=== PATIENT | male | born 1950 | race Caucasian/White ===

== ENCOUNTER 2019-07-15 07:23 | Outpatient (RCR) | payer MEDICARE, SELFPAY ==
--- NOTE | 2019-05-06 10:09 | P.PNWOUND_ITS ---
Wound Care Note Date/Time: 05/06/19 10:09
--- NOTE | 2019-05-06 10:09 | WPDWOUNDNOTE ---
Wound Care Note Date/Time: 05/06/19 10:09
--- NOTE | 2019-05-06 10:13 | P.PNWOUND_ITS ---
Wound Care Note Date/Time: 05/06/19 10:13 History: [facility] wound clinic evaluation for chronic, recurrent right heel DFU and left plantar athlete's foot Wound approximation: No Wound width: 0.5cm Wound length: 1.4cm Wound depth: 0.2cm Drainage: Scant serousanguinous Surrounding tissue appearance: No redness, warmth, swelling or signs of active infection. Tunneling: None Percentage granulation tissue: 100% red/pink wound bed Treatment/Procedures: Debridement of surrounding callused tissue performed under sterile conditions with #15 blade knife, tolerated well. Assessment and Plan Assessment and plan (1) Diabetic foot ulcer: Qualifiers: Diabetic foot ulcer location: heel Diabetes mellitus type: type 2 Laterality: right Non-pressure ulcer stage: limited to breakdown of skin Qualified Code(s): E11.621 - Type 2 diabetes mellitus with foot ulcer; L97.411 - Non-pressure chronic ulcer of right heel and midfoot limited to breakdown of skin Code(s): E11.621 - Type 2 diabetes mellitus with foot ulcer; L97.509 - Non-pressure chronic ulcer of other part of unspecified foot with unspecified severity Status: Acute Assessment and Plan: [facility] wound clinic evaluation for right plantar heel ulcer. Ulcer today measures 1.4x0.5x0.2cm, 100% red/pink wound bed. Surrounding callus/devitalized tissue debrided under sterile conditions with #15 blade knife, tolerated well. No signs of active infection. Continue dressing changes M, T, W, F with regranex, endoform and cover dry with foam. Home health to perform dressing changes MWF. Continue PWB with fracture boot. Follow up in 1 week for reassessment. (2) Athletes foot: Qualifiers: Laterality: left Qualified Code(s): B35.3 - Tinea pedis Code(s): B35.3 - Tinea pedis Status: Acute Assessment and Plan: Peeling/flaky/mascerated tissue on the plantar aspect of the left foot consistent with Athlete's foot due to fungal infection. Improvement with antifungal powder daily. Continue current dressing orders. Follow up weekly. Debridement/Burn/Wound Pre Procedure Consent was obtained, Procedures/risks were explained, Questions were answered, Correct patient identified and Correct side and site confirmed Episode Return Visit Area was prepped and draped using sterile technique?: Yes Ulcer/Wound Debridement, skin, first 20 sq cm or less: Yes Right Wound Location: heel Dressing Applied antibiotic ointment and Applied sterile dressing Post Procedure Patient tolerated the procedure well?: Tolerated procedure well
--- NOTE | 2019-05-13 11:24 | WPDWOUNDNOTE ---
Wound Care Note Date/Time: 05/13/19 11:24 History: Right Heel DFU Left Plantar Atheletes Foot Dressings: Right heel ulcer measures 1.3x0.4x0.2cm, 100% red/pink wound bed. Continue regranex, endoform and cover with foam. Continue Home Health with dressing changes three times weekly. Assessment and Plan Assessment and plan (1) Diabetic foot ulcer: Qualifiers: Diabetic foot ulcer location: heel Diabetes mellitus type: type 2 Laterality: right Non-pressure ulcer stage: limited to breakdown of skin Qualified Code(s): E11.621 - Type 2 diabetes mellitus with foot ulcer; L97.411 - Non-pressure chronic ulcer of right heel and midfoot limited to breakdown of skin Code(s): E11.621 - Type 2 diabetes mellitus with foot ulcer; L97.509 - Non-pressure chronic ulcer of other part of unspecified foot with unspecified severity Status: Acute Assessment and Plan: [facility] wound clinic evaluation for right plantar heel ulcer. Ulcer today measures 1.3x0.4x0.2cm, 100% red/pink wound bed. No signs of active infection. Continue dressing changes M, W, F with regranex, endoform and cover dry with foam. Home health to perform dressing changes MWF. Continue PWB with fracture boot. Follow up in 2 weeks for reassessment. (2) Athletes foot: Qualifiers: Laterality: left Qualified Code(s): B35.3 - Tinea pedis Code(s): B35.3 - Tinea pedis Status: Acute Assessment and Plan: Peeling/flaky/mascerated tissue on the plantar aspect of the left foot consistent with Athlete's foot due to fungal infection. Improvement with antifungal powder daily. Continue current dressing orders. Follow up in 2 weeks. Review of Systems Const Reports as per HPI, Denies chills, Denies fatigue, Denies headache(s), Denies night sweats, Denies weakness, Denies weight gain and Denies weight loss Eyes Reports no additional eye complaints and Denies eye discharge ENT Reports system reviewed and no additional complaints, except as documented, Reports hearing normal, Denies dizziness, Denies headache(s) and Denies neck pain Card Reports no additional cardiovascular complaints, Denies chest pain, Denies syncope, Denies dyspnea and Denies dyspnea on exertion Resp Reports no additional respiratory complaints, Denies dyspnea, Denies dyspnea on exertion and Denies wheezing GI Reports no additional gastrointestinal complaints, Denies abdominal pain, Denies diarrhea and Denies nausea Reports no additional male genitourinary complaints, Denies difficulty urinating, Denies urinary frequency and Denies urinary urgency Musc Reports as per HPI and Denies neck pain Skin/Breast Reports system reviewed and no additional complaints, except as docu Neuro Reports as per HPI, Reports Normal hearing present, Denies dizziness, Denies syncope, Denies headache(s), Denies weakness and Reports other (neuropathy ) Psych Reports no additional psychiatric complaints Endo Reports no additional endocrine complaints, Denies fatigue and Reports other (Diabetes ) Juanito/Lymph Reports no additional hematologic/lymphatic complaints Aller/Immun Reports no additional allergic/immunologic complaints and Denies wheezing Exam Const Constitutional General: healthy appearing; No in distress or confused Orientation/consciousness: oriented to person, oriented to place, oriented to time and No confused HENMT Head: normal to inspection, normocephalic and atraumatic Eyes Conjunctivae: Yes conjunctivae normal Sclera: sclerae normal Neck Neck: Yes supple and No tender Resp Effort & Inspection: normal respiratory effort and no audible wheezes Cardio Rate: Yes regular rate Rhythm: regular rhythm Skin General skin exam: no rashes or lesions noted Neuro General: Yes oriented to person, Yes oriented to place, Yes oriented to time and No confusion Extrem Right upper extremity: normal to inspection Left upper extremity: normal to inspection Other: right heel ulcer improved in overal
--- NOTE | 2019-05-27 09:18 | PCWOUND ---
Patient did not show up for his appointment. Call was made to [facility], spoke with Eva who states that patients' name was crossed off the bus list for today. Rescheduled for next week 06/03/19 at 0900.
--- NOTE | 2019-06-03 08:56 | WPDWOUNDNOTE ---
Wound Care Note Date/Time: 06/03/19 08:56 Right Heel DFU Left Plantar Atheletes Foot Dressings: Right heel ulcer measures 1.3x0.4x0.2cm, 100% red/pink wound bed. Continue regranex, endoform and cover with foam. Continue Home Health with dressing changes three times weekly. Assessment and Plan Assessment and plan (1) Diabetic foot ulcer: Qualifiers: Diabetic foot ulcer location: heel Diabetes mellitus type: type 2 Laterality: right Non-pressure ulcer stage: limited to breakdown of skin Qualified Code(s): E11.621 - Type 2 diabetes mellitus with foot ulcer; L97.411 - Non-pressure chronic ulcer of right heel and midfoot limited to breakdown of skin Code(s): E11.621 - Type 2 diabetes mellitus with foot ulcer; L97.509 - Non-pressure chronic ulcer of other part of unspecified foot with unspecified severity Status: Acute Assessment and Plan: [facility] wound clinic evaluation for right plantar heel ulcer. Ulcer today measures 0.7x0.3x0.2cm, 100% red/pink wound bed. No signs of active infection. Continue dressing changes M, W, F with regranex, endoform and cover dry with foam. Home health to perform dressing changes MWF. Continue PWB with fracture boot. Follow up in 2 weeks for reassessment. Patient requires custom fabricated orthosis. The patient is unable to be fit with a pre fabricated orthosis. Patient's condition is expected duration of greater than 1 year. Due to the patients orthopedic status with bone and soft tissue deformity, weakness, neurologic involvement custom fabricating is necessary to prevent tissue injury. The patient requires a custom orthosis for diabetes with neuropathy/previous toe ampuations. Currently awaiting sign off from Dr. Lu, PCP. Jerry contacted and requested that appropriate PPW be faxed to Dr. Lu for his planned visit today. All information should then be faxed to Jerry in order to set patient up for an appointment to have custom orthotics/depth shoes fabricated. (2) Athletes foot: Qualifiers: Laterality: left Qualified Code(s): B35.3 - Tinea pedis Code(s): B35.3 - Tinea pedis Status: Acute Assessment and Plan: Peeling/flaky tissue on the plantar aspect of the left foot consistent with Athlete's foot due to fungal infection. Improvement with antifungal powder daily. Now that skin is dry, transition to lotion. Patient aware and states he has antifungal lotion at home. Continue current dressing orders. Follow up in 2 weeks. Exam Const Constitutional General: healthy appearing; No in distress or confused Orientation/consciousness: oriented to person, oriented to place, oriented to time and No confused HENMT Head: normal to inspection, normocephalic and atraumatic Eyes Conjunctivae: Yes conjunctivae normal Sclera: sclerae normal Neck Neck: Yes supple and No tender Resp Effort & Inspection: normal respiratory effort and no audible wheezes Cardio Rate: Yes regular rate Rhythm: regular rhythm Skin General skin exam: no rashes or lesions noted Neuro General: Yes oriented to person, Yes oriented to place, Yes oriented to time and No confusion Extrem Right upper extremity: normal to inspection Left upper extremity: normal to inspection Other: Right heel ulcer measures 0.7x0.3x0.2cm, 100% red/pink wound bed. Athlete's foot on the plantar aspect of the LEFT foot. Diabetic Foot Exam Date of last foot exam: 06/03/19 Visual inspection of feet performed: Yes Inspection: Yes foot deformity (Calcaneus bilaterally, amputation lateral rays left foot) and Yes ulceration ( right plantar heel, ulcer dimensions in wound section ) Peripheral pulse exam performed: Yes Pulses: L dorsalis pedis pulse: diminished, R dorsalis pedis pulse: diminished, L posterior tibial pulse: diminished and R posterior tibial pulse: diminished Sensory exam performed: Yes Monofilament Exam: L 1st metatarsals: decreased, L 3rd metatarsals: decreased, L great toe: decreased, L 3rd
--- NOTE | 2019-07-01 09:37 | WPDWOUNDNOTE ---
Wound Care Note Date/Time: 07/01/19 09:37 Right Heel DFU Left Plantar Atheletes Foot Dressings: Right heel ulcer measures 0.5x0.3x0.3 cm, 100% red/pink wound bed. Continue Regranex, endoform and cover with foam. Continue Home Health with dressing changes three times weekly. Assessment and Plan Assessment and plan (1) Diabetic foot ulcer: Qualifiers: Diabetic foot ulcer location: heel Diabetes mellitus type: type 2 Laterality: right Non-pressure ulcer stage: limited to breakdown of skin Qualified Code(s): E11.621 - Type 2 diabetes mellitus with foot ulcer; L97.411 - Non-pressure chronic ulcer of right heel and midfoot limited to breakdown of skin Code(s): E11.621 - Type 2 diabetes mellitus with foot ulcer; L97.509 - Non-pressure chronic ulcer of other part of unspecified foot with unspecified severity Status: Acute Assessment and Plan: [facility] wound clinic evaluation for right plantar heel ulcer. Ulcer today measures 0.5x0.3x0.3cm, 100% red/pink wound bed. No signs of active infection. Continue dressing changes M, W, F with regranex, endoform and cover dry with foam. Home health to perform dressing changes MWF. Continue PWB with fracture boot. Follow up in 2 weeks for reassessment. (2) Athletes foot: Qualifiers: Laterality: left Qualified Code(s): B35.3 - Tinea pedis Code(s): B35.3 - Tinea pedis Status: Acute Assessment and Plan: Continue antifungal lotion daily. Follow up in 2 weeks. Exam Const Constitutional General: healthy appearing; No in distress or confused Orientation/consciousness: oriented to person, oriented to place, oriented to time and No confused [facility] Head: normal to inspection, normocephalic and atraumatic Eyes Conjunctivae: Yes conjunctivae normal Sclera: sclerae normal Neck Neck: Yes supple and No tender Resp Effort & Inspection: normal respiratory effort and no audible wheezes Cardio Rate: Yes regular rate Rhythm: regular rhythm Skin General skin exam: no rashes or lesions noted Neuro General: Yes oriented to person, Yes oriented to place, Yes oriented to time and No confusion Extrem Right upper extremity: normal to inspection Left upper extremity: normal to inspection Other: Right heel ulcer measures 0.5x0.3x0.3cm, 100% red/pink wound bed. Athlete's foot on the plantar aspect of the LEFT foot. Diabetic Foot Exam Date of last foot exam: 07/01/19 Visual inspection of feet performed: Yes Inspection: Yes foot deformity (Calcaneus bilaterally, amputation lateral rays left foot) and Yes ulceration ( right plantar heel, ulcer dimensions in wound section ) Peripheral pulse exam performed: Yes Pulses: L dorsalis pedis pulse: diminished, R dorsalis pedis pulse: diminished, L posterior tibial pulse: diminished and R posterior tibial pulse: diminished Sensory exam performed: Yes Monofilament Exam: L 1st metatarsals: decreased, L 3rd metatarsals: decreased, L great toe: decreased, L 3rd toe: decreased, L 5th toe: decreased, L medial mid foot: decreased, L lateral mid-foot: decreased, L mid-heel: decreased, L mid-dorsum foot: decreased, R 1st metatarsals: decreased, R 3rd metatarsals: decreased, R 5th metatarsals: decreased, R great toe: decreased, R 3rd toe: decreased, R 5th toe: decreased, R medial mid foot: decreased, R lateral mid-foot: decreased and R mid-heel: decreased Monofilament foot exam results: Left foot: abnormal and Right foot: abnormal Pinprick: L great toe: abnormal and R great toe: abnormal Ankle reflex: Left: abnormal and Right: abnormal Diabetic foot care education: provided Psych Affect: Yes normal affect Review of Systems Const Reports as per HPI, Denies chills, Denies fatigue, Denies headache(s), Denies night sweats, Denies weakness, Denies weight gain and Denies weight loss Eyes Reports no additional eye complaints and Denies eye discharge ENT Reports system reviewed and no additional complaints, except as documented, Reports heari
--- NOTE | 2019-07-15 11:21 | WPDWOUNDNOTE ---
Wound Care Note Date/Time: 07/15/19 11:21 Right Heel DFU Left Plantar Atheletes Foot Dressings: Right heel ulcer now completely closed, 100% red/pink wound bed. Continue with foam of right heel. Continue Home Health with dressing changes x1 week and then stop. Assessment and Plan Assessment and plan (1) Diabetic foot ulcer: Qualifiers: Diabetic foot ulcer location: heel Diabetes mellitus type: type 2 Laterality: right Non-pressure ulcer stage: limited to breakdown of skin Qualified Code(s): E11.621 - Type 2 diabetes mellitus with foot ulcer; L97.411 - Non-pressure chronic ulcer of right heel and midfoot limited to breakdown of skin Code(s): E11.621 - Type 2 diabetes mellitus with foot ulcer; L97.509 - Non-pressure chronic ulcer of other part of unspecified foot with unspecified severity Status: Acute Assessment and Plan: [facility] wound clinic evaluation for right plantar heel ulcer. Ulcer today now completely healed. No signs of infection. Continue use of foam to the heel for additional pressure offloading. Home health to perform dressing changes 2 times this week and then may stop visits. Continue PWB with fracture boot. Patient needs to be fit with custom orthotics/depth shoes. Need to verify with PCP that patient has been approved. 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 Follow up in 3 weeks for reassessment. (2) Athletes foot: Qualifiers: Laterality: left Qualified Code(s): B35.3 - Tinea pedis Code(s): B35.3 - Tinea pedis Status: Acute Assessment and Plan: Continue lotrisone lotion. Follow up in 3 weeks. Exam Const Constitutional General: healthy appearing; No in distress or confusion Orientation/consciousness: oriented to person, oriented to place, oriented to time and No confusion HENMT Head: normal to inspection, normocephalic and atraumatic Eyes Conjunctivae: Yes conjunctivae normal Sclera: sclerae normal Neck Neck: Yes supple and No tender Resp Effort & Inspection: normal respiratory effort and no audible wheezes Cardio Rate: Yes regular rate Rhythm: regular rhythm Skin General skin exam: no rashes or lesions noted Neuro General: Yes oriented to person, Yes oriented to place, Yes oriented to time and No confusion Extrem Right upper extremity: normal to inspection Left upper extremity: normal to inspection Other: Right heel ulcer completely healed Athlete's foot on the plantar aspect of the LEFT foot. Diabetic Foot Exam Visual inspection of feet performed: Yes Inspection: Yes foot deformity (Calcaneus bilaterally, amputation lateral rays left foot) and Yes ulceration ( right plantar heel, ulcer dimensions in wound section ) Peripheral pulse exam performed: Yes Pulses: Left dorsalis pedis peripheral pulse: diminished, Right dorsalis pedis peripheral pulse: diminished, L posterior tibial pulse: diminished and Right posterior tibial pulse foot exam: diminished Sensory exam performed: Yes Monofilament Exam: L 1st metatarsals: decreased, Left 3rd metatarsals monofilament exam: decreased, L great toe: decreased, L 3rd toe: decreased, L 5th toe: decreased, Left medial mid foot: decreased, Left lateral mid-foot: decreased, Left mid-heel: decreased, Left mid-dorsum foot: decreased, R 1st metatarsals: decreased, R 3rd metatarsals: decreased, R 5th metatarsals: decreased, R great toe: decreased, R 3rd toe: decreased, R 5th toe: decreased, Right medial mid foot: decreased, Right lateral mid-foot: decreased and Right mid-heel: decreased Monofilament foot exam results: Left foot: abnormal and Right foot: abnormal Pinprick: L great toe: abnormal and R great toe: abnormal Ankle reflex: Left: abnormal and Right: abnormal Diabetic foot care education: provided Psych Affect: Yes normal affect Review of Systems Const Reports as per HPI, Denies chills, Denies fatigue, Denies headache(s), Denies night sweats, Denies weakness, Denies weight gain and Denie
== END 2019-07-28 23:59 | disposition home or self-care (01) ==
LOC: ANHWOC 07:23
PROVIDERS: PCP Family Medicine; Referring Provider Nurse Practitioner Family; Visit Provider Nurse Practitioner Family
DX: E11.621 Type 2 diabetes mellitus with foot ulcer (principal); L97.529 Non-pressure chronic ulcer of other part of left foot with unspecified severity; L97.519 Non-pressure chronic ulcer of other part of right foot with unspecified severity; E11.65 Type 2 diabetes mellitus with hyperglycemia; E13.610 Other specified diabetes mellitus with diabetic neuropathic arthropathy; B35.3 Tinea pedis
CPT/HCPCS: 11043; 92593; 97602; 99202; 99212; G0463

== ENCOUNTER 2019-08-05 09:15 | Outpatient (RCR) | payer MEDICARE, SELFPAY ==
--- NOTE | 2019-08-05 09:59 | PM.PNORT ---
Progress Note: A&P Assessment and Plan (1) Diabetic foot ulcer: Qualifiers: Diabetic foot ulcer location: heel Diabetes mellitus type: type 2 Laterality: right Non-pressure ulcer stage: limited to breakdown of skin Qualified Code(s): E11.621 - Type 2 diabetes mellitus with foot ulcer; L97.411 - Non-pressure chronic ulcer of right heel and midfoot limited to breakdown of skin Code(s): E11.621 - Type 2 diabetes mellitus with foot ulcer; L97.509 - Non-pressure chronic ulcer of other part of unspecified foot with unspecified severity Status: Acute Assessment and Plan: Right heel diabetic foot ulcer with callus formation. Callus debrided today with 15 blade knife under sterile conditions. Discussed medical necessity for custom inserts and accommodative shoes. Continue with postoperative shoe in the interim. Follow up in 2 months for re-evaluation. Notify office immediately for any concerns, changes or problems. 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 Notify office immediately for any concerns or changes. Patient medically necessary for custom inserts and accommodative shoes bilaterally. Medically necessary for custom prosthetic fit and fabrication. Patient condition requires custom fitting due to bone, joint, musculoskeletal deformity. Unable to fit with [id number] brace. Patient condition will be improved with bracing. Condition likely to deteriorate without custom support Indicated for custom bilateral full-length custom insert with right heel offload and accommodative shoes Subjective Subjective Date/Time Seen: 08/05/19 09:15 Patient presents to the [facility] wound clinic for re-evaluation of right foot. No reports of drainage, redness or swelling. No pain secondary to neuropathy. Patient is still waiting to get custom inserts and shoes. No other complaints. Review of Systems Constitutional: Constitutional: Denies fever(s) Eyes: Eyes: Reports blurry vision and Reports loss of vision ENT: Reports Normal hearing present Cardiovascular: Cardiovascular: Denies chest pain and Denies dyspnea Respiratory: Respiratory: Denies dyspnea and Denies wheezing Gastrointestinal: Gastrointestinal: Denies abdominal pain Genitourinary: Genitourinary: Denies urinary urgency Musculoskeletal: Musculoskeletal: Reports as per HPI and Reports numbness (Bilateral feet) Integumentary/Breasts: Skin/Breast: Reports other (Callus right heel) Neurologic: Reports Normal hearing present, Denies behavioral changes, Denies confusion, Reports numbness and Denies convulsions Psychiatric: Psychiatric: Denies behavioral changes, Denies confusion and Denies hallucinations Endocrine: Endocrine: Denies heat intolerance Hematologic/Lymphatic: Hematologic/Lymphatic: Denies easy bleeding Allergic/Immunologic: Allergic/Immunologic: Denies wheezing Exam Const: General: healthy appearing; No in distress or confusion Orientation/consciousness: oriented to person, oriented to place, oriented to time and No confusion HENMT: Head: normal to inspection, normocephalic and atraumatic Eyes: Conjunctivae: conjunctivae normal Sclera: sclerae normal Neck: Neck: supple and nontender Resp: Effort & Inspection: normal respiratory effort and no audible wheezes Cardio: Rate: regular rate Rhythm: regular rhythm Skin: General skin exam: no rashes or lesions noted Neuro: General: oriented to person, oriented to place, oriented to time and No confusion Extrem: Right upper extremity: normal to inspection Left upper extremity: normal to inspection Ankle/foot/toe images: 1.
== END 2019-10-20 09:19 | disposition home or self-care (01) ==
LOC: ANHWOC 09:15
PROVIDERS: PCP Family Medicine; Visit Provider Nurse Practitioner Family
DX: E11.621 Type 2 diabetes mellitus with foot ulcer (principal); L97.419 Non-pressure chronic ulcer of right heel and midfoot with unspecified severity
CPT/HCPCS: 11043

== ENCOUNTER 2020-04-22 08:05 | Inpatient (IN) | payer MEDICARE, MEDICAID, SELFPAY ==
[2020-04-22] VITALS (36 sets, daily range): BP systolic 71–142; BP diastolic 36–98; PULSE 77–109; RESP 9–32; TEMP 36.3–37.2; O2SAT 86–100
--- NOTE | ~2020-04-22 | XR_ITS ---
EXAMINATION: XR chest 2V 04/24/2020 13:24 INDICATION: Preop. History of diabetes. PROCEDURE: 2 view chest COMPARISON: Comparison to multiple prior studies sequentially, with oldest reviewed study dated 03/26. FINDINGS: The lungs are clear. The cardiomediastinal silhouette is within normal limits. There are no pleural effusions. There is no pneumothorax suspected. IMPRESSION: 1: NO ACUTE CARDIOPULMONARY DISEASE. Reviewed, dictated and finalized at location A.
--- NOTE | ~2020-04-22 | CT_ITS ---
EXAMINATION: CT abdomen pelvis w con DATE: 04/22/2020 09:27 INDICATION: Abdominal pain. TECHNIQUE: Computed tomography (CT) of the abdomen and pelvis was performed with 100 mL Omnipaque 350 intravenous contrast. Automated exposure control and iterative reconstruction technique were employe d. The dose-length product was 2038.19 mGy-cm. COMPARISON: None. FINDINGS: The visualized portions of the lung bases demonstrate mild atelectasis. No pleural effusion . The heart size is normal. No pericardial effusion. There is bilateral gynecomastia. The liver and s pleen are normal. There is a gallstone in the gallbladder, which is normal in size. There are calcifi cations of the pancreas, consistent with chronic sinusitis. The adrenal glands are normal. There is c ortical thinning of the kidneys. There is a right inguinal hernia containing fat. There is wall thick ening of the rectosigmoid. There is a focal area of wall thickening of the sigmoid colon with an endo luminal component. There are no dilated loops of bowel. The appendix is not visualized. There are no pathologically enlarged lymph nodes. There is no free intraperitoneal fluid. There is an old healed r ight rib fracture. IMPRESSION: 1. Focal wall thickening of the sigmoid colon with an endoluminal component suspicious for primary ad enocarcinoma. Colonoscopy is recommended. 2. Mild wall thickening of the rectosigmoid, consistent with colitis. 3. Right inguinal hernia containing fat. Reviewed, dictated and finalized at location A. IMPRESSION: 1. Focal wall thickening of the sigmoid colon with an endoluminal component gaurav picious for primary adenocarcinoma. Colonoscopy is recommended. 2. Mild wall thickening of the rectosigmoid, consistent with colitis. 3. Right inguinal hernia containing fat.
--- NOTE | ~2020-04-22 | XR_ITS ---
XR foot RT min 3V 04/24/2020 12:28 Indication: Right foot pain. Left heel mass with tenderness. Procedure: 4 views right foot Comparison: Comparison to multiple prior studies sequentially, with oldest reviewed study dated Flash rison to multiple prior studies sequentially, with oldest reviewed study dated 10/07/2014. . Findings: There is polyarticular osteoarthritis. There is amputation of the first toe at the distal p halanx. There are large osteophytes of the calcaneus at the insertion of the Achilles tendon and plan tar fascia. No significant soft tissue abnormality. No radiopaque foreign bodies. 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 2: Large calcaneal enthesophytes. 3: Status post amputation right first distal phalanx. Reviewed, dictated and finalized at location A. 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 2: Large calcaneal enthesophytes. 3: Status post amputation right first distal phalanx.
--- NOTE | 2020-04-22 08:12 | ECG_ITS ---
Measurements Intervals Anthony Rate: 96 P: 34 OK: 147 QRS: 82 QRSD: 138 T: 15 QT: 370 QTc: 468 Interpretive Statements SINUS RHYTHM RIGHT BUNDLE BRANCH BLOCK BASELINE ARTIFACT- I, II, III, AVR, V3-V6 ABNORMAL ECG Electronically Signed On 04-22-2020 9:33:40 CDT by Viraj Joaquin D.O.
--- NOTE | 2020-04-22 08:19 | ED.GENADULT ---
HPI - General Adult General Chief complaint: Nausea/Vomiting/Diarrhea Stated complaint: ABD PAIN Time Seen by Provider: 04/22/20 08:07 Source: patient History of Present Illness HPI narrative: Patient is a 69 y/o male complaining of intermittent, generalized abdominal pain for last 2 days. He describes his pain as sharp and rates it 8/10 when it occurs. He attempted to turn to side, which did not relieve his pain. He also has some vomiting and diarrhea. Related Data Home Medications Medication Instructions Recorded Confirmed aspirin 81 mg PO DAILY 04/18/19 04/18/19 atorvastatin 20 mg PO HS 04/18/19 04/18/19 citalopram 20 mg PO DAILY 04/18/19 04/18/19 duloxetine [Cymbalta] 30 mg PO DAILY 04/18/19 04/18/19 fenofibrate 160 mg PO DAILY 04/18/19 04/18/19 insulin glargine 100 unit SUBCUT DAILY 04/18/19 04/18/19 melatonin 10 mg PO HS 04/18/19 04/18/19 mgikcjax-lan-nlnqt-vit K-lycop 1 tablet PO DAILY 04/18/19 05/13/19 [Men's Multivitamin] docusate sodium [Colace] 50 mg PO BID 04/22/20 dulaglutide [Trulicity] 1.5 mg SUBCUT WEEKLY 04/22/20 ergocalciferol (vitamin D2) 50,000 unit PO 04/22/20 [Vitamin D2] insulin glargine [Lantus Solostar 60 unit SUBCUT QAM 04/22/20 U-100 Insulin] insulin lispro [Humalog Clive 3 unit SUBCUT 04/22/20 04/22/20 KwikPen U-100] lisinopril 10 mg PO DAILY 04/22/20 multivitamin [Family Multivitamin] 1 tablet PO DAILY 04/22/20 Allergies Allergy/AdvReac Type Severity Reaction Status Date / Time sitagliptin Allergy Severe Confusion Verified 04/22/20 08:43 Review of Systems Constitutional: Constitutional: Denies chills, Denies fever(s), Denies headache(s) and Denies weakness Eyes: Eyes: Denies blurry vision ENT: Denies headache(s) and Denies neck pain Cardiovascular: Cardiovascular: Denies chest pain and Denies dyspnea Respiratory: Respiratory: Denies cough and Denies dyspnea Gastrointestinal: Gastrointestinal: Reports abdominal pain, Reports diarrhea, Reports nausea and Reports vomiting Genitourinary: Genitourinary: Denies hematuria and Denies dysuria Musculoskeletal: Musculoskeletal: Denies back pain and Denies neck pain Neurologic: Denies headache(s) and Denies weakness PMFSH Past Medical History Medical History 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, managed as type 2 Diabetic foot ulcer Neuropathic arthritis due to secondary diabetes Social History Social History Smoking status: Never smoker Exam Const: General: no acute distress and well developed Orientation/consciousness: oriented to person, oriented to place, oriented to time and patient oriented x3 HENMT: Head: normocephalic Ears: external ears normal General nose exam: Normal external nose present Eyes: General: appearance normal, both eyes and all related structures Conjunctivae: conjunctivae normal Neck: Neck: normal visual inspection and full ROM Chest: Chest palpation & inspection: normal inspection of the chest and no tenderness Resp: Effort & Inspection: normal respiratory effort Auscultation: clear to auscultation bilaterally Cardio: Rate: regular rate Rhythm: regular rhythm GI: GI Palp: No abdominal tenderness and Yes Soft to palpation Skin: General skin exam: normal color and turgor normal Neuro: General: oriented to person, oriented to place, oriented to time and patient oriented x3 Cognition (Neuro): normal cognition Extrem: General: normal to inspection, full ROM and no pedal edema Psych: Appearance: grossly normal Mental Status: mental status grossly normal Affect: normal affect Course Consultations Consultation #1: Discussed with Dr. Munson (hospitalist), who agrees to admit. Date: 04/22/20 Time: 09:53 Consultation #2: Discussed with Dr. Paul (GI), who agrees to consult. Date: 04/22/20 Time: 09:58 Vital Signs Vital signs: Vital Signs Pulse Rate 97 04/22/20 08:14 Respi
[2020-04-22 08:31] LABS: Basophils Absolute Auto 0.1 K/mm3 (0.0-0.1); Basophils Percent Auto 0.5 % (0.2-1.2); Eosinophils Absolute Auto 0.3 K/mm3 (0-0.3); Eosinophils Percent Auto 1.6 % (0-4.4); Hematocrit 48.7 % (42.0-52.0); Hemoglobin 15.7 g/dL (14.0-18.0); Immature Granulocyte Absolute 0.17 K/mm3 (0.00-0.031); Lymphocytes Absolute Auto 2.06 K/mm3 (0.9-3.2); Lymphocytes Percent Auto 12.1 % (18.3-44.2); Mean Corpuscular HGB Conc 32.2 g/dl (32-36); Mean Corpuscular Hemoglobin 30.1 pg (26-34); Mean Corpuscular Volume 93.5 fl (80-100); Mean Platelet Volume 10.1 fl (7.4-10.4); Monocytes Absolute Auto 0.6 K/mm3 (0.1-0.6); Monocytes Percent Auto 3.3 % (2.6-8.5); Neutrophils Absolute Auto 13.9 K/mm3 (1.3-6.7); Neutrophils Percent Auto 81.5 % (45.5-73.1); Platelet Count Result 392 k/mm3 (150-375); Red Blood Count 5.21 M/mm3 (4.6-6.20); Red Cell Distribution Width 12.6 % (11.5-14.5); White Blood Count 17.1 K/mm3 (4.5-10.0)
[2020-04-22 08:36] LABS: Add Urine Microscopic? YES; Appearance Urine Clear (Clear); Bilirubin Urine Negative (Negative); Blood Urine Negative (Negative); Color Urine Yellow (Yellow); Glucose Urine UA 2+ mg/dL (Negative); Ketones Urine Negative (Negative); Leukocyte Esterase Ur Negative LEU/UL (Negative); Mucus Urine Rare /lpf; Nitrate Urine Negative (Negative); Protein Urine Negative (Negative); RBC Urine 0-2 /hpf (0-2); Specific Grav Ur 1.018 (1.001-1.035); WBC Urine 0-3 /hpf
[2020-04-22 08:45] LABS: Alanine Aminotransferase 49 U/L (4-50); Albumin Level 3.9 g/dL (3.5-5.1); Alkaline Phosphatase 56 U/L (38-126); Anion Gap 13 mmol/L (8-16); Aspartate Amino Transferase 57 U/L (17-59); Blood Urea Nitrogen 33 mg/dL (9-20); Calcium 9.7 mg/dL (8.4-10.2); Carbon Dioxide 25 mmol/L (22-30); Chloride 100 mmol/L (98-107); Estimated CRCL calculation 40 ml/min; Estimated Glomerular Filt Rate 33; Glucose 155 mg/dL (75-110); Lipase 496 U/L (23-300); Sodium 138 mmol/L (137-145)
[2020-04-22] MEDS: SODIUM CHLORIDE 0.9% IV 1,000 ML 999 ML IV CONT ×3 (09:43→17:27)
[2020-04-22] MEDS: metroNIDAZOLE 500 MG/ISO 100ML 500 MG/100 ML BAG 100 MG IVPB (10:22)
[2020-04-22] MEDS: CIPROFLOXACIN 400 MG/D5W 200ML 200 ML 200 MG IVPB (10:23)
--- NOTE | 2020-04-22 11:54 | WPDGICN ---
Assessment and Plan Assessment and plan (1) Abnormal CT scan: Code(s): R93.89 - Abnormal findings on diagnostic imaging of other specified body structures Status: Acute Assessment and Plan: Patient has abnormal CT scan suspicious for colon mass. This appears to correlate with his difficulty with bowel habits. He may have a partial obstruction. Plan is to attempt laxative cleansing with enemas and then a subsequent colonoscopy tomorrow after preparation. Continue monitor hemoglobin in the antrum. (2) Diabetes 1.5, managed as type 2: Code(s): E13.9 - Other specified diabetes mellitus without complications Status: Acute (3) Diabetic foot ulcer: Qualifiers: Diabetic foot ulcer location: heel Diabetes mellitus type: type 2 Laterality: right Non-pressure ulcer stage: limited to breakdown of skin Qualified Code(s): E11.621 - Type 2 diabetes mellitus with foot ulcer; L97.411 - Non-pressure chronic ulcer of right heel and midfoot limited to breakdown of skin Code(s): E11.621 - Type 2 diabetes mellitus with foot ulcer; L97.509 - Non-pressure chronic ulcer of other part of unspecified foot with unspecified severity Status: Acute GI Consult Note Consult date/time: 04/22/20 11:54 HPI: Kojo Quispe is a 69 year old male I am asked to see at the request of the emergency room. Patient presents with a 2-3 day history of abdominal pain. His bowel habits have changed. He states he strains with stool. Will occasionally have diarrhea stool. This has been associated with some nausea. Denies any bleeding or weight loss. In the emergency room a CT scan was performed which revealed a question of a distal rectal sigmoid mass suspicious for carcinoma. Past medical history is significant for diabetes mellitus. He has had appy taken as several toes on this basis. 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, managed as type 2 Diabetic foot ulcer Neuropathic arthritis due to secondary diabetes Social History Social History Smoking status: Never smoker Meds Home Medications and Allergies Home Medications Medication Instructions Recorded Confirmed Type aspirin 81 mg PO DAILY 04/18/19 04/18/19 History atorvastatin 20 mg PO HS 04/18/19 04/18/19 History citalopram 20 mg PO DAILY 04/18/19 04/18/19 History duloxetine [Cymbalta] 30 mg PO DAILY 04/18/19 04/18/19 History fenofibrate 160 mg PO DAILY 04/18/19 04/18/19 History insulin glargine 100 unit SUBCUT DAILY 04/18/19 04/18/19 History melatonin 10 mg PO HS 04/18/19 04/18/19 History rywnjznq-pix-gmtju-vit K-lycop 1 tablet PO DAILY 04/18/19 05/13/19 History [Men's Multivitamin] docusate sodium [Colace] 50 mg PO BID 04/22/20 History dulaglutide [Trulicity] 1.5 mg SUBCUT WEEKLY 04/22/20 History ergocalciferol (vitamin D2) 50,000 unit PO 04/22/20 History [Vitamin D2] insulin glargine [Lantus Solostar 60 unit SUBCUT QAM 04/22/20 History U-100 Insulin] insulin lispro [Humalog Clive 3 unit SUBCUT 04/22/20 04/22/20 History KwikPen U-100] lisinopril 10 mg PO DAILY 04/22/20 History multivitamin [Family Multivitamin] 1 tablet PO DAILY 04/22/20 History Allergies Allergy/AdvReac Type Severity Reaction Status Date / Time sitagliptin Allergy Severe Confusion Verified 04/22/20 08:43 Vital Signs Vital Signs - 24 hr 04/22/20 08:14 04/22/20 08:15 04/22/20 08:17 Temperature 98.9 F Pulse Rate 97 101 H 92 Respiratory Rate 16 15 22 H Blood Pressure 114/61 Pulse Oximetry 100 95 94 04/22/20 08:26 04/22/20 08:30 04/22/20 08:31 Temperature Pulse Rate 102 H 109 H 107 H Respiratory Rate 28 H 25 H 29 H Blood Pressure 101/81 127/85 Pulse Oximetry 97 98 97 10
[2020-04-22] MEDS: SODIUM CHLORIDE 0.9% IV 1,000 ML 125 ML IV CONT (13:25)
--- NOTE | 2020-04-22 14:06 | PC.NURSE ---
BP 80/36 [facility] NOTIFIED AND NEW ORDERS RECEIVED
--- NOTE | 2020-04-22 14:11 | PC.NURSE ---
low BP noted 80/36 manual, pt is asymptomatic, denies any light headedness, is in his normal state of orientation, denies anything
--- NOTE | 2020-04-22 14:30 | PM.IMHP ---
H&P: HPI History of Present Illness Date/Time: 04/22/20 14:30 Chief complaint: Abdominal discomfort. Narrative: Kojo Quispe is a 69-year-old male with chronic kidney disease stage 3, type 2 diabetes mellitus, hypertension, and dyslipidemia who presented to the emergency department earlier today via EMS for evaluation of abdominal discomfort. He has had intermittent, generalized abdominal discomfort over the past 24 hours or so, of which he is vague and has a difficult time describing, but goes on to say that it is occasionally sharp and shooting in nature. He gives no aggravating or alleviating factors. He also complains of both diarrhea and constipation, but with further questioning it sounds as though he has tenesmus and he notes only having 1 or 2 loose stools over the past 2 days. ED triage note states that he had abdominal distension as well however he denies that to me. His appetite has been okay and he denies nausea and vomiting. No blood or mucus in the stool. No fever, chills, or sweats. Weight has remained stable. He has never had a colonoscopy. No sick contacts, recent travel or antibiotic use. Review of Systems Review of Systems: Narrative: Twelve systems were reviewed with pertinent positives and negatives as per HPI. No cold or flu symptoms. He denies fever, chills, and sweats. Denies chest pain and shortness of breath. No cough. Reports urinary incontinence, telling me he has an urge to urinate and it just comes out almost immediately. He is not on any medication for BPH that I can see. No dysuria, hesitancy, or malodorous urine. He denies history of urinary retention. His diabetes has always been not very well controlled with a hemoglobin A1c around 9% today. He suffers from pretty significant neuropathy in the lower legs. No blurry vision, polydipsia, or polyuria. Except as documented, all other systems were reviewed and are negative. [facility] Past Medical History Medical History (Updated 04/22/20 @ 15:52 by Kaylin Boggs PA-C) Arterial insufficiency Chronic kidney disease, stage 3 Baseline creatinine ranges between 1.3 and 1.70. Diabetic foot ulcer History of left heel ulcer with calcaneal osteomyelitis status post debridement. Dyslipidemia Essential hypertension Insulin dependent type 2 diabetes mellitus Hemoglobin A1c was 9.1% in March 2020. 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 History of appendectomy History of removal of cyst From the side of the neck. Status post debridement 09/2014: Excisional debridement of osteomyelitis of both feet. 04/2015: Excisional debridement of right foot ulcer with excision of osteomyelitis of the right calcaneus and skin graft. Family History Family History (Updated 04/22/20 @ 15:52 by Kaylin Boggs PA-C) Mother Dementia Father Diabetes mellitus Acute myocardial infarction Social History Social History (Updated 04/22/20 @ 15:53 by Kaylin Boggs PA-C) Social History: Surrogate decision maker: Bibiana Quispe, daughter. Code status: Full code. Smoking packs per day: 1 Smoking cigarettes per day: 20.0 Years smoked: 25 Smoking pack-years: 25.00 Smoking status: Former smoker Alcohol intake: current Drinks per week: 2 Substance use: former Substance use type: marijuana Additional living arrangements comments: Resident at [facility]. Ambulates with a walker or is in a wheelchair. Occupation/Education: retired Gender identity (if verbalized by the patient): Male Sexual Orientation (if Verbalized by the Patient): Straight or Heterosexual Spiritual care concerns: No Meds Home Medications and Allergies Home Medications Medication Instructions Recorded Confirmed Type aspirin 81 mg P
[2020-04-22 14:57] LABS: Lactic Acid Reflex 1.4 mmol/L (0.7-2.1)
[2020-04-22 15:01] LABS: Hemoglobin A1C 9.1 % (<5.7)
[2020-04-22 16:35] LABS: Glucose Point of Care 51 (65-105)
[2020-04-22 16:35] LABS: Glucose Point of Care 60 (65-105)
[2020-04-22] MEDS: DEXTROSE 50% 25 GM/50 ML SYRINGE IV PUSH ×2 (16:36→21:35)
[2020-04-22 17:11] LABS: Glucose Point of Care 97 (65-105)
[2020-04-22] MEDS: GLUCOSE ORAL GEL 15 GM OF GLUCSE IN 37.5 GM TUBE PO ×2 (20:43→20:59)
[2020-04-22 21:04] LABS: Glucose Point of Care 43 (65-105)
[2020-04-22 21:04] LABS: Glucose Point of Care 46 (65-105)
[2020-04-22] MEDS: DEXTROSE 5%/0.9% SOD CHL 1,000 ML 100 ML IV CONT (21:21)
[2020-04-22 21:55] LABS: Glucose Point of Care 222 (65-105)
[2020-04-22 21:55] LABS: Glucose Point of Care 48 (65-105)
[2020-04-22 23:05] LABS: Glucose Point of Care 186 (65-105)
[2020-04-23] VITALS (9 sets, daily range): BP systolic 108–172; BP diastolic 46–66; PULSE 67–87; RESP 14–20; TEMP 36.2–37.1; O2SAT 96–100; BMI 32.4
[2020-04-23 00:09] LABS: Glucose Point of Care 152 (65-105)
[2020-04-23 01:52] LABS: Glucose Point of Care 111 (65-105)
[2020-04-23 04:14] LABS: Glucose Point of Care 93 (65-105)
[2020-04-23 05:32] LABS: Basophils Absolute Auto 0.1 K/mm3 (0.0-0.1); Basophils Percent Auto 0.7 % (0.2-1.2); Eosinophils Absolute Auto 0.2 K/mm3 (0-0.3); Eosinophils Percent Auto 2.7 % (0-4.4); Hematocrit 37.5 % (42.0-52.0); Hemoglobin 12.3 g/dL (14.0-18.0); Immature Granulocyte Absolute 0.03 K/mm3 (0.00-0.031); Immature Granulocyte Percent A 0.3 % (0-0.5); Lymphocytes Absolute Auto 2.59 K/mm3 (0.9-3.2); Lymphocytes Percent Auto 29.9 % (18.3-44.2); Mean Corpuscular HGB Conc 32.8 g/dl (32-36); Mean Corpuscular Hemoglobin 29.5 pg (26-34); Mean Corpuscular Volume 89.9 fl (80-100); Mean Platelet Volume 10.4 fl (7.4-10.4); Monocytes Absolute Auto 0.8 K/mm3 (0.1-0.6); Neutrophils Percent Auto 57.4 % (45.5-73.1); Platelet Count Result 271 k/mm3 (150-375); Red Blood Count 4.17 M/mm3 (4.6-6.20); Red Cell Distribution Width 12.7 % (11.5-14.5); White Blood Count 8.7 K/mm3 (4.5-10.0)
[2020-04-23 05:41] LABS: Alanine Aminotransferase 40 U/L (4-50); Albumin Level 2.8 g/dL (3.5-5.1); Alkaline Phosphatase 35 U/L (38-126); Anion Gap 5 mmol/L (8-16); Aspartate Amino Transferase 44 U/L (17-59); Bilirubin,Total 0.5 mg/dL (0.2-1.3); Blood Urea Nitrogen 25 mg/dL (9-20); Calcium 8.1 mg/dL (8.4-10.2); Carbon Dioxide 26 mmol/L (22-30); Chloride 106 mmol/L (98-107); Estimated CRCL calculation 52 ml/min; Estimated Glomerular Filt Rate 46; Glucose 86 mg/dL (75-110); Lipase 33 U/L (23-300); Phosphorus 3.1 mg/dL (2.5-4.5); Potassium 3.7 mmol/L (3.4-5.0); Sodium 137 mmol/L (137-145)
[2020-04-23 06:13] LABS: Glucose Point of Care 85 (65-105)
[2020-04-23] MEDS: PEG (High)/E-LYTE SOLN 4,000 ML BTL 4000 ML PO (07:31)
[2020-04-23] MEDS: DEXTROSE 5%/0.9% SOD CHL 1,000 ML 100 ML IV CONT ×2 (07:31→21:01)
[2020-04-23 08:00] LABS: Glucose Point of Care 82 (65-105)
--- NOTE | 2020-04-23 09:10 | PM.IMPN ---
Progress Note: A&P Assessment and Plan (1) Abnormal computed tomography of abdomen and pelvis: Code(s): R93.5 - Abnormal findings on diagnostic imaging of other abdominal regions, including retroperitoneum Status: Acute Assessment and Plan: antibiotics for findings of colitis on CT of the abdomen and pelvis. findings in the sigmoid colon concerning for underlying malignancy - thickening of the colon on his scan. underwent a colonoscopy today with Dr. Paul. 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 continue him on clear liquids surgery has been consulted to evaluate regarding tumor. continue to watch his blood pressures and H&H. (2) Acute kidney injury superimposed on chronic kidney disease: Code(s): N17.9 - Acute kidney failure, unspecified; N18.9 - Chronic kidney disease, unspecified Status: Acute Assessment and Plan: appears dehydrated holding antihypertensives and continue IV fluid rehydration elevated creatinine level from baseline continue IV fluid rehydration repeat renal function in a.m. Avoid nephrotoxic agents in the interim. urinary incontinence bladder scan PRN is low urine output (3) Insulin dependent type 2 diabetes mellitus: Code(s): E11.9 - Type 2 diabetes mellitus without complications; Z79.4 - alf (current) use of insulin Status: Acute Assessment and Plan: lower dose of basal insulin as he is currently NPO. glucose levels were 155 and 86 glucose monitoring ACHS Accu-Chek hypoglycemia protocol in place returning him to clear liquid diet sliding scale insulin (4) Essential hypertension: Code(s): I10 - Essential (primary) hypertension Status: Acute Assessment and Plan: controlled at this time holding his antihypertensive meds due to slight dehydration at admission past 2 blood pressures has systolic of 110 and 130s may need to restart his lisinopril 10 mg if blood pressures elevate (5) Dyslipidemia: Code(s): E78.5 - Hyperlipidemia, unspecified Status: Acute Assessment and Plan: on fenofibrate 160 mg daily at home and atorvastatin 20 mg at night Subjective Date/time seen: 04/23/20 09:10 Usman had returned from his colonoscopy and was resting in bed at the time of my visit and exam. He was requesting his lunch. He was alert and oriented, denied pain or any discomfort at that time. His abdomen was soft and palpable, no pain with deep palpation. There was stool on the sheets below him. Not sure if that was from his colonoscopy or incontinence. He states that when he was having pain at the long term it was usually with or during his bowel movements. He stated it was almost as if he would have diarrhea with a solid stool at the end of the bowel movement, which would inevitably could stuck and he would need manual decompaction. He also denied seeing any blood in his stools. his white count today is 8.7, no fevers, his H&H stable with a hemoglobin of 12.3 and a hematocrit of 37.5, with platelets at 271. Patient underwent a colonoscopy today with Dr. Paul. He has thickening of the colon on his scan. He was found to have a sigmoid tumor as well as colitis, possible ischemic colitis. Will continue him on clear liquids, as surgery has been consulted to evaluate tumor. Will continue to watch his blood pressures and H&H. Review of Systems Review of Systems: All systems reviewed & are unremarkable except as noted in HPI and below Constitutional: Constitutional: Denies chills, Denies fever(s), Denies headache(s) and Denies weakness Eyes: Eyes: Denies blurry vision ENT: Denies headache(s) and Denies neck pain Cardiovascular: Cardiovascular: Denies chest pain and Denies dyspnea Respiratory: Respiratory: Denies cough and Denies dyspnea Gastrointestinal: Gastrointestinal: Reports abdominal pain, Reports change in bowel habits ( patient reports diarrhea and then
--- NOTE | 2020-04-23 11:08 | PC.NURSE ---
pt to GI lab via michael
[2020-04-23] MEDS: LACTATED RINGERS 1,000 ML 150 ML IV CONT (11:10)
[2020-04-23 11:23] LABS: Glucose Point of Care 96 (65-105)
--- NOTE | 2020-04-23 11:26 | WPDANESEPPF ---
Anes - Initial Pre Proc Eval Procedure: Operation Date: 04/23/20 12:00 Proposed Procedures p Colonoscopy - Yann Paul MD Date/Time: 04/23/20 11:26 Surgeon: Dalia Hernandez NP Pre Op Diagnosis: Abdominal discomfort. Patient Data Age: 69 Gender: M Height: 6 ft Weight: 108.5 kg Last Vital Signs Temp 36.8 C 04/23/20 11:13 Pulse 75 04/23/20 11:13 Resp 20 04/23/20 11:13 BP 149/60 H 04/23/20 11:13 Pulse Ox 96 04/23/20 11:13 Allergies Allergy/AdvReac Type Severity Reaction Status Date / Time sitagliptin Allergy Severe Confusion Verified 04/23/20 11:11 Home Medications Medication Instructions Recorded Confirmed Type aspirin 81 mg PO DAILY 04/18/19 04/22/20 History atorvastatin 20 mg PO HS 04/18/19 04/22/20 History citalopram 20 mg PO HS 04/18/19 04/22/20 History duloxetine [Cymbalta] 30 mg PO DAILY 04/18/19 04/22/20 History fenofibrate 160 mg PO DAILY 04/18/19 04/22/20 History insulin glargine 80 unit SUBCUT DAILY 04/18/19 04/22/20 History melatonin 10 mg PO HS 04/18/19 04/22/20 History docusate sodium [Colace] 100 mg PO PRN PRN 04/22/20 04/22/20 History dulaglutide [Trulicity] 1.5 mg SUBCUT WEEKLY 04/22/20 04/22/20 History ergocalciferol (vitamin D2) 50,000 unit PO WEEKLY 04/22/20 04/22/20 History [Vitamin D2] insulin glargine [Lantus Solostar 60 unit SUBCUT QPM 04/22/20 04/22/20 History U-100 Insulin] insulin lispro [Humalog Clive 3 unit SUBCUT TIDWMEAL 04/22/20 04/22/20 History KwikPen U-100] lisinopril 10 mg PO DAILY 04/22/20 04/22/20 History multivitamin [Family Multivitamin] 1 tablet PO DAILY 04/22/20 04/22/20 History Laboratory Tests 04/22/20 04/22/20 04/22/20 14:34 14:34 16:32 WBC RBC Hgb Hct MCV MCH MCHC RDW Plt Count MPV Immature Gran % (Auto) Neut % (Auto) Lymph % (Auto) Sharp % (Auto) Eos % (Auto) Baso % (Auto) Lymph # (Auto) Sharp # (Auto) Eos # (Auto) Baso # (Auto) Abs Immat Gran (auto) Absolute Neuts (auto) Absolute Nucleated RBC Nucleated RBC % Sodium Potassium Chloride Carbon Dioxide Anion Gap BUN Creatinine Estim Creat Clear Calc Estimated GFR Glucose POC Capillary Glucose 60 mg/dl L mg/dl (65-105) Hemoglobin A1c 9.1 % H % (<5.7) Lactic Acid 1.4 mmol/L mmol/L (0.7-2.1) Calcium Phosphorus Magnesium Total Bilirubin AST ALT Alkaline Phosphatase Total Protein Albumin Lipase 04/22/20 04/22/20 04/22/20 16:33 17:09 20:40 WBC RBC Hgb Hct MCV MCH MCHC RDW Plt Count MPV Immature Gran % (Auto) Neut % (Auto) Lymph % (Auto) Sharp % (Auto) Eos % (Auto) Baso % (Auto) Lymph # (Auto) Sharp # (Auto) Eos # (Auto) Baso # (Auto) Abs Immat Gran (auto) Absolute Neuts (auto) Absolute Nucleated RBC Nucleated RBC % Sodium Potassium Chloride Carbon Dioxide Anion Gap BUN Creatinine Estim Creat Clear Calc Estimated GFR Glucose POC Capillary Glucose 51 mg/dl L* mg/dl 97 mg/dl mg/dl 43 mg/dl L* mg/dl (65-105) (65-105) (65-105) Hemoglobin A1c Lactic Acid Ca
[2020-04-23 12:34] LABS: Glucose Point of Care 83 (65-105)
--- NOTE | 2020-04-23 12:48 | PC.NURSE ---
pt returned from GI lab, doing well, reviewed plan of care
[2020-04-23 13:01] LABS: Carcinoembryonic Antigen 6.1 ng/mL (0.0-3.0)
[2020-04-23] MEDS: INSULIN ASPART (*BKC) 100 UNITS/ML SUB-Q (17:40)
[2020-04-23 17:56] LABS: Glucose Point of Care 239 (65-105)
--- NOTE | 2020-04-23 18:53 | PM.CNGS ---
Assessment and Plan Assessment and plan (1) Malignant neoplasm of sigmoid colon: Code(s): C18.7 - Malignant neoplasm of sigmoid colon Status: Acute Assessment and Plan: he seems to presented with obstructive symptoms from what is almost certainly a cancer of the sigmoid colon. Currently this seems to be relieved. He has been having bowel movements and has no abdominal pain at this time. His abdomen is not distended or tender. Dr. Paul's Colonoscopy reviewed. I think the patient is going to half to have a resection but may be able to avoid a colostomy. Agree with clear liquids. Consider proceeding with hand access laparoscopic sigmoid colon resection on Sunday if patient and family agree. In discussing this with the patient, he is agreeable to having surgery. Will talk to other physicians and his daughter tomorrow and discuss further. (2) Acute kidney injury superimposed on chronic kidney disease: Code(s): N17.9 - Acute kidney failure, unspecified; N18.9 - Chronic kidney disease, unspecified Status: Acute Assessment and Plan: Improving (3) Insulin dependent type 2 diabetes mellitus: Code(s): E11.9 - Type 2 diabetes mellitus without complications; Z79.4 - manager terminal (current) use of insulin Status: Chronic Assessment and Plan: not great control with hemoglobin A1c of 9. Blood sugars being managed in house per hospitalist and improving. 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 Also had an osteophyte removed from his right heel. History of Present Illness Consult details Consult date: 04/23/20 Reason for consult: abdominal pain Narrative: Patient is a 69-year-old man from [facility]. He has do not resuscitate status there. He is an insulin-dependent diabetic and has hypertension. He was admitted to the emergency room yesterday with diffuse abdominal pain for a day or a couple of days. He is not a great historian and most this is taken from his records. He also described some nausea and vomiting. He has had alternating constipation and diarrhea but stools have been a little loose lately. In the emergency room he was noted to Have acute kidney injury with creatinine up to 2.0. [place] [address] and a lipase of 496. His CT scan showed some evidence of rectosigmoid colitis but also a thickening very suggestive of a sigmoid colon mass. The patient was admitted and hydrated. He did have a bowel prep and IV fluid resuscitation. He underwent colonoscopy today which showed what appears to be a sigmoid colon cancer in the proximal sigmoid colon. Biopsies were taken. Since then he has had bowel movements and now tells me he has no abdominal pain. He has been tolerating clear liquids and has been on Zosyn IV antibiotics. He is seen now in consultation regarding his sigmoid colon mass and the possibility of surgery. Review of Systems Review of Systems: All systems reviewed & are unremarkable except as noted in HPI and below Constitutional: Constitutional: Denies chills and Denies fever(s) Cardiovascular: Cardiovascular: Denies chest pain, Denies diaphoresis, Denies dyspnea and Denies paroxysmal nocturnal dyspnea Respiratory: Respiratory: Denies chest congestion, Denies cough and Denies dyspnea Gastrointestinal: Gastrointestinal: Reports as per HPI, Reports abdominal pain, Reports constipation, Reports diarrhea and Reports vomiting Integumentary/Breasts: Skin/Breast: Denies lesions and Denies rash [facility] Past Medical History Medical History Arterial insufficie
[2020-04-23] MEDS: INSULIN GLARGINE (*BKC) 100 UNITS/ML 32 UNITS SUB-Q (21:02)
[2020-04-23 23:29] LABS: Glucose Point of Care 253 (65-105)
[2020-04-24] VITALS (7 sets, daily range): BP systolic 128–168; BP diastolic 52–78; PULSE 69–89; RESP 16–19; TEMP 36.3–37.1; O2SAT 95–100
[2020-04-24] MEDS: DEXTROSE 5%/0.9% SOD CHL 1,000 ML 100 ML IV CONT ×2 (06:00→17:48)
[2020-04-24 07:10] LABS: Hematocrit 39.9 % (42.0-52.0); Hemoglobin 13.4 g/dL (14.0-18.0); Mean Corpuscular HGB Conc 33.6 g/dl (32-36); Mean Corpuscular Hemoglobin 30.4 pg (26-34); Mean Corpuscular Volume 90.5 fl (80-100); Mean Platelet Volume 10.3 fl (7.4-10.4); Platelet Count Result 272 k/mm3 (150-375); Red Blood Count 4.41 M/mm3 (4.6-6.20); Red Cell Distribution Width 12.4 % (11.5-14.5); White Blood Count 6.1 K/mm3 (4.5-10.0)
[2020-04-24 07:19] LABS: Anion Gap 5 mmol/L (8-16); Blood Urea Nitrogen 15 mg/dL (9-20); Calcium 8.7 mg/dL (8.4-10.2); Carbon Dioxide 25 mmol/L (22-30); Chloride 108 mmol/L (98-107); Estimated CRCL calculation 60 ml/min; Estimated Glomerular Filt Rate 55; Glucose 125 mg/dL (75-110); Potassium 4.1 mmol/L (3.4-5.0); Sodium 138 mmol/L (137-145)
[2020-04-24 08:04] LABS: Glucose Point of Care 122 (65-105)
--- NOTE | 2020-04-24 08:30 | WPDGIPROGNO ---
Progress Note: A&P Additional Plan Patient alert and comfortable this morning. He denies any significant pain. No ongoing diarrhea. Physical exam reveals abdomen to be soft. Bowel sounds are present soft nontender no organomegaly. Impression 1. Sigmoid mass. Most consistent with carcinoma. Histology pending. Appreciate surgical input. Anticipate surgical resection early next week. CEA level also pending at this time. 2. Sigmoid colitis. Appears nonspecific. Could be related to ischemia given history of low blood pressure. Histology pending. Stool cultures in progress. Subjective Date/time seen: 04/24/20 08:30 Objective Data Vital Signs Vital Signs: Vital Signs - 24 hr 04/23/20 10:00 04/23/20 11:13 04/23/20 12:00 Temperature 97.2 F L 98.3 F 97.3 F L Pulse Rate 70 75 74 Respiratory Rate 16 20 16 Blood Pressure 128/51 L 149/60 H 172/66 H Pulse Oximetry 98 96 100 04/23/20 12:10 04/23/20 12:20 04/23/20 18:00 Temperature 97.9 F Pulse Rate 68 72 74 Respiratory Rate 14 15 16 Blood Pressure 111/62 131/66 145/63 H Pulse Oximetry 99 99 97 04/23/20 20:00 04/24/20 00:00 Temperature 97.4 F L 98.7 F Pulse Rate 87 78 Respiratory Rate 20 16 Blood Pressure 144/64 H 136/52 L Pulse Oximetry 100 96 Intake/Output Intake/Output: Intake & Output 04/21/20 04/22/20 04/23/20 04/24/20 23:59 23:59 23:59 23:59 Intake Total 3350 3560 1100 Balance 3350 3560 1100 Meds/Results Medications: Active Medications Generic Name Dose Route Start Last Admin Trade Name Freq PRN Reason Stop Dose Admin Dextrose 12.5 gm 04/22/20 14:12 04/22/20 16:36 Dextrose 50% 25 Gm/50 Ml Syringe IV PUSH 12.5 gm PRN PRN Administration Hypoglycemia Protocol Glucagon 1 mg 04/22/20 14:12 Glucagon For Inj 1 Mg Vial IM PRN PRN Hypoglycemia Protocol Glucose 15 gm 04/22/20 14:12 04/22/20 20:59 Glucose Oral Gel 15 Gm Of Glucse In 37.5 Gm Tube PO 15 gm PRN PRN Administration Hypoglycemia Protocol Dextrose 1,000 mls @ 100 mls/hr 04/22/20 14:12 Dextrose 5% 1,000 Ml IVPB PRN PRN Hypoglycemia Protocol Piperacillin Sod/Tazobactam Sod 2.25 gm in 50 mls @ 100 mls/hr 04/22/20 18:00 04/24/20 06:30 Zosyn 2.25 Gm/D5w 50 Ml IVPB Infused Q6HR REED Infusion Dextrose/Sodium Chloride 1,000 mls @ 100 mls/hr 04/22/20 21:10 04/24/20 06:00 Dextrose 5% Sodium Chloride 0.9% IV CONT 100 mls/hr .Q10H REED Administration Insulin Aspart 3 - 6 units 04/22/20 17:00 04/24/20 08:21 Insulin Aspart (*Bkc) 100 Units/Ml SUB-Q Not Given TIDWM [facility] Protocol Insulin Glargine 32 units 04/23/20 21:00 04/23/20 21:02 Insulin Glargine (*Bkc) 100 Units/Ml 0.3 units/kg (32 units) 32 units SUB-Q Administration [facility] Radiology Results: ITS Impressions Abdomen/Pelvis CT 04/22/20 09:30 IMPRESSION: 1. Focal wall thickening of the sigmoid colon with an endoluminal component suspicious for primary adenocarcinoma. Colonoscopy is recommended. 2. Mild wall thickening of the rectosigmoid, consistent with colitis. 3. Right inguinal hernia containing fat. Labs Labs: Laboratory Results - last 24 hr 04/23/20 04/23/20 04/23/20 05:05 10:46 12:31 WBC RBC Hgb Hct MCV MCH MCHC RDW Plt Count MPV Sodium Potassium Chloride Carbon Dioxide Anion Gap BUN Creatinine Estim Creat Clear Calc Estimated GFR Glucose POC Capillary Glucose 96 83 Calcium Carcinoembryonic Ag 6.1 H 04/23/20 04/23/20 04/24/20 17:22 21:00 06:28 WBC 6.1 RBC 4.41 L Hgb 13.4 L Hct 39.9 L MCV 90.5 MCH 30.4 MCHC 33.6 RDW 12.4 Plt Count 272 MPV 10.3 Sodium Potassium Chloride Carbon Dioxide Anion Gap BUN Creatinine Estim Creat Clear Calc Estimated GFR Glucose POC Capillary Glucose 239 H 253 H Calcium Carcino
--- NOTE | 2020-04-24 11:48 | PM.IMPN ---
Progress Note: A&P Assessment and Plan (1) Colitis: Code(s): K52.9 - Noninfective gastroenteritis and colitis, unspecified Status: Acute Assessment and Plan: Continue pip/camille (2) Malignant neoplasm of sigmoid colon: Code(s): C18.7 - Malignant neoplasm of sigmoid colon Status: Acute Assessment and Plan: Excision planned for 04/26 (3) Insulin dependent type 2 diabetes mellitus: Code(s): E11.9 - Type 2 diabetes mellitus without complications; Z79.4 - terminologist (current) use of insulin Status: Chronic Assessment and Plan: Continue current regimen Will require re-evaluation 04/25 prior to surgery (4) Essential hypertension: Code(s): I10 - Essential (primary) hypertension Status: Chronic Assessment and Plan: Continue to monitor (5) Cutaneous horn: Code(s): L85.8 - Other specified epidermal thickening Status: Acute Assessment and Plan: Possibly due to pressure Improbable location for squamous cell CA X-ray ordered (6) Seborrhea: Code(s): L21.9 - Seborrheic dermatitis, unspecified Status: Acute Assessment and Plan: HCTS 1% at HS (7) Acne rosacea: Code(s): L71.9 - Rosacea, unspecified Status: Acute Assessment and Plan: Metronidazole 0.75% bid (8) Acute kidney injury superimposed on chronic kidney disease: Code(s): N17.9 - Acute kidney failure, unspecified; N18.9 - Chronic kidney disease, unspecified Status: Acute Assessment and Plan: resolved Subjective Date/time seen: 04/24/20 11:48 Interval history: 04/24: Admitted for colitis. Sigmoid mass discovered. Denied abd pain. No n/v/diarrhea. No bleeding. Tolerating clear liquids. Hungry. Hx chronic (years) thickened skin over right heel. Nontender. Review of Systems Review of Systems: All systems reviewed & are unremarkable except as noted in HPI and below Objective Data Vital Signs Vital Signs: Vital Signs - 24 hr 04/23/20 12:00 04/23/20 12:10 04/23/20 12:20 Temperature 97.3 F L Pulse Rate 74 68 72 Respiratory Rate 16 14 15 Blood Pressure 172/66 H 111/62 131/66 Pulse Oximetry 100 99 99 04/23/20 18:00 04/23/20 20:00 04/24/20 00:00 Temperature 97.9 F 97.4 F L 98.7 F Pulse Rate 74 87 78 Respiratory Rate 16 20 16 Blood Pressure 145/63 H 144/64 H 136/52 L Pulse Oximetry 97 100 96 04/24/20 08:00 Temperature 97.9 F Pulse Rate 69 Respiratory Rate 18 Blood Pressure 128/64 Pulse Oximetry 98 Intake/Output Intake/Output: Intake & Output 04/21/20 04/22/20 04/23/20 04/24/20 23:59 23:59 23:59 23:59 Intake Total 3350 3560 1100 Balance 3350 3560 1100 Meds/Results Medications: Active Medications Generic Name Dose Route Start Last Admin Trade Name Freq PRN Reason Stop Dose Admin Dextrose 12.5 gm 04/22/20 14:12 04/22/20 16:36 Dextrose 50% 25 Gm/50 Ml Syringe IV PUSH 12.5 gm PRN PRN Administration Hypoglycemia Protocol Glucagon 1 mg 04/22/20 14:12 Glucagon For Inj 1 Mg Vial IM PRN PRN Hypoglycemia Protocol Glucose 15 gm 04/22/20 14:12 04/22/20 20:59 Glucose Oral Gel 15 Gm Of Glucse In 37.5 Gm Tube PO 15 gm PRN PRN Administration Hypoglycemia Protocol Dextrose 1,000 mls @ 100 mls/hr 04/22/20 14:12 Dextrose 5% 1,000 Ml IVPB PRN PRN Hypoglycemia Protocol Piperacillin Sod/Tazobactam Sod 2.25 gm in 50 mls @ 100 mls/hr 04/22/20 18:00 04/24/20 11:43 Zosyn 2.25 Gm/D5w 50 Ml IVPB 100 mls/hr Q6HR REED Administration Dextrose/Sodium Chloride 1,000 mls @ 100 mls/hr 04/22/20 21:10 04/24/20 06:00 Dextrose 5% Sodium Chloride 0.9% IV CONT 100 mls/hr .Q10H REED Administration Insulin Aspart 3 - 6 units 04/22/20 17:00 04/24/20 08:21 Insulin Aspart (*Bkc) 100 Units/Ml SUB-Q Not Given TIDWM RE[facility] Protocol Insulin Glargine 32 units 04/23/20 21:00 04/23/20
[2020-04-24 11:49] LABS: Glucose Point of Care 220 (65-105)
[2020-04-24] MEDS: INSULIN ASPART (*BKC) 100 UNITS/ML SUB-Q (11:50)
--- NOTE | 2020-04-24 13:24 | PCOTNOTE ---
Attempted OT evaluation, per RN, pt is currently off the unit for testing. will attempt at later time.
[2020-04-24] MEDS: DULoxetine HCL 30 MG CAPSULE.DR PO (13:50)
--- NOTE | 2020-04-24 14:40 | PM.PNGS ---
Progress Note: A&P Assessment and Plan (1) Malignant neoplasm of sigmoid colon: Code(s): C18.7 - Malignant neoplasm of sigmoid colon Status: Acute Assessment and Plan: no obstructive symptoms again today. Pathology is pending. CEA is pending. CT scan of the abdomen and pelvis was done on admission with IV contrast and shows no evidence of liver metastases. I called the patient's daughter, Bibiana, and discussed surgery with her. I also talked with our anesthesiologist, , and discussed the patient. Currently plan on continuing clear liquids with nutritional supplements. Plan to proceed with hand access laparoscopic sigmoidectomy on Sunday. The surgery is scheduled at 11:00 a.m.. I explained to the patient and his daughter the procedure and the usual recovery. Potential complications were also discussed. Both the patient and his daughter agree to proceed. Options including nonsurgical were discussed as well. (2) Insulin dependent type 2 diabetes mellitus: Code(s): E11.9 - Type 2 diabetes mellitus without complications; Z79.4 - intermediate card tender (current) use of insulin Status: Chronic Assessment and Plan: Improved control with hospitalist management (3) Essential hypertension: Code(s): I10 - Essential (primary) hypertension Status: Chronic (4) Acute kidney injury superimposed on chronic kidney disease: Code(s): N17.9 - Acute kidney failure, unspecified; N18.9 - Chronic kidney disease, unspecified Status: Acute Assessment and Plan: much improved with IV fluids and other care. Subjective Subjective Date/Time Seen: 04/24/20 14:40 Patient reports: no new complaints, feels better and tolerating liquids well Review of Systems Review of Systems: All systems reviewed & are unremarkable except as noted in HPI and below Constitutional: Constitutional: Denies anorexia, Denies chills, Denies fever(s) and Denies poor appetite Cardiovascular: Cardiovascular: Denies chest pain and Denies dyspnea Respiratory: Respiratory: Denies cough and Denies dyspnea Gastrointestinal: Gastrointestinal: Reports as per HPI, Denies abdominal pain, Denies constipation, Denies GI cramping, Denies nausea and Denies vomiting Exam Const: General: comfortable and no acute distress; No confusion Orientation/consciousness: patient oriented x3 and No confusion GI: Inspection: non-distended and obesity GI Palp: Yes Soft to palpation, No Tenderness to palpation present (GI), No Guarding due to palpation present (GI) and No Rebound tenderness present Auscultation: normal bowel sounds Extrem: General: no calf tenderness and no edema Objective Data Vital Signs Vital Signs: Vital Signs - 24 hr 04/23/20 18:00 04/23/20 20:00 04/24/20 00:00 Temperature 36.6 C 36.3 C L 37.1 C Pulse Rate 74 87 78 Respiratory Rate 16 20 16 Blood Pressure 145/63 H 144/64 H 136/52 L Pulse Oximetry 97 100 96 04/24/20 08:00 04/24/20 10:00 Temperature 36.6 C 36.6 C Pulse Rate 69 89 Respiratory Rate 18 19 Blood Pressure 128/64 155/75 H Pulse Oximetry 98 99 Intake/Output Intake/Output: Intake & Output 04/21/20 04/22/20 04/23/20 04/24/20 23:59 23:59 23:59 23:59 Intake Total 3350 3560 1710 Balance 3350 3560 1710 Meds/Results Medications: Active Medications Generic Name Dose Route Start Last Admin Trade Name Freq PRN Reason Stop Dose Admin Alvimopan 12 mg 04/24/20 12:29 Alvimopan 12 Mg Capsule PO 04/24/20 12:30 ONCE ONE Citalopram Hydrobromide 20 mg 04/24/20 21:00 Citalopram Hydrobromide 20 Mg Tablet PO HS [facility] Dextrose 12.5 gm 04/22/20 14:12 04/22/20 16:36 Dextrose 50% 25 Gm/50 Ml Syringe IV PUSH 12.5 gm PRN PRN Administration Hypoglycemia Protocol Duloxetine HCl 30 mg 04/25/20 09:00 Duloxetine Hcl 30 Mg Capsule.Dr PO DAILY REED Erythromycin 1,000 mg 04/25/20 12:00 Erythromycin 250 Mg Tablet PO 04/25/20 21:
[2020-04-24 17:06] LABS: Glucose Point of Care 171 (65-105)
--- NOTE | 2020-04-24 20:16 | ADMGEN ---
This patient, Kojo Quispe, was admitted to 2 Medical Room 254-01. Patient/family oriented to hospital policies and general routines including ID bracelet, bed and alarms, visiting hours, pain management, procedures, bathroom and other care routines, personal items, smoking policy, room service/diet, and visiting hours. Information on how to activate the Rapid Response Team has been discussed. Patient/Family are encouraged to report perceived risks to care and to ask questions if they do not understand what they are told or what they should do.
[2020-04-24] MEDS: FAMOTIDINE 20 MG TABLET PO (21:12)
[2020-04-24] MEDS: CITALOPRAM HYDROBROMIDE 20 MG TABLET PO (21:12)
[2020-04-24] MEDS: LACTIC ACID 12% LOTION 225 BTL 1 APPLIC TOPICAL (21:14)
[2020-04-24] MEDS: HYDROCORTISONE 1% 30 GM CREAM 1 APPLIC TOPICAL (21:14)
[2020-04-24] MEDS: INSULIN GLARGINE (*BKC) 100 UNITS/ML 32 UNITS SUB-Q (21:18)
[2020-04-24 22:06] LABS: Glucose Point of Care 182 (65-105)
[2020-04-24 22:14] LABS: SARS-CoV-2 RNA PCR Negative
[2020-04-25] VITALS: BP 153/75; PULSE 81; RESP 18; TEMP 36.6; O2SAT 100
--- NOTE | 2020-04-25 01:18 | PC.NURSE ---
Daylight Savings Time For Daylight Savings Time Ending in the Fall - Clocks are moved back. For Daylight Savings Time Beginning in the Spring - Clocks are moved ahead. For [facility], the time of change occurs at 0200 hrs. Time is taken from the client server developer. This entry on the patient's chart recognizes the change in time reflected during documentation. Example: 2 entries for vital signs may be charted for 0200 hrs.
[2020-04-25] MEDS: DEXTROSE 5%/0.9% SOD CHL 1,000 ML 60 ML IV CONT ×2 (03:11→21:05)
[2020-04-25 04:00] VITALS: BP 125/63; PULSE 71; RESP 20; TEMP 36.8; O2SAT 100
[2020-04-25 05:36] LABS: Hematocrit 41.7 % (42.0-52.0); Hemoglobin 14.1 g/dL (14.0-18.0); Mean Corpuscular HGB Conc 33.8 g/dl (32-36); Mean Corpuscular Hemoglobin 29.7 pg (26-34); Mean Corpuscular Volume 87.8 fl (80-100); Mean Platelet Volume 10.1 fl (7.4-10.4); Platelet Count Result 302 k/mm3 (150-375); Red Blood Count 4.75 M/mm3 (4.6-6.20)
[2020-04-25 06:08] LABS: Anion Gap 6 mmol/L (8-16); Blood Urea Nitrogen 13 mg/dL (9-20); Calcium 8.9 mg/dL (8.4-10.2); Carbon Dioxide 27 mmol/L (22-30); Chloride 105 mmol/L (98-107); Estimated CRCL calculation 59 ml/min; Estimated Glomerular Filt Rate 55; Glucose 128 mg/dL (75-110); Potassium 3.8 mmol/L (3.4-5.0); Sodium 138 mmol/L (137-145)
[2020-04-25 07:50] LABS: Glucose Point of Care 120 (65-105)
--- NOTE | 2020-04-25 09:16 | WPDGIPROGNO ---
Progress Note: A&P Additional Plan Patient alert and comfortable this morning. Tolerating diet. Denies abdominal pain. Physical exam reveals patient to be alert with vital signs stable. HEENT exam unremarkable. Lungs are clear. Heart without murmur. Abdomen soft and nontender. Labs reveal hemoglobin 14. WBC 7. CEA 6.1 Impression 1 sigmoid mass. Histology pending. Grossly consistent with malignancy. Agree with surgical plans. 2. Sigmoid colitis nonspecific. Stool cultures negative to date. Could be ischemic colitis that is resolving. Subjective Date/time seen: 04/25/20 09:16 Objective Data Vital Signs Vital Signs: Vital Signs - 24 hr 04/24/20 14:00 04/24/20 18:00 04/24/20 20:00 Temperature 98.3 F 98.2 F 97.4 F L Pulse Rate 79 82 81 Respiratory Rate 18 18 18 Blood Pressure 135/72 168/70 H 159/78 H Pulse Oximetry 95 100 100 04/25/20 00:00 04/25/20 04:00 Temperature 97.9 F 98.3 F Pulse Rate 81 71 Respiratory Rate 18 20 Blood Pressure 153/75 H 125/63 Pulse Oximetry 100 100 Intake/Output Intake/Output: Intake & Output 04/22/20 04/23/20 04/24/20 04/25/20 23:59 23:59 23:59 22:59 Intake Total 3350 3560 4620 1187 Balance 3350 3560 4620 1187 Meds/Results Medications: Active Medications Generic Name Dose Route Start Last Admin Trade Name Freq PRN Reason Stop Dose Admin Alvimopan 12 mg 04/24/20 12:29 Alvimopan 12 Mg Capsule PO 04/24/20 12:30 ONCE ONE Citalopram Hydrobromide 20 mg 04/24/20 21:00 04/24/20 21:12 Citalopram Hydrobromide 20 Mg Tablet PO 20 mg HS REED Administration Dextrose 12.5 gm 04/22/20 14:12 04/22/20 16:36 Dextrose 50% 25 Gm/50 Ml Syringe IV PUSH 12.5 gm PRN PRN Administration Hypoglycemia Protocol Duloxetine HCl 30 mg 04/25/20 09:00 Duloxetine Hcl 30 Mg Capsule.Dr PO DAILY REED Erythromycin 1,000 mg 04/25/20 12:00 Erythromycin 250 Mg Tablet PO 04/25/20 21:01 TID@12,13,21 [facility] Famotidine 20 mg 04/24/20 21:00 04/24/20 21:12 Famotidine 20 Mg Tablet PO 20 mg Q12HR REED Administration Glucagon 1 mg 04/22/20 14:12 Glucagon For Inj 1 Mg Vial IM PRN PRN Hypoglycemia Protocol Glucose 15 gm 04/22/20 14:12 04/22/20 20:59 Glucose Oral Gel 15 Gm Of Glucse In 37.5 Gm Tube PO 15 gm PRN PRN Administration Hypoglycemia Protocol Hydrocortisone 1 applic 04/24/20 21:00 04/24/20 21:14 Hydrocortisone 1% 30 Gm Cream TOPICAL 1 applic HS REED Administration Dextrose 1,000 mls @ 100 mls/hr 04/22/20 14:12 Dextrose 5% 1,000 Ml IVPB PRN PRN Hypoglycemia Protocol Piperacillin Sod/Tazobactam Sod 2.25 gm in 50 mls @ 100 mls/hr 04/22/20 18:00 04/25/20 06:52 Zosyn 2.25 Gm/D5w 50 Ml IVPB Infused Q6HR REED Infusion Dextrose/Sodium Chloride 1,000 mls @ 60 mls/hr 04/22/20 21:10 04/25/20 03:11 Dextrose 5% Sodium Chloride 0.9% IV CONT 60 mls/hr .[id number] REED Administration Insulin Aspart 3 - 6 units 04/22/20 17:00 04/24/20 17:11 Insulin Aspart (*Bkc) 100 Units/Ml SUB-Q Not Given TIDWM [facility] Protocol Insulin Glargine 32 units 04/23/20 21:00 04/24/20 21:18 Insulin Glargine (*Bkc) 100 Units/Ml 0.3 units/kg (32 units) 32 units SUB-Q Administration HS REED Lactic Acid 1 applic 04/24/20 21:00 04/24/20 21:14 Lactic Acid 12% Lotion 225 Btl TOPICAL 1 applic HS REED Administration Metronidazole 1 applic 04/24/20 21:00 04/24/20 21:14 Metronidazole 0.75% 45 Gm Cream TOPICAL 1 applic Q12HR REED Administration Neomycin Sulfate 1,000 mg 04/25/20 12:00 Neomycin Sulfate 500 Mg Tab PO 04/25/20 21:01 TID@12,13,21 [facility] Radiology Results: ITS Impressions Abdomen/Pelvis CT 04/22/20 09:30 IMPRESSION: 1. Focal wall thickening of the sigmoid colon with an endoluminal component suspicious for primary adenocarcinoma. Colonoscopy is recommended. 2. Mild wall thickening of the rectosigmoid, consisten
[2020-04-25] MEDS: DULoxetine HCL 30 MG CAPSULE.DR PO (09:33)
[2020-04-25] MEDS: FAMOTIDINE 20 MG TABLET PO ×2 (09:33→20:57)
[2020-04-25 10:00] VITALS: BP 121/56; PULSE 77; RESP 16; TEMP 36.6; O2SAT 99
[2020-04-25 11:44] LABS: Glucose Point of Care 317 (65-105)
[2020-04-25] MEDS: INSULIN ASPART (*BKC) 100 UNITS/ML SUB-Q (11:45)
[2020-04-25] MEDS: ERYTHROMYCIN 250 MG TABLET 1000 MG PO ×3 (11:51→20:56)
[2020-04-25] MEDS: NEOMYCIN SULFATE 500 MG TAB 1000 MG PO ×3 (11:52→20:57)
[2020-04-25 14:00] VITALS: BP 129/60; PULSE 66; RESP 18; TEMP 37.1; O2SAT 96
--- NOTE | 2020-04-25 16:05 | PM.IMPN ---
Progress Note: A&P Assessment and Plan (1) Colitis: Code(s): K52.9 - Noninfective gastroenteritis and colitis, unspecified Status: Acute Assessment and Plan: Continue pip/camille tolerating clear liquid diet Patient alert and comfortable this morning. Denies abdominal pain. Sigmoid colitis nonspecific. Stool cultures negative to date. seems ischemic colitis is resolving. (2) Malignant neoplasm of sigmoid colon: Code(s): C18.7 - Malignant neoplasm of sigmoid colon Status: Acute Assessment and Plan: surgical Excision planned for 04/26 Grossly consistent with malignancy. Labs reveal hemoglobin 14. WBC 7. CEA 6.1 (3) Insulin dependent type 2 diabetes mellitus: Code(s): E11.9 - Type 2 diabetes mellitus without complications; Z79.4 - FPC (current) use of insulin Status: Chronic Assessment and Plan: Continue current regimen glucose levels controlled per labs (4) Essential hypertension: Code(s): I10 - Essential (primary) hypertension Status: Chronic Assessment and Plan: Continue to monitor vital signs stable BP 125/63, HR 71, 100% on room air. 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 Large calcaneal enthesophytes. (6) Seborrhea: Code(s): L21.9 - Seborrheic dermatitis, unspecified Status: Acute Assessment and Plan: HCTS 1% at HS (7) Acne rosacea: Code(s): L71.9 - Rosacea, unspecified Status: Acute Assessment and Plan: Metronidazole 0.75% bid fairly controlled at this time (8) Acute kidney injury superimposed on chronic kidney disease: Code(s): N17.9 - Acute kidney failure, unspecified; N18.9 - Chronic kidney disease, unspecified Status: Acute Assessment and Plan: resolved Subjective Date/time seen: 04/25/20 16:05 04/24: Admitted for colitis. Sigmoid mass discovered. Kojo was resting in bed today when I went to see him. He denied abd pain., n/v/diarrhea. No bleeding. Patient having some intermittent urinary incontinence. Tolerating his clear liquid diet, ate 100% of his lunch. No abdominal pain, denies constipation and reports a BM, CEA elevated at 6.1. There was no family at bedside when I spoke with the patient today. Dr. Johnson planning for laparoscopic sigmoidectomy tomorrow morning. Last glucose levels were 125 and 128. Examined his chronic thickened skin over right heel, nontender to palpation; but patient states that if he walks wrong it can be tender . Review of Systems Review of Systems: All systems reviewed & are unremarkable except as noted in HPI and below Constitutional: Constitutional: Denies anorexia, Denies chills, Denies excessive sweating, Denies fever(s), Denies headache(s), Denies poor appetite and Denies weakness Eyes: Eyes: Denies blurry vision ENT: Denies headache(s) and Denies neck pain Cardiovascular: Cardiovascular: Denies chest pain, Denies diaphoresis, Denies dyspnea and Denies paroxysmal nocturnal dyspnea Respiratory: Respiratory: Denies chest congestion, Denies cough and Denies dyspnea Gastrointestinal: Gastrointestinal: Reports as per HPI, Denies abdominal pain, Reports change in bowel habits ( patient reports diarrhea and then constipation), Denies constipation, Denies GI cramping, Reports diarrhea, Denies nausea and Denies vomiting Genitourinary: Genitourinary: Denies hematuria and Denies dysuria Musculoskeletal: Musculoskeletal: Denies back pain and Denies neck pain Integumentary/Breasts: Skin/Breast: Denies lesions, Denies rash and Reports other (hard horned protrusion center of right heel) Neurologic: Denies confusion, Denies headache(s), Denies Sensory deficit (Neuro)
[2020-04-25 16:45] LABS: Glucose Point of Care 143 (65-105)
[2020-04-25 18:10] VITALS: BP 160/72; PULSE 82; RESP 17; TEMP 37; O2SAT 98
[2020-04-25] MEDS: CITALOPRAM HYDROBROMIDE 20 MG TABLET PO (20:57)
[2020-04-25] MEDS: LACTIC ACID 12% LOTION 225 BTL 1 APPLIC TOPICAL (21:01)
[2020-04-25] MEDS: HYDROCORTISONE 1% 30 GM CREAM 1 APPLIC TOPICAL (21:01)
[2020-04-25] MEDS: CHLORHEXIDINE GLUCONATE 4% SOL 120 ML BTL 1 APPLIC TOPICAL (21:16)
[2020-04-25 22:00] VITALS: BP 135/55; PULSE 79; RESP 20; TEMP 37.1; O2SAT 98
[2020-04-25 22:59] LABS: Glucose Point of Care 180 (65-105)
[2020-04-26] VITALS (14 sets, daily range): BP systolic 102–170; BP diastolic 51–87; PULSE 80–97; RESP 12–20; TEMP 36.1–37; O2SAT 93–100
[2020-04-26] MEDS: CHLORHEXIDINE GLUCONATE 4% SOL 120 ML BTL 1 APPLIC TOPICAL (05:30)
[2020-04-26 05:45] LABS: Hematocrit 43.6 % (42.0-52.0); Hemoglobin 14.6 g/dL (14.0-18.0); Mean Corpuscular HGB Conc 33.5 g/dl (32-36); Mean Corpuscular Hemoglobin 29.5 pg (26-34); Mean Corpuscular Volume 88.1 fl (80-100); Mean Platelet Volume 9.9 fl (7.4-10.4); Platelet Count Result 324 k/mm3 (150-375); Red Blood Count 4.95 M/mm3 (4.6-6.20); Red Cell Distribution Width 12.2 % (11.5-14.5); White Blood Count 8.4 K/mm3 (4.5-10.0)
[2020-04-26 05:59] LABS: Anion Gap 5 mmol/L (8-16); Blood Urea Nitrogen 14 mg/dL (9-20); Calcium 9.1 mg/dL (8.4-10.2); Carbon Dioxide 28 mmol/L (22-30); Chloride 104 mmol/L (98-107); Estimated CRCL calculation 51 ml/min; Estimated Glomerular Filt Rate 46; Glucose 152 mg/dL (75-110); INR 1.1; Potassium 4.3 mmol/L (3.4-5.0); Prothrombin Time 14.2 Seconds (11.1-14.7); Sodium 137 mmol/L (137-145)
[2020-04-26 08:22] LABS: Glucose Point of Care 160 (65-105)
--- NOTE | 2020-04-26 09:25 | WPDGIPROGNO ---
Progress Note: A&P Additional Plan Patient comfortable this morning. Denies abdominal pain. Physical exam reveals him to be alert. Vital signs stable. He is anicteric. Lungs are clear. Heart without murmur. Abdomen soft and nontender. Impression 1. Sigmoid mass. Most suspicious for carcinoma. Final histology pending. Surgical resection anticipated. Dr. Johnson is following patient. 2. Sigmoid colitis. Nonspecific. Final cultures pending. Empiric antibiotics in progress. Subjective Date/time seen: 04/26/20 09:25 Objective Data Vital Signs Vital Signs: Vital Signs - 24 hr 04/25/20 10:00 04/25/20 14:00 04/25/20 18:10 Temperature 97.8 F 98.8 F 98.6 F Pulse Rate 77 66 82 Respiratory Rate 16 18 17 Blood Pressure 121/56 L 129/60 160/72 H Pulse Oximetry 99 96 98 04/25/20 22:00 04/26/20 02:00 04/26/20 06:00 Temperature 98.7 F 98.5 F 98.6 F Pulse Rate 79 80 80 Respiratory Rate 20 20 18 Blood Pressure 135/55 L 108/52 L 139/74 Pulse Oximetry 98 99 97 04/26/20 09:20 Temperature 98.1 F Pulse Rate 90 Respiratory Rate 18 Blood Pressure 102/79 Pulse Oximetry 98 Intake/Output Intake/Output: Intake & Output 04/24/20 04/25/20 04/25/20 04/26/20 00:59 00:59 23:59 23:59 Intake Total 50 Balance 50 Meds/Results Medications: Active Medications Generic Name Dose Route Start Last Admin Trade Name Freq PRN Reason Stop Dose Admin Alvimopan 12 mg 04/26/20 10:30 Alvimopan 12 Mg Capsule PO 04/26/20 10:31 ONCE ONE Citalopram Hydrobromide 20 mg 04/24/20 21:00 04/25/20 20:57 Citalopram Hydrobromide 20 Mg Tablet PO 20 mg HS REED Administration Dextrose 12.5 gm 04/22/20 14:12 04/22/20 16:36 Dextrose 50% 25 Gm/50 Ml Syringe IV PUSH 12.5 gm PRN PRN Administration Hypoglycemia Protocol Duloxetine HCl 30 mg 04/25/20 09:00 04/25/20 09:33 Duloxetine Hcl 30 Mg Capsule. PO 30 mg DAILY REED Administration Famotidine 20 mg 04/24/20 21:00 04/25/20 20:57 Famotidine 20 Mg Tablet PO 20 mg Q12HR REED Administration Glucagon 1 mg 04/22/20 14:12 Glucagon For Inj 1 Mg Vial IM PRN PRN Hypoglycemia Protocol Glucose 15 gm 04/22/20 14:12 04/22/20 20:59 Glucose Oral Gel 15 Gm Of Glucse In 37.5 Gm Tube PO 15 gm PRN PRN Administration Hypoglycemia Protocol Hydrocortisone 1 applic 04/24/20 21:00 04/25/20 21:01 Hydrocortisone 1% 30 Gm Cream TOPICAL 1 applic HS REED Administration Dextrose 1,000 mls @ 100 mls/hr 04/22/20 14:12 Dextrose 5% 1,000 Ml IVPB PRN PRN Hypoglycemia Protocol Piperacillin/Tazobactam/Dextrose 3.375 gm in 50 mls @ 100 mls/hr 04/26/20 12:00 Zosyn 3.375 Gm/D5w 50ml Pm IVPB Q6HR [facility] Lactated Ringer's 1,000 mls @ 30 mls/hr 04/26/20 07:50 Lr - Lactated Ringers Iv IV CONT .Q24H [facility] Insulin Aspart 3 - 6 units 04/22/20 17:00 04/25/20 17:10 Insulin Aspart (*Bkc) 100 Units/Ml SUB-Q Not Given TIDWM [facility] Protocol Lactic Acid 1 applic 04/24/20 21:00 04/25/20 21:01 Lactic Acid 12% Lotion 225 Btl TOPICAL 1 applic HS REED Administration Metronidazole 1 applic 04/24/20 21:00 04/25/20 21:01 Metronidazole 0.75% 45 Gm Cream TOPICAL 1 applic Q12HR REED Administration Radiology Results: ITS Impressions Abdomen/Pelvis CT 04/22/20 09:30 IMPRESSION: 1. Focal wall thickening of the sigmoid colon with an endoluminal component suspicious for primary adenocarcinoma. Colonoscopy is recommended. 2. Mild wall thickening of the rectosigmoid, consistent with colitis. 3. Right inguinal hernia containing fat. 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 2: Large calcaneal enthesophytes. 3: Status post amputation right first distal phalanx. Chest X-Ray 04/24/20 15:01 IMPRESSION: 1: NO ACUTE CARDIOPULMONARY DISEASE. Labs Labs: Laboratory Result
--- NOTE | 2020-04-26 10:00 | PC.NURSE ---
To OR via bed. Report called to [facility].
--- NOTE | 2020-04-26 10:01 | WPDHPUPDATE1 ---
History and Physical Update Update Date/Time: 04/26/20 10:01 History and Physical has been reviewed, including an updated exam of the patient. There are NO changes in the patient's condition. Risks, benefits, and alternatives have been discussed and questions answered. Patient agrees to proceed with procedure.
--- NOTE | 2020-04-26 10:40 | WPDANESEPPF ---
Anes - Initial Pre Proc Eval Procedure: Operation Date: 04/23/20 12:00 Proposed Procedures p Colonoscopy - Yann Paul MD Operation Date: 04/26/20 11:00 Proposed Procedures p Hand Assisted Laparoscopic Sigmoidectomy - Leeroy Johnson MD Date/Time: 04/26/20 10:40 Surgeon: Dalia Hernandez NP Pre Op Diagnosis: Colitis, FILIPPO Patient Data Age: 69 Gender: M Height: 6 ft Weight: 102.2 kg Last Vital Signs Temp 36.7 C 04/26/20 09:20 Pulse 90 04/26/20 09:20 Resp 18 04/26/20 09:46 BP 102/79 04/26/20 09:20 Pulse Ox 98 04/26/20 09:46 Allergies Allergy/AdvReac Type Severity Reaction Status Date / Time sitagliptin Allergy Severe Confusion Verified 04/24/20 20:14 Home Medications Medication Instructions Recorded Confirmed Type aspirin 81 mg PO DAILY 04/18/19 04/22/20 History atorvastatin 20 mg PO HS 04/18/19 04/22/20 History citalopram 20 mg PO HS 04/18/19 04/22/20 History duloxetine [Cymbalta] 30 mg PO DAILY 04/18/19 04/22/20 History fenofibrate 160 mg PO DAILY 04/18/19 04/22/20 History insulin glargine 80 unit SUBCUT DAILY 04/18/19 04/22/20 History melatonin 10 mg PO HS 04/18/19 04/22/20 History docusate sodium [Colace] 100 mg PO PRN PRN 04/22/20 04/22/20 History dulaglutide [Trulicity] 1.5 mg SUBCUT WEEKLY 04/22/20 04/22/20 History ergocalciferol (vitamin D2) 50,000 unit PO WEEKLY 04/22/20 04/22/20 History [Vitamin D2] insulin glargine [Lantus Solostar 60 unit SUBCUT QPM 04/22/20 04/22/20 History U-100 Insulin] insulin lispro [Humalog Clive 3 unit SUBCUT TIDWMEAL 04/22/20 04/22/20 History KwikPen U-100] lisinopril 10 mg PO DAILY 04/22/20 04/22/20 History multivitamin [Family Multivitamin] 1 tablet PO DAILY 04/22/20 04/22/20 History Laboratory Tests 04/25/20 04/25/20 04/25/20 11:41 16:39 20:59 WBC RBC Hgb Hct MCV MCH MCHC RDW Plt Count MPV PT INR Sodium Potassium Chloride Carbon Dioxide Anion Gap BUN Creatinine Estim Creat Clear Calc Estimated GFR Glucose POC Capillary Glucose 317 mg/dl H mg/dl 143 mg/dl H mg/dl 180 mg/dl H mg/dl (65-105) (65-105) (65-105) Calcium 04/26/20 04/26/20 04/26/20 05:21 05:21 05:21 WBC 8.4 K/mm3 K/mm3 (4.5-10.0) RBC 4.95 M/mm3 M/mm3 (4.6-6.20) Hgb 14.6 g/dL g/dL (14.0-18.0) Hct 43.6 % % (42.0-52.0) MCV 88.1 fl fl (80-100) MCH 29.5 pg pg (26-34) MCHC 33.5 g/dl g/dl (32-36) RDW 12.2 % % (11.5-14.5) Plt Count 324 k/mm3 k/mm3 (150-375) MPV 9.9 fl fl (7.4-10.4) PT 14.2 Seconds Seconds (11.1-14.7) INR 1.1 Sodium 137 mmol/L mmol/L (137-145) Potassium 4.3 mmol/L mmol/L (3.4-5.0) Chloride 104 mmol/L mmol/L (98-107) Carbon Dioxide 28 mmol/L mmol/L (22-30) Anion Gap 5 mmol/L L mmol/L (8-16) BUN 14 mg/dL mg/dL (9-20) Creatinine 1.50 mg/dL H mg/dL (0.7-1.3) Estim Creat Clear Calc 51 ml/min ml/min Estimated GFR 46 L (59 - ) Glucose 152 mg/dL H mg/dL (75-110) POC Capillary Glucose Calcium 9.1 mg/dL mg/dL (8.4-10.2) 04/26/20 08:16 WBC RBC Hgb Hct MCV MCH MCHC RDW Plt Count MPV PT INR Sodium Potassium Chloride Carbon Dioxide Anion Gap BUN Creatinine Estim Creat Clear Calc Estimated GFR Glucose POC Capillary Glucose 160 mg/dl H mg/dl (65-105) Calcium Patient hx anesthesia problems: none Family hx anesthesia probl
--- NOTE | 2020-04-26 10:47 | P.PNIM_ITS ---
Progress Note: A&P Assessment and Plan (1) Colitis: Code(s): K52.9 - Noninfective gastroenteritis and colitis, unspecified Status: Acute Assessment and Plan: * Continue pip/camille * tolerating clear liquid diet * Patient alert and comfortable this morning. * Denies abdominal pain. * Stool cultures negative to date. * Sigmoid colitis nonspecific. Stool cultures negative to date. seems ischemic colitis is resolving. * 04/24: Admitted for colitis. Sigmoid mass discovered. 04/26: Hand Assisted Laparoscopic Sigmoidectomy. (2) Malignant neoplasm of sigmoid colon: Code(s): C18.7 - Malignant neoplasm of sigmoid colon Status: Acute Assessment and Plan: * surgical Excision planned for 04/26 * 04/24: Admitted for colitis. Sigmoid mass discovered. 04/26: Hand Assisted Laparoscopic Sigmoidectomy * Grossly consistent with malignancy. * Labs reveal hemoglobin 14. WBC 7. CEA 6.1 (H/H stable) (3) Insulin dependent type 2 diabetes mellitus: Code(s): E11.9 - Type 2 diabetes mellitus without complications; Z79.4 - salvage determiner (current) use of insulin Status: Chronic Assessment and Plan: * Continue current regimen * glucose levels controlled per labs * glucose today 152 (4) Essential hypertension: Code(s): I10 - Essential (primary) hypertension Status: Chronic Assessment and Plan: * Continue to monitor * vital signs stable * BP 108/52, HR 80, 100% on room air. 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 Large calcaneal enthesophytes. * Podiatry consult after discharge. (6) Seborrhea: Code(s): L21.9 - Seborrheic dermatitis, unspecified Status: Acute Assessment and Plan: * HCTS 1% at HS (7) Acne rosacea: Code(s): L71.9 - Rosacea, unspecified Status: Acute Assessment and Plan: * Metronidazole 0.75% bid * fairly controlled at this time (8) Acute kidney injury superimposed on chronic kidney disease: Code(s): N17.9 - Acute kidney failure, unspecified; N18.9 - Chronic kidney disease, unspecified Status: Acute Assessment and Plan: * stable * Creatinine 1.3 to 1.5 today Subjective Date/time seen: 04/26/20 10:47 Usman was resting in bed comfortably this morning when I went to see him. He stated that he was worried and did not sleep well all night, as his surgery is scheduled for this morning. Nursing staff did get up with him this morning and ambulate with him throughout his hospital room multiple times this morning for him to get some exercise. We discussed any concerns that he had for surgery and postop recovery. Patient was calm and resting when I left. Denied abd pain. No n/v/diarrhea. No bleeding. 04/24: Admitted for colitis. Sigmoid mass discovered. 04/26: Hand Assisted Laparoscopic Sigmoidectomy. Review of Systems Review of Systems: All systems reviewed & are unremarkable except as noted in HPI and below Constitutional: Constitutional: Denies anorexia, Denies chills, Denies excessive sweating, Denies fever(s), Denies headache(s), Denies poor appetite and Denies weakness Eyes: Eyes: Denies blurry vision ENT: Denies headache(s) and Denies neck pain Cardiovascular: Cardiovascular: Denies chest
--- NOTE | 2020-04-26 10:47 | PM.IMPN ---
Progress Note: A&P Assessment and Plan (1) Colitis: Code(s): K52.9 - Noninfective gastroenteritis and colitis, unspecified Status: Acute Assessment and Plan: Continue pip/camille tolerating clear liquid diet Patient alert and comfortable this morning. Denies abdominal pain. Stool cultures negative to date. Sigmoid colitis nonspecific. Stool cultures negative to date. seems ischemic colitis is resolving. 04/24: Admitted for colitis. Sigmoid mass discovered. 04/26: Hand Assisted Laparoscopic Sigmoidectomy. (2) Malignant neoplasm of sigmoid colon: Code(s): C18.7 - Malignant neoplasm of sigmoid colon Status: Acute Assessment and Plan: surgical Excision planned for 04/26 04/24: Admitted for colitis. Sigmoid mass discovered. 04/26: Hand Assisted Laparoscopic Sigmoidectomy Grossly consistent with malignancy. Labs reveal hemoglobin 14. WBC 7. CEA 6.1 (H/H stable) (3) Insulin dependent type 2 diabetes mellitus: Code(s): E11.9 - Type 2 diabetes mellitus without complications; Z79.4 - lobsterman (current) use of insulin Status: Chronic Assessment and Plan: Continue current regimen glucose levels controlled per labs glucose today 152 (4) Essential hypertension: Code(s): I10 - Essential (primary) hypertension Status: Chronic Assessment and Plan: Continue to monitor vital signs stable BP 108/52, HR 80, 100% on room air. 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 Large calcaneal enthesophytes. Podiatry consult after discharge. (6) Seborrhea: Code(s): L21.9 - Seborrheic dermatitis, unspecified Status: Acute Assessment and Plan: HCTS 1% at HS (7) Acne rosacea: Code(s): L71.9 - Rosacea, unspecified Status: Acute Assessment and Plan: Metronidazole 0.75% bid fairly controlled at this time (8) Acute kidney injury superimposed on chronic kidney disease: Code(s): N17.9 - Acute kidney failure, unspecified; N18.9 - Chronic kidney disease, unspecified Status: Acute Assessment and Plan: stable Creatinine 1.3 to 1.5 today Subjective Date/time seen: 04/26/20 10:47 Usman was resting in bed comfortably this morning when I went to see him. He stated that he was worried and did not sleep well all night, as his surgery is scheduled for this morning. Nursing staff did get up with him this morning and ambulate with him throughout his hospital room multiple times this morning for him to get some exercise. We discussed any concerns that he had for surgery and postop recovery. Patient was calm and resting when I left. Denied abd pain. No n/v/diarrhea. No bleeding. 04/24: Admitted for colitis. Sigmoid mass discovered. 04/26: Hand Assisted Laparoscopic Sigmoidectomy. Review of Systems Review of Systems: All systems reviewed & are unremarkable except as noted in HPI and below Constitutional: Constitutional: Denies anorexia, Denies chills, Denies excessive sweating, Denies fever(s), Denies headache(s), Denies poor appetite and Denies weakness Eyes: Eyes: Denies blurry vision ENT: Denies headache(s) and Denies neck pain Cardiovascular: Cardiovascular: Denies chest pain, Denies diaphoresis, Denies dyspnea and Denies paroxysmal nocturnal dyspnea Respiratory: Respiratory: Denies chest congestion, Denies cough and Denies dyspnea Gastrointestinal: Gastrointestinal: Reports as per HPI, Denies abdominal pain, Reports change in bowel habits ( patient reports diarrhea and then constipation), Denies constipation, Denies GI cramping, Reports diarrhea, Denies nausea and Denies vomiting Genitourinary: Genitourinary: Denies hematuria and Denies dysuria
[2020-04-26] MEDS: LACTATED RINGERS 1,000 ML 30 ML IV CONT ×2 (11:18→15:44)
[2020-04-26] MEDS: ALVIMOPAN 12 MG CAPSULE PO (11:19)
--- NOTE | 2020-04-26 11:54 | PM.PROC ---
Procedure Note - Detailed Date of procedure: 04/26/20 Pre-op diagnosis: Sigmoid colon cancer Sigmoid colon cancer Post-op diagnosis: same Procedure performed: Hand access laparoscopic sigmoidectomy with colorectal anastomosis Description of procedure: The patient was taken to surgery and induced into general anesthesia. Huerta catheter was placed. He was placed in lithotomy with Jax stirrups. Rectal irrigation and rectal tube were placed. The abdomen was prepped and draped. The proposed incision was marked on the skin in the lower abdomen. Local was infiltrated in the area of the anticipated incision. A lower abdominal midline incision was made for the hand access port. Dissection through the skin and subcutaneous were carried out. Dissection was carried down between the 2 rectus muscles. The fascia was opened and the peritoneum entered. The peritoneal opening was extended the length of the wound. A hand was placed in the abdomen checking for any surrounding adhesions. None were found. The Rodriguez wound guard was placed. The GelPort was placed. With a hand in the abdomen, I then placed the left-sided 10 11 trocar. Local anesthetic was infiltrated prior to placement of the trocar. A 10 11 trocar was placed and insufflation was then carried out. Under direct visualization another 10 11 port was placed in the midline after local was infiltrated. A 12 mm port was placed in the right mid abdomen in similar fashion. The patient was placed in Trendelenburg with the left side elevated. The tumor was easily seen. The tumor was in the upper sigmoid as suggested by colonoscopy. Laparoscopic survey and general palpation was carried out. No evidence of metastatic disease was noted. We started by taking down the lateral peritoneal attachments to the descending colon. The sigmoid colon was likewise mobilized from its lateral peritoneal attachments. I then dissected into the retroperitoneum and found the left ureter. Ureter was carefully protected and avoided through the surgery. Dissection was continued down into the left side of the upper rectum. When the sigmoid and upper rectum as well as the descending colon were fully mobilized, I then created some tension on the sigmoid colon looking for the inferior mesenteric artery at its origin from the lower aorta. The PAMELLA was found and I dissected around the PAMELLA near the aorta using the Harmonic scalpel. Virtually all the dissection was done with the Harmonic scalpel. Inferior mesenteric artery was then divided using the Harmonic 7. I exposed the mesentery to the upper rectum and distal descending colon. I divided the mesentery taking a wide swath of lymphatic tissue along the course of the inferior mesenteric artery. The mesentery was divided using the Harmonic scalpel. I cleared the area of the proximal line of resection to the descending colon with the Harmonic scalpel. I also dissected the left side of the upper rectum with the Harmonic scalpel. I found an area of the upper rectum as our distal line of resection. I then divided the mesentery associated with the upper rectum using the Harmonic scalpel. The superior rectal artery was divided using the Harmonic 7. Once this dissection was completed, I stopped insufflation and removed the GelPort. I was able to eviscerate the tumor with the sigmoid colon and part of the descending colon. I divided the descending colon with the TLC 75 stapler. The upper rectum was divided with the TLC stapler as well. The specimen was passed off to pathology labeled sigmoid and descending colon. I cleared fatty tissue from each end of bowel so that the anastomosis could be completed sewing bowel wall to bowel wall more readily. A hand-sewn end-to-end anastomosis was performed. The posterior outer layer was performed 1st with interrupted 4 0 silk Lembert sutures. The 2 suture lines were then excised using the cautery. The posterior inner layer was then sutured using bidirectional
[2020-04-26] MEDS: BUPIVACAINE/EPINEPHRINE 0.5% 10 ML VIAL 40 ML INFILTRATE (13:08)
[2020-04-26 16:00] LABS: Glucose Point of Care 248 (65-105)
--- NOTE | 2020-04-26 16:31 | SUR.PHASEI ---
1625-DR. DINH AT BEDSIDE TO SPEAK WITH PT.
--- NOTE | 2020-04-26 16:45 | PC.NURSE ---
Returned from OR via bed.
[2020-04-26] MEDS: DULoxetine HCL 30 MG CAPSULE.DR PO (16:57)
[2020-04-26] MEDS: LACTATED RINGERS 1,000 ML 80 ML IV CONT (17:02)
[2020-04-26 17:08] LABS: Glucose Point of Care 252 (65-105)
[2020-04-26] MEDS: INSULIN ASPART (*BKC) 100 UNITS/ML SUB-Q (17:08)
[2020-04-26] MEDS: HYDROCORTISONE 1% 30 GM CREAM 1 APPLIC TOPICAL (20:23)
[2020-04-26] MEDS: LACTIC ACID 12% LOTION 225 BTL 1 APPLIC TOPICAL (20:23)
[2020-04-26] MEDS: FAMOTIDINE 20 MG TABLET PO (20:23)
[2020-04-26] MEDS: CITALOPRAM HYDROBROMIDE 20 MG TABLET PO (20:23)
[2020-04-26] MEDS: ENOXAPARIN 30 MG/0.3 ML SYRINGE SUB-Q (20:34)
[2020-04-26] MEDS: IBUPROFEN IV 800 MG/200 ML 800 MG/200 ML BAG 400 MG IVPB (23:44)
[2020-04-27] VITALS (7 sets, daily range): BP systolic 102–148; BP diastolic 52–73; PULSE 54–87; RESP 16–20; TEMP 36.4–37.2; O2SAT 95–99
[2020-04-27 01:22] LABS: Glucose Point of Care 295 (65-105)
[2020-04-27 05:49] LABS: Hematocrit 40.6 % (42.0-52.0); Hemoglobin 13.8 g/dL (14.0-18.0); Mean Corpuscular Hemoglobin 29.9 pg (26-34); Mean Corpuscular Volume 88.1 fl (80-100); Mean Platelet Volume 9.8 fl (7.4-10.4); Platelet Count Result 305 k/mm3 (150-375); Red Blood Count 4.61 M/mm3 (4.6-6.20); Red Cell Distribution Width 12.3 % (11.5-14.5); White Blood Count 13.7 K/mm3 (4.5-10.0)
[2020-04-27 06:10] LABS: Anion Gap 9 mmol/L (8-16); Blood Urea Nitrogen 21 mg/dL (9-20); Calcium 8.7 mg/dL (8.4-10.2); Carbon Dioxide 25 mmol/L (22-30); Chloride 101 mmol/L (98-107); Estimated CRCL calculation 39 ml/min; Estimated Glomerular Filt Rate 33; Glucose 276 mg/dL (75-110); Potassium 4.8 mmol/L (3.4-5.0); Sodium 135 mmol/L (137-145)
[2020-04-27] MEDS: LACTATED RINGERS 1,000 ML 80 ML IV CONT (06:57)
--- NOTE | 2020-04-27 07:08 | PM.PNGS ---
Progress Note: A&P Assessment and Plan (1) Malignant neoplasm of sigmoid colon: Code(s): C18.7 - Malignant neoplasm of sigmoid colon Status: Chronic Assessment and Plan: doing well postop day 1. Will advance to low fiber diet. Currently NPO to have image guided biopsy of liver mass noted on CT scan. (2) Acute kidney injury superimposed on chronic kidney disease: Code(s): N17.9 - Acute kidney failure, unspecified; N18.9 - Chronic kidney disease, unspecified Status: Acute Assessment and Plan: Creatinine up to 2.0. Will give saline bolus and continue IV saline today. (3) Abnormal computed tomography of abdomen and pelvis: Code(s): R93.5 - Abnormal findings on diagnostic imaging of other abdominal regions, including retroperitoneum Status: Acute Assessment and Plan: Image guided biopsy today. (4) Insulin dependent type 2 diabetes mellitus: Code(s): E11.9 - Type 2 diabetes mellitus without complications; Z79.4 - terminal carman (current) use of insulin Status: Chronic Subjective Subjective Date/Time Seen: 04/27/20 07:08 Post Op day: 1 Patient reports: no new complaints, feels better, no bowel movement and afebrile Exam Const: General: comfortable and no acute distress; No confusion Orientation/consciousness: patient oriented x3 and No confusion GI: Inspection: non-distended, incision ( wounds all healing well) and obesity GI Palp: Yes Soft to palpation, Yes Tenderness to palpation present (GI), No Guarding due to palpation present (GI) and No Rebound tenderness present Auscultation: Hypoactive bowel sounds present Neuro: General: patient oriented x3, no focal motor deficits and No confusion Extrem: General: no calf tenderness and no edema Psych: Affect: normal affect Insight: Good insight present (Psych) Judgement: Good judgement present (Psych) Objective Data Vital Signs Vital Signs: Vital Signs - 24 hr 04/26/20 09:20 04/26/20 09:46 04/26/20 11:24 Temperature 36.7 C 36.5 C Pulse Rate 90 89 Respiratory Rate 18 18 18 Blood Pressure 102/79 146/87 H Pulse Oximetry 98 98 98 04/26/20 15:44 04/26/20 15:55 04/26/20 16:10 Temperature 36.4 C L Pulse Rate 84 82 83 Respiratory Rate 17 13 18 Blood Pressure 140/63 130/51 L 123/52 L Pulse Oximetry 100 100 98 04/26/20 16:25 04/26/20 16:45 04/26/20 17:00 Temperature 36.1 C L 36.8 C Pulse Rate 82 84 82 Respiratory Rate 12 18 18 Blood Pressure 132/64 145/66 H 150/64 H Pulse Oximetry 98 93 94 04/26/20 18:10 04/26/20 18:29 04/26/20 22:00 Temperature 36.8 C 36.7 C 36.8 C Pulse Rate 85 88 97 Respiratory Rate 18 16 18 Blood Pressure 147/67 H 170/74 H 135/60 Pulse Oximetry 94 97 96 04/27/20 02:00 Temperature 36.8 C Pulse Rate 86 Respiratory Rate 18 Blood Pressure 129/52 L Pulse Oximetry 96 Intake/Output Intake/Output: Intake & Output 04/25/20 04/25/20 04/26/20 04/27/20 00:59 23:59 23:59 23:59 Intake Total 250 1200 Balance 250 1200 Meds/Results Medications: Active Medications Generic Name Dose Route Start Last Admin Trade Name Freq PRN Reason Stop Dose Admin Acetaminophen 500 mg 04/26/20 16:38 Acetaminophen 500 Mg Tablet PO Q6H PRN Mild Pain (1-3) or Fever Citalopram Hydrobromide 20 mg 04/24/20 21:00 04/26/20 20:23 Citalopram Hydrobromide 20 Mg Tablet PO 20 mg HS REED Administration Dextrose 12.5 gm 04/22/20 14:12 04/22/20 16:36 Dextrose 50% 25 Gm/50 Ml Syringe IV PUSH 12.5 gm PRN PRN Administration Hypoglycemia Protocol Diphenhydramine HCl 25 mg 04/26/20 16:38 Diphenhydramine Hcl Inj 50 Mg/Ml Vial IV PUSH Q6H PRN Itching Duloxetine HCl 30 mg 04/25/20 09:00 04/26/20 16:57 Duloxetine Hcl 30 Mg Capsule.Dr PO 30 mg DAILY REED Administration Enoxaparin Sodium 30 mg 04/26/20 21:00 04/26/20 20:34 Enoxaparin 30 Mg/0.3 Ml Syringe SUB-Q 30 mg Q12HR REED Administration Famotidi
--- NOTE | 2020-04-27 07:36 | WPDANESPN ---
Anes - Prog Note Post-Op Date/Time: 04/27/20 07:36 Cardiovascular status: normal Respiratory status: normal Airway patency: baseline Mental status: baseline Post-Op hydration status: normal Vital Signs: Last Vital Signs Temp 36.4 C 04/27/20 06:00 Pulse 54 L 04/27/20 06:00 Resp 20 04/27/20 06:00 BP 120/52 L 04/27/20 06:00 Pulse Ox 98 04/27/20 06:00 Pain Score (VAS): 2 I/O: Intake & Output 04/26/20 04/26/20 04/27/20 15:59 23:59 07:59 Intake Total 50 150 1600 Output Total 400 Balance 50 150 1200 Laboratory Tests 04/27/20 05:40 04/27/20 05:40 04/26/20 04/26/20 04/26/20 08:16 15:57 16:55 WBC RBC Hgb Hct MCV MCH MCHC RDW Plt Count MPV Sodium Potassium Chloride Carbon Dioxide Anion Gap BUN Creatinine Estim Creat Clear Calc Estimated GFR Glucose POC Capillary Glucose 160 H 248 H 252 H Calcium 04/26/20 04/27/20 04/27/20 20:38 05:40 05:40 WBC 13.7 H RBC 4.61 Hgb 13.8 L Hct 40.6 L MCV 88.1 MCH 29.9 MCHC 34.0 RDW 12.3 Plt Count 305 MPV 9.8 Sodium 135 L Potassium 4.8 Chloride 101 Carbon Dioxide 25 Anion Gap 9 BUN 21 H Creatinine 2.00 H Estim Creat Clear Calc 39 Estimated GFR 33 L Glucose 276 H POC Capillary Glucose 295 H Calcium 8.7 Microbiology 04/23/20 06:51 Stool Escherichia coli Shiga Toxins - Final 04/23/20 06:51 Stool Salmonella/Shigella Culture - Final 04/23/20 06:51 Stool Giardia Antigen (NUBIA) - Final Post-procedural complaints: none Patient Feedback: Patient satisfied with anesthetic care.
--- NOTE | 2020-04-27 07:56 | WPDGIPROGNO ---
Progress Note: A&P Additional Plan patient appears to be doing well after surgery. Final histology pending. Anxious to start eating. Physical exam reveals Vital Signs to be stable. Lungs are clear. Abdomen soft nontender mild incisional tenderness noted. Impression 1. Sigmoid adenocarcinoma. Status post resection. Final histology pending. Appears to be locally contain. Further recommendations advancing diet per surgical service. Subjective Date/time seen: 04/27/20 07:56 Objective Data Vital Signs Vital Signs: Vital Signs - 24 hr 04/26/20 09:20 04/26/20 09:46 04/26/20 11:24 Temperature 98.1 F 97.7 F Pulse Rate 90 89 Respiratory Rate 18 18 18 Blood Pressure 102/79 146/87 H Pulse Oximetry 98 98 98 04/26/20 15:44 04/26/20 15:55 04/26/20 16:10 Temperature 97.5 F L Pulse Rate 84 82 83 Respiratory Rate 17 13 18 Blood Pressure 140/63 130/51 L 123/52 L Pulse Oximetry 100 100 98 04/26/20 16:25 04/26/20 16:45 04/26/20 17:00 Temperature 97.0 F L 98.2 F Pulse Rate 82 84 82 Respiratory Rate 12 18 18 Blood Pressure 132/64 145/66 H 150/64 H Pulse Oximetry 98 93 94 04/26/20 18:10 04/26/20 18:29 04/26/20 22:00 Temperature 98.3 F 98.1 F 98.2 F Pulse Rate 85 88 97 Respiratory Rate 18 16 18 Blood Pressure 147/67 H 170/74 H 135/60 Pulse Oximetry 94 97 96 04/27/20 02:00 04/27/20 06:00 Temperature 98.2 F 97.6 F Pulse Rate 86 54 L Respiratory Rate 18 20 Blood Pressure 129/52 L 120/52 L Pulse Oximetry 96 98 Intake/Output Intake/Output: Intake & Output 04/25/20 04/25/20 04/26/20 04/27/20 00:59 23:59 23:59 23:59 Intake Total 250 1600 Output Total 400 Balance 250 1200 Meds/Results Medications: Active Medications Generic Name Dose Route Start Last Admin Trade Name Freq PRN Reason Stop Dose Admin Acetaminophen 500 mg 04/26/20 16:38 Acetaminophen 500 Mg Tablet PO Q6H PRN Mild Pain (1-3) or Fever Citalopram Hydrobromide 20 mg 04/24/20 21:00 04/26/20 20:23 Citalopram Hydrobromide 20 Mg Tablet PO 20 mg HS REED Administration Dextrose 12.5 gm 04/22/20 14:12 04/22/20 16:36 Dextrose 50% 25 Gm/50 Ml Syringe IV PUSH 12.5 gm PRN PRN Administration Hypoglycemia Protocol Diphenhydramine HCl 25 mg 04/26/20 16:38 Diphenhydramine Hcl Inj 50 Mg/Ml Vial IV PUSH Q6H PRN Itching Duloxetine HCl 30 mg 04/25/20 09:00 04/26/20 16:57 Duloxetine Hcl 30 Mg Capsule.Dr PO 30 mg DAILY REED Administration Enoxaparin Sodium 30 mg 04/26/20 21:00 04/26/20 20:34 Enoxaparin 30 Mg/0.3 Ml Syringe SUB-Q 30 mg Q12HR REED Administration Famotidine 20 mg 04/24/20 21:00 04/26/20 20:23 Famotidine 20 Mg Tablet PO 20 mg Q12HR REED Administration Fentanyl Citrate 25 mcg 04/26/20 16:38 Fentanyl Citrate Inj (*Crx) 100 Mcg/2 Ml Vial IV PUSH Q2H PRN Pain Rated 7-10 Glucagon 1 mg 04/22/20 14:12 Glucagon For Inj 1 Mg Vial IM PRN PRN Hypoglycemia Protocol Glucose 15 gm 04/22/20 14:12 04/22/20 20:59 Glucose Oral Gel 15 Gm Of Glucse In 37.5 Gm Tube PO 15 gm PRN PRN Administration Hypoglycemia Protocol Hydrocortisone 1 applic 04/24/20 21:00 04/26/20 20:23 Hydrocortisone 1% 30 Gm Cream TOPICAL 1 applic HS REED Administration Dextrose 1,000 mls @ 100 mls/hr 04/22/20 14:12 Dextrose 5% 1,000 Ml IVPB PRN PRN Hypoglycemia Protocol Ibuprofen 800 mg in 200 mls @ 400 mls/hr 04/26/20 16:38 04/27/20 00:14 Caldolor 800 Mg/200 Ml IVPB Infused Q6H PRN Infusion Pain Rated 4-6 Sodium Chloride 1,000 mls @ 999 mls/hr 04/27/20 07:06 Normal Saline Iv IV CONT 04/27/20 08:06 .Q1H1M ONE Sodium Chloride 1,000 mls @ 100 mls/hr 04/27/20 07:10 Normal Saline Iv IV CONT .Q10H REED Insulin Aspart 3 - 6 units 04/22/20 17:00 04/26/20 17:08 Insulin Aspart (*Bkc) 100 Units/Ml SUB-Q 4 units TIDWM REED Administration Khushboo
[2020-04-27 08:23] LABS: Glucose Point of Care 253 (65-105)
[2020-04-27] MEDS: INSULIN ASPART (*BKC) 100 UNITS/ML SUB-Q ×3 (09:28→17:29)
[2020-04-27] MEDS: SODIUM CHLORIDE 0.9% IV 1,000 ML 999 ML IV CONT (09:28)
[2020-04-27] MEDS: ENOXAPARIN 30 MG/0.3 ML SYRINGE SUB-Q ×2 (09:30→21:09)
[2020-04-27] MEDS: DULoxetine HCL 30 MG CAPSULE.DR PO (09:30)
[2020-04-27] MEDS: FAMOTIDINE 20 MG TABLET PO ×2 (09:30→21:09)
--- NOTE | 2020-04-27 09:36 | PM.IMPN ---
Progress Note: A&P Assessment and Plan (1) Malignant neoplasm of sigmoid colon: Code(s): C18.7 - Malignant neoplasm of sigmoid colon Status: Chronic Assessment and Plan: CT abd/pelvis showed focal wall thickening of the sigmoid colon suspicious for primary adenocarcinoma. He underwent colonoscopy 04/[address] Paul which showed partially-obstrcting [id number] mass at the proximal sigmoid. Biopsies were obtained and demonstrate adenocarcinoma. CEA elevated at 6.1. He underwent hand access laparoscopic sigmoidectomy with colorectal anastomosis by Dr. Johnson 04/26. He tolerated the procedure well. His diet was advanced today to low fiber today per general surgery and his pain is well-controlled. Post-op care including DVT prophylaxis, diet, and wound care will be deferred to general surgery. Image guided liver biopsy is anticipated. (2) Colitis: Code(s): K52.9 - Noninfective gastroenteritis and colitis, unspecified Status: Acute Assessment and Plan: The pt presented with abdominal discomfort with loose stool. CT abd/pelvis showed mild wall thickening of the rectosigmoid consistent with colitis. Sigmoid mass was found and removed 04/26. Stool cultures were obtained and show few leukocytes and are otherwise negative to date. Campylobacter and cryptosporidium are pending. He was treated with IV zosyn which was discontinued 04/26. He is not having any further diarrhea. (3) Acute kidney injury superimposed on chronic kidney disease: Code(s): N17.9 - Acute kidney failure, unspecified; N18.9 - Chronic kidney disease, unspecified Status: Acute Assessment and Plan: Cr increased from 1.5 to 2.0 today. Baseline appears to be 1.3. He received 1 liter fluid bolus and is on normal saline IV 100cc/hr at this time. Plan to monitor closely. Avoid nephrotoxins and renally dose medications. (4) Insulin dependent type 2 diabetes mellitus: Code(s): E11.9 - Type 2 diabetes mellitus without complications; Z79.4 - group home (current) use of insulin Status: Chronic Assessment and Plan: Hb A1c 04/22 was 9.1%. Blood sugars were reviewed and are elevated above target in the 200s. His home basal insulin was held since he was NPO. Plan to give 10 units of lantus now and add 20 units for tonight. Continue ACHS glucose monitoring, sliding scale insulin, and hypoglycemia protocol. (5) Essential hypertension: Code(s): I10 - Essential (primary) hypertension Status: Chronic Assessment and Plan: Blood pressures are reasonably controlled. Lisinopril is currently held. Will hold for now given FILIPPO. Resume when appropriate. Continue to monitor closely and adjust treatment as indicated. (6) Cutaneous horn: Code(s): L85.8 - Other specified epidermal thickening Status: Acute Assessment and Plan: Possibly due to pressure. Improbable location for squamous cell CA. 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 Large calcaneal enthesophytes. He will need a podiatry consult after discharge for further evaluation and treatment. (7) Seborrhea: Code(s): L21.9 - Seborrheic dermatitis, unspecified Status: Acute Assessment and Plan: Continue hydrocortisone 1% at HS. (8) Acne rosacea: Code(s): L71.9 - Rosacea, unspecified Status: Chronic Assessment and Plan: Fairly controlled. Continue topical metronidazole 0.75% BID. (9) Abnormal computed tomography of abdomen and pelvis: Code(s): R93.5 - Abnormal findings on diagnostic imaging of other abdominal regions, including retroperitoneum Status: Acute Assessment and Plan: Image guided liver biopsy is anticipated for today. Appreciate general surgery input. Subjective Date/time seen: 04/27/20 09:36 Mr. Quispe is a 69 y.o. male with PMH significant for CKD stage III, IDDM, HLD, HTN who was admitted f
[2020-04-27] MEDS: SODIUM CHLORIDE 0.9% IV 1,000 ML 100 ML IV CONT ×2 (11:15→22:00)
[2020-04-27] MEDS: INSULIN GLARGINE (*BKC) 100 UNITS/ML 10 UNITS SUB-Q (11:15)
[2020-04-27 11:48] LABS: Glucose Point of Care 310 (65-105)
[2020-04-27 16:59] LABS: Glucose Point of Care 261 (65-105)
[2020-04-27] MEDS: HYDROcodone/acetaminophen (*CRX) 5-325 MG TABLET 1 TAB PO (20:06)
[2020-04-27] MEDS: CITALOPRAM HYDROBROMIDE 20 MG TABLET PO (21:09)
[2020-04-27] MEDS: HYDROCORTISONE 1% 30 GM CREAM 1 APPLIC TOPICAL (21:10)
[2020-04-27] MEDS: LACTIC ACID 12% LOTION 225 BTL 1 APPLIC TOPICAL (21:10)
[2020-04-27] MEDS: INSULIN GLARGINE (*BKC) 100 UNITS/ML 30 UNITS SUB-Q (21:10)
[2020-04-27 21:22] LABS: Glucose Point of Care 292 (65-105)
[2020-04-28 04:00] VITALS: BP 144/63; PULSE 75; RESP 16; TEMP 36.5; O2SAT 95
[2020-04-28 05:49] LABS: Basophils Absolute Auto 0.1 K/mm3 (0.0-0.1); Basophils Percent Auto 0.5 % (0.2-1.2); Eosinophils Absolute Auto 0.1 K/mm3 (0-0.3); Eosinophils Percent Auto 1.4 % (0-4.4); Hematocrit 37.8 % (42.0-52.0); Hemoglobin 12.4 g/dL (14.0-18.0); Immature Granulocyte Absolute 0.08 K/mm3 (0.00-0.031); Immature Granulocyte Percent A 0.8 % (0-0.5); Lymphocytes Absolute Auto 3.03 K/mm3 (0.9-3.2); Lymphocytes Percent Auto 31.8 % (18.3-44.2); Mean Corpuscular HGB Conc 32.8 g/dl (32-36); Mean Corpuscular Volume 91.3 fl (80-100); Monocytes Absolute Auto 0.8 K/mm3 (0.1-0.6); Monocytes Percent Auto 8.2 % (2.6-8.5); Neutrophils Absolute Auto 5.5 K/mm3 (1.3-6.7); Neutrophils Percent Auto 57.3 % (45.5-73.1); Platelet Count Result 256 k/mm3 (150-375); Red Blood Count 4.14 M/mm3 (4.6-6.20); Red Cell Distribution Width 12.7 % (11.5-14.5); White Blood Count 9.5 K/mm3 (4.5-10.0)
[2020-04-28 05:57] LABS: Anion Gap 4 mmol/L (8-16); Blood Urea Nitrogen 29 mg/dL (9-20); Calcium 8.6 mg/dL (8.4-10.2); Carbon Dioxide 29 mmol/L (22-30); Chloride 105 mmol/L (98-107); Estimated CRCL calculation 46 ml/min; Estimated Glomerular Filt Rate 40; Glucose 288 mg/dL (75-110); Potassium 4.8 mmol/L (3.4-5.0); Sodium 138 mmol/L (137-145)
[2020-04-28 06:57] LABS: Glucose Point of Care 272 (65-105)
[2020-04-28] MEDS: INSULIN ASPART (*BKC) 100 UNITS/ML SUB-Q ×5 (07:19→16:29)
--- NOTE | 2020-04-28 09:15 | WPDGIPROGNO ---
Progress Note: A&P Additional Plan Patient alert and comfortable this morning. Tolerating diet. Minimal incisional tenderness noted. Physical exam reveals abdomen to be soft minimal incisional tenderness evident. Labs reveal CBC to be normal. LFTs are normal. Impression 1. Adenocarcinoma the sigmoid colon status post resection. Final path report pending. Oncology consultation may be beneficial subsequently. I understand patient is to have CT-guided biopsy of a mass in the liver. Await this report. Otherwise would anticipate follow-up colonoscopy in 1 year. Subjective Date/time seen: 04/28/20 09:15 Objective Data Vital Signs Vital Signs: Vital Signs - 24 hr 04/27/20 10:00 04/27/20 14:00 04/27/20 18:12 Temperature 98.2 F 97.9 F 97.5 F L Pulse Rate 75 86 80 Respiratory Rate 18 16 18 Blood Pressure 106/73 102/64 103/58 L Pulse Oximetry 97 99 97 04/27/20 20:00 04/27/20 23:20 04/28/20 04:00 Temperature 99.0 F 98.5 F 97.7 F Pulse Rate 87 84 75 Respiratory Rate 18 18 16 Blood Pressure 138/59 L 148/71 H 144/63 H Pulse Oximetry 95 97 95 Intake/Output Intake/Output: Intake & Output 04/25/20 04/26/20 04/27/20 04/28/20 23:59 23:59 23:59 23:59 Intake Total 250 5125 200 Output Total 750 600 Balance 250 4375 -400 Meds/Results Medications: Active Medications Generic Name Dose Route Start Last Admin Trade Name Freq PRN Reason Stop Dose Admin Acetaminophen 500 mg 04/26/20 16:38 Acetaminophen 500 Mg Tablet PO Q6H PRN Mild Pain (1-3) or Fever Hydrocodone Bitart/Acetaminophen 1 tab 04/27/20 09:07 04/27/20 20:06 Hydrocodone/Acetaminophen (*Crx) 5-325 Mg Tablet PO 1 tab Q4H PRN Administration Pain Rated 4-6 Hydrocodone Bitart/Acetaminophen 1 tab 04/27/20 09:07 Hydrocodone/Acetaminophen (*Crx) 7.5-325 Mg Tablet PO Q4H PRN Pain Rated 7-10 Citalopram Hydrobromide 20 mg 04/24/20 21:00 04/27/20 21:09 Citalopram Hydrobromide 20 Mg Tablet PO 20 mg HS REED Administration Dextrose 12.5 gm 04/22/20 14:12 04/22/20 16:36 Dextrose 50% 25 Gm/50 Ml Syringe IV PUSH 12.5 gm PRN PRN Administration Hypoglycemia Protocol Diphenhydramine HCl 25 mg 04/26/20 16:38 Diphenhydramine Hcl Inj 50 Mg/Ml Vial IV PUSH Q6H PRN Itching Duloxetine HCl 30 mg 04/25/20 09:00 04/27/20 09:30 Duloxetine Hcl 30 Mg Capsule.Dr PO 30 mg DAILY REED Administration Enoxaparin Sodium 30 mg 04/26/20 21:00 04/27/20 21:09 Enoxaparin 30 Mg/0.3 Ml Syringe SUB-Q 30 mg Q12HR REED Administration Famotidine 20 mg 04/24/20 21:00 04/27/20 21:09 Famotidine 20 Mg Tablet PO 20 mg Q12HR REED Administration Fentanyl Citrate 25 mcg 04/26/20 16:38 Fentanyl Citrate Inj (*Crx) 100 Mcg/2 Ml Vial IV PUSH Q2H PRN Pain Rated 7-10 Fentanyl Citrate 12.5 mcg 04/27/20 09:07 Fentanyl Citrate Inj (*Crx) 100 Mcg/2 Ml Vial IV PUSH Q2H PRN Pain Rated 4-6 Glucagon 1 mg 04/22/20 14:12 Glucagon For Inj 1 Mg Vial IM PRN PRN Hypoglycemia Protocol Glucose 15 gm 04/22/20 14:12 04/22/20 20:59 Glucose Oral Gel 15 Gm Of Glucse In 37.5 Gm Tube PO 15 gm PRN PRN Administration Hypoglycemia Protocol Hydrocortisone 1 applic 04/24/20 21:00 04/27/20 21:10 Hydrocortisone 1% 30 Gm Cream TOPICAL 1 applic HS REED Administration Dextrose 1,000 mls @ 100 mls/hr 04/22/20 14:12 Dextrose 5% 1,000 Ml IVPB PRN PRN Hypoglycemia Protocol Sodium Chloride 1,000 mls @ 75 mls/hr 04/27/20 07:10 04/27/20 22:00 Normal Saline Iv IV CONT 100 mls/hr .[id number] REED Administration Insulin Aspart 3 - 6 units 04/22/20 17:00 04/28/20 07:19 Insulin Aspart (*Bkc) 100 Units/Ml SUB-Q 4 units TIDWM REED Administration Protocol Insulin Glargine 30 units 04/27/20 21:00 04/27/20 21:10 Insulin Glargine (*Bkc) 100 Units/Ml SUB-Q 30 units REED Administr
[2020-04-28] MEDS: SODIUM CHLORIDE 0.9% IV 1,000 ML 75 ML IV CONT (09:56)
[2020-04-28] MEDS: FAMOTIDINE 20 MG TABLET PO ×2 (09:57→21:02)
[2020-04-28] MEDS: DULoxetine HCL 30 MG CAPSULE.DR PO (09:57)
[2020-04-28] MEDS: ENOXAPARIN 30 MG/0.3 ML SYRINGE SUB-Q ×2 (09:57→21:02)
[2020-04-28] MEDS: INSULIN GLARGINE (*BKC) 100 UNITS/ML 30 UNITS SUB-Q ×2 (09:58→21:03)
[2020-04-28 10:00] VITALS: BP 110/51; PULSE 89; RESP 18; TEMP 36.6; O2SAT 91
--- NOTE | 2020-04-28 10:34 | PM.IMPN ---
Progress Note: A&P Assessment and Plan (1) Malignant neoplasm of sigmoid colon: Code(s): C18.7 - Malignant neoplasm of sigmoid colon Status: Chronic Assessment and Plan: CT abd/pelvis showed focal wall thickening of the sigmoid colon suspicious for primary adenocarcinoma. He underwent colonoscopy 04/[address] Paul which showed partially-obstructing [id number] mass at the proximal sigmoid. Biopsies were obtained and demonstrate adenocarcinoma. CEA elevated at 6.1. He underwent hand access laparoscopic sigmoidectomy with colorectal anastomosis by Dr. Johnson 04/26. Pathology is pending. He tolerated the procedure well. His diet was advanced to low fiber 04/27 per general surgery and his pain is well-controlled. Post-op care including DVT prophylaxis, diet, and wound care will be deferred to general surgery. (2) Colitis: Code(s): K52.9 - Noninfective gastroenteritis and colitis, unspecified Status: Resolved Assessment and Plan: Resolved. The pt presented with abdominal discomfort with loose stool. CT abd/pelvis showed mild wall thickening of the rectosigmoid consistent with colitis. Sigmoid mass was found and removed 04/26. Stool cultures were obtained and are negative. He was treated with IV zosyn which was discontinued 04/26. He is not having any further diarrhea. (3) Acute kidney injury superimposed on chronic kidney disease: Code(s): N17.9 - Acute kidney failure, unspecified; N18.9 - Chronic kidney disease, unspecified Status: Acute Assessment and Plan: Cr increased from 1.5 to 2.0 04/27. Baseline appears to be 1.3. He received 1 liter fluid bolus and is on normal saline IV fluid. Continue gentle IV fluids. Cr has improved to 1.7 today. Plan to monitor closely. Avoid nephrotoxins and renally dose medications. (4) Insulin dependent type 2 diabetes mellitus: Code(s): E11.9 - Type 2 diabetes mellitus without complications; Z79.4 - senior living (current) use of insulin Status: Chronic Assessment and Plan: Hb A1c 04/22 was 9.1%. Blood sugars were reviewed and are elevated above target. Basal insulin was resumed yesterday and he received 40 units total. He is on 80 units once daily in the morning and 60 units qHS at night prior to admission. Will give 30 units in the morning and 30 units at night. Titrate as indicated. Will start slowly given hypoglycemia initially. Add mealtime insulin of 3 units TID with meals. Continue ACHS glucose monitoring, sliding scale insulin, and hypoglycemia protocol. (5) Essential hypertension: Code(s): I10 - Essential (primary) hypertension Status: Chronic Assessment and Plan: Blood pressures are reasonably controlled. Lisinopril is currently held. Continue to hold given FILIPPO and hopefully resume tomorrow. Continue to monitor closely and adjust treatment as indicated. (6) Cutaneous horn: Code(s): L85.8 - Other specified epidermal thickening Status: Acute Assessment and Plan: Possibly due to pressure. Improbable location for squamous cell CA. 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 Large calcaneal enthesophytes. He will need a podiatry consult after discharge for further evaluation and treatment. (7) Seborrhea: Code(s): L21.9 - Seborrheic dermatitis, unspecified Status: Acute Assessment and Plan: Continue hydrocortisone 1% at HS. (8) Acne rosacea: Code(s): L71.9 - Rosacea, unspecified Status: Chronic Assessment and Plan: Fairly controlled. Continue topical metronidazole 0.75% BID. Subjective Date/time seen: 04/28/20 10:34 Mr. Quispe is a 69 y.o. male with PMH significant for CKD stage III, IDDM, HLD, HTN who was admitted for colitis and found to have a sigmoid mass consistent with adenocarcinoma. He is s/p hand access laparoscopic sigmoidectomy with colorectal anastomosis by Dr. Johnson 04/26.
[2020-04-28 11:34] LABS: Glucose Point of Care 380 (65-105)
--- NOTE | 2020-04-28 12:34 | PCNFU ---
Nutrition Follow-Up Complete: Altered laboratory values related to DM as evidence by A1c of 9.1 Goal: Adequate PO intake of 75% or greater of DBCC diet Current goal has been met. No new goal. Pt current nutrition is Low fiber . Nutrition recommendation: Agree Last recorded weight is 106.9 kg. Bowel Motility:+BM reported 04/28 Labs Reviewed:Cr 1.7,BUN 29,Glu 288 Meds Noted:Novolog, Lantus,NS at 75 ml/hr, Cymbalta, Lovenox Additional Notes: Patient seen today for nutrition follow up. He states to tolerating diet well, 80-100% reported intake. Low Fiber diet patient instructions are attached. Low fiber diet was explained to patient today. Agree with diet orders. Monitoring: po intake, diet adherence, skin, labs, wt every 7 days.
[2020-04-28 14:00] VITALS: BP 156/71; PULSE 85; RESP 18; TEMP 36.8; O2SAT 95
[2020-04-28 16:25] LABS: Glucose Point of Care 218 (65-105)
[2020-04-28] MEDS: SILVERGEL (ELTA) 45 ML 1 APPLIC TOPICAL (16:30)
--- NOTE | 2020-04-28 17:05 | PM.PNGS ---
Progress Note: A&P Assessment and Plan (1) Malignant neoplasm of sigmoid colon: Code(s): C18.7 - Malignant neoplasm of sigmoid colon Status: Chronic Assessment and Plan: Pathology pending. Looks good this morning. If continues to do well could possibly be discharged tomorrow. (2) Acute kidney injury superimposed on chronic kidney disease: Code(s): N17.9 - Acute kidney failure, unspecified; N18.9 - Chronic kidney disease, unspecified Status: Acute Assessment and Plan: Creatinine down to 1.7 today (3) Insulin dependent type 2 diabetes mellitus: Code(s): E11.9 - Type 2 diabetes mellitus without complications; Z79.4 - halfway (current) use of insulin Status: Chronic Subjective Subjective Date/Time Seen: 04/28/20 06:35 Post Op day: 2 Patient reports: no new complaints, pain is less, tolerating liquids well and afebrile Review of Systems Review of Systems: All systems reviewed & are unremarkable except as noted in HPI and below Constitutional: Constitutional: Denies headache(s) Cardiovascular: Cardiovascular: Denies chest pain and Denies dyspnea Respiratory: Respiratory: Denies cough and Denies dyspnea Gastrointestinal: Gastrointestinal: Reports as per HPI Neurologic: Denies confusion and Denies headache(s) Exam Const: General: comfortable and no acute distress; No confusion Orientation/consciousness: patient oriented x3 and No confusion GI: GI Palp: Yes Soft to palpation, Yes Tenderness to palpation present (GI), No Guarding due to palpation present (GI) and No Rebound tenderness present Auscultation: normal bowel sounds Neuro: General: patient oriented x3, no focal motor deficits and No confusion Extrem: General: no calf tenderness and no edema Objective Data Vital Signs Vital Signs: Vital Signs - 24 hr 04/27/20 18:12 04/27/20 20:00 04/27/20 23:20 Temperature 36.4 C L 37.2 C 36.9 C Pulse Rate 80 87 84 Respiratory Rate 18 18 18 Blood Pressure 103/58 L 138/59 L 148/71 H Pulse Oximetry 97 95 97 04/28/20 04:00 04/28/20 10:00 04/28/20 14:00 Temperature 36.5 C 36.6 C 36.8 C Pulse Rate 75 89 85 Respiratory Rate 16 18 18 Blood Pressure 144/63 H 110/51 L 156/71 H Pulse Oximetry 95 91 95 Intake/Output Intake/Output: Intake & Output 04/25/20 04/26/20 04/27/20 04/28/20 23:59 23:59 23:59 23:59 Intake Total 250 5125 2136 Output Total 750 600 Balance 250 4375 1536 Meds/Results Medications: Active Medications Generic Name Dose Route Start Last Admin Trade Name Freq PRN Reason Stop Dose Admin Acetaminophen 500 mg 04/26/20 16:38 Acetaminophen 500 Mg Tablet PO Q6H PRN Mild Pain (1-3) or Fever Hydrocodone Bitart/Acetaminophen 1 tab 04/27/20 09:07 04/27/20 20:06 Hydrocodone/Acetaminophen (*Crx) 5-325 Mg Tablet PO 1 tab Q4H PRN Administration Pain Rated 4-6 Hydrocodone Bitart/Acetaminophen 1 tab 04/27/20 09:07 Hydrocodone/Acetaminophen (*Crx) 7.5-325 Mg Tablet PO Q4H PRN Pain Rated 7-10 Citalopram Hydrobromide 20 mg 04/24/20 21:00 04/27/20 21:09 Citalopram Hydrobromide 20 Mg Tablet PO 20 mg HS REED Administration Dextrose 12.5 gm 04/22/20 14:12 04/22/20 16:36 Dextrose 50% 25 Gm/50 Ml Syringe IV PUSH 12.5 gm PRN PRN Administration Hypoglycemia Protocol Diphenhydramine HCl 25 mg 04/26/20 16:38 Diphenhydramine Hcl Inj 50 Mg/Ml Vial IV PUSH Q6H PRN Itching Duloxetine HCl 30 mg 04/25/20 09:00 04/28/20 09:57 Duloxetine Hcl 30 Mg Capsule.Dr PO 30 mg DAILY REED Administration Enoxaparin Sodium 30 mg 04/26/20 21:00 04/28/20 09:57 Enoxaparin 30 Mg/0.3 Ml Syringe SUB-Q 30 mg Q12HR REED Administration Famotidine 20 mg 04/24/20 21:00 04/28/20 09:57 Famotidine 20 Mg Tablet PO 20 mg Q12HR REED Administration Fentanyl Citrate 25 mcg 04/26/20 16:38 Fentanyl Citrate Inj (*Crx) 100 Mcg/2 Ml Vial IV PUSH Q2H PRN
[2020-04-28 18:00] VITALS: BP 134/55; PULSE 91; RESP 16; TEMP 36.6; O2SAT 98
[2020-04-28 18:20] LABS: SARS-CoV-2 RNA PCR Negative
[2020-04-28 20:00] VITALS: BP 107/71; PULSE 90; RESP 20; TEMP 36.3; O2SAT 100
[2020-04-28] MEDS: HYDROCORTISONE 1% 30 GM CREAM 1 APPLIC TOPICAL (21:02)
[2020-04-28] MEDS: CITALOPRAM HYDROBROMIDE 20 MG TABLET PO (21:02)
[2020-04-28 21:58] LABS: Glucose Point of Care 333 (65-105)
--- NOTE | 2020-04-28 22:40 | PC.NURSE ---
LACHYDRIN NOT APPLIED, DRESSING INTACT TO RIGHT HEEL
[2020-04-29] VITALS: BP 184/70; PULSE 87; RESP 20; TEMP 36.4; O2SAT 98
[2020-04-29] MEDS: SODIUM CHLORIDE 0.9% IV 1,000 ML 75 ML IV CONT (00:13)
[2020-04-29 04:00] VITALS: BP 175/76; PULSE 81; RESP 18; TEMP 36.9; O2SAT 98
[2020-04-29 05:58] LABS: Hematocrit 37.9 % (42.0-52.0); Hemoglobin 12.7 g/dL (14.0-18.0); Mean Corpuscular HGB Conc 33.5 g/dl (32-36); Mean Corpuscular Hemoglobin 30.2 pg (26-34); Mean Corpuscular Volume 90.2 fl (80-100); Platelet Count Result 283 k/mm3 (150-375); Red Cell Distribution Width 12.6 % (11.5-14.5); White Blood Count 8.7 K/mm3 (4.5-10.0)
[2020-04-29 06:03] LABS: Anion Gap 6 mmol/L (8-16); Blood Urea Nitrogen 20 mg/dL (9-20); Carbon Dioxide 29 mmol/L (22-30); Chloride 103 mmol/L (98-107); Estimated CRCL calculation 56 ml/min; Estimated Glomerular Filt Rate 50; Glucose 185 mg/dL (75-110); Potassium 3.9 mmol/L (3.4-5.0); Sodium 138 mmol/L (137-145)
[2020-04-29 07:36] LABS: Glucose Point of Care 172 (65-105)
--- NOTE | 2020-04-29 08:11 | WPDGIPROGNO ---
Progress Note: A&P Additional Plan Patient doing well. Tolerating diet. Anxious to go home. Physical exam reveals abdomen to be soft nontender with healing incisions. Final path report consistent with 4.8cm adenocarcinoma. Clear margins identified. No lymph nodes described. Plan for follow-up colonoscopy in 1 year. Will leave getting an opinion from Oncology to the discretion of primary care service. Subjective Date/time seen: 04/29/20 08:11 Objective Data Vital Signs Vital Signs: Vital Signs - 24 hr 04/28/20 10:00 04/28/20 14:00 04/28/20 18:00 Temperature 97.9 F 98.2 F 97.8 F Pulse Rate 89 85 91 Respiratory Rate 18 18 16 Blood Pressure 110/51 L 156/71 H 134/55 L Pulse Oximetry 91 95 98 04/28/20 20:00 04/29/20 00:00 04/29/20 04:00 Temperature 97.4 F L 97.5 F L 98.5 F Pulse Rate 90 87 81 Respiratory Rate 20 20 18 Blood Pressure 107/71 184/70 H 175/76 H Pulse Oximetry 100 98 98 Intake/Output Intake/Output: Intake & Output 04/26/20 04/27/20 04/28/20 04/29/20 23:59 23:59 23:59 23:59 Intake Total 250 5125 2666 1414 Output Total 750 1000 700 Balance 250 4375 1666 714 Meds/Results Medications: Active Medications Generic Name Dose Route Start Last Admin Trade Name Freq PRN Reason Stop Dose Admin Acetaminophen 500 mg 04/26/20 16:38 Acetaminophen 500 Mg Tablet PO Q6H PRN Mild Pain (1-3) or Fever Hydrocodone Bitart/Acetaminophen 1 tab 04/27/20 09:07 04/27/20 20:06 Hydrocodone/Acetaminophen (*Crx) 5-325 Mg Tablet PO 1 tab Q4H PRN Administration Pain Rated 4-6 Hydrocodone Bitart/Acetaminophen 1 tab 04/27/20 09:07 Hydrocodone/Acetaminophen (*Crx) 7.5-325 Mg Tablet PO Q4H PRN Pain Rated 7-10 Aspirin 81 mg 04/29/20 09:00 Aspirin 81 Mg Chewable Tablet PO DAILY REED Atorvastatin Calcium 20 mg 04/29/20 21:00 Atorvastatin 20 Mg Tablet PO HS REED Citalopram Hydrobromide 20 mg 04/24/20 21:00 04/28/20 21:02 Citalopram Hydrobromide 20 Mg Tablet PO 20 mg HS REED Administration Dextrose 12.5 gm 04/22/20 14:12 04/22/20 16:36 Dextrose 50% 25 Gm/50 Ml Syringe IV PUSH 12.5 gm PRN PRN Administration Hypoglycemia Protocol Diphenhydramine HCl 25 mg 04/26/20 16:38 Diphenhydramine Hcl Inj 50 Mg/Ml Vial IV PUSH Q6H PRN Itching Duloxetine HCl 30 mg 04/25/20 09:00 04/28/20 09:57 Duloxetine Hcl 30 Mg Capsule.Dr PO 30 mg DAILY REED Administration Enoxaparin Sodium 30 mg 04/26/20 21:00 04/28/20 21:02 Enoxaparin 30 Mg/0.3 Ml Syringe SUB-Q 30 mg Q12HR REED Administration Famotidine 20 mg 04/24/20 21:00 04/28/20 21:02 Famotidine 20 Mg Tablet PO 20 mg Q12HR REED Administration Fentanyl Citrate 25 mcg 04/26/20 16:38 Fentanyl Citrate Inj (*Crx) 100 Mcg/2 Ml Vial IV PUSH Q2H PRN Pain Rated 7-10 Fentanyl Citrate 12.5 mcg 04/27/20 09:07 Fentanyl Citrate Inj (*Crx) 100 Mcg/2 Ml Vial IV PUSH Q2H PRN Pain Rated 4-6 Glucagon 1 mg 04/22/20 14:12 Glucagon For Inj 1 Mg Vial IM PRN PRN Hypoglycemia Protocol Glucose 15 gm 04/22/20 14:12 04/22/20 20:59 Glucose Oral Gel 15 Gm Of Glucse In 37.5 Gm Tube PO 15 gm PRN PRN Administration Hypoglycemia Protocol Hydrocortisone 1 applic 04/24/20 21:00 04/28/20 21:02 Hydrocortisone 1% 30 Gm Cream TOPICAL 1 applic HS REED Administration Dextrose 1,000 mls @ 100 mls/hr 04/22/20 14:12 Dextrose 5% 1,000 Ml IVPB PRN PRN Hypoglycemia Protocol Insulin Aspart 3 - 6 units 04/22/20 17:00 04/29/20 08:07 Insulin Aspart (*Bkc) 100 Units/Ml SUB-Q Not Given TIDWM REED Protocol Insulin Aspart 3 units 04/28/20 12:00 11/04/20 16:29 Insulin Aspart (*Bkc) 100 Units/Ml SUB-Q 3 units TIDWM REED Administration Insulin Glargine 50 units 04/29/20 09:00 Insulin Glargine (*Bkc) 100 Units/Ml SUB-Q DAILY [facility] Insulin Glargine
[2020-04-29] MEDS: FAMOTIDINE 20 MG TABLET PO (09:19)
[2020-04-29] MEDS: INSULIN ASPART (*BKC) 100 UNITS/ML SUB-Q ×4 (09:19→17:33)
[2020-04-29] MEDS: DULoxetine HCL 30 MG CAPSULE.DR PO (09:19)
[2020-04-29] MEDS: ENOXAPARIN 30 MG/0.3 ML SYRINGE SUB-Q (09:19)
[2020-04-29] MEDS: INSULIN GLARGINE (*BKC) 100 UNITS/ML 50 UNITS SUB-Q (09:20)
[2020-04-29] MEDS: SILVERGEL (ELTA) 45 ML 1 APPLIC TOPICAL (09:25)
[2020-04-29] MEDS: lisinopriL 10 MG TABLET PO (09:25)
[2020-04-29] MEDS: ASPIRIN 81 MG CHEWABLE TABLET PO (09:25)
[2020-04-29 10:00] VITALS: BP 159/74; PULSE 74; RESP 20; TEMP 36.4; O2SAT 97
--- NOTE | 2020-04-29 10:40 | PM.DS ---
DS: Admitting Diagnosis Admitting Diagnosis Admitting Diagnosis: Sigmoid colon cancer DS: Discharge Diagnosis Discharge Diagnosis (1) Malignant neoplasm of sigmoid colon: Code(s): C18.7 - Malignant neoplasm of sigmoid colon Status: Chronic Assessment and Plan: Mr. Quispe is a 69 y.o. male with PMH significant for CKD stage III, IDDM, HLD, HTN who presented to the emergency department for the evaluation fo abdominal discomfort with loose stool. CT abd/pelvis showed focal wall thickening of the sigmoid colon suspicious for primary adenocarcinoma and mild wall thickening of the rectosigmoid, consistent with colitis. He was treated with IV ciprofloxacin and metronidazole in the ED. GI and general surgery were consulted and he was admitted to the hospitalist service. Antibiotics were switched to IV zosyn. He underwent colonoscopy 04/[address] Paul which showed partially-obstructing [id number] mass at the proximal sigmoid. Biopsies were obtained during colonoscopy and demonstrate adenocarcinoma. CEA elevated at 6.1. He underwent hand access laparoscopic sigmoidectomy with colorectal anastomosis by Dr. Johnson 04/26. He tolerated the procedure well. His diet was advanced to low fiber /3 per general surgery and his pain was well-controlled. Pathology showed adenocarcinoma with suspicion for lymphovascular invasion and no evidence of malignancy in 12 lymph nodes. Pericolonic tissues (pT3 were involved) and margins were negative for tumor. His diet was advanced to low fiber 11/3 per general surgery and his pain is well-controlled. I discussed the pathology findings with the patient and his daughter, Bibiana. I also spoke with Dr. Johnson regarding the pathology results. Dr. Johnson will see the patient in the office in 2 weeks and they will discuss whether or not he will need referral to oncology and any further workup/treatment required at that appointment. He was treated for pre-renal FILIPPO with IV fluids and renal function returned to baseline. He was seen by wound care and orthopedic surgery for his chronic right heel venous ulcer and he will need to follow-up with them for wound care. I explained the plan of care to his daughter, Bibiana. He was felt stable for discharge from a GI and general surgery standpoint and he was discharged back to [place] in stable condition on the afternoon of 04/29/20. (2) Colitis: Code(s): K52.9 - Noninfective gastroenteritis and colitis, unspecified Status: Resolved Assessment and Plan: Resolved. The pt presented with abdominal discomfort with loose stool. CT abd/pelvis showed mild wall thickening of the rectosigmoid consistent with colitis. Sigmoid mass was found and removed 04/26. Stool cultures were obtained and are negative. He was treated with IV zosyn which was discontinued 04/26. He had no further symptoms of colitis. (3) Acute kidney injury superimposed on chronic kidney disease: Code(s): N17.9 - Acute kidney failure, unspecified; N18.9 - Chronic kidney disease, unspecified Status: Acute Assessment and Plan: Cr increased from 1.5 to 2.0 04/27. Baseline appears to be 1.3. He received 1 liter fluid bolus and maintenance saline IV fluid. Cr improved to 1.4 so pre-renal volume depletion was suspected. Plan for repeat BMP in 1 week for monitoring. (4) Insulin dependent type 2 diabetes mellitus: Code(s): E11.9 - Type 2 diabetes mellitus without complications; Z79.4 - shelter (current) use of insulin Status: Chronic Assessment and Plan: Hb A1c 04/22 was 9.1%. Blood sugars were reviewed. He had hypoglycemia initially and insulin was held. His home insulin regimen was reduced and resumed as blood sugars were returning to his baseline/elevated. Blood sugars improved. He was discharged on his regular insulin regimen. (5) Essential hypertension: Code(s): I10 - Essential (primary) hypertension Status: Chronic Assessment and Plan: B
--- NOTE | 2020-04-29 11:45 | PC.NURSE ---
To GI Lab per michael, IV Saline locked. Report given to Harper.
[2020-04-29 12:00] VITALS: BP 166/76; PULSE 74; RESP 18; TEMP 36.3; O2SAT 99
[2020-04-29 12:42] LABS: Glucose Point of Care 240 (65-105)
--- NOTE | 2020-04-29 14:45 | PC.NURSE ---
Returned from GI Lab. Report received from Trudy.
--- NOTE | 2020-04-29 15:46 | PM.CNOR ---
Assessment and Plan Assessment and plan (1) Diabetic foot ulcer: Qualifiers: Diabetic foot ulcer location: heel Diabetes mellitus type: type 2 Laterality: right Non-pressure ulcer stage: limited to breakdown of skin Qualified Code(s): E11.621 - Type 2 diabetes mellitus with foot ulcer; L97.411 - Non-pressure chronic ulcer of right heel and midfoot limited to breakdown of skin Code(s): E11.621 - Type 2 diabetes mellitus with foot ulcer; L97.509 - Non-pressure chronic ulcer of other part of unspecified foot with unspecified severity Status: Acute Assessment and Plan: Orthopedic consult requested for right plantar heel ulcer status post callus removal by wound nurses. Underlying ulcer measures 1.0x0.5x0.2cm with 100% red pink wound bed, no surrounding swelling, warmth or signs of active infection. No purulence, no malodor. Scant serosanguineous drainage. Recommended continuation of conservative treatment at this time with silver gel and a Mepilex foam dressing. Patient was fit with a reverse postop shoe with a heel offloading. Recommended elevation of the right foot and offloading with pillows well in bed. Patient may be weight-bearing as tolerated in the postop shoe from a wound management standpoint. Patient to follow up in approximately 2 weeks in the outpatient [place] wound care clinic. Thank you for allowing us to assist in the care this patient. History of Present Illness HPI Consult date: 04/29/20 Requesting physician: Elena Grijalva PA-C Consult reason: other ( right heel diabetic foot ulcer) Chief complaint: Sigmoid colon cancer Narrative: 69-year-old male well known to the Orthopedic service for recurrent right diabetic foot ulcer. He was recently admitted for abdominal discomfort and found to have sigmoid colon cancer. He underwent a laparoscopic sigmoidectomy with colorectal anastomosis by Dr. Johnson. Upon assessment, the medicine team noted a large callus on the plantar aspect of the right heel. Wound Care Team was consulted at that time. The callus was easily removed by hand and an underlying ulcer was noted prompting orthopedic consultation. Patient does have recurrent right plantar diabetic foot ulcer. He was most recently seen in June 2019 at which point the heel ulcer had been completely healed. The patient failed to follow up. Review of Systems Constitutional: Constitutional: Denies chills and Denies fever(s) Eyes: Eyes: Reports no additional eye complaints ENT: Reports system reviewed and no additional complaints, except as documented Cardiovascular: Cardiovascular: Reports no additional cardiovascular complaints and Denies dyspnea Respiratory: Respiratory: Denies cough and Denies dyspnea Gastrointestinal: Gastrointestinal: Denies nausea and Denies vomiting Genitourinary: Genitourinary: Reports no additional male genitourinary complaints Musculoskeletal: Musculoskeletal: Reports as per HPI Integumentary/Breasts: Skin/Breast: Reports as per HPI Neurologic: Reports as per HPI [facility] Past Medical History Medical History (Updated 04/29/20 @ 15:56 by HOMERO Centeno) Arterial insufficiency Chronic kidney disease, stage 3 Baseline creatinine ranges between 1.3 and 1.70. Diabetic foot ulcer 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 Dyslipidemia Essential hypertension Insulin dependent type 2 diabetes mellitus Hemoglobin A1c was 9.1% in March 2020. 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 History of appendectomy History of removal of cyst From the side of the neck. Status post debridement 09/2014: Excisional debridement of osteomyelitis of both feet. 04/2015: Excisional debridement of right foot ulcer with excision of osteom
[2020-04-29 17:09] LABS: Glucose Point of Care 142 (65-105)
== END 2020-04-29 18:00 | DRG 330 ==
LOC: ANHED 10:50 → ANH2MED 11:30
PROVIDERS: Family Medicine; Internal Medicine; Internal Medicine Gastroenterology; Nurse Practitioner; Physician Assistant; Student in an Organized Health Care Education/Training Program; Surgery; Admitting Provider Internal Medicine; Emergency Provider Emergency Medicine; PCP Family Medicine; Visit Provider Physician Assistant
PROC: 0DJD8ZZ Inspection of Lower Intestinal Tract, Via Natural or Artificial Opening Endoscopic (ICD-10-PCS; CPT 45378; principal; 2020-04-23 12:00)
PROC: 0D1E4Z4 Bypass Large Intestine to Cutaneous, Percutaneous Endoscopic Approach (ICD-10-PCS; principal; 2020-04-26 11:00)
DX: C18.7 Malignant neoplasm of sigmoid colon (principal); L97.419 Non-pressure chronic ulcer of right heel and midfoot with unspecified severity; N17.9 Acute kidney failure, unspecified; E11.22 Type 2 diabetes mellitus with diabetic chronic kidney disease; E11.40 Type 2 diabetes mellitus with diabetic neuropathy, unspecified; N18.30 Chronic kidney disease, stage 3 unspecified; Z79.4 Long term (current) use of insulin; E11.621 Type 2 diabetes mellitus with foot ulcer; E11.649 Type 2 diabetes mellitus with hypoglycemia without coma; E78.5 Hyperlipidemia, unspecified; I77.1 Stricture of artery; Z89.432 Acquired absence of left foot; F17.210 Nicotine dependence, cigarettes, uncomplicated; R32 Unspecified urinary incontinence; E86.0 Dehydration; K52.9 Noninfective gastroenteritis and colitis, unspecified; L21.9 Seborrheic dermatitis, unspecified; L71.9 Rosacea, unspecified; L85.8 Other specified epidermal thickening; M19.071 Primary osteoarthritis, right ankle and foot; Z79.82 Long term (current) use of aspirin
CPT/HCPCS: 36415; 71046; 73630; 74177; 80048; 80053; 81001; 82378; 83036; 83605; 83690; 83735; 84100; 85025; 85027; 85610; 86850; 86900; 86901; 87015; 87040; 87045; 87046; 87269; 87272; 87324; 87427; 87635; 88305; 88309; 88342; 89055; 93005; 96361; 96365; 96367; 96375; 97110; 97116; 97161; 97165; 97530; 97535; 99285; A9270; C1713; C1729; C9803; G0378; J0744; J1100; J1170; J1650; J1741; J1815; J2405; J2543; J2704; J2710; J3010; J7030; J7042; J7120; Q9967; U0003

== ENCOUNTER 2021-06-02 18:36 | Emergency (ER) | payer MEDICARE, MEDICAID, SELFPAY ==
--- NOTE | ~2021-06-02 | CT_ITS ---
EXAMINATION: CT brain wo [facility] EXAM DATE: 06/02/2021 23:06 INDICATION: Fall, head injury. TECHNIQUE: Spiral CT of the head was performed without contrast. Axial, coronal and sagittal images were reviewed. The dose-length product (DLP) for this examination was 681.00 mGy-cm. The exposure w as tailored according to patient size, and iterative reconstruction (ASIR) was used as additional dos e reduction technique. Comparison is made to prior examination from 2009. FINDINGS: Displaced nasal bone and septal fractures. There is no acute intraparenchymal hemorrhage. No evidence of intraparenchymal brain mass lesion. No evidence of acute infarction. There is no mas s effect or midline shift. The ventricles are normal in size. There are no extra-axial collections. There are no acute calvarial fractures. IMPRESSION: 1. No acute intracranial findings. 2. Nasal bone, septal fractures. Reviewed, dictated and finalized at location A. RVENTIONAL RADIOLOGY TECH
--- NOTE | ~2021-06-02 | CT_ITS ---
EXAMINATION: CT facial & cervical spine wo EXAM DATE: 06/02/2021 23:06 INDICATION: Fall, facial injury. Injury. TECHNIQUE: Spiral CT of the facial bones was acquired in the axial plane. Coronal reformatted images were also reviewed. Spiral CT of the cervical spine was performed without contrast. Axial images we re reviewed. Coronal and sagittal reformatted images were also reviewed. The dose-length product (DL P) for this examination was 545.61 mGy-cm. The exposure was tailored according to patient size, and iterative reconstruction (ASIR) was used as additional dose reduction technique. There is no prior s tudy for comparison. FINDINGS: FACIAL CT: There are acute bilateral nasal bone fractures with leftward displacement. Acute nasal sep renee fractures with buckling of the septum. Overlying soft tissue swelling. The orbits, globes and ext raocular muscles are unremarkable. There is moderate amount of left maxillary sinus opacity, mild on the right with wall thickening to both maxillary sinuses consistent with chronic history of sinusitis . There is right maxillary sinus window procedure. CERVICAL CT: There is no evidence of acute cervical fracture. The odontoid process is intact. Pre-d ens space is normal. Prevertebral soft tissue is normal. There are no soft tissue abnormalities dorcas ntified. There is no disc space widening or traumatic vertebral body subluxation suspected. Moderat e to severe cervical spondylosis. A detailed level by level evaluation of spondylosis can be added a s addendum if requested. IMPRESSION: 1. Displaced nasal septal, bilateral nasal bone fractures. 2. Cervical spondylosis without fracture. Reviewed, dictated and finalized at location A. SITTER
--- NOTE | ~2021-06-02 | XR_ITS ---
EXAMINATION: XR chest 1V portable EXAM DATE: 06/02/2021 22:51 INDICATION: TECHNIQUE: Portable AP frontal chest x-ray was obtained. Comparison is made to prior examination from 04/24/2020. FINDINGS: The lungs are clear. There are no pleural effusions. Cardiac silhouette is prominent but magnified on this AP technique. There is no pneumothorax suspected. The bones and soft tissues are unremarkable. There is no significant interval change. IMPRESSION: No acute cardiopulmonary findings. Reviewed, dictated and finalized at location A. DRY PROCESS ENGINEER
[2021-06-02 18:43] VITALS: BP 90/51; PULSE 96; RESP 20; TEMP 36.3; O2SAT 100
--- NOTE | 2021-06-02 21:06 | PC.NURSE ---
pt made it out to back of ER by team C nurses station. dr. casanova found pt and approached charge desk regarding pt being loose. this RN to patient to assist pt back to lobby. pt refusing to go back to waiting room. pt manually breaking wheelchair. pt stating what kind of fucking place is this , fuck you , i'm not sick. i just need surgery . pt oriented to place, situation, and self. pt eventually allowed RN and Dr. Casanova to wheel towards lobby. pt told dr. casanova i'm going to kill you. pt placed in waiting room and still continuing to curse. pt told by this rn to settle down or PD will be called. pt replied, Fucking do it. you will be on the news so fast your head will spin . security asked to take over patient.
[2021-06-02 22:29] VITALS: BP 122/65; PULSE 94; RESP 14; TEMP 36.5; O2SAT 99
--- NOTE | 2021-06-02 23:35 | ED.FALL ---
HPI - Fall General Chief Complaint: Fall Stated Complaint: Fall. Time Seen by Provider: 06/02/21 22:30 Source: RN notes reviewed History of Present Illness HPI Narrative: Patient presents emergency department from [facility] via EMS for fall. History is per EMS and the patient who states the patient was trying to out of his wheelchair when he fell forward striking his face on the ground. Patient denies any loss of consciousness he notes pain to his nose with initially bleeding out of his bilateral nares that has now stopped he states he does have some neck pain as well he denies any chest pain shortness of breath abdominal pain denies any pain to any of his extremities Related Data Home Medications Medication Instructions Recorded Confirmed aspirin 81 mg PO DAILY 04/18/19 04/22/20 atorvastatin 20 mg PO HS 04/18/19 04/22/20 citalopram 20 mg PO HS 04/18/19 04/22/20 duloxetine [Cymbalta] 30 mg PO DAILY 04/18/19 04/22/20 fenofibrate 160 mg PO DAILY 04/18/19 04/22/20 insulin glargine 80 unit SUBCUT DAILY 04/18/19 04/22/20 melatonin 10 mg PO HS 04/18/19 04/22/20 Lantus Solostar U-100 Insulin 60 unit SUBCUT QPM 04/22/20 04/22/20 Trulicity 1.5 mg SUBCUT WEEKLY 04/22/20 04/22/20 docusate sodium 100 mg PO PRN PRN 04/22/20 04/22/20 ergocalciferol (vitamin D2) 50,000 unit PO WEEKLY 04/22/20 04/22/20 insulin lispro [Humalog Clive 3 unit SUBCUT TIDWMEAL 04/22/20 04/22/20 KwikPen U-100] lisinopril 10 mg PO DAILY 04/22/20 04/22/20 multivitamin 1 tablet PO DAILY 04/22/20 04/22/20 Allergies Allergy/AdvReac Type Severity Reaction Status Date / Time sitagliptin Allergy Severe Confusion Verified 04/26/20 11:20 Review of Systems Review of Systems: Gen.: Denies fevers or chills Eyes: Denies eye pain or visual change ENT: See HPI Respiratory: Denies shortness of breath CV: Denies chest pain GI: Denies abdominal pain nausea, emesis Musculoskeletal: Denies back pain or muscle pain Neuro: Denies numbness, tingling, weakness or focal weakness Skin: Denies rash Except as documented, all other systems reviewed and negative [facility]LY [facility] Past Medical History Medical History Arterial insufficiency Chronic kidney disease, stage 3 Baseline creatinine ranges between 1.3 and 1.70. Diabetic foot ulcer 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 Dyslipidemia Essential hypertension Insulin dependent type 2 diabetes mellitus Hemoglobin A1c was 9.1% in March 2020. 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 History of appendectomy History of removal of cyst From the side of the neck. Status post debridement 09/2014: Excisional debridement of osteomyelitis of both feet. 04/2015: Excisional debridement of right foot ulcer with excision of osteomyelitis of the right calcaneus and skin graft. Family History Family History Mother Dementia Father Diabetes mellitus Acute myocardial infarction Social History Social History Social History: Surrogate decision maker: Bibiana Quispe, daughter. Code status: Full code. Smoking packs per day: 1 Smoking cigarettes per day: 20.0 Years smoked: 25 Smoking pack-years: 25.00 Smoking status: Former smoker Alcohol intake: current Drinks per week: 2 Substance use: former Substance use type: marijuana Additional living arrangements comments: Resident at [facility]. Ambulates with a walker or is in a wheelchair. Gender identity (if verbalized by the patient): Male Sexual Orientation (if Verbalized by the Patient): Straight or Heterosexual Spiritual care concerns: No Exam Narr
[2021-06-02] MEDS: TETANUS,DIPHTHERIA,AC PERTUSSIS ADULT (0.5 ML) BOOSTRIX IM (23:44)
[2021-06-02] MEDS: ACETAMINOPHEN 500 MG TABLET 1000 MG PO (23:44)
--- NOTE | 2021-06-02 23:59 | PC.NURSE ---
called pt daughter and left a message for pt to go back to [place].
--- NOTE | 2021-06-03 03:08 | PC.NURSE ---
pt still waiting for transport. called Bibiana, pt's daughter, and left a voicemail. pt resting quietly on stretcher at this time.
[2021-06-03 03:33] VITALS: BP 124/63; PULSE 86; RESP 16; O2SAT 97
[2021-06-03 06:56] VITALS: BP 131/63; PULSE 81; RESP 17; O2SAT 97
--- NOTE | 2021-06-03 06:57 | PC.NURSE ---
called Bibiana and still no answer. called [facility] to see if they had another number or family member I could contact and they did not. asked if they had a transport for the patient. they stated they did, but not until 9am.
--- NOTE | 2021-06-03 08:20 | PC.NURSE ---
Addendum entered by Mason Montgomery RN 06/03/21 08:23: Father, not mother. Original Note: Bibiana just returned calls. Stated she would call [place] and ask for more expedient transportation. Bibiana made aware her mother was ready for discharge and our department is full with people awaiting use of treatment rooms.
[2021-06-03 09:42] VITALS: BP 129/88; PULSE 78; RESP 18; O2SAT 98
== END 2021-06-03 09:46 ==
LOC: ANHED 23:55
PROVIDERS: Emergency Provider Emergency Medicine; PCP Family Medicine
DX: S02.2XXA Fracture of nasal bones, initial encounter for closed fracture (principal); S16.1XXA Strain of muscle, fascia and tendon at neck level, initial encounter; Z23 Encounter for immunization; E11.22 Type 2 diabetes mellitus with diabetic chronic kidney disease; N18.30 Chronic kidney disease, stage 3 unspecified; I12.9 Hypertensive chronic kidney disease with stage 1 through stage 4 chronic kidney disease, or unspecified chronic kidney disease; E11.610 Type 2 diabetes mellitus with diabetic neuropathic arthropathy; I77.1 Stricture of artery; E78.5 Hyperlipidemia, unspecified; Z79.4 Long term (current) use of insulin; Z87.891 Personal history of nicotine dependence; M47.812 Spondylosis without myelopathy or radiculopathy, cervical region; W05.0XXA Fall from non-moving wheelchair, initial encounter
CPT/HCPCS: 70450; 70486; 71045; 72125; 90471; 90715; 99284; A9270

== ENCOUNTER 2024-05-23 11:02 | Inpatient (IN) | payer MEDICARE, MEDICAID, SELFPAY ==
[2024-05-23] VITALS (12 sets, daily range): BP systolic 126–174; BP diastolic 50–79; PULSE 82–99; RESP 14–23; TEMP 36.3–36.5; O2SAT 96–100; BMI 32.1
--- NOTE | ~2024-05-23 | XR_ITS ---
XR hip RT 2V w AP pelvis DATE: 05/23/2024 11:53 INDICATION: Fall, right hip pain TECHNIQUE: AP pelvis. AP and lateral views of right hip. COMPARISON: None FINDINGS: There is degenerative change at the pubic symphysis and sacroiliac joints. No pelvic fractu re or bone destruction is detected. No fracture or dislocation, avascular necrosis or bone destruction of the right hip. Iliac and femoral arterial calcifications. IMPRESSION: No pelvic or right hip fracture or dislocation Reviewed, dictated and finalized at location A. MATIC PRESS HAND
--- NOTE | ~2024-05-23 | US_ITS ---
US venous doppler [facility] DATE: 05/24/2024 09:31 INDICATION: Mild swelling and erythema of the lower extremities TECHNIQUE: Real-time and color flow imaging and Doppler analysis of the veins of both lower extremiti es COMPARISON: None FINDINGS: The greater saphenous veins are patent. There is spontaneous and phasic flow and normal aug mentation and color flow signal and normal compression of the deep veins of both lower extremities. IMPRESSION: No evidence of deep venous thrombosis of the lower extremities Reviewed, dictated and finalized at Location A. Reviewed, dictated and finalized at location A. NNAISE MIXER
--- NOTE | ~2024-05-23 | XR_ITS ---
XR chest 1V DATE: 05/23/2024 11:53 INDICATION: Found on floor this morning TECHNIQUE: AP chest COMPARISON: None FINDINGS: Heart size is within normal limits considering magnification associated with AP projection. There is aortic arch calcification. There is suggestion of some soft tissue thickening along the ara houette of the aortic arch. There is also mild rightward deviation of the trachea at the superior med iastinum. Left superior mediastinal mass or aortic dissection or aneurysm are considerations. Conside r further evaluation with CT thorax with IV contrast material. The lungs are clear of infiltrate or consolidation. No pleural effusion or pulmonary vascular congest ion or pneumothorax is detected. There is osteoarthritis at the included left shoulder joint with suggestion of left rotator cuff atro phy. IMPRESSION: Rightward deviation of the trachea the superior mediastinum and some soft tissue thickeni ng along the left aortic arch silhouette; consider CT thorax with IV contrast material to exclude aor tic dissection or mediastinal hematoma or mass area Reviewed, dictated and finalized at location A. ETING CONTENT COORDINATOR IMPRESSION: Rightward deviation of the trachea the superior mediastinum and linda e soft tissue thickening along the left aortic arch silhouette; consider CT tho rax with IV contrast material to exclude aortic dissection or mediastinal hemat janett or mass area
--- NOTE | ~2024-05-23 | CT_ITS ---
EXAMINATION: CT cervical spine wo con DATE: 05/23/2024 12:08 INDICATION: Fall TECHNIQUE: Computed tomography (CT) of the cervical spine was performed without intravenous contrast. Automated exposure control and iterative reconstruction technique were employed. Exam dose: 481.24 mGy-cm total exam DLP. COMPARISON: None FINDINGS: Normal alignment at the atlantoaxial joints. Cervical curvature is intact. C1 and C2 are normally aligned and the odontoid process is intact. No fracture or dislocation or lock ed facet or prevertebral soft tissue swelling. There is slight anterolisthesis and mild spurring at C2-3. There is mild degenerative disc disease an d slight retrolisthesis at C3-4. There is severe degenerative disc disease and mild retrolisthesis at C4-5. There is severe degenerative disc disease at C5-6 and C6-7. There is minimal anterolisthesis at C7-T1 and T1 to. There is mild degenerative change at the facet j oints. There is uncovertebral joint spurring throughout the cervical spine, most prominent at C4-5, C5-6 and C6-7.. IMPRESSION: Moderately severe cervical spondylosis; no fracture or dislocation or locked facet Reviewed, dictated and finalized at Location A. Reviewed, dictated and finalized at location A. R WOOD SAWYER
--- NOTE | ~2024-05-23 | CT_ITS ---
EXAMINATION: CT brain wo con DATE: 05/23/2024 12:09 INDICATION: Fall with head injury and laceration above the right eye TECHNIQUE: Computed tomography (CT) of the head was performed without intravenous contrast. Sagittal and coronal reconstructions were performed. The mA was adjusted according to patient size. Iterative reconstruction technique was employed. The dose-length product was 605.33 mGy-cm. COMPARISON: head CT dated 06/02/2021 FINDINGS: No acute fracture. No change in alignment of fracture deformities of the bilateral nasal bones and na ayleen septum. No acute intracranial hemorrhage, acute infarction or abnormal extra axial fluid collecti on. There is mild scattered white matter hypoattenuation consistent with chronic small vessel ischemi c disease. Symmetric prominence of the sulci consistent with mild age-appropriate diffuse cerebral vo lume loss. Ventricles are normal and symmetric. No mass/mass effect. Mild mucosal thickening in the bilateral ethmoid and maxillary sinuses with postoperative changes of bilateral antral window procedu res along the medial mitchell of the bilateral maxillary sinuses. The orbits and mastoid air cells are n ormal. IMPRESSION: 1. No acute fracture or acute intracranial process. 2. Age-related changes including mild diffuse volume loss and mild scattered white matter hypoattenua tion consistent with chronic small vessel ischemic disease. Reviewed, dictated and finalized at location A. L CLEANER IMPRESSION: 1. No acute fracture or acute intracranial process. 2. Age-related changes including mild diffuse volume loss and mild scattered wh ite matter hypoattenuation consistent with chronic small vessel ischemic diseas e.
--- NOTE | ~2024-05-23 | CT_ITS ---
EXAMINATION: CT chest abdomen pelvis w con DATE: 05/23/2024 12:09 INDICATION: Found down with bruising at the right flank TECHNIQUE: Computed tomography (CT) of the chest, abdomen, and pelvis was performed with 100 mL Omnip aque-350 intravenous contrast. Automated exposure control and iterative reconstruction technique were employed. The dose-length product was 1818.54 mGy-cm. COMPARISON: CT abdomen and pelvis dated 04/22/2020 FINDINGS: CHEST CT: Mild dependent atelectasis in both lungs. No pulmonary edema, pleural effusion or pneumothorax. Heart size is normal. Atherosclerotic coronary artery calcific location. Aortic valve calcification. Thora cic aorta is normal in caliber with scattered nonhemodynamically significant atherosclerotic plaque a nd no dissection or acute traumatic aortic injury. No pathologically enlarged thoracic lymphadenopath y. And moderate lower cervical and mild thoracic spondylosis. Chronic mild anterior wedging at T11 an d T12. No acute fractures identified. Minimal subcutaneous stranding overlying the posterior right 11 th and 12th ribs consistent with likely posttraumatic contusion. ABDOMEN/PELVIS CT: Liver, gallbladder, spleen, bilateral adrenal glands and right kidney are normal. 8 mm left renal cys t. A couple tiny dystrophic calcification is at the uncinate process and tail of the pancreas consist ent with sequela of chronic pancreatitis. No abnormal bowel wall thickening or obstruction. There is calcified atherosclerosis of the caliber abdominal aorta and many of the other arteries. No free intr aperitoneal gas or fluid. No pathologically enlarged abdominal or pelvic lymphadenopathy. Small fat-c ontaining right inguinal hernia. Mild degenerative skeletal changes in a few small sclerotic bone isl ands in the lumbar spine and pelvis. No acute fracture. IMPRESSION: 1. Small subcutaneous contusion overlying the posterior inferior right ribs. No acute fracture or acu te vascular or visceral organ injury in the chest, abdomen or pelvis. Reviewed, dictated and finalized at location A. TRIMMER IMPRESSION: 1. Small subcutaneous contusion overlying the posterior inferior right ribs. No acute fracture or acute vascular or visceral organ injury in the chest, abdome n or pelvis.
--- NOTE | 2024-05-23 11:14 | ECG_ITS ---
Test Date: 2024-05-23 11:32:13 Measurements Intervals [place] Rate: 89 P: 51 MS: 158 QRS: 55 QRSD: 137 T: 28 QT: 375 QTc: 456 Interpretive Statements SINUS RHYTHM WITH OCCASIONAL PREMATURE ATRIAL COMPLEXES RIGHT BUNDLE BRANCH BLOCK MINIMAL Q WAVES- INFERIOR LEADS BASELINE ARTIFACT- I, II, III, AVR, AVL, AVF, V1-V6 ABNORMAL ECG No previous ECG available for comparison Electronically Signed On 05-23-2024 11:47:40 HELICOPTER DISPATCHER by Viraj Joaquin D.O.
[2024-05-23 11:20] LABS: Glucose Point of Care 142 mg/dl (65-105)
[2024-05-23] MEDS: SODIUM CHLORIDE 0.9% IV 1,000 ML 999 ML IV CONT (11:30)
[2024-05-23 11:35] LABS: Alveolar/Arterial O2 Gradient 31.9 mmHg; Base Excess ABG -2.9 mEq/l (+/-2.0); Fractional Inspired Oxygen 21 %; HCO3 ABG 20.9 mEq/l (22.0-26.0); Oxygen Content ABG 19.2 %vol (16.0-22.0); Oxygen Saturation ABG 95.7 % (95.0-100.0); Oxyhemoglobin 94.8 % THb (90.0-100.0); PCO2 ABG 33.6 mmHg (35.0-45.0); PO2 ABG 77.6 mmHg (80.0-100.0); Total Hemoglobin 14.4 g/dL (12.0-18.0); pH ABG 7.411 (7.350-7.450)
[2024-05-23 11:36] LABS: Device ROOM AIR; Modified Allen's Test Pass; Site Drawn RIGHT RADIAL
[2024-05-23 11:41] LABS: Basophils Absolute Auto 0.1 K/mm3 (0.0-0.1); Basophils Percent Auto 0.5 % (0.2-1.2); Eosinophils Absolute Auto 0.1 K/mm3 (0-0.3); Eosinophils Percent Auto 0.8 % (0-4.4); Hematocrit 38.5 % (42.0-52.0); Hemoglobin 12.6 g/dL (14.0-18.0); Immature Granulocyte Absolute 0.27 K/mm3 (0.00-0.031); Immature Granulocyte Percent A 2.3 % (0-0.5); Lymphocytes Absolute Auto 1.54 K/mm3 (0.9-3.2); Lymphocytes Percent Auto 13.4 % (18.3-44.2); Mean Corpuscular HGB Conc 32.7 g/dl (32-36); Mean Corpuscular Hemoglobin 30.5 pg (26-34); Mean Corpuscular Volume 93.2 fl (80-100); Mean Platelet Volume 9.9 fl (7.4-10.4); Monocytes Absolute Auto 0.7 K/mm3 (0.1-0.6); Monocytes Percent Auto 5.9 % (2.6-8.5); Neutrophils Absolute Auto 8.9 K/mm3 (1.3-6.7); Neutrophils Percent Auto 77.1 % (45.5-73.1); Platelet Count Result 393 k/mm3 (150-375); Red Blood Count 4.13 M/mm3 (4.6-6.20); Red Cell Distribution Width 12.3 % (11.5-14.5); White Blood Count 11.5 K/mm3 (4.5-10.0)
[2024-05-23 11:51] LABS: Alanine Aminotransferase 19 U/L (6-50); Albumin Level 3.2 g/dL (3.5-5.1); Alkaline Phosphatase 54 U/L (38-126); Anion Gap 7 mmol/L (4-12); Aspartate Amino Transferase 26 U/L (17-59); Bilirubin,Total 0.6 mg/dL (0.2-1.3); Blood Urea Nitrogen 34 mg/dL (9-20); Calcium 9.1 mg/dL (8.4-10.2); Carbon Dioxide 26 mmol/L (22-30); Chloride 104 mmol/L (98-107); Estimated CRCL calculation 29 ml/min; Estimated Glomerular Filt Rate 28; Glucose 157 mg/dL (65-110); Lipase 108 U/L (23-300); Magnesium 1.3 mg/dL (1.6-2.3); Phosphorus 4.4 mg/dL (2.5-4.5); Potassium 4.7 mmol/L (3.4-5.0); Sodium 137 mmol/L (137-145)
[2024-05-23 11:54] LABS: Ethanol < 10 mg/dL (<10); Lactic Acid Reflex 2.7 mmol/L (0.7-2.0)
[2024-05-23 11:55] LABS: INR 1.2; Prothrombin Time 15.6 Seconds (11.1-14.7)
[2024-05-23 11:56] LABS: Partial Thromboplastin Time 35.8 Seconds (22.3-36.8)
[2024-05-23 12:02] LABS: NT Pro B Type Natriuretic Pept 268 pg/mL (19.9-100); Troponin I < 0.012 ng/mL (0.000-0.034)
[2024-05-23 12:25] LABS: Estimated CRCL calculation 33 ml/min; Estimated Glomerular Filt Rate 33
[2024-05-23 12:34] LABS: Creatine Kinase 59 U/L (55-170)
[2024-05-23 12:56] LABS: Add Urine Microscopic? YES; Amphetamine Screen Urine Negative (Negative); Appearance Urine Clear (Clear); Barbiturate Screen Urine Negative (Negative); Benzodiazepines Screen Urine Negative (Negative); Bilirubin Urine Negative (Negative); Blood Urine Negative (Negative); Cannabinoid Screen Urine Negative (Negative); Cocaine Screen Urine Negative (Negative); Color Urine Yellow (Yellow); Glucose Urine UA Negative (Negative); Ketones Urine Negative (Negative); Leukocyte Esterase Ur 2+ LEU/UL (Negative); Methadone Screen Urine Negative (Negative); Nitrate Urine Negative (Negative); Opiate Screen Urine Negative (Negative); Phencyclidine Screen Urine Negative (Negative); Protein Urine 1+ mg/dL (Negative); Specific Grav Ur 1.029 (1.001-1.035); pH Urine 5.5 (5.0-9.0)
[2024-05-23 13:05] LABS: Bacteria Urine None Seen /hpf; Need Manual Microscopic Reviewed; RBC Urine 0-2 /hpf (0-2); Squamous Epithelial Cell Urine Occasional /hpf (Few); WBC Urine 21-50 /hpf (0-3)
[2024-05-23 13:39] LABS: Glucose Point of Care 66 mg/dl (65-105)
--- NOTE | 2024-05-23 13:49 | ED.GENADULT ---
HPI - General Adult General Chief complaint: Fall Stated complaint: fall, low blood pressure Time Seen by Provider: 05/23/24 11:07 History of Present Illness HPI narrative: this is a 73-year-old male presenting to the ED after an unwitnessed fall. Patient was found on the floor of his apartment at the halfway. When EMS arrived he was found to be hypoglycemic at 67. His blood pressure was 70/40. He was given D10 as well as LR with improvement in his sugar and blood pressure. On arrival here the patient is altered and can not provide any meaningful history to the interview. Review of the halfway paperwork shows that he has chronic kidney disease and take insulin for diabetes. Related Data Home Medications Medication Instructions Recorded Confirmed aspirin 81 mg chewable tablet 81 mg PO DAILY 04/18/19 04/22/20 atorvastatin 20 mg tablet 20 mg PO HS 04/18/19 04/22/20 citalopram 20 mg tablet 20 mg PO HS 04/18/19 04/22/20 duloxetine 30 mg capsule,delayed 30 mg PO DAILY 04/18/19 04/22/20 release (Cymbalta) fenofibrate 160 mg tablet 160 mg PO DAILY 04/18/19 04/22/20 insulin glargine 100 unit/mL 80 unit subcut DAILY 04/18/19 04/22/20 subcutaneous solution melatonin 10 mg capsule 10 mg PO HS 04/18/19 04/22/20 docusate sodium 50 mg capsule 100 mg PO PRN PRN Constipation 04/22/20 04/22/20 dulaglutide 1.5 mg/0.5 mL 1.5 mg subcut WEEKLY 04/22/20 04/22/20 subcutaneous pen injector (Trulicity) ergocalciferol (vitamin D2) 25,000 50,000 unit PO WEEKLY 04/22/20 04/22/20 unit capsule insulin glargine 100 unit/mL (3 60 unit subcut QPM 04/22/20 04/22/20 mL) subcutaneous pen (Lantus Solostar U-100 Insulin) insulin lispro 100 unit/mL 3 unit subcut TIDWMEAL 04/22/20 04/22/20 subcutaneous half-unit pen (Humalog Clive Andrew (U-100)) lisinopril 10 mg tablet 10 mg PO DAILY 04/22/20 04/22/20 multivitamin 1 tablet PO DAILY 04/22/20 04/22/20 Allergies Allergy/AdvReac Type Severity Reaction Status Date / Time sitagliptin Allergy Severe Confusion Verified 04/26/20 11:20 [facility] Past Medical History Medical History (Updated 05/23/24 @ 15:27 by Aaron Fraire MD) Arterial insufficiency Chronic kidney disease, stage 3 Diabetic foot ulcer 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 History of appendectomy History of colon resection (04/2020) Moderately differentiated adenocarcinoma, pT3N0 History of removal of cyst From the side of the neck. Status post debridement 09/2014: Excisional debridement of osteomyelitis of both feet. 04/2015: Excisional debridement of right foot ulcer with excision of osteomyelitis of the right calcaneus and skin graft. Family History Family History Mother Dementia Father Diabetes mellitus Acute myocardial infarction Social History Social History Social History: Surrogate decision maker: Bibiana Quispe, daughter. Code status: Full code. Smoking packs per day: 1 Smoking cigarettes per day: 20.0 Years smoked: 25 Smoking pack-years: 25.00 Smoking status: Former smoker Alcohol intake: current Drinks per week: 2 Substance use: former Substance use type: marijuana Additional living arrangements comments: Resident at [facility]. Ambulates with a walker or is in a wheelchair. Spiritual care concerns: No Exam Narrative: APPEARANCE: No apparent distress. A&O x1 Head: atraumatic. EYES: EOMI, NOSE: Atraumatic NECK: Trachea midline RESPIRATORY: No increased rate of breathing clear to auscultation CARDIOVASCULAR: RRR, ABDOMINAL: Non-distended MUSCULOSKELETAl: head to toe trauma exam performed no areas of deformity or tenderness. MinorBruising over the right posterior flank. NEURO: alert voice, moves for 4 extremities to command SKIN:: Warm, dry. Normal color PSYCHIATRIC: Normal affect Course Vital Signs Vital signs: Vital Signs Temperature 97.6 F 05/23/24 11:02 Pulse Rate 90 05/23/24 11:02 Respiratory Rate 18 05/23/24 11:02 Blood Pressure 144/52 H 05/23/24 11:02 Pulse Oximetry 96 05/23/24 11:02 Oxygen Delivery Room Air 05/23/24 11:02 Temperature 97.6 F 05/23/24 14:52 Pulse Rate 89 05/23/24 14:52 Respiratory Rate 14 05/23/24 14:52 Blood Pressure 152/79 H 05/23/24 14:52 Pulse Oximetry 100 05/23/24 14:52 Oxygen Delivery Room Air 05/23/24 11:02 Medical Decision Making MDM Narrative Medical decision making narrative: -Course: 73-year-old male presenting after being found down at the halfway. Initially patient was hypoglycemic and hypotensive. This was corrected by EMS IV fluids and D10. Broad workup ordered. CT head and C-spine negative for acute findings. Chest abdomen pelvis unremarkable outside of a minor bruise on the patient's back. No evidence of aortic pathology which was confirmed with radiologist after a concerning chest x-ray. urine positive for infection. Patient started on ceftriaxone and given fluid resuscitation. Magnesium was repleted. On re-evaluation patient's blood sugar dropped back down to 67. He is given another amp of D50 and fed. Repeat after a couple hours was 226. Patient will be admitted to the hospital for further management his urinary tract infection, altered mental status and hypoglycemia. -DDX includes but is not limited to: Dehydration, sepsis, UTI, acute kidney injury traumatic injury -Co-morbidities complicating care: insulin-dependent diabetic -Hx from independent Sources: EMS report -Independent interpretation of studies: labs imaging reviewed Independent EKG interpretation: Rhythm [sinus], Rate [89], [place] -[normal], AL -[normal], QRS RBBB, QTC [normal], T waves -[negative for concerning inversions], ST Segments - [Negative for concerning elevations] Final interpretations: -Discussion of Management/Consultants: Elisa -Shared decision making / Disposition: admitted. Vital Signs Vital Signs: Vital Signs Temperature 97.6 F 05/23/24 11:02 Pulse Rate 90 05/23/24 11:02 Respiratory Rate 18 05/23/24 11:02 Blood Pressure 144/52 H 05/23/24 11:02 Pulse Oximetry 96 05/23/24 11:02 Oxygen Delivery Room Air 05/23/24 11:02 Temperature 97.6 F 05/23/24 14:52 Pulse Rate 89 05/23/24 14:52 Respiratory Rate 14 05/23/24 14:52 Blood Pressure 152/79 H 05/23/24 14:52 Pulse Oximetry 100 05/23/24 14:52 Oxygen Delivery Room Air 05/23/24 11:02 Lab Data 05/23/24 11:25 05/23/24 11:57 Labs: Lab Results 05/23/24 05/23/24 05/23/24 Range/Units 11:17 11:24 11:25 WBC 11.5 H (4.5-10.0) K/mm3 RBC 4.13 L (4.6-6.20) M/mm3 Hgb 12.6 L (14.0-18.0) g/dL Hct 38.5 L (42.0-52.0) % MCV 93.2 (80-100) fl MCH 30.5 (26-34) pg MCHC 32.7 (32-36) g/dl RDW 12.3 (11.5-14.5) % Plt Count 393 H (150-375) k/mm3 MPV 9.9 (7.4-10.4) fl Immature Gran % (Auto) 2.3 H (0-0.5) % Neut % (Auto) 77.1 H (45.5-73.1) % Lymph % (Auto) 13.4 L (18.3-44.2) % Mclean % (Auto) 5.9 (2.6-8.5) % Eos % (Auto) 0.8 (0-4.4) % Baso % (Auto) 0.5 (0.2-1.2) % Lymph # (Auto) 1.54 (0.9-3.2) K/mm3 [place]clean # (Auto) 0.7 H (0.1-0.6) K/mm3 Eos # (Auto) 0.1 (0-0.3) K/mm3 Baso # (Auto) 0.1 (0.0-0.1) K/mm3 Abs Immat Gran (auto) 0.27 H (0.00-0.031) K/mm3 Absolute Neuts (auto) 8.9 H (1.3-6.7) K/mm3 Absolute Nucleated RBC 0.000 (0.0-0.012) K/mm3 Nucleated RBC % 0.0 (0.0-0.2) % PT (11.1-14.7) Seconds INR APTT (22.3-36.8) Seconds Sodium (137-145) mmol/L Potassium (3.4-5.0) mmol/L Chloride (98-107) mmol/L Carbon Dioxide (22-30) mmol/L Anion Gap (4-12) mmol/L BUN (9-20) mg/dL Creatinine (0.7-1.3) mg/dL Estim Creat Clear Calc ml/min Estimated GFR (59 - ) Glucose (65-110) mg/dL POC Capillary Glucose 142 H (65-105) mg/dl Lactic Acid 2.7 H (0.7-2.0) mmol/L Calcium (8.4-10.2) mg/dL Phosphorus (2.5-4.5) mg/dL Magnesium (1.6-2.3) mg/dL Total Bilirubin (0.2-1.3) mg/dL AST (17-59) U/L ALT (6-50) U/L Alkaline Phosphatase (38-126) U/L Total Creatine Kinase 59 (55-170) U/L Troponin I (0.000-0.034) ng/mL NT-Pro-B Natriuret Pep (19.9-100) pg/mL Total Protein (6.3-8.2) g/dL Albumin (3.5-5.1) g/dL Lipase (23-300) U/L TSH (Reflex) 1.150 (0.465-4.68) uIU/mL Urine Color (Yellow) Urine Appearance (Clear) Urine pH (5.0-9.0) Ur Specific [place] (1.001-1.035) Urine Protein (Negative) mg/dL Urine Glucose (UA) (Negative) mg/dL Urine Ketones (Negative) mg/dL Ur Blood (Man) (Negative) Urine Nitrate (Negative) Urine Bilirubin (Negative) Urine Urobilinogen (<2.0) mg/dL Add Ur Microanalysis Leukocyte Esterase Rfl (Negative) EZEQUIEL/UL Urine RBC (0-2) /hpf Urine WBC (0-3) /hpf Ur Squamous Epith Cells (Few) /hpf Urine Bacteria /hpf Urine Casts Hyaline Casts (None) /lpf Urine Opiates Screen (Negative) Urine Methadone Screen (Negative) Ur Barbiturates Screen (Negative) Ur Phencyclidine Scrn (Negative) Ur Amphetamine Screen (Negative) U Benzodiazepines Scrn (Negative) Urine Cocaine Screen (Negative) U Cannabinoids Screen (Negative) Ethyl Alcohol < 10 (<10) mg/dL Influenza A (RT-PCR) (Negative) Influenza B (RT-PCR) (Negative) RSV (RT-PCR) (Negative) SARS-CoV-2 RNA (RT-PCR) (Negative) 05/23/24 05/23/24 05/23/24 Range/Units 11:26 11:57 12:26 WBC (4.5-10.0) K/mm3 RBC (4.6-6.20) M/mm3 Hgb (14.0-18.0) g/dL Hct (42.0-52.0) % MCV (80-100) fl MCH (26-34) pg MCHC (32-36) g/dl RDW (11.5-14.5) % Plt Count (150-375) k/mm3 MPV (7.4-10.4) fl Immature Gran % (Auto) (0-0.5) % Neut % (Auto) (45.5-73.1) % Lymph % (Auto) (18.3-44.2) % Mclean % (Auto) (2.6-8.5) % Eos % (Auto) (0-4.4) % Baso % (Auto) (0.2-1.2) % Lymph # (Auto) (0.9-3.2) K/mm3 [place] # (Auto) (0.1-0.6) K/mm3 Eos # (Auto) (0-0.3) K/mm3 Baso # (Auto) (0.0-0.1) K/mm3 Abs Immat Gran (auto) (0.00-0.031) K/mm3 Absolute Neuts (auto) (1.3-6.7) K/mm3 Absolute Nucleated RBC (0.0-0.012) K/mm3 Nucleated RBC % (0.0-0.2) % PT 15.6 H (11.1-14.7) Seconds INR 1.2 APTT 35.8 (22.3-36.8) Seconds Sodium 137 (137-145) mmol/L Potassium 4.7 (3.4-5.0) mmol/L Chloride 104 (98-107) mmol/L Carbon Dioxide 26 (22-30) mmol/L Anion Gap 7 (4-12) mmol/L BUN 34 H D (9-20) mg/dL Creatinine 2.30 H 2.00 H (0.7-1.3) mg/dL Estim Creat Clear Calc 29 33 ml/min Estimated GFR 28 L 33 L (59 - ) Glucose 157 H (65-110) mg/dL POC Capillary Glucose (65-105) mg/dl Lactic Acid (0.7-2.0) mmol/L Calcium 9.1 (8.4-10.2) mg/dL Phosphorus 4.4 (2.5-4.5) mg/dL Magnesium 1.3 L (1.6-2.3) mg/dL Total Bilirubin 0.6 (0.2-1.3) mg/dL AST 26 (17-59) U/L ALT 19 (6-50) U/L Alkaline Phosphatase 54 (38-126) U/L Total Creatine Kinase (55-170) U/L Troponin I < 0.012 (0.000-0.034) ng/mL NT-Pro-B Natriuret Pep 268 H (19.9-100) pg/mL Total Protein 7.0 (6.3-8.2) g/dL Albumin 3.2 L (3.5-5.1) g/dL Lipase 108 (23-300) U/L TSH (Reflex) (0.465-4.68) uIU/mL Urine Color Yellow (Yellow) Urine Appearance Clear (Clear) Urine pH 5.5 (5.0-9.0) Ur Specific [place] 1.029 (1.001-1.035) Urine Protein 1+ H (Negative) mg/dL Urine Glucose (UA) Negative (Negative) mg/dL Urine Ketones Negative (Negative) mg/dL Ur Blood (Man) Negative (Negative) Urine Nitrate Negative (Negative) Urine Bilirubin Negative (Negative) Urine Urobilinogen 4.0 H (<2.0) mg/dL Add Ur Microanalysis Reviewed Leukocyte Esterase Rfl 2+ H (Negative) EZEQUILE/UL Urine RBC 0-2 (0-2) /hpf Urine WBC 21-50 H (0-3) /hpf Ur Squamous Epith Cells Occasional (Few) /hpf Urine Bacteria None seen /hpf Urine Casts 6-10 Hyaline Casts 5-9 H (None) /lpf Urine Opiates Screen Negative (Negative) Urine Methadone Screen Negative (Negative) Ur Barbiturates Screen Negative (Negative) Ur Phencyclidine Scrn Negative (Negative) Ur Amphetamine Screen Negative (Negative) U Benzodiazepines Scrn Negative (Negative) Urine Cocaine Screen Negative (Negative) U Cannabinoids Screen Negative (Negative) Ethyl Alcohol (<10) mg/dL Influenza A (RT-PCR) (Negative) Influenza B (RT-PCR) (Negative) RSV (RT-PCR) (Negative) SARS-CoV-2 RNA (RT-PCR) (Negative) 05/23/24 05/23/24 05/23/24 Range/Units 13:37 14:07 14:45 WBC (4.5-10.0) K/mm3 RBC (4.6-6.20) M/mm3 Hgb (14.0-18.0) g/dL Hct (42.0-52.0) % MCV (80-100) fl MCH (26-34) pg MCHC (32-36) g/dl RDW (11.5-14.5) % Plt Count (150-375) k/mm3 MPV (7.4-10.4) fl Immature Gran % (Auto) (0-0.5) % Neut % (Auto) (45.5-73.1) % Lymph % (Auto) (18.3-44.2) % Mclean % (Auto) (2.6-8.5) % Eos % (Auto) (0-4.4) % Baso % (Auto) (0.2-1.2) % Lymph # (Auto) (0.9-3.2) K/mm3 [place] # (Auto) (0.1-0.6) K/mm3 Eos # (Auto) (0-0.3) K/mm3 Baso # (Auto) (0.0-0.1) K/mm3 Abs Immat Gran (auto) (0.00-0.031) K/mm3 Absolute Neuts (auto) (1.3-6.7) K/mm3 Absolute Nucleated RBC (0.0-0.012) K/mm3 Nucleated RBC % (0.0-0.2) % PT (11.1-14.7) Seconds INR APTT (22.3-36.8) Seconds Sodium (137-145) mmol/L Potassium (3.4-5.0) mmol/L Chloride (98-107) mmol/L Carbon Dioxide (22-30) mmol/L Anion Gap (4-12) mmol/L BUN (9-20) mg/dL Creatinine (0.7-1.3) mg/dL Estim Creat Clear Calc ml/min Estimated GFR (59 - ) Glucose (65-110) mg/dL POC Capillary Glucose 66 (65-105) mg/dl Lactic Acid (0.7-2.0) mmol/L Calcium (8.4-10.2) mg/dL Phosphorus (2.5-4.5) mg/dL Magnesium (1.6-2.3) mg/dL Total Bilirubin (0.2-1.3) mg/dL AST (17-59) U/L ALT (6-50) U/L Alkaline Phosphatase (38-126) U/L Total Creatine Kinase (55-170) U/L Troponin I < 0.012 (0.000-0.034) ng/mL NT-Pro-B Natriuret Pep (19.9-100) pg/mL Total Protein (6.3-8.2) g/dL Albumin (3.5-5.1) g/dL Lipase (23-300) U/L TSH (Reflex) (0.465-4.68) uIU/mL Urine Color (Yellow) Urine Appearance (Clear) Urine pH (5.0-9.0) Ur Specific [place] (1.001-1.035) Urine Protein (Negative) mg/dL Urine Glucose (UA) (Negative) mg/dL Urine Ketones (Negative) mg/dL Ur Blood (Man) (Negative) Urine Nitrate (Negative) Urine Bilirubin (Negative) Urine Urobilinogen (<2.0) mg/dL Add Ur Microanalysis Leukocyte Esterase Rfl (Negative) EZEQUIEL/UL Urine RBC (0-2) /hpf Urine WBC (0-3) /hpf Ur Squamous Epith Cells (Few) /hpf Urine Bacteria /hpf Urine Casts Hyaline Casts (None) /lpf Urine Opiates Screen (Negative) Urine Methadone Screen (Negative) Ur Barbiturates Screen (Negative) Ur Phencyclidine Scrn (Negative) Ur Amphetamine Screen (Negative) U Benzodiazepines Scrn (Negative) Urine Cocaine Screen (Negative) U Cannabinoids Screen (Negative) Ethyl Alcohol (<10) mg/dL Influenza A (RT-PCR) Negative (Negative) Influenza B (RT-PCR) Negative (Negative) RSV (RT-PCR) Negative (Negative) SARS-CoV-2 RNA (RT-PCR) Negative (Negative) 05/23/24 05/23/24 Range/Units 14:53 15:14 WBC (4.5-10.0) K/mm3 RBC (4.6-6.20) M/mm3 Hgb (14.0-18.0) g/dL Hct (42.0-52.0) % MCV (80-100) fl MCH (26-34) pg MCHC (32-36) g/dl RDW (11.5-14.5) % Plt Count (150-375) k/mm3 MPV (7.4-10.4) fl Immature Gran % (Auto) (0-0.5) % Neut % (Auto) (45.5-73.1) % Lymph % (Auto) (18.3-44.2) % [place] % (Auto) (2.6-8.5) % Eos % (Auto) (0-4.4) % Baso % (Auto) (0.2-1.2) % Lymph # (Auto) (0.9-3.2) K/mm3 [place] # (Auto) (0.1-0.6) K/mm3 Eos # (Auto) (0-0.3) K/mm3 Baso # (Auto) (0.0-0.1) K/mm3 Abs Immat Gran (auto) (0.00-0.031) K/mm3 Absolute Neuts (auto) (1.3-6.7) K/mm3 Absolute Nucleated RBC (0.0-0.012) K/mm3 Nucleated RBC % (0.0-0.2) % PT (11.1-14.7) Seconds INR APTT (22.3-36.8) Seconds Sodium (137-145) mmol/L Potassium (3.4-5.0) mmol/L Chloride (98-107) mmol/L Carbon Dioxide (22-30) mmol/L Anion Gap (4-12) mmol/L BUN (9-20) mg/dL Creatinine (0.7-1.3) mg/dL Estim Creat Clear Calc ml/min Estimated GFR (59 - ) Glucose (65-110) mg/dL POC Capillary Glucose 220 H (65-105) mg/dl Lactic Acid 2.0 (0.7-2.0) mmol/L Calcium (8.4-10.2) mg/dL Phosphorus (2.5-4.5) mg/dL Magnesium (1.6-2.3) mg/dL Total Bilirubin (0.2-1.3) mg/dL AST (17-59) U/L ALT (6-50) U/L Alkaline Phosphatase (38-126) U/L Total Creatine Kinase (55-170) U/L Troponin I (0.000-0.034) ng/mL NT-Pro-B Natriuret Pep (19.9-100) pg/mL Total Protein (6.3-8.2) g/dL Albumin (3.5-5.1) g/dL Lipase (23-300) U/L TSH (Reflex) (0.465-4.68) uIU/mL Urine Color (Yellow) Urine Appearance (Clear) Urine pH (5.0-9.0) Ur Specific [place] (1.001-1.035) Urine Protein (Negative) mg/dL Urine Glucose (UA) (Negative) mg/dL Urine Ketones (Negative) mg/dL Ur Blood (Man) (Negative) Urine Nitrate (Negative) Urine Bilirubin (Negative) Urine Urobilinogen (<2.0) mg/dL Add Ur Microanalysis Leukocyte Esterase Rfl (Negative) EZEQUIEL/UL Urine RBC (0-2) /hpf Urine WBC (0-3) /hpf Ur Squamous Epith Cells (Few) /hpf Urine Bacteria /hpf Urine Casts Hyaline Casts (None) /lpf Urine Opiates Screen (Negative) Urine Methadone Screen (Negative) Ur Barbiturates Screen (Negative) Ur Phencyclidine Scrn (Negative) Ur Amphetamine Screen (Negative) U Benzodiazepines Scrn (Negative) Urine Cocaine Screen (Negative) U Cannabinoids Screen (Negative) Ethyl Alcohol (<10) mg/dL Influenza A (RT-PCR) (Negative) Influenza B (RT-PCR) (Negative) RSV (RT-PCR) (Negative) SARS-CoV-2 RNA (RT-PCR) (Negative) ABG Data ABG results: 05/23/24 11:31 Puncture Site Right radial ABG pH 7.411 ABG pCO2 33.6 L ABG pO2 77.6 L ABG PO2/FiO2 Ratio 3.70 ABG HCO3 20.9 L ABG O2 Saturation 95.7 ABG O2 Content 19.2 ABG Base Excess -2.9 A-a Gradient 31.9 Oxyhemoglobin 94.8 Total Hemoglobin 14.4 O2 Delivery Device Room air O2 Liters/Min Not Reportable FiO2 21 Discharge Plan Discharge Clinical Impression: Altered mental status, Hypoglycemia, Acute UTI, Current use of insulin, CKD (chronic kidney disease) Patient Disposition: Still a Patient Condition: Stable Prescriptions: No Action atorvastatin 20 mg Tablet 20 mg PO HS insulin glargine 100 unit/mL Solution 80 unit SUBCUT DAILY Rx Instructions: give at 0600 citalopram 20 mg Tablet 20 mg PO HS aspirin 81 mg Tablet,Chewable 81 mg PO DAILY duloxetine [Cymbalta] 30 mg Capsule,Delayed Release(Dr/Ec) 30 mg PO DAILY fenofibrate 160 mg Tablet 160 mg PO DAILY melatonin 10 mg Capsule 10 mg PO HS multivitamin Tablet 1 tablet PO DAILY docusate sodium 50 mg Capsule 100 mg PO PRN PRN (Reason: Constipation) Rx Instructions: daily PRN for constipation lisinopril 10 mg Tablet 10 mg PO DAILY ergocalciferol (vitamin D2) 25,000 unit Capsule 50,000 unit PO WEEKLY Rx Instructions: give on Sunday Lantus Solostar U-100 Insulin 100 unit/mL (3 mL) Insulin Pen 60 unit SUBCUT QPM Rx Instructions: give at 1600 Trulicity 1.5 mg/0.5 mL Pen Injector 1.5 mg SUBCUT WEEKLY Rx Instructions: on Sunday insulin lispro [Humalog Clive KwikPen U-100] 100 unit/mL Insulin Pen, Half-Unit 3 unit SUBCUT TIDWMEAL hydrocodone-acetaminophen 5-325 mg tablet 1 - 2 tablet PO Q6H PRN (Reason: pain) Qty: 10 0RF Silver-Sept 200 mcg/gram Gel 1 applic topical DAILY 14 Days Qty: 45 0RF Rx Instructions: Apply to right heel twice daily for 2 weeks. Follow-up/Referrals: Abel Lu MD [Primary Care Provider] -
[2024-05-23] MEDS: SODIUM CHLORIDE 0.9% IV 2,000 ML 999 ML IV CONT (14:02)
[2024-05-23] MEDS: DEXTROSE 50% 25 GM/50 ML SYRINGE IV PUSH (14:03)
[2024-05-23] MEDS: MAGNESIUM SULF 2 GM/WATER 50ML 2 GM/50 ML BAG IVPB (14:03)
--- NOTE | 2024-05-23 14:40 | P.HP_ITS ---
H&P: HPI History of Present Illness Date/Time: 05/23/24 14:40 Chief Complaint: Fall. Narrative: This is a 73-year-old male with chronic kidney disease, insulin dependent type 2 diabetes mellitus, hypertension, and dyslipidemia who presented to the emergency department via EMS from [facility] for evaluation after a fall. He is not the best historian and I am told to baseline he is alert and oriented x 1-2. He was found on the floor in his room by staff not long prior to arrival with a small cut above his right eye. He told me that he got up and lost his balance, causing the fall, and he denies sustaining injuries in the fall. He felt a bit lightheaded and sweaty before the incident. On EMS arrival he was reportedly hypoglycemic with a glucose of 57 and was hypotensive. D10 and 800 mL crystalloid fluids were administered and he was brought in for evaluation. At the time my evaluation he has no complaints aside from the fact that he is thirsty. He denies feelings of vertigo, fever, cold and flu symptoms, chest pain, pleuritic pain, shortness of breath, palpitations, orthopnea, paroxysmal nocturnal dyspnea, edema, nausea, vomiting, diarrhea, and dysuria. He is administered his medications and does not believe he could have been accidentally overdosed on insulin. He has been eating and drinking as per usual. In the ED: Vital signs on arrival include a blood pressure of 144/52, pulse 90, respiratory 18, SpO2 96% room air, temperature 97.6?. Labs are significant for WBC count of 11.5, hemoglobin 12.6, BUN 34, creatinine 2.00, random glucose 157, lactic acid 2.7, magnesium 1.3. Urinalysis was positive for 2+ leukocyte esterase, 21 to 50 WBC, and 5 to 9 hyaline casts. He received 2 L normal saline bolus, magnesium sulfate 2 g, and ceftriaxone 1 gm.. He was given something to eat and repeat Accu-Chek showed that his glucose had dropped to 66 and he is being admitted in this setting for closer monitoring. Review of Systems Review of Systems: 12 systems were reviewed and are negativ e except for as per HPI. [facility] Past Medical History Medical History Arterial insufficiency Chronic kidney disease, stage 3 Diabetic foot ulcer 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 History of appendectomy History of colon resection (04/2020) Moderately differentiated adenocarcinoma, pT3N0 History of removal of cyst From the side of the neck. Status post debridement 09/2014: Excisional debridement of osteomyelitis of both feet. 04/2015: Excisional debridement of right foot ulcer with excision of osteomyelitis of the right calcaneus and skin graft. Family History Family History Mother Dementia Father Diabetes mellitus Acute myocardial infarction Social History Social History Social History: Surrogate decision maker: Bibiana Quispe, daughter. Code status: Full code. Smoking packs per day: 1 Smoking cigarettes per day: 20.0 Years smoked: 25 Smoking pack-years: 25.00 Smoking status: Former smoker Alcohol intake: current Drinks per week: 2 Substance use: former Substance use type: marijuana Additional living arrangements comments: Resident at [facility]. Ambulates with a walker or is in a wheelchair. Spiritual care concerns: No Meds Home Medications and Allergies Home Medications Medication Instructions Recorded Confirmed Type aspirin 81 mg chewable tablet 81 mg PO DAILY 04/18/19 05/23/24 History atorvastatin 20 mg tablet 20 mg PO HS 04/18/19 05/23/24 History duloxetine 30 mg capsule,delayed 30 mg PO HS 04/18/19 05/23/24 History release (Cymbalta) fenofibrate 160 mg tablet 160 mg PO DAILY 04/18/19 05/23/24 History melatonin 10 mg capsule 10 mg PO HS 04/18/19 05/23/24 History docusate sodium 50 mg capsule 100 mg PO PRN PRN Constipation 04/22/20 05/23/24 History ergocalciferol (vitamin D2) 25,000 50,000 unit PO WEEKLY 04/22/20 05/23/24 History unit capsule insulin glargine 100 unit/mL (3 80 unit subcut HS 04/22/20 05/23/24 History mL) subcutaneous pen (Lantus Solostar U-100 Insulin) lisinopril 10 mg tablet 10 mg PO DAILY 04/22/20 05/23/24 History multivitamin 1 tablet PO DAILY 04/22/20 05/23/24 History acetaminophen 325 mg tablet 650 mg PO Q6H PRN Pain 05/23/24 05/23/24 History (Tylenol) fluoxetine 20 mg capsule 20 mg PO DAILY 05/23/24 05/23/24 History glipizide 5 mg tablet 5 mg PO BID 05/23/24 05/23/24 History glucagon HCl 1 mg solution for 1 mg IM PRN PRN Hypoglycemia 05/23/24 05/23/24 History injection (Glucagon (HCl) Emergency Kit) ibuprofen 800 mg tablet 800 mg PO TID PRN Pain 05/23/24 05/23/24 History insulin lispro 100 unit/mL 14 unit subcut TIDWM 05/23/24 05/23/24 History subcutaneous pen (Humalog KwikPen (U-100) Insulin) metformin 1,000 mg tablet 1,000 mg PO BID 05/23/24 05/23/24 History omega 8-rgo-huc-fish oil 300 1 cap PO DAILY 05/23/24 05/23/24 History mg-1,000 mg capsule polyethylene glycol 3350 17 gram 17 g PO DAILY 05/23/24 05/23/24 History oral powder packet (Miralax) tamsulosin 0.4 mg capsule 0.4 mg PO DAILY 05/23/24 05/23/24 History Allergies Allergy/AdvReac Type Severity Reaction Status Date / Time sitagliptin Allergy Severe Confusion Verified 04/26/20 11:20 Vital Signs Vital Signs - 24 hr 05/23/24 11:02 05/23/24 11:31 05/23/24 12:11 Temperature 97.6 F Pulse Rate 90 95 89 Respiratory Rate 18 20 20 Blood Pressure 144/52 H 126/76 149/61 H Pulse Oximetry 96 97 97 Oxygen Delivery Room Air 05/23/24 12:16 05/23/24 12:31 05/23/24 13:17 Temperature Pulse Rate 85 88 99 Respiratory Rate 20 23 H 20 Blood Pressure 138/60 149/76 H 153/76 H Pulse Oximetry 96 99 99 Oxygen Delivery Exam Narrative: General: Chronically ill-appearing male supine in bed in no distress. Weight: 95.8 kg. BMI: 32.1. HEENT: Abrasion over the right in lateral eye. PERRL, EOMI. Sclerae anicteric. Edentulous. Moist mucous membranes. Neck: Supple. Respiratory: Lungs are clear to auscultation bilaterally. Cardiovascular: Regular rate and rhythm with S1-S2. Gastrointestinal: Abdomen is soft, nontender, nondistended with positive bowel sounds. Skin: Warm and dry. Small bruise over the right flank. Extremities: No cyanosis, clubbing, or significant edema. Right thigh looks a bit more pink and barely enlarged compared to the left. Radial and pedal pulses intact. Status post amputation of the left 4th and 5th toes. Right heel is callused with a cutaneous horn. Neurological: Alert and oriented to name and date of . He cannot provide me his age or the current year or the name of the president. He is aware that he is in the hospital. Cranial nerves 2-12 are grossly intact. No gross focal deficits to casual conversation. Psychiatric: Cooperative. Normal mood and flat affect. H&P: Results Labs Labs: Short CBC 05/23/24 Range/Units 11:25 WBC 11.5 H (4.5-10.0) K/mm3 Hgb 12.6 L (14.0-18.0) g/dL Hct 38.5 L (42.0-52.0) % Plt Count 393 H (150-375) k/mm3 [facility] 05/23/24 05/23/24 11:26 11:57 Sodium 137 Potassium 4.7 Chloride 104 Carbon Dioxide 26 BUN 34 H D Creatinine 2.30 H 2.00 H Glucose 157 H Calcium 9.1 Cardiac Enzymes 05/23/24 05/23/24 Range/Units 11:24 11:26 Total Creatine Kinase 59 (55-170) U/L Troponin I < 0.012 (0.000-0.034) ng/mL Liver Function 05/23/24 Range/Units 11:26 Total Bilirubin 0.6 (0.2-1.3) mg/dL AST 26 (17-59) U/L ALT 19 (6-50) U/L Alkaline Phosphatase 54 (38-126) U/L Albumin 3.2 L (3.5-5.1) g/dL Urine 05/23/24 Range/Units 12:26 Urine Color Yellow (Yellow) Urine Appearance Clear (Clear) Urine pH 5.5 (5.0-9.0) Ur Specific [place] 1.029 (1.001-1.035) Urine Protein 1+ H (Negative) mg/dL Urine Glucose (UA) Negative (Negative) mg/dL Imaging Hip/Pelvis X-Ray 05/23/24 11:55 IMPRESSION: 1. No pelvic or right hip fracture or dislocation. Chest X-Ray 05/23/24 11:57 IMPRESSION: 1. Rightward deviation of the trachea the superior mediastinum and some soft tissue thickening along the left aortic arch silhouette; consider CT thorax with IV contrast material to exclude aortic dissection or mediastinal hematoma or mass area. Head CT 05/23/24 12:10 IMPRESSION: 1. No acute fracture or acute intracranial process. 2. Age-related changes including mild diffuse volume loss and mild scattered white matter hypoattenuation consistent with chronic small vessel ischemic disease. Chest/Abdomen/Pelvis CT 05/23/24 12:13 IMPRESSION: 1. Small subcutaneous contusion overlying the posterior inferior right ribs. No acute fracture or acute vascular or visceral organ injury in the chest, abdomen or pelvis. Cervical Spine CT 05/23/24 12:18 IMPRESSION: 1. Moderately severe cervical spondylosis; no fracture or dislocation or locked facet. Assessment and Plan Assessment and plan (1) Fall from ground level: Code(s): W18.30XA - Fall on same level, unspecified, initial encounter Status: Acute (2) Hypoglycemia: Code(s): E16.2 - Hypoglycemia, unspecified Status: Acute (3) Acute kidney injury superimposed on chronic kidney disease: Code(s): N17.9 - Acute kidney failure, unspecified; N18.9 - Chronic kidney disease, unspecified Status: Acute (4) Elevated lactic acid level: Code(s): R79.89 - Other specified abnormal findings of blood chemistry Status: Acute (5) Hypomagnesemia: Code(s): E83.42 - Hypomagnesemia Status: Acute (6) Pyuria: Code(s): R82.81 - Pyuria Status: Acute (7) Essential hypertension: Code(s): I10 - Essential (primary) hypertension Status: Chronic (8) Insulin dependent type 2 diabetes mellitus: Code(s): E11.9 - Type 2 diabetes mellitus without complications; Z79.4 - [facility] (current) use of insulin Status: Chronic Plan The patient presented to the emergency department for evaluation after he was found down on the floor in his room as detailed in HPI. Labs, imaging, EKG, and all reports were personally reviewed. He was reportedly hypotensive and hypoglycemic on EMS arrival. Blood pressures responded to IV fluids and have been stable. Despite receiving dextrose and a meal his glucose is trending down and he has been started on a dextrose drip with frequent Accu-Cheks. Hold glipizide and metformin. Resume basal insulin at a lower dose. Initiate sliding scale insulin, Accu-Cheks, and hypoglycemic protocol. Check hemoglobin A1c. He was started on ceftriaxone in the ED for possible urinary tract infection which we will continue with antibiotics, pending urine culture. Monitor left thigh which looks faintly pink; check venous Doppler ultrasound to rule out DVT. Lactic acid was a bit elevated which could be due to transient hypotension and hypoglycemia. Blood pressure has been stable since arrival. He does does not appear toxic although sepsis is still a possibility. Blood and urine cultures have been obtained and are pending. Creatinine is higher than his baseline (at least at this facility though he has not had labs done here for over 4 years) and he will be judiciously hydrated overnight with close monitoring of volume status. Labs requested from his primary care provider to help establish his baseline. Magnesium was replaced and will be monitored. His home medications will be reviewed and resumed as appropriate. Findings and treatment plan were discussed with the patient. Questions were solicited and answered to satisfaction. The patient's medical management will be taken over by the hospitalist team in a.m. Quality VTE Prophylaxis VTE prophylaxis: mechanical ordered If No VTE Prophylaxis Answer both mechanical and pharmacologic: Reason no pharmacologic proph: medical contraindication (fall) The patient has been admitted under observation status. Hospitalist MIPS Advance Care Plan I have confirmed that the patient's Advanced Care Plan is present, code status is documented, or surrogate decision maker is listed in patient medical record.: Yes Medication Reconciliation I have utilized all available resources to obtain, update and review the patients current medications (includes all prescriptions, OTC, herbals, cannabis, and nutritional supplements).: Yes
--- NOTE | 2024-05-23 14:43 | ECG_ITS ---
Test Date: 2024-05-23 14:47:41 Measurements Intervals [place] Rate: 85 P: 54 RI: 153 QRS: 19 QRSD: 138 T: 50 QT: 387 QTc: 462 Interpretive Statements SINUS RHYTHM WITH OCCASIONAL SUPRAVENTRICULAR PREMATURE COMPLEXES RIGHT BUNDLE BRANCH BLOCK BASELINE ARTIFACT- I, III, AVR, AVL, AVF, V2, V4-V6 ABNORMAL ECG Compared to ECG 05/23/2024 11:32:13 NO SIGNIFICANT CHANGE Electronically Signed On 05-23-2024 19:22:51 CAMEL[employer]ORTER by Viraj Joaquin D.O.
[2024-05-23 14:46] LABS: Reflex Lactic Acid Yes or No Add Lactic
[2024-05-23 14:59] LABS: Influenza A QL RT-PCR Negative (Negative); Influenza B QL RT-PCR Negative (Negative); RSV RNA, RT-PCR Negative (Negative); SARS-CoV-2 RNA PCR Negative (Negative)
[2024-05-23 15:16] LABS: Troponin I < 0.012 ng/mL (0.000-0.034)
[2024-05-23 15:19] LABS: Glucose Point of Care 220 mg/dl (65-105)
[2024-05-23 16:08] LABS: Glucose Point of Care 204 mg/dl (65-105)
--- NOTE | 2024-05-23 17:43 | ADMGEN ---
This patient, Kojo Quispe, was admitted to 3 [facility] Surg Room 304-02. Patient/family oriented to hospital policies and general routines including ID bracelet, bed and alarms, visiting hours, pain management, procedures, bathroom and other care routines, personal items, smoking policy, room service/diet, and visiting hours. Information on how to activate the Rapid Response Team has been discussed. Patient/Family are encouraged to report perceived risks to care and to ask questions if they do not understand what they are told or what they should do.
[2024-05-23 20:57] LABS: Glucose Point of Care 314 mg/dl (65-105)
[2024-05-23 21:36] LABS: Anion Gap 7 mmol/L (4-12); Blood Urea Nitrogen 31 mg/dL (9-20); Calcium 8.2 mg/dL (8.4-10.2); Carbon Dioxide 26 mmol/L (22-30); Chloride 101 mmol/L (98-107); Estimated CRCL calculation 35 ml/min; Estimated Glomerular Filt Rate 35; Glucose 339 mg/dL (65-110); Magnesium 1.6 mg/dL (1.6-2.3); Potassium 5.2 mmol/L (3.4-5.0); Sodium 134 mmol/L (137-145)
[2024-05-23 21:45] LABS: Hemoglobin A1C 9.4 % (<5.7)
[2024-05-23] MEDS: MELATONIN 5 MG TABLET 10 MG PO (22:04)
[2024-05-23] MEDS: INSULIN GLARGINE (*BKC) 100 UNITS/ML 50 UNITS SUB-Q (22:06)
[2024-05-23] MEDS: INSULIN ASPART (*BKC) 100 UNITS/ML SUB-Q (22:06)
[2024-05-23] MEDS: LACTATED RINGERS 1,000 ML 100 ML IV CONT (22:19)
[2024-05-24] VITALS (10 sets, daily range): BP systolic 137–153; BP diastolic 62–72; PULSE 80–92; RESP 18; TEMP 36.5–36.9; O2SAT 96–98
[2024-05-24 06:59] LABS: Hematocrit 37.2 % (42.0-52.0); Hemoglobin 11.6 g/dL (14.0-18.0); Mean Corpuscular HGB Conc 31.2 g/dl (32-36); Mean Corpuscular Hemoglobin 29.3 pg (26-34); Mean Corpuscular Volume 93.9 fl (80-100); Mean Platelet Volume 10.1 fl (7.4-10.4); Platelet Count Result 341 k/mm3 (150-375); Red Blood Count 3.96 M/mm3 (4.6-6.20); Red Cell Distribution Width 12.3 % (11.5-14.5); White Blood Count 8.9 K/mm3 (4.5-10.0)
[2024-05-24 07:13] LABS: Anion Gap 4 mmol/L (4-12); Blood Urea Nitrogen 27 mg/dL (9-20); Calcium 8.5 mg/dL (8.4-10.2); Carbon Dioxide 26 mmol/L (22-30); Chloride 105 mmol/L (98-107); Estimated CRCL calculation 40 ml/min; Estimated Glomerular Filt Rate 40; Glucose 165 mg/dL (65-110); Magnesium 1.6 mg/dL (1.6-2.3); Potassium 4.9 mmol/L (3.4-5.0); Sodium 135 mmol/L (137-145)
[2024-05-24 07:42] LABS: Glucose Point of Care 125 mg/dl (65-105)
--- NOTE | 2024-05-24 08:41 | P.PNIM_ITS ---
Progress Note: A&P Assessment and Plan (1) Elevated lactic acid level: Code(s): R79.89 - Other specified abnormal findings of blood chemistry Status: Acute Assessment and Plan: Lactic acid was a bit elevated on admission at 2.7 which could be due to transient hypotension and hypoglycemia. He does does not appear toxic although sepsis is still a possibility. Blood and urine cultures have been obtained and are pending. - lactic acid repeat 2.0 - suspected source: transient hypotension and hypoglycemia vs sepsis although he does not appear toxic - blood cultures drawn on 05/23: pending - UA: clear appearance with 1+ protein, 4+ urobilinogen, 2+ leukocytes, 21-50 WBC, no bacteria. Occasional squamous cells present, possible contamination - UC obtained on 05/23: pending (2) Fall from ground level: Code(s): W18.30XA - Fall on same level, unspecified, initial encounter Status: Acute Assessment and Plan: Patient was going to get into wheelchair, but sat at an award angle resulting in the chair tipping over. He notes he felt a bit lightheaded and sweaty before the incident. But denies LOC. He was found on the floor in his room by staff within 5 or so minutes and assisted up. EMS arrival he was reportedly hypoglycemic with a glucose of 57 and was hypotensive. D10 and 800 mL crystalloid fluids were administered and he was brought in for evaluation. - Blood pressures responded to IV fluids and have been stable. - Hypoglycemia has resolved - CK WNL - Chest XR: Rightward deviation of the trachea the superior mediastinum and some soft tissue thickening along the left aortic arch silhouette; consider CT thorax with IV contrast material to exclude aortic dissection or mediastinal hematoma or mass area - Hip/pelvis XR: No pelvic or right hip fracture or dislocation - Head CT: 1. No acute fracture or acute intracranial process. 2. Age-related changes including mild diffuse volume loss and mild scattered white matter hypoattenuation consistent with chronic small vessel ischemic disease. - Chest/abdomen/pelvis CT: Small subcutaneous contusion overlying the posterior inferior right ribs. No acute fracture or acute vascular or visceral organ injury in the chest, abdomen or pelvis. - C spine CT: Moderately severe cervical spondylosis; no fracture or dislocation or locked facet - PT/OT ordered (3) Hypoglycemia: Code(s): E16.2 - Hypoglycemia, unspecified Status: Acute Assessment and Plan: EMS arrival he was reportedly hypoglycemic with a glucose of 57. Given D10 and 800 mL crystalloid fluids were administered and he was brought in for evaluation. Despite receiving dextrose and a meal his glucose was trending down and he has been started on a dextrose drip with frequent Accu-Cheks on admission. - hypoglycemia protocol - POC blood glucose ACHS - Hold glipizide and metformin. Hold lantus. Hold lispro TIDWM. - Started on mod SSI TIDWM - Discontinued dextrose drip - hemoglobin A1c 9.4 (4) Acute kidney injury superimposed on chronic kidney disease: Code(s): N17.9 - Acute kidney failure, unspecified; N18.9 - Chronic kidney disease, unspecified Status: Acute Assessment and Plan: BUN/Cr 31/1.9 which is higher than his baseline (at least at this facility though he has not had labs done here for over 4 years). Labs requested from his primary care provider to help establish his baseline. BUN/Cr 27/1.7 on am labs NS 100 ml/hr Monitor I/O Avoid nephrotoxic medications Renally dose medications (5) Pyuria: Code(s): R82.81 - Pyuria Status: Acute Assessment and Plan: - UA: clear appearance with 1+ protein, 4+ urobilinogen, 2+ leukocytes, 21-50 WBC, no bacteria. Occasional squamous cells present, possible contamination - UC obtained on 05/23: pending - No previous micro to be reviewed - started on Rocephin in the ED, continue antibiotics pending urine culture (6) Essential hypertension: Code(s): I10 - Essential (primary) hypertension Status: Chronic Assessment and Plan: Chronic, per EMS patient was hypotension on arrival. BP responded to fluids and has been stable. - Patient now hypertensive with systolics in the 150s, resume lisinopril 10 mg daily - Monitor (7) Insulin dependent type 2 diabetes mellitus: Code(s): E11.9 - Type 2 diabetes mellitus without complications; Z79.4 - terminal worker (current) use of insulin Status: Chronic Assessment and Plan: See plan for hypoglycemia. Time Spent With Patient Time with patient: 25 - 35 minutes Subjective Date/time seen: 05/24/24 08:41 Interval history: 73-year-old male with chronic kidney disease, insulin dependent type 2 diabetes mellitus, hypertension, and dyslipidemia who presented to the hospital via EMS from [place] for evaluation after a fall. Patient is pleasant lying comfortably in bed. He is alert and oriented x4 at time of assessment. Has no complaints at this time denying chest pain, shortness a breath, palpitations, lightheadedness/dizziness, nausea/vomiting, and abdominal pain. Review of Systems Review of Systems: All systems reviewed & are unremarkable except as noted in HPI and below Exam Narrative: AF HR 81 RR 18 SPO2 98 BP 151/70 General: male in no acute respiratory distress who is nontoxic appearing, lying semi recumbent in bed. HEENT: Normocephalic. Small laceration to the right eyebrow along the lateral side. Extraocular movement intact. Sclera clear and anicteric. . No facial asymmetry. Chest: Lungs are clear to auscultation bilaterally. No wheezes or crackles. CV: Heart was regular rate and rhythm. S1/S2. No murmurs, gallops, or rubs. Abd: Abdomen was soft. Nontender. Nondistended. Positive bowel sounds. No organomegaly or masses. Ext: No clubbing, cyanosis, or edema. 1+ DP pulses bilaterally. Neuro: Patient is alert and oriented x4. Speech is clear. Objective Data Vital Signs Vital Signs: Vital Signs - 24 hr 05/23/24 11:02 05/23/24 11:31 05/23/24 12:11 Temperature 97.6 F Pulse Rate 90 95 89 Respiratory Rate 18 20 20 Blood Pressure 144/52 H 126/76 149/61 H Pulse Oximetry 96 97 97 Oxygen Delivery Room Air 05/23/24 12:16 05/23/24 12:31 05/23/24 13:17 Temperature Pulse Rate 85 88 99 Respiratory Rate 20 23 H 20 Blood Pressure 138/60 149/76 H 153/76 H Pulse Oximetry 96 99 99 Oxygen Delivery 05/23/24 14:52 05/23/24 13:46 05/23/24 15:01 Temperature 97.6 F Pulse Rate 89 87 89 Respiratory Rate 14 21 H 20 Blood Pressure 152/79 H 163/78 H 156/70 H Pulse Oximetry 100 97 96 Oxygen Delivery 05/23/24 16:00 05/23/24 18:15 05/23/24 20:00 Temperature 97.7 F Pulse Rate 88 Respiratory Rate 16 Blood Pressure 157/50 H Pulse Oximetry 100 Oxygen Delivery Room Air Room Air 05/23/24 21:25 05/23/24 20:00 05/24/24 00:00 Temperature 97.4 F L Pulse Rate 83 82 85 Respiratory Rate 18 Blood Pressure 174/61 H Pulse Oximetry 100 Oxygen Delivery 05/24/24 04:00 05/24/24 06:00 Temperature 97.7 F Pulse Rate 82 81 Respiratory Rate 18 Blood Pressure 151/70 H Pulse Oximetry 98 Oxygen Delivery Intake/Output Intake/Output: Intake & Output 05/21/24 05/22/24 05/23/24 05/24/24 23:59 23:59 23:59 23:59 Intake Total 3340 200 Output Total 100 550 Balance 3240 -350 Meds/Results Medications: Active Medications Generic Name Dose Route Start Last Admin Trade Name Freq PRN Reason Stop Dose Admin Acetaminophen 650 mg 05/23/24 21:16 Acetaminophen 325 Mg Tablet PO Q6H PRN Mild Pain (1-3) or Fever Aspirin 81 mg 05/24/24 09:00 Aspirin 81 Mg Chewable Tablet PO DAILY [facility] Atorvastatin Calcium 20 mg 05/24/24 21:00 Atorvastatin 20 Mg Tablet PO HS REED Dextrose 12.5 gm 05/23/24 21:16 Dextrose 50% 25 Gm/50 Ml Syringe IV PUSH PRN PRN Hypoglycemia Protocol Docusate Sodium 100 mg 05/23/24 21:42 Docusate Sodium 100 Mg Capsule PO HS PRN Constipation Duloxetine HCl 30 mg 05/24/24 21:00 Duloxetine Hcl 30 Mg Capsule.Dr PO HS [facility] Fenofibrate 160 mg 05/24/24 09:00 Fenofibrate 160 Mg Tablet PO DAILY [facility] Fish Oil 1 gm 05/24/24 09:00 [place] 3 Polyunsat Fatty Acids 1 Gm Cap PO DAILY [facility] Fluoxetine HCl 20 mg 05/24/24 09:00 Fluoxetine Hcl 20 Mg Capsule PO DAILY [facility] Glucagon 1 mg 05/23/24 21:16 Glucagon For Inj 1 Mg Vial IM PRN PRN Hypoglycemia Protocol Glucose 15 gm 05/23/24 21:16 Glucose Oral Gel 15 Gm Of Glucse In 37.5 Gm Tube PO PRN PRN Hypoglycemia Protocol Ceftriaxone Sodium 1 gm in 50 mls @ 100 mls/hr 05/24/24 09:00 Rocephin 1 Gm/Ns 50 Ml IVPB Q24H REED Dextrose 1,000 mls @ 100 mls/hr 05/23/24 21:16 Dextrose 5% 1,000 Ml IVPB PRN PRN Hypoglycemia Protocol Insulin Aspart 3 - 6 units 05/24/24 08:00 Insulin Aspart (*Bkc) 100 Units/Ml SUB-Q TIDWM REED Protocol Insulin Aspart 1 - 3 units 05/23/24 21:55 05/23/24 22:06 Insulin Aspart (*Bkc) 100 Units/Ml SUB-Q 2 units HS [facility] Administration Protocol Lisinopril 10 mg 05/24/24 09:00 Lisinopril 10 Mg Tablet PO DAILY [facility] Melatonin 10 mg 05/23/24 21:55 05/23/24 22:04 Melatonin 5 Mg Tablet PO 10 mg HS [facility] Administration Multivitamins Therapeutic 1 tablet 05/24/24 09:00 Multivitamins Therapeutic Tab (*Bkc) PO DAILY [facility] Polyethylene Glycol 17 gm 05/24/24 09:00 Polyethylene Glycol 3350 17 Gm Powd.Pack PO DAILY [facility] Tamsulosin HCl 0.4 mg 05/24/24 09:00 Tamsulosin Hcl 0.4 Mg Capsule PO DAILY [facility] Radiology Results: ITS Impressions Hip/Pelvis X-Ray 05/23/24 11:55 IMPRESSION: No pelvic or right hip fracture or dislocation Chest X-Ray 05/23/24 11:57 IMPRESSION: Rightward deviation of the trachea the superior mediastinum and some soft tissue thickening along the left aortic arch silhouette; consider CT thorax with IV contrast material to exclude aortic dissection or mediastinal hematoma or mass area Head CT 05/23/24 12:10 IMPRESSION: 1. No acute fracture or acute intracranial process. 2. Age-related changes including mild diffuse volume loss and mild scattered white matter hypoattenuation consistent with chronic small vessel ischemic disease. Chest/Abdomen/Pelvis CT 05/23/24 12:13 IMPRESSION: 1. Small subcutaneous contusion overlying the posterior inferior right ribs. No acute fracture or acute vascular or visceral organ injury in the chest, abdomen or pelvis. Cervical Spine CT 05/23/24 12:18 IMPRESSION: Moderately severe cervical spondylosis; no fracture or dislocation or locked facet Labs Labs: Laboratory Results - last 24 hr 05/23/24 05/23/24 05/23/24 11:17 11:24 11:25 WBC 11.5 H RBC 4.13 L Hgb 12.6 L Hct 38.5 L MCV 93.2 MCH 30.5 MCHC 32.7 RDW 12.3 Plt Count 393 H MPV 9.9 Immature Gran % (Auto) 2.3 H Neut % (Auto) 77.1 H Lymph % (Auto) 13.4 L [place] % (Auto) 5.9 Eos % (Auto) 0.8 Baso % (Auto) 0.5 Lymph # (Auto) 1.54 [place] # (Auto) 0.7 H Eos # (Auto) 0.1 Baso # (Auto) 0.1 Abs Immat Gran (auto) 0.27 H Absolute Neuts (auto) 8.9 H Absolute Nucleated RBC 0.000 Nucleated RBC % 0.0 PT INR APTT Puncture Site ABG pH ABG pCO2 ABG pO2 ABG PO2/FiO2 Ratio ABG HCO3 ABG O2 Saturation ABG O2 Content ABG Base Excess A-a Gradient Oxyhemoglobin Total Hemoglobin O2 Delivery Device O2 Liters/Min FiO2 Sodium Potassium Chloride Carbon Dioxide Anion Gap BUN Creatinine Estim Creat Clear Calc Estimated GFR Glucose POC Capillary Glucose 142 H Hemoglobin A1c Lactic Acid 2.7 H Calcium Phosphorus Magnesium Total Bilirubin AST ALT Alkaline Phosphatase Total Creatine Kinase 59 Troponin I NT-Pro-B Natriuret Pep Total Protein Albumin Lipase TSH (Reflex) 1.150 Urine Color Urine Appearance Urine pH Ur Specific [place] Urine Protein Urine Glucose (UA) Urine Ketones Ur Blood (Man) Urine Nitrate Urine Bilirubin Urine Urobilinogen Add Ur Microanalysis Leukocyte Esterase Rfl Urine RBC Urine WBC Ur Squamous Epith Cells Urine Bacteria Urine Casts Hyaline Casts Urine Opiates Screen Urine Methadone Screen Ur Barbiturates Screen Ur Phencyclidine Scrn Ur Amphetamine Screen U Benzodiazepines Scrn Urine Cocaine Screen U Cannabinoids Screen Ethyl Alcohol < 10 Influenza A (RT-PCR) Influenza B (RT-PCR) RSV (RT-PCR) SARS-CoV-2 RNA (RT-PCR) 05/23/24 05/23/24 05/23/24 11:26 11:31 11:57 WBC RBC Hgb Hct MCV MCH MCHC RDW Plt Count MPV Immature Gran % (Auto) Neut % (Auto) Lymph % (Auto) [place] % (Auto) Eos % (Auto) Baso % (Auto) Lymph # (Auto) [place] # (Auto) Eos # (Auto) Baso # (Auto) Abs Immat Gran (auto) Absolute Neuts (auto) Absolute Nucleated RBC Nucleated RBC % PT 15.6 H INR 1.2 APTT 35.8 Puncture Site Right radial ABG pH 7.411 ABG pCO2 33.6 L ABG pO2 77.6 L ABG PO2/FiO2 Ratio 3.70 ABG HCO3 20.9 L ABG O2 Saturation 95.7 ABG O2 Content 19.2 ABG Base Excess -2.9 A-a Gradient 31.9 Oxyhemoglobin 94.8 Total Hemoglobin 14.4 O2 Delivery Device Room air O2 Liters/Min Not Reportable FiO2 21 Sodium 137 Potassium 4.7 Chloride 104 Carbon Dioxide 26 Anion Gap 7 BUN 34 H D Creatinine 2.30 H 2.00 H Estim Creat Clear Calc 29 33 Estimated GFR 28 L 33 L Glucose 157 H POC Capillary Glucose Hemoglobin A1c Lactic Acid Calcium 9.1 Phosphorus 4.4 Magnesium 1.3 L Total Bilirubin 0.6 AST 26 ALT 19 Alkaline Phosphatase 54 Total Creatine Kinase Troponin I < 0.012 NT-Pro-B Natriuret Pep 268 H Total Protein 7.0 Albumin 3.2 L Lipase 108 TSH (Reflex) Urine Color Urine Appearance Urine pH Ur Specific [place] Urine Protein Urine Glucose (UA) Urine Ketones Ur Blood (Man) Urine Nitrate Urine Bilirubin Urine Urobilinogen Add Ur Microanalysis Leukocyte Esterase Rfl Urine RBC Urine WBC Ur Squamous Epith Cells Urine Bacteria Urine Casts Hyaline Casts Urine Opiates Screen Urine Methadone Screen Ur Barbiturates Screen Ur Phencyclidine Scrn Ur Amphetamine Screen U Benzodiazepines Scrn Urine Cocaine Screen U Cannabinoids Screen Ethyl Alcohol Influenza A (RT-PCR) Influenza B (RT-PCR) RSV (RT-PCR) SARS-CoV-2 RNA (RT-PCR) 05/23/24 05/23/24 05/23/24 12:26 13:37 14:07 WBC RBC Hgb Hct MCV MCH MCHC RDW Plt Count MPV Immature Gran % (Auto) Neut % (Auto) Lymph % (Auto) [place] % (Auto) Eos % (Auto) Baso % (Auto) Lymph # (Auto) [place] # (Auto) Eos # (Auto) Baso # (Auto) Abs Immat Gran (auto) Absolute Neuts (auto) Absolute Nucleated RBC Nucleated RBC % PT INR APTT Puncture Site ABG pH ABG pCO2 ABG pO2 ABG PO2/FiO2 Ratio ABG HCO3 ABG O2 Saturation ABG O2 Content ABG Base Excess A-a Gradient Oxyhemoglobin Total Hemoglobin O2 Delivery Device O2 Liters/Min FiO2 Sodium Potassium Chloride Carbon Dioxide Anion Gap BUN Creatinine Estim Creat Clear Calc Estimated GFR Glucose POC Capillary Glucose 66 Hemoglobin A1c Lactic Acid Calcium Phosphorus Magnesium Total Bilirubin AST ALT Alkaline Phosphatase Total Creatine Kinase Troponin I NT-Pro-B Natriuret Pep Total Protein Albumin Lipase TSH (Reflex) Urine Color Yellow Urine Appearance Clear Urine pH 5.5 Ur Specific [place] 1.029 Urine Protein 1+ H Urine Glucose (UA) Negative Urine Ketones Negative Ur Blood (Man) Negative Urine Nitrate Negative Urine Bilirubin Negative Urine Urobilinogen 4.0 H Add Ur Microanalysis Reviewed Leukocyte Esterase Rfl 2+ H Urine RBC 0-2 Urine WBC 21-50 H Ur Squamous Epith Cells Occasional Urine Bacteria None seen Urine Casts 6-10 Hyaline Casts 5-9 H Urine Opiates Screen Negative Urine Methadone Screen Negative Ur Barbiturates Screen Negative Ur Phencyclidine Scrn Negative Ur Amphetamine Screen Negative U Benzodiazepines Scrn Negative Urine Cocaine Screen Negative U Cannabinoids Screen Negative Ethyl Alcohol Influenza A (RT-PCR) Negative Influenza B (RT-PCR) Negative RSV (RT-PCR) Negative SARS-CoV-2 RNA (RT-PCR) Negative 05/23/24 05/23/24 05/23/24 14:45 14:53 15:14 WBC RBC Hgb Hct MCV MCH MCHC RDW Plt Count MPV Immature Gran % (Auto) Neut % (Auto) Lymph % (Auto) [place] % (Auto) Eos % (Auto) Baso % (Auto) Lymph # (Auto) [place] # (Auto) Eos # (Auto) Baso # (Auto) Abs Immat Gran (auto) Absolute Neuts (auto) Absolute Nucleated RBC Nucleated RBC % PT INR APTT Puncture Site ABG pH ABG pCO2 ABG pO2 ABG PO2/FiO2 Ratio ABG HCO3 ABG O2 Saturation ABG O2 Content ABG Base Excess A-a Gradient Oxyhemoglobin Total Hemoglobin O2 Delivery Device O2 Liters/Min FiO2 Sodium Potassium Chloride Carbon Dioxide Anion Gap BUN Creatinine Estim Creat Clear Calc Estimated GFR Glucose POC Capillary Glucose 220 H Hemoglobin A1c Lactic Acid 2.0 Calcium Phosphorus Magnesium Total Bilirubin AST ALT Alkaline Phosphatase Total Creatine Kinase Troponin I < 0.012 NT-Pro-B Natriuret Pep Total Protein Albumin Lipase TSH (Reflex) Urine Color Urine Appearance Urine pH Ur Specific [place] Urine Protein Urine Glucose (UA) Urine Ketones Ur Blood (Man) Urine Nitrate Urine Bilirubin Urine Urobilinogen Add Ur Microanalysis Leukocyte Esterase Rfl Urine RBC Urine WBC Ur Squamous Epith Cells Urine Bacteria Urine Casts Hyaline Casts Urine Opiates Screen Urine Methadone Screen Ur Barbiturates Screen Ur Phencyclidine Scrn Ur Amphetamine Screen U Benzodiazepines Scrn Urine Cocaine Screen U Cannabinoids Screen Ethyl Alcohol Influenza A (RT-PCR) Influenza B (RT-PCR) RSV (RT-PCR) SARS-CoV-2 RNA (RT-PCR) 05/23/24 05/23/24 05/23/24 16:05 20:02 21:18 WBC RBC Hgb Hct MCV MCH MCHC RDW Plt Count MPV Immature Gran % (Auto) Neut % (Auto) Lymph % (Auto) [place] % (Auto) Eos % (Auto) Baso % (Auto) Lymph # (Auto) [place] # (Auto) Eos # (Auto) Baso # (Auto) Abs Immat Gran (auto) Absolute Neuts (auto) Absolute Nucleated RBC Nucleated RBC % PT INR APTT Puncture Site ABG pH ABG pCO2 ABG pO2 ABG PO2/FiO2 Ratio ABG HCO3 ABG O2 Saturation ABG O2 Content ABG Base Excess A-a Gradient Oxyhemoglobin Total Hemoglobin O2 Delivery Device O2 Liters/Min FiO2 Sodium 134 L Potassium 5.2 H Chloride 101 Carbon Dioxide 26 Anion Gap 7 BUN 31 H Creatinine 1.90 H Estim Creat Clear Calc 35 Estimated GFR 35 L Glucose 339 H POC Capillary Glucose 204 H 314 H Hemoglobin A1c 9.4 H Lactic Acid Calcium 8.2 L Phosphorus Magnesium 1.6 Total Bilirubin AST ALT Alkaline Phosphatase Total Creatine Kinase Troponin I NT-Pro-B Natriuret Pep Total Protein Albumin Lipase TSH (Reflex) Urine Color Urine Appearance Urine pH Ur Specific [place] Urine Protein Urine Glucose (UA) Urine Ketones Ur Blood (Man) Urine Nitrate Urine Bilirubin Urine Urobilinogen Add Ur Microanalysis Leukocyte Esterase Rfl Urine RBC Urine WBC Ur Squamous Epith Cells Urine Bacteria Urine Casts Hyaline Casts Urine Opiates Screen Urine Methadone Screen Ur Barbiturates Screen Ur Phencyclidine Scrn Ur Amphetamine Screen U Benzodiazepines Scrn Urine Cocaine Screen U Cannabinoids Screen Ethyl Alcohol Influenza A (RT-PCR) Influenza B (RT-PCR) RSV (RT-PCR) SARS-CoV-2 RNA (RT-PCR) 05/24/24 05/24/24 05:43 07:37 WBC 8.9 RBC 3.96 L Hgb 11.6 L Hct 37.2 L MCV 93.9 MCH 29.3 MCHC 31.2 L RDW 12.3 Plt Count 341 MPV 10.1 Immature Gran % (Auto) Neut % (Auto) Lymph % (Auto) [place] % (Auto) Eos % (Auto) Baso % (Auto) Lymph # (Auto) [place] # (Auto) Eos # (Auto) Baso # (Auto) Abs Immat Gran (auto) Absolute Neuts (auto) Absolute Nucleated RBC Nucleated RBC % PT INR APTT Puncture Site ABG pH ABG pCO2 ABG pO2 ABG PO2/FiO2 Ratio ABG HCO3 ABG O2 Saturation ABG O2 Content ABG Base Excess A-a Gradient Oxyhemoglobin Total Hemoglobin O2 Delivery Device O2 Liters/Min FiO2 Sodium 135 L Potassium 4.9 Chloride 105 Carbon Dioxide 26 Anion Gap 4 BUN 27 H Creatinine 1.70 H Estim Creat Clear Calc 40 Estimated GFR 40 L Glucose 165 H POC Capillary Glucose 125 H Hemoglobin A1c Lactic Acid Calcium 8.5 Phosphorus Magnesium 1.6 Total Bilirubin AST ALT Alkaline Phosphatase Total Creatine Kinase Troponin I NT-Pro-B Natriuret Pep Total Protein Albumin Lipase TSH (Reflex) Urine Color Urine Appearance Urine pH Ur Specific [place] Urine Protein Urine Glucose (UA) Urine Ketones Ur Blood (Man) Urine Nitrate Urine Bilirubin Urine Urobilinogen Add Ur Microanalysis Leukocyte Esterase Rfl Urine RBC Urine WBC Ur Squamous Epith Cells Urine Bacteria Urine Casts Hyaline Casts Urine Opiates Screen Urine Methadone Screen Ur Barbiturates Screen Ur Phencyclidine Scrn Ur Amphetamine Screen U Benzodiazepines Scrn Urine Cocaine Screen U Cannabinoids Screen Ethyl Alcohol Influenza A (RT-PCR) Influenza B (RT-PCR) RSV (RT-PCR) SARS-CoV-2 RNA (RT-PCR) Quality VTE Prophylaxis VTE prophylaxis: mechanical ordered
[2024-05-24] MEDS: polyethylene glycoL 3350 17 GM POWD.PACK PO (09:20)
[2024-05-24] MEDS: lisinopriL 10 MG TABLET PO (09:20)
[2024-05-24] MEDS: FENOFIBRATE 160 MG TABLET PO (09:20)
[2024-05-24] MEDS: OMEGA 3 POLYUNSAT FATTY ACIDS 1 GM CAP PO (09:20)
[2024-05-24] MEDS: MULTIVITAMINS THERAPEUTIC TAB (*BKC) 1 TABLET PO (09:21)
[2024-05-24] MEDS: ASPIRIN 81 MG CHEWABLE TABLET PO (09:21)
[2024-05-24] MEDS: FLUoxetine HCL 20 MG CAPSULE PO (09:21)
[2024-05-24] MEDS: TAMSULOSIN HCL 0.4 MG CAPSULE PO (09:21)
[2024-05-24 11:45] LABS: Glucose Point of Care 228 mg/dl (65-105)
[2024-05-24] MEDS: INSULIN ASPART (*BKC) 100 UNITS/ML SUB-Q ×3 (12:12→21:26)
[2024-05-24] MEDS: SODIUM CHLORIDE 0.9% IV 1,000 ML 100 ML IV CONT (16:00)
[2024-05-24 16:34] LABS: Glucose Point of Care 229 mg/dl (65-105)
[2024-05-24] MEDS: CEFEPIME 1 GM/NS 50 ML 1 GM/50 ML BAG IVPB (17:22)
[2024-05-24] MEDS: ATORVASTATIN 20 MG TABLET PO (20:55)
[2024-05-24] MEDS: DULoxetine HCL 30 MG CAPSULE.DR PO (20:56)
[2024-05-24] MEDS: MELATONIN 5 MG TABLET 10 MG PO (20:56)
[2024-05-24 22:50] LABS: Glucose Point of Care 310 mg/dl (65-105)
[2024-05-25] VITALS (10 sets, daily range): BP systolic 136–156; BP diastolic 55–84; PULSE 74–86; RESP 16–20; TEMP 36.2–36.7; O2SAT 90–98
[2024-05-25] MEDS: CEFEPIME 1 GM/NS 50 ML 1 GM/50 ML BAG IVPB ×2 (04:58→16:12)
[2024-05-25 08:03] LABS: Glucose Point of Care 229 mg/dl (65-105)
[2024-05-25] MEDS: OMEGA 3 POLYUNSAT FATTY ACIDS 1 GM CAP PO (08:33)
[2024-05-25] MEDS: FENOFIBRATE 160 MG TABLET PO (08:33)
[2024-05-25] MEDS: ASPIRIN 81 MG CHEWABLE TABLET PO (08:33)
[2024-05-25] MEDS: FLUoxetine HCL 20 MG CAPSULE PO (08:33)
[2024-05-25] MEDS: polyethylene glycoL 3350 17 GM POWD.PACK PO (08:33)
[2024-05-25] MEDS: lisinopriL 10 MG TABLET PO (08:34)
[2024-05-25] MEDS: MULTIVITAMINS THERAPEUTIC TAB (*BKC) 1 TABLET PO (08:34)
[2024-05-25] MEDS: TAMSULOSIN HCL 0.4 MG CAPSULE PO (08:34)
--- NOTE | 2024-05-25 08:40 | PM.IMPN ---
Progress Note: A&P Assessment and Plan (1) Elevated lactic acid level: Code(s): R79.89 - Other specified abnormal findings of blood chemistry Status: Acute Assessment and Plan: Lactic acid was a bit elevated on admission at 2.7 which could be due to transient hypotension and hypoglycemia. He does does not appear toxic although sepsis is still a possibility. Blood and urine cultures have been obtained and are pending. - lactic acid repeat 2.0 - suspected source: transient hypotension and hypoglycemia vs sepsis although he does not appear toxic - blood cultures drawn on 05/23: pending - UA: clear appearance with 1+ protein, 4+ urobilinogen, 2+ leukocytes, 21-50 WBC, no bacteria. Occasional squamous cells present, possible contamination - UC obtained on 05/23: Pseudomonas aeruginosa- on cefepime-continue (2) Fall from ground level: Code(s): W18.30XA - Fall on same level, unspecified, initial encounter Status: Acute Assessment and Plan: Patient was going to get into wheelchair, but sat at an award angle resulting in the chair tipping over. He notes he felt a bit lightheaded and sweaty before the incident. But denies LOC. He was found on the floor in his room by staff within 5 or so minutes and assisted up. EMS arrival he was reportedly hypoglycemic with a glucose of 57 and was hypotensive. D10 and 800 mL crystalloid fluids were administered and he was brought in for evaluation. - Blood pressures responded to IV fluids and have been stable. - Hypoglycemia has resolved - CK WNL - Chest XR: Rightward deviation of the trachea the superior mediastinum and some soft tissue thickening along the left aortic arch silhouette; consider CT thorax with IV contrast material to exclude aortic dissection or mediastinal hematoma or mass area - Hip/pelvis XR: No pelvic or right hip fracture or dislocation - Head CT: 1. No acute fracture or acute intracranial process. 2. Age-related changes including mild diffuse volume loss and mild scattered white matter hypoattenuation consistent with chronic small vessel ischemic disease. - Chest/abdomen/pelvis CT: Small subcutaneous contusion overlying the posterior inferior right ribs. No acute fracture or acute vascular or visceral organ injury in the chest, abdomen or pelvis. - C spine CT: Moderately severe cervical spondylosis; no fracture or dislocation or locked facet - PT/OT ordered (3) Hypoglycemia: Code(s): E16.2 - Hypoglycemia, unspecified Status: Acute Assessment and Plan: EMS arrival he was reportedly hypoglycemic with a glucose of 57. Given D10 and 800 mL crystalloid fluids were administered and he was brought in for evaluation. Despite receiving dextrose and a meal his glucose was trending down and he has been started on a dextrose drip with frequent Accu-Cheks on admission. - hypoglycemia protocol - POC blood glucose ACHS - Hold glipizide and metformin. Hold lantus. Hold lispro TIDWM. - Started on mod SSI TIDWM - Discontinued dextrose drip - hemoglobin A1c 9.4 05/25-- regimen reviewed- high BS last night- fasting BS 165- conitnue for now and monitor (4) Acute kidney injury superimposed on chronic kidney disease: Code(s): N17.9 - Acute kidney failure, unspecified; N18.9 - Chronic kidney disease, unspecified Status: Acute Assessment and Plan: BUN/Cr 31/1.9 which is higher than his baseline (at least at this facility though he has not had labs done here for over 4 years). Labs requested from his primary care provider to help establish his baseline. BUN/Cr 27/1.7 on am labs NS 100 ml/hr Monitor I/O Avoid nephrotoxic medications Renally dose medications (5) Pyuria: Code(s): R82.81 - Pyuria Status: Acute Assessment and Plan: - UA: clear appearance with 1+ protein, 4+ urobilinogen, 2+ leukocytes, 21-50 WBC, no bacteria. Occasional squamous cells present, possible contamination - UC obtained on 05/23: pending - No previous micro to be reviewed - started on Rocephin in the ED- stopped and was started on Cefepime (6) Essential hypertension: Code(s): I10 - Essential (primary) hypertension Status: Chronic Assessment and Plan: Chronic, per EMS patient was hypotension on arrival. BP responded to fluids and has been stable. - Patient now hypertensive with systolics in the 150s, resume lisinopril 10 mg daily - Monitor (7) Insulin dependent type 2 diabetes mellitus: Code(s): E11.9 - Type 2 diabetes mellitus without complications; Z79.4 - senior care (current) use of insulin Status: Chronic Assessment and Plan: See plan for hypoglycemia. Time Spent With Patient Time with patient: Greater than 35 minutes Subjective Date/time seen: 05/25/24 08:40 Interval history: 73-year-old male with chronic kidney disease, insulin dependent type 2 diabetes mellitus, hypertension, and dyslipidemia who presented to the hospital via EMS from [place] for evaluation after a fall. Patient is pleasant lying comfortably in bed. He is alert and oriented x4 at time of assessment. Has no complaints at this time denying chest pain, shortness a breath, palpitations, lightheadedness/dizziness, nausea/vomiting, and abdominal pain. pt is seen and examined, resting in bed. denies any acute events overnight. Review of Systems Review of Systems: 12 systems were reviewed and are negative except for as per HPI. All systems reviewed & are unremarkable except as noted in HPI and below Exam Narrative: AF HR 81 RR 18 SPO2 98 BP 151/70 General: male in no acute respiratory distress who is nontoxic appearing, lying semi recumbent in bed. HEENT: Normocephalic. Small laceration to the right eyebrow along the lateral side. Extraocular movement intact. Sclera clear and anicteric. . No facial asymmetry. Chest: Lungs are clear to auscultation bilaterally. No wheezes or crackles. CV: Heart was regular rate and rhythm. S1/S2. No murmurs, gallops, or rubs. Abd: Abdomen was soft. Nontender. Nondistended. Positive bowel sounds. No organomegaly or masses. Ext: No clubbing, cyanosis, or edema. 1+ DP pulses bilaterally. Neuro: Patient is alert and oriented x4. Speech is clear. Objective Data Vital Signs Vital Signs: Vital Signs - 24 hr 05/24/24 09:20 05/24/24 14:00 05/24/24 12:00 Temperature 98.4 F Pulse Rate 92 85 Respiratory Rate 18 Blood Pressure 137/72 Pulse Oximetry 96 96 Oxygen Delivery Room Air Fraction of Inspired Oxygen 21 05/24/24 16:00 05/24/24 20:00 05/24/24 22:00 Temperature 98.2 F Pulse Rate 89 85 86 Respiratory Rate 18 Blood Pressure 153/62 H Pulse Oximetry 97 Oxygen Delivery Fraction of Inspired Oxygen 05/25/24 00:00 05/25/24 04:00 05/25/24 06:00 Temperature 98.1 F Pulse Rate 80 74 75 Respiratory Rate 18 Blood Pressure 152/64 H Pulse Oximetry 98 Oxygen Delivery Fraction of Inspired Oxygen Intake/Output Intake/Output: Intake & Output 05/22/24 05/23/24 05/24/24 05/25/24 23:59 23:59 23:59 23:59 Intake Total 3340 1638 1175 Output Total 100 1350 2550 Balance 3240 288 -1375 Meds/Results Medications: Active Medications Generic Name Dose Route Start Last Admin Trade Name Freq PRN Reason Stop Dose Admin Acetaminophen 650 mg 05/23/24 21:16 Acetaminophen 325 Mg Tablet PO Q6H PRN Mild Pain (1-3) or Fever Aspirin 81 mg 05/24/24 09:00 05/25/24 08:33 Aspirin 81 Mg Chewable Tablet PO 81 mg DAILY REED Administration Atorvastatin Calcium 20 mg 05/24/24 21:00 05/24/24 20:55 Atorvastatin 20 Mg Tablet PO 20 mg HS REED Administration Dextrose 12.5 gm 05/23/24 21:16 Dextrose 50% 25 Gm/50 Ml Syringe IV PUSH PRN PRN Hypoglycemia Protocol Docusate Sodium 100 mg 05/23/24 21:42 Docusate Sodium 100 Mg Capsule PO HS PRN Constipation Duloxetine HCl 30 mg 05/24/24 21:00 05/24/24 20:56 Duloxetine Hcl 30 Mg Capsule.Dr PO 30 mg HS REED Administration Fenofibrate 160 mg 05/24/24 09:00 05/25/24 08:33 Fenofibrate 160 Mg Tablet PO 160 mg DAILY REED Administration Fish Oil 1 gm 05/24/24 09:00 05/25/24 08:33 [place] 3 Polyunsat Fatty Acids 1 Gm Cap PO 1 gm DAILY REED Administration Fluoxetine HCl 20 mg 05/24/24 09:00 05/25/24 08:33 Fluoxetine Hcl 20 Mg Capsule PO 20 mg DAILY REED Administration Glucagon 1 mg 05/23/24 21:16 Glucagon For Inj 1 Mg Vial IM PRN PRN Hypoglycemia Protocol Glucose 15 gm 05/23/24 21:16 Glucose Oral Gel 15 Gm Of Glucse In 37.5 Gm Tube PO PRN PRN Hypoglycemia Protocol Dextrose 1,000 mls @ 100 mls/hr 05/23/24 21:16 Dextrose 5% 1,000 Ml IVPB PRN PRN Hypoglycemia Protocol Cefepime HCl 1 gm in 50 mls @ 100 mls/hr 05/24/24 17:00 05/25/24 04:58 Maxipime 1 Gm/Ns 50 Ml IVPB 100 mls/hr Q12H REED Administration Insulin Aspart 3 - 6 units 05/24/24 08:00 05/24/24 17:20 Insulin Aspart (*Bkc) 100 Units/Ml SUB-Q 3 units TIDWM REED Administration Protocol Insulin Aspart 1 - 3 units 05/23/24 21:55 05/24/24 21:26 Insulin Aspart (*Bkc) 100 Units/Ml SUB-Q 2 units HS REED Administration Protocol Lisinopril 10 mg 05/24/24 09:00 05/25/24 08:34 Lisinopril 10 Mg Tablet PO 10 mg DAILY REED Administration Melatonin 10 mg 05/23/24 21:55 05/24/24 20:56 Melatonin 5 Mg Tablet PO 10 mg HS REED Administration Multivitamins Therapeutic 1 tablet 05/24/24 09:00 05/25/24 08:34 Multivitamins Therapeutic Tab (*Bkc) PO 1 tablet DAILY REED Administration Polyethylene Glycol 17 gm 05/24/24 09:00 05/25/24 08:33 Polyethylene Glycol 3350 17 Gm Powd.Pack PO 17 gm DAILY REED Administration Tamsulosin HCl 0.4 mg 05/24/24 09:00 05/25/24 08:34 Tamsulosin Hcl 0.4 Mg Capsule PO 0.4 mg DAILY REED Administration Radiology Results: ITS Impressions Hip/Pelvis X-Ray 05/23/24 11:55 IMPRESSION: No pelvic or right hip fracture or dislocation Chest X-Ray 05/23/24 11:57 IMPRESSION: Rightward deviation of the trachea the superior mediastinum and some soft tissue thickening along the left aortic arch silhouette; consider CT thorax with IV contrast material to exclude aortic dissection or mediastinal hematoma or mass area Head CT 05/23/24 12:10 IMPRESSION: 1. No acute fracture or acute intracranial process. 2. Age-related changes including mild diffuse volume loss and mild scattered white matter hypoattenuation consistent with chronic small vessel ischemic disease. Chest/Abdomen/Pelvis CT 05/23/24 12:13 IMPRESSION: 1. Small subcutaneous contusion overlying the posterior inferior right ribs. No acute fracture or acute vascular or visceral organ injury in the chest, abdomen or pelvis. Cervical Spine CT 05/23/24 12:18 IMPRESSION: Moderately severe cervical spondylosis; no fracture or dislocation or locked facet Venous Doppler Study 05/24/24 13:58 IMPRESSION: No evidence of deep venous thrombosis of the lower extremities Labs Labs: Laboratory Results - last 24 hr 05/24/24 05/24/24 05/24/24 11:40 16:30 21:19 POC Capillary Glucose 228 H 229 H 310 H 05/25/24 07:56 POC Capillary Glucose 229 H Quality VTE Prophylaxis VTE prophylaxis: mechanical ordered
[2024-05-25 11:28] LABS: Glucose Point of Care 210 mg/dl (65-105)
[2024-05-25] MEDS: INSULIN ASPART (*BKC) 100 UNITS/ML SUB-Q ×3 (12:26→21:28)
--- NOTE | 2024-05-25 13:53 | PCPTNOTE ---
Patient asleep, unable to wake up.
[2024-05-25 16:32] LABS: Glucose Point of Care 342 mg/dl (65-105)
[2024-05-25 21:19] LABS: Glucose Point of Care 357 mg/dl (65-105)
[2024-05-25] MEDS: DULoxetine HCL 30 MG CAPSULE.DR PO (21:28)
[2024-05-25] MEDS: ATORVASTATIN 20 MG TABLET PO (21:28)
[2024-05-26] VITALS (7 sets, daily range): BP systolic 122–164; BP diastolic 54–80; PULSE 72–83; RESP 18–20; TEMP 35.9–36.6; O2SAT 98–100
[2024-05-26 04:35] LABS: Glucose Point of Care 283 mg/dl (65-105)
[2024-05-26] MEDS: CEFEPIME 1 GM/NS 50 ML 1 GM/50 ML BAG IVPB (04:43)
[2024-05-26 07:27] LABS: Basophils Absolute Auto 0.1 K/mm3 (0.0-0.1); Basophils Percent Auto 0.9 % (0.2-1.2); Eosinophils Absolute Auto 0.4 K/mm3 (0-0.3); Eosinophils Percent Auto 6.6 % (0-4.4); Hemoglobin 12.7 g/dL (14.0-18.0); Immature Granulocyte Absolute 0.05 K/mm3 (0.00-0.031); Immature Granulocyte Percent A 0.8 % (0-0.5); Lymphocytes Absolute Auto 1.61 K/mm3 (0.9-3.2); Lymphocytes Percent Auto 25.4 % (18.3-44.2); Mean Corpuscular HGB Conc 32.6 g/dl (32-36); Mean Platelet Volume 9.5 fl (7.4-10.4); Monocytes Absolute Auto 0.4 K/mm3 (0.1-0.6); Monocytes Percent Auto 6.9 % (2.6-8.5); Neutrophils Absolute Auto 3.8 K/mm3 (1.3-6.7); Neutrophils Percent Auto 59.4 % (45.5-73.1); Platelet Count Result 343 k/mm3 (150-375); Red Blood Count 4.24 M/mm3 (4.6-6.20); Red Cell Distribution Width 12.2 % (11.5-14.5); White Blood Count 6.3 K/mm3 (4.5-10.0)
[2024-05-26 07:33] LABS: Glucose Point of Care 281 mg/dl (65-105)
[2024-05-26 07:53] LABS: Alanine Aminotransferase 25 U/L (6-50); Albumin Level 3.3 g/dL (3.5-5.1); Alkaline Phosphatase 55 U/L (38-126); Anion Gap 6 mmol/L (4-12); Aspartate Amino Transferase 34 U/L (17-59); Bilirubin,Total 0.7 mg/dL (0.2-1.3); Blood Urea Nitrogen 24 mg/dL (9-20); Carbon Dioxide 25 mmol/L (22-30); Chloride 103 mmol/L (98-107); Estimated CRCL calculation 44 ml/min; Estimated Glomerular Filt Rate 46; Glucose 299 mg/dL (65-110); Potassium 5.6 mmol/L (3.4-5.0); Sodium 134 mmol/L (137-145)
--- NOTE | 2024-05-26 08:26 | P.PNIM_ITS ---
Progress Note: A&P Assessment and Plan (1) Elevated lactic acid level: Code(s): R79.89 - Other specified abnormal findings of blood chemistry Status: Acute Assessment and Plan: Lactic acid was a bit elevated on admission at 2.7 which could be due to transient hypotension and hypoglycemia. He does does not appear toxic although sepsis is still a possibility. Blood and urine cultures have been obtained and are pending. - lactic acid repeat 2.0 - suspected source: transient hypotension and hypoglycemia vs sepsis although he does not appear toxic - blood cultures drawn on 05/23: pending - UA: clear appearance with 1+ protein, 4+ urobilinogen, 2+ leukocytes, 21-50 WBC, no bacteria. Occasional squamous cells present, possible contamination - UC obtained on 05/23: Pseudomonas aeruginosa- on cefepime-continue (2) Fall from ground level: Code(s): W18.30XA - Fall on same level, unspecified, initial encounter Status: Acute Assessment and Plan: Patient was going to get into wheelchair, but sat at an award angle resulting in the chair tipping over. He notes he felt a bit lightheaded and sweaty before the incident. But denies LOC. He was found on the floor in his room by staff within 5 or so minutes and assisted up. EMS arrival he was reportedly hypoglycemic with a glucose of 57 and was hypotensive. D10 and 800 mL crystalloid fluids were administered and he was brought in for evaluation. - Blood pressures responded to IV fluids and have been stable. - Hypoglycemia has resolved - CK WNL - Chest XR: Rightward deviation of the trachea the superior mediastinum and some soft tissue thickening along the left aortic arch silhouette; consider CT thorax with IV contrast material to exclude aortic dissection or mediastinal hematoma or mass area - Hip/pelvis XR: No pelvic or right hip fracture or dislocation - Head CT: 1. No acute fracture or acute intracranial process. 2. Age-related changes including mild diffuse volume loss and mild scattered white matter hypoattenuation consistent with chronic small vessel ischemic disease. - Chest/abdomen/pelvis CT: Small subcutaneous contusion overlying the posterior inferior right ribs. No acute fracture or acute vascular or visceral organ injury in the chest, abdomen or pelvis. - C spine CT: Moderately severe cervical spondylosis; no fracture or dislocation or locked facet - PT/OT ordered (3) Hypoglycemia: Code(s): E16.2 - Hypoglycemia, unspecified Status: Acute Assessment and Plan: EMS arrival he was reportedly hypoglycemic with a glucose of 57. Given D10 and 800 mL crystalloid fluids were administered and he was brought in for evaluation. Despite receiving dextrose and a meal his glucose was trending down and he has been started on a dextrose drip with frequent Accu-Cheks on admission. - hypoglycemia protocol - POC blood glucose ACHS - Hold glipizide and metformin. Hold lantus. Hold lispro TIDWM. - Started on mod SSI TIDWM and lantus 30 units - Discontinued dextrose drip - hemoglobin A1c 9.4 05/25-- regimen reviewed- high BS last night- fasting BS 165- continue for now and monitor (4) Acute kidney injury superimposed on chronic kidney disease: Code(s): N17.9 - Acute kidney failure, unspecified; N18.9 - Chronic kidney disease, unspecified Status: Acute Assessment and Plan: BUN/Cr 31/1.9 which is higher than his baseline (at least at this facility though he has not had labs done here for over 4 years). Labs requested from his primary care provider to help establish his baseline. BUN/Cr 24/1.5 on am labs NS 100 ml/hr Monitor I/O Avoid nephrotoxic medications Renally dose medications (5) Pyuria: Code(s): R82.81 - Pyuria Status: Acute Assessment and Plan: - UA: clear appearance with 1+ protein, 4+ urobilinogen, 2+ leukocytes, 21-50 WBC, no bacteria. Occasional squamous cells present, possible contamination - UC obtained on 05/23: Pseudomonas aeruginosa - No previous micro to be reviewed - started on Rocephin in the ED, transitioned to Cefepime on 05/24. Transitioned to cipro per culture sensitivities on 05/26. (6) Essential hypertension: Code(s): I10 - Essential (primary) hypertension Status: Chronic Assessment and Plan: Chronic, per EMS patient was hypotension on arrival. BP responded to fluids and has been stable. - Patient now hypertensive with systolics in the 150s, resume lisinopril 10 mg daily - Monitor (7) Insulin dependent type 2 diabetes mellitus: Code(s): E11.9 - Type 2 diabetes mellitus without complications; Z79.4 - assisted (current) use of insulin Status: Chronic Assessment and Plan: See plan for hypoglycemia. Time Spent With Patient Time with patient: 25 - 35 minutes Subjective Date/time seen: 05/26/24 08:26 Interval history: 73-year-old male with chronic kidney disease, insulin dependent type 2 diabetes mellitus, hypertension, and dyslipidemia who presented to the hospital via EMS from [place] for evaluation after a fall. Patient is pleasant lying comfortably in bed. He remains AOx3. He has no complaints at this time denying chest pain, shortness of breath, nausea/vomiting and abdominal pain. His blood glucose levels continue to be elevated. Will resume patients lantus at a lower dose to avoid hypoglycemia. Continue holding other diabetes medications. Review of Systems Review of Systems: All systems reviewed & are unremarkable except as noted in HPI and below Exam Narrative: AF HR 77 RR 20 SPO2 100 BP 160/67 General: male in no acute respiratory distress who is nontoxic appearing, lying semi recumbent in bed. HEENT: Normocephalic. Small laceration to the right eyebrow along the lateral side with bruising. Extraocular movement intact. Sclera clear and anicteric. No facial asymmetry. Chest: Lungs are clear to auscultation bilaterally. No wheezes or crackles. CV: Heart was regular rate and rhythm. S1/S2. No murmurs, gallops, or rubs. Abd: Abdomen was soft. Nontender. Nondistended. Positive bowel sounds. No organomegaly or masses. Ext: No clubbing, cyanosis, or edema. 1+ DP pulses bilaterally. Neuro: Patient is alert and oriented x3. Speech is clear. Objective Data Vital Signs Vital Signs: Vital Signs - 24 hr 05/25/24 12:00 05/25/24 16:00 05/25/24 14:00 Temperature 98.1 F Pulse Rate 74 74 86 Respiratory Rate 16 Blood Pressure 136/55 L Pulse Oximetry 90 05/25/24 20:40 05/25/24 20:00 05/26/24 00:00 Temperature 97.2 F L Pulse Rate 80 80 72 Respiratory Rate 20 Blood Pressure 156/84 H Pulse Oximetry 98 05/26/24 04:00 05/26/24 04:25 Temperature 97.8 F Pulse Rate 79 77 Respiratory Rate 20 Blood Pressure 160/67 H Pulse Oximetry 100 Intake/Output Intake/Output: Intake & Output 05/23/24 05/24/24 05/25/24 05/26/24 23:59 23:59 23:59 23:59 Intake Total 3340 1638 2305 100 Output Total 100 1350 3150 800 Balance 3248 927 -292 -157 Meds/Results Medications: Active Medications Generic Name Dose Route Start Last Admin Trade Name Freq PRN Reason Stop Dose Admin Acetaminophen 650 mg 05/23/24 21:16 Acetaminophen 325 Mg Tablet PO Q6H PRN Mild Pain (1-3) or Fever Aspirin 81 mg 05/24/24 09:00 05/25/24 08:33 Aspirin 81 Mg Chewable Tablet PO 81 mg DAILY REED Administration Atorvastatin Calcium 20 mg 05/24/24 21:00 05/25/24 21:28 Atorvastatin 20 Mg Tablet PO 20 mg HS REED Administration Dextrose 12.5 gm 05/23/24 21:16 Dextrose 50% 25 Gm/50 Ml Syringe IV PUSH PRN PRN Hypoglycemia Protocol Docusate Sodium 100 mg 05/23/24 21:42 Docusate Sodium 100 Mg Capsule PO HS PRN Constipation Duloxetine HCl 30 mg 05/24/24 21:00 05/25/24 21:28 Duloxetine Hcl 30 Mg Capsule.Dr PO 30 mg HS REED Administration Fenofibrate 160 mg 05/24/24 09:00 05/25/24 08:33 Fenofibrate 160 Mg Tablet PO 160 mg DAILY REED Administration Fish Oil 1 gm 05/24/24 09:00 05/25/24 08:33 [place] 3 Polyunsat Fatty Acids 1 Gm Cap PO 1 gm DAILY REED Administration Fluoxetine HCl 20 mg 05/24/24 09:00 05/25/24 08:33 Fluoxetine Hcl 20 Mg Capsule PO 20 mg DAILY REED Administration Glucagon 1 mg 05/23/24 21:16 Glucagon For Inj 1 Mg Vial IM PRN PRN Hypoglycemia Protocol Glucose 15 gm 05/23/24 21:16 Glucose Oral Gel 15 Gm Of Glucse In 37.5 Gm Tube PO PRN PRN Hypoglycemia Protocol Dextrose 1,000 mls @ 100 mls/hr 05/23/24 21:16 Dextrose 5% 1,000 Ml IVPB PRN PRN Hypoglycemia Protocol Cefepime HCl 1 gm in 50 mls @ 100 mls/hr 05/24/24 17:00 05/26/24 05:15 Maxipime 1 Gm/Ns 50 Ml IVPB Infused Q12H REED Infusion Insulin Aspart 3 - 6 units 05/24/24 08:00 05/25/24 16:51 Insulin Aspart (*Bkc) 100 Units/Ml SUB-Q 5 units TIDWM REED Administration Protocol Insulin Aspart 1 - 3 units 05/23/24 21:55 05/25/24 21:28 Insulin Aspart (*Bkc) 100 Units/Ml SUB-Q 3 units HS REED Administration Protocol Lisinopril 10 mg 05/24/24 09:00 05/25/24 08:34 Lisinopril 10 Mg Tablet PO 10 mg DAILY REED Administration Melatonin 10 mg 05/23/24 21:55 05/25/24 21:29 Melatonin 5 Mg Tablet PO Not Given HS [facility] Multivitamins Therapeutic 1 tablet 05/24/24 09:00 05/25/24 08:34 Multivitamins Therapeutic Tab (*Bkc) PO 1 tablet DAILY REED Administration Polyethylene Glycol 17 gm 05/24/24 09:00 05/25/24 08:33 Polyethylene Glycol 3350 17 Gm Powd.Pack PO 17 gm DAILY REED Administration Tamsulosin HCl 0.4 mg 05/24/24 09:00 05/25/24 08:34 Tamsulosin Hcl 0.4 Mg Capsule PO 0.4 mg DAILY REED Administration Radiology Results: ITS Impressions Hip/Pelvis X-Ray 05/23/24 11:55 IMPRESSION: No pelvic or right hip fracture or dislocation Chest X-Ray 05/23/24 11:57 IMPRESSION: Rightward deviation of the trachea the superior mediastinum and some soft tissue thickening along the left aortic arch silhouette; consider CT thorax with IV contrast material to exclude aortic dissection or mediastinal hematoma or mass area Head CT 05/23/24 12:10 IMPRESSION: 1. No acute fracture or acute intracranial process. 2. Age-related changes including mild diffuse volume loss and mild scattered white matter hypoattenuation consistent with chronic small vessel ischemic disease. Chest/Abdomen/Pelvis CT 05/23/24 12:13 IMPRESSION: 1. Small subcutaneous contusion overlying the posterior inferior right ribs. No acute fracture or acute vascular or visceral organ injury in the chest, abdomen or pelvis. Cervical Spine CT 05/23/24 12:18 IMPRESSION: Moderately severe cervical spondylosis; no fracture or dislocation or locked facet Venous Doppler Study 05/24/24 13:58 IMPRESSION: No evidence of deep venous thrombosis of the lower extremities Labs Labs: Laboratory Results - last 24 hr 05/25/24 05/25/24 05/25/24 11:22 16:06 20:44 WBC RBC Hgb Hct MCV MCH MCHC RDW Plt Count MPV Immature Gran % (Auto) Neut % (Auto) Lymph % (Auto) [place] % (Auto) Eos % (Auto) Baso % (Auto) Lymph # (Auto) [place] # (Auto) Eos # (Auto) Baso # (Auto) Abs Immat Gran (auto) Absolute Neuts (auto) Absolute Nucleated RBC Nucleated RBC % Sodium Potassium Chloride Carbon Dioxide Anion Gap BUN Creatinine Estim Creat Clear Calc Estimated GFR Glucose POC Capillary Glucose 210 H 342 H 357 H Calcium Total Bilirubin AST ALT Alkaline Phosphatase Total Protein Albumin 05/26/24 05/26/24 05/26/24 04:31 07:19 07:25 WBC 6.3 RBC 4.24 L Hgb 12.7 L Hct 39.0 L MCV 92.0 MCH 30.0 MCHC 32.6 RDW 12.2 Plt Count 343 MPV 9.5 Immature Gran % (Auto) 0.8 H Neut % (Auto) 59.4 Lymph % (Auto) 25.4 [place] % (Auto) 6.9 Eos % (Auto) 6.6 H Baso % (Auto) 0.9 Lymph # (Auto) 1.61 [place] # (Auto) 0.4 Eos # (Auto) 0.4 H Baso # (Auto) 0.1 Abs Immat Gran (auto) 0.05 H Absolute Neuts (auto) 3.8 Absolute Nucleated RBC 0.000 Nucleated RBC % 0.0 Sodium 134 L Potassium 5.6 H Chloride 103 Carbon Dioxide 25 Anion Gap 6 BUN 24 H Creatinine 1.50 H Estim Creat Clear Calc 44 Estimated GFR 46 L Glucose 299 H POC Capillary Glucose 283 H 281 H Calcium 9.0 Total Bilirubin 0.7 AST 34 ALT 25 Alkaline Phosphatase 55 Total Protein 7.0 Albumin 3.3 L Quality VTE Prophylaxis VTE prophylaxis: mechanical ordered
--- NOTE | 2024-05-26 08:55 | PCPTNOTE ---
Addendum entered by Zaria Shafer, PT 05/26/24 12:51: Spoke with current hospitalist, OK to discharge therapy orders at this time. Original Note: Attempted PT evaluation, pt adamantly refused stating No! without reason when attempting to encourage OOB activity. Attempted to encourage pt to participate for ~1o mins. Nursing present for refusal.
[2024-05-26] MEDS: FENOFIBRATE 160 MG TABLET PO (08:58)
[2024-05-26] MEDS: FLUoxetine HCL 20 MG CAPSULE PO (08:58)
[2024-05-26] MEDS: lisinopriL 10 MG TABLET PO (08:59)
[2024-05-26] MEDS: ASPIRIN 81 MG CHEWABLE TABLET PO (08:59)
[2024-05-26] MEDS: MULTIVITAMINS THERAPEUTIC TAB (*BKC) 1 TABLET PO (08:59)
[2024-05-26] MEDS: polyethylene glycoL 3350 17 GM POWD.PACK PO (08:59)
[2024-05-26] MEDS: TAMSULOSIN HCL 0.4 MG CAPSULE PO (08:59)
[2024-05-26] MEDS: INSULIN ASPART (*BKC) 100 UNITS/ML SUB-Q ×4 (08:59→21:24)
[2024-05-26] MEDS: OMEGA 3 POLYUNSAT FATTY ACIDS 1 GM CAP PO (08:59)
[2024-05-26] MEDS: CIPROFLOXACIN 500 MG TAB PO ×2 (09:08→17:23)
[2024-05-26 11:29] LABS: Glucose Point of Care 326 mg/dl (65-105)
[2024-05-26] MEDS: INSULIN GLARGINE (*BKC) 100 UNITS/ML 30 UNITS SUB-Q (13:51)
[2024-05-26 15:51] LABS: Glucose Point of Care 369 mg/dl (65-105)
[2024-05-26] MEDS: MELATONIN 5 MG TABLET 10 MG PO (21:24)
[2024-05-26] MEDS: ATORVASTATIN 20 MG TABLET PO (21:24)
[2024-05-26] MEDS: DULoxetine HCL 30 MG CAPSULE.DR PO (21:24)
[2024-05-26 21:31] LABS: Glucose Point of Care 312 mg/dl (65-105)
[2024-05-27] VITALS: PULSE 73
[2024-05-27 04:00] VITALS: PULSE 68
[2024-05-27 04:30] VITALS: BP 149/70; PULSE 70; RESP 18; TEMP 35.6; O2SAT 99
[2024-05-27] MEDS: CIPROFLOXACIN 500 MG TAB PO ×2 (05:37→17:23)
[2024-05-27 06:27] LABS: Basophils Absolute Auto 0.1 K/mm3 (0.0-0.1); Basophils Percent Auto 1.2 % (0.2-1.2); Eosinophils Absolute Auto 0.4 K/mm3 (0-0.3); Eosinophils Percent Auto 7.3 % (0-4.4); Hemoglobin 13.1 g/dL (14.0-18.0); Immature Granulocyte Absolute 0.06 K/mm3 (0.00-0.031); Lymphocytes Absolute Auto 2.17 K/mm3 (0.9-3.2); Lymphocytes Percent Auto 36.7 % (18.3-44.2); Mean Corpuscular HGB Conc 32.8 g/dl (32-36); Mean Corpuscular Hemoglobin 30.1 pg (26-34); Mean Platelet Volume 9.9 fl (7.4-10.4); Monocytes Absolute Auto 0.5 K/mm3 (0.1-0.6); Monocytes Percent Auto 7.8 % (2.6-8.5); Neutrophils Absolute Auto 2.7 K/mm3 (1.3-6.7); Platelet Count Result 375 k/mm3 (150-375); Red Blood Count 4.35 M/mm3 (4.6-6.20); Red Cell Distribution Width 11.9 % (11.5-14.5); White Blood Count 5.9 K/mm3 (4.5-10.0)
[2024-05-27 06:34] LABS: Alanine Aminotransferase 24 U/L (6-50); Albumin Level 3.4 g/dL (3.5-5.1); Alkaline Phosphatase 55 U/L (38-126); Anion Gap 5 mmol/L (4-12); Aspartate Amino Transferase 31 U/L (17-59); Bilirubin,Total 0.7 mg/dL (0.2-1.3); Blood Urea Nitrogen 27 mg/dL (9-20); Calcium 9.4 mg/dL (8.4-10.2); Carbon Dioxide 28 mmol/L (22-30); Chloride 102 mmol/L (98-107); Estimated CRCL calculation 44 ml/min; Estimated Glomerular Filt Rate 46; Glucose 284 mg/dL (65-110); Potassium 5.1 mmol/L (3.4-5.0); Sodium 135 mmol/L (137-145)
[2024-05-27 07:53] LABS: Glucose Point of Care 282 mg/dl (65-105)
[2024-05-27 08:00] VITALS: BP 149/70; PULSE 70; RESP 18; TEMP 35.6; O2SAT 99
[2024-05-27] MEDS: OMEGA 3 POLYUNSAT FATTY ACIDS 1 GM CAP PO (08:53)
[2024-05-27] MEDS: FLUoxetine HCL 20 MG CAPSULE PO (08:54)
[2024-05-27] MEDS: TAMSULOSIN HCL 0.4 MG CAPSULE PO (08:54)
[2024-05-27] MEDS: MULTIVITAMINS THERAPEUTIC TAB (*BKC) 1 TABLET PO (08:54)
[2024-05-27] MEDS: polyethylene glycoL 3350 17 GM POWD.PACK PO (08:54)
[2024-05-27] MEDS: FENOFIBRATE 160 MG TABLET PO (08:54)
[2024-05-27] MEDS: lisinopriL 10 MG TABLET PO (08:54)
[2024-05-27] MEDS: ASPIRIN 81 MG CHEWABLE TABLET PO (08:54)
[2024-05-27] MEDS: INSULIN ASPART (*BKC) 100 UNITS/ML SUB-Q ×4 (09:03→21:06)
[2024-05-27 11:31] LABS: Glucose Point of Care 386 mg/dl (65-105)
[2024-05-27 14:00] VITALS: BP 117/8; PULSE 79; RESP 14; TEMP 36.2; O2SAT 98
--- NOTE | 2024-05-27 14:11 | P.DS_ITS ---
DS: Admitting Diagnosis Discharge Date 05/27/2024 Admitting Diagnosis Elevated lactic acid fall from ground level hypoglycemia acute kidney injury superimposed on chronic kidney disease pyuria hypertension insulin-dependent diabetes DS: Discharge Diagnosis Discharge Diagnosis (1) Elevated lactic acid level: Code(s): R79.89 - Other specified abnormal findings of blood chemistry Status: Acute (2) Fall from ground level: Code(s): W18.30XA - Fall on same level, unspecified, initial encounter Status: Acute (3) Hypoglycemia: Code(s): E16.2 - Hypoglycemia, unspecified Status: Acute (4) Acute kidney injury superimposed on chronic kidney disease: Code(s): N17.9 - Acute kidney failure, unspecified; N18.9 - Chronic kidney disease, unspecified Status: Acute (5) Pyuria: Code(s): R82.81 - Pyuria Status: Acute (6) Essential hypertension: Code(s): I10 - Essential (primary) hypertension Status: Chronic (7) Insulin dependent type 2 diabetes mellitus: Code(s): E11.9 - Type 2 diabetes mellitus without complications; Z79.4 - terminal system operator (current) use of insulin Status: Chronic DS: Summary Hospital Course Reason for hospitalization: Elevated lactic acid fall from ground level hypoglycemia acute kidney injury superimposed on chronic kidney disease pyuria hypertension insulin-dependent diabetes Hospital Course: 73-year-old male with chronic kidney disease, insulin dependent type 2 diabetes mellitus, hypertension, and dyslipidemia who presented to the hospital via EMS from [place] for evaluation after a fall. Patient was going to get into wheelchair, but sat at an award angle resulting in the chair tipping over. He notes he felt a bit lightheaded and sweaty before the incident. But denies LOC. Trauma imaging unremarkable. Per chart review, EMS reported hypoglycemic with a glucose of 57 and hypotensive. Given D10 and 800 mL crystalloid fluids were administered and he was brought in for evaluation. Hypotensions resolved with fluids. Despite receiving dextrose and a meal his glucose was trending down and he has been started on a dextrose drip with frequent Accu-Cheks on admission. Patient hypoglycemia resolved, dextrose drip discontinued and patient was started on SSI and a low dose lantus. He remained hyperglycemic. Discussed patient with Dr. Sage and will resume his metformin, lower his lispro and lantus doses and discontinue his glipizide at time of discharge. Facility is to continue with close glucose monitoring. Lactic acid was a bit elevated on admission at 2.7 which could be due to transient hypotension and hypoglycemia. Lactic acid improved with fluids. Patient urine culture grew pseudomonas. Started on IV antibiotics during admission and transitioned to orals to complete course. Patient had a slight FILIPPO, however this resolved during admission. At time of discharge patient had no complaints, denying chest pain, shortness of breath, nausea/vomiting and abdominal pain. patient discharged back to his facility in a stable condition. He is to take his medications as prescribed and follow-up with his primary care provider in 1 week. Time Spent with Patient Time attestation: Total time spent providing and/or coordinating discharge services: Exam Narrative: AF HR 79 RR 14 SpO2 98 BP 117/80 General: male in no acute respiratory distress who is nontoxic appearing, lying semi recumbent in bed. HEENT: Normocephalic. Small laceration to the right eyebrow along the lateral side with bruising. Extraocular movement intact. Sclera clear and anicteric. No facial asymmetry. Chest: Lungs are clear to auscultation bilaterally. No wheezes or crackles. CV: Heart was regular rate and rhythm. S1/S2. No murmurs, gallops, or rubs. Abd: Abdomen was soft. Nontender. Nondistended. Positive bowel sounds. No organomegaly or masses. Ext: No clubbing, cyanosis, or edema. 1+ DP pulses bilaterally. Neuro: Patient is alert and oriented x3. Speech is clear. DS: Data Data Completed and Pending Completed studies during hospitalization: hip/pelvis x-ray chest x-ray head CT chest/abdomen/pelvis CT C-spine CT venous Doppler Labs on day of discharge: Labs from last 24 hours 05/27/24 05/27/24 05/27/24 11:22 07:49 06:14 WBC 5.9 RBC 4.35 L Hgb 13.1 L Hct 40.0 L MCV 92.0 MCH 30.1 MCHC 32.8 RDW 11.9 Plt Count 375 MPV 9.9 Immature Gran % (Auto) 1.0 H Neut % (Auto) 46.0 Lymph % (Auto) 36.7 Mason % (Auto) 7.8 Eos % (Auto) 7.3 H Baso % (Auto) 1.2 Lymph # (Auto) 2.17 Mason # (Auto) 0.5 Eos # (Auto) 0.4 H Baso # (Auto) 0.1 Abs Immat Gran (auto) 0.06 H Absolute Neuts (auto) 2.7 Absolute Nucleated RBC 0.000 Nucleated RBC % 0.0 Sodium 135 L Potassium 5.1 H Chloride 102 Carbon Dioxide 28 Anion Gap 5 BUN 27 H Creatinine 1.50 H Estim Creat Clear Calc 44 Estimated GFR 46 L Glucose 284 H POC Capillary Glucose 386 H 282 H Calcium 9.4 Total Bilirubin 0.7 AST 31 ALT 24 Alkaline Phosphatase 55 Total Protein 7.0 Albumin 3.4 L 05/26/24 05/26/24 20:43 15:48 WBC RBC Hgb Hct MCV MCH MCHC RDW Plt Count MPV Immature Gran % (Auto) Neut % (Auto) Lymph % (Auto) Mason % (Auto) Eos % (Auto) Baso % (Auto) Lymph # (Auto) Mason # (Auto) Eos # (Auto) Baso # (Auto) Abs Immat Gran (auto) Absolute Neuts (auto) Absolute Nucleated RBC Nucleated RBC % Sodium Potassium Chloride Carbon Dioxide Anion Gap BUN Creatinine Estim Creat Clear Calc Estimated GFR Glucose POC Capillary Glucose 312 H 369 H Calcium Total Bilirubin AST ALT Alkaline Phosphatase Total Protein Albumin Preliminary micro results at discharge 05/23/24 14:07 Blood Culture - Preliminary Blood 05/23/24 14:07 Blood Culture - Preliminary Blood Discharge Plan Discharge Attending physician on discharge: Eron Styles Discharging Clinician: Maia Menjivar Anticipated Discharge Date/Time: 05/27/24 14:02 Patient Disposition: NH Shelter/Asst Living Activity: as tolerated Diet: as tolerated, heart healthy and diabetic Discharge Instructions: Discharge disposition: Patient was admitted to the hospital following a fall All imaging was unremarkable Patient was diagnosed with a urinary tract infection Take all medications as prescribed even if feeling better Cipro 500 mg twice a day, course to be completed on 05/31 Attached is information on this medication Eat well balanced meals and stay hydrated Keep active to remain strong Avoid use of diapers or pads Good ebonie Care every 2 hours Trend urine output Patient was hypoglycemic (low blood sugars) on arrival to the hospital Ensure adequate oral intake as patient is on long acting insulin Medication changes: Continue metformin 1000 mg twice a day Discontinue glipizide 5 mg twice a day Decreased dose of lantus 80 units to 60 units Decreased dose of lispro 14 units to 10 units three times a day with meals Continue sliding scale insulin with meals Monitor glucose levels Follow up with patients primary care provider about resuming patients medications Patient was hypotensive per EMS likely secondary to dehydration as he has been stable since given IV fluids Monitor blood pressures Continue lisinopril as prescribed Take caution while standing, rising, or moving Change positions slowly taking a break between each position change If you standing feel dizzy sat back down and take a break Encourage adequate fluid intake Encouraged to continue with yearly vaccinations Return to the emergency department if he developed sudden shortness of breath, chest pain, nausea, vomiting, upset stomach or intractable diarrhea Return to the emergency department if you develop fever greater than 101.5 Follow-up with the primary care physician within 1 weeks Thank you for choosing [facility] for your healthcare needs Patient Instructions: Antibiotic Form, Ciprofloxacin (By mouth), Hypoglycemia in a Person with Diabetes (DC), Hypotension (DC), Urinary Tract Infection in Older Adults (ED) Patient Language: Kyrgyz Stand Alone Forms: General Discharge Information Follow-up/Referrals: Abel Lu MD [Primary Care Provider] - 1 Week Discharge Medications: New ciprofloxacin HCl 500 mg Tablet 500 mg PO Q12H Qty: 7 0RF Continued atorvastatin 20 mg Tablet 20 mg PO HS aspirin 81 mg Tablet,Chewable 81 mg PO DAILY duloxetine [Cymbalta] 30 mg Capsule,Delayed Release(Dr/Ec) 30 mg PO HS fenofibrate 160 mg Tablet 160 mg PO DAILY melatonin 10 mg Capsule 10 mg PO HS multivitamin Tablet 1 tablet PO DAILY docusate sodium 50 mg Capsule 100 mg PO PRN PRN (Reason: Constipation) Rx Instructions: at HS PRN for constipation lisinopril 10 mg Tablet 10 mg PO DAILY ergocalciferol (vitamin D2) 25,000 unit Capsule 50,000 unit PO WEEKLY Rx Instructions: give on Sunday acetaminophen [Tylenol] 325 mg Tablet 650 mg PO Q6H PRN (Reason: Pain) polyethylene glycol 3350 [Miralax] 17 gram Powder In Packet 17 g PO DAILY ibuprofen 800 mg Tablet 800 mg PO TID PRN (Reason: Pain) tamsulosin 0.4 mg capsule 0.4 mg PO DAILY metformin 1,000 mg Tablet 1,000 mg PO BID fluoxetine 20 mg capsule 20 mg PO DAILY omega 7-ttj-gor-fish oil 300-1,000 mg Capsule 1 cap PO DAILY glucagon HCl [Glucagon (HCl) Emergency Kit] 1 mg Recon Soln 1 mg IM PRN PRN (Reason: Hypoglycemia) Rx Instructions: give 1 injection prn for hypoglycemia if patient unable to eat or drink for BS below 70 Changed insulin lispro [Humalog KwikPen Insulin] 100 unit/mL insulin pen 10 unit SUBCUT TIDWM Qty: 15 0RF insulin glargine [Lantus Solostar U-100 Insulin] 100 unit/mL (3 mL) Insulin Pen 60 unit SUBCUT HS Qty: 3 0RF Held glipizide 5 mg tablet 5 mg PO BID Hold Instructions: Resume on 07/01/24. Hold until follow up with PCP Date of admission: 05/23/24 15:48 Primary Care Provider: Abel Lu Admitting Provider: Augustin Sage Attending physician on admission: Maia Menjivar Condition: Stable Hospitalist MIPS Heart Failure (Exclusion) Patient has history of Heart Transplant or Left Ventricular Assistive Device?: No IF YES, STOP HERE Heart Failure (Qualifier) Patient has current or prior documentation of LVEF less than or equal to 40%, or mod/servere depressed LVSF?: No IF NO, STOP HERE
[2024-05-27 16:49] LABS: Glucose Point of Care 342 mg/dl (65-105)
[2024-05-27] MEDS: ATORVASTATIN 20 MG TABLET PO (20:18)
[2024-05-27] MEDS: DULoxetine HCL 30 MG CAPSULE.DR PO (20:18)
[2024-05-27] MEDS: MELATONIN 5 MG TABLET 10 MG PO (20:19)
[2024-05-27] MEDS: INSULIN GLARGINE (*BKC) 100 UNITS/ML 30 UNITS SUB-Q (21:07)
[2024-05-27 21:37] LABS: Glucose Point of Care 494 mg/dl (65-105)
== END 2024-05-27 21:20 | DRG 638 ==
LOC: ANHED 15:27 → ANH3MEDSUR 16:32
PROVIDERS: Physician Assistant; Admitting Provider Internal Medicine; Emergency Provider Emergency Medicine; PCP Family Medicine; Visit Provider Student in an Organized Health Care Education/Training Program
DX: E11.649 Type 2 diabetes mellitus with hypoglycemia without coma (principal); N39.0 Urinary tract infection, site not specified; N17.9 Acute kidney failure, unspecified; W05.0XXA Fall from non-moving wheelchair, initial encounter; N18.9 Chronic kidney disease, unspecified; E78.5 Hyperlipidemia, unspecified; Z20.822 Contact with and (suspected) exposure to COVID-19; E83.42 Hypomagnesemia; I12.9 Hypertensive chronic kidney disease with stage 1 through stage 4 chronic kidney disease, or unspecified chronic kidney disease; E11.22 Type 2 diabetes mellitus with diabetic chronic kidney disease; I95.9 Hypotension, unspecified; E11.65 Type 2 diabetes mellitus with hyperglycemia; B96.5 Pseudomonas (aeruginosa) (mallei) (pseudomallei) as the cause of diseases classified elsewhere; N18.30 Chronic kidney disease, stage 3 unspecified; Z79.4 Long term (current) use of insulin; Z79.82 Long term (current) use of aspirin; Z90.49 Acquired absence of other specified parts of digestive tract; Z89.422 Acquired absence of other left toe(s); Z87.891 Personal history of nicotine dependence; Z85.038 Personal history of other malignant neoplasm of large intestine
CPT/HCPCS: 36415; 36600; 70450; 71045; 71260; 72125; 73502; 74177; 80048; 80053; 80307; 81001; 82077; 82550; 82805; 82948; 83036; 83605; 83690; 83735; 83880; 84100; 84443; 84484; 85018; 85025; 85027; 85610; 85730; 87040; 87086; 87186; 87637; 93005; 93970; 97165; 99285; A9270; J0692; J0696; J1815; J3475; J7030; J7120; Q9967

== ENCOUNTER 2024-05-28 19:05 | Emergency (ER) | payer OTHER, MEDICARE, MEDICAID, SELFPAY ==
--- NOTE | ~2024-05-28 | CT_ITS ---
EXAMINATION: CT cervical spine wo con DATE: 05/28/2024 20:04 INDICATION: Neck injury. TECHNIQUE: Computed tomography (CT) of the cervical spine was performed without intravenous contrast. Automated exposure control and iterative reconstruction technique were employed. The dose-length pro duct was 442.02 mGy-cm. COMPARISON: CT cervical spine 05/23/2024 FINDINGS: There is mild emphysema. There is a 9 mm subcutaneous cyst in left posterior neck, likely a sebaceous cyst. There is cerumen in the external auditory canals. Alignment is normal. Vertebral bod y heights are normal. There is severely decreased disc height at C4-C5, C5-C6, and C6-C7. The followi ng disc levels are specifically discussed: C2-C3: There is mild bilateral uncovertebral joint osteoarthritis. There is severe right and moderate left facet joint osteoarthritis. There is mild bilateral neural foraminal stenosis. There is no cent ral canal stenosis. C3-C4: There is severe right and moderate left uncovertebral joint osteoarthritis. There is mild righ t and moderate left facet joint osteoarthritis. There is mild right and moderate left neural foramina l stenosis. There is mild central canal stenosis. C4-C5: There is severe bilateral uncovertebral joint osteoarthritis. There is moderate bilateral face t joint osteoarthritis. There is moderate bilateral neural foraminal stenosis. There is moderate cent ral canal stenosis. C5-C6: There is severe bilateral uncovertebral joint osteoarthritis. There is mild bilateral facet pretty int osteoarthritis. There is moderate bilateral neural foraminal stenosis. There is moderate central canal stenosis. C6-C7: There is severe bilateral uncovertebral joint osteoarthritis. There is severe bilateral facet joint osteoarthritis. There is moderate bilateral neural foraminal stenosis. There is mild central ca nal stenosis. C7-T1: There is no uncovertebral joint osteoarthritis. There is severe bilateral facet joint osteoart hritis. There is mild bilateral neural foraminal stenosis. There is no central canal stenosis. IMPRESSION: 1. No fracture. 2. Severe cervical spondylosis. Reviewed, dictated and finalized at location A. TRICAL ENGINEERING DESIGNER
--- NOTE | ~2024-05-28 | CT_ITS ---
EXAMINATION: CT brain wo con DATE: 05/28/2024 20:04 INDICATION: Head injury. TECHNIQUE: Computed tomography (CT) of the head was performed without intravenous contrast. The mA wa s adjusted according to patient size. Iterative reconstruction technique was employed. The dose-lengt h product was 605.33 mGy-cm. COMPARISON: Head CT 05/23/2024 FINDINGS: There is no intracranial hemorrhage, acute infarction, or abnormal intracranial mass lesion . There are scattered areas of low attenuation in the cerebral white matter, which is within normal l imits for the patient's age. The ventricles are normal in size. There is mucosal thickening in the pa ranasal sinuses. There are old fracture deformities of the nasal bones and right nasal process of max illa. The mastoid air cells are normal. The orbits are normal. There is left frontal scalp soft tissu e swelling. IMPRESSION: 1. Normal aging brain. Reviewed, dictated and finalized at location A. O OPERATOR IMPRESSION: 1. Normal aging brain.
[2024-05-28 19:02] VITALS: BP 168/63; PULSE 79; RESP 18; TEMP 36.5; O2SAT 100
--- NOTE | 2024-05-28 19:10 | ECG_ITS ---
Test Date: 2024-05-28 19:21:44 Measurements Intervals [place] Rate: 76 P: 38 WV: 163 QRS: 19 QRSD: 138 T: 46 QT: 403 QTc: 454 Interpretive Statements SINUS RHYTHM INDETERMINATE AXIS RIGHT BUNDLE BRANCH BLOCK [120+ ms QRS DURATION, UPRIGHT V1, 40+ ms S IN I/aVL/V4/V5/V6] Compared to ECG 05/23/2024 14:47:41 Indeterminate axis now present Electronically Signed On 05-29-2024 09:51:05 CALL CENTER OPERATIONS MANAGER by Valeriy Zepeda M.D.
[2024-05-28 19:31] VITALS: BP 153/66; PULSE 111; RESP 19; O2SAT 99
[2024-05-28 21:30] VITALS: BP 149/81; PULSE 68; RESP 17; O2SAT 96
--- NOTE | 2024-05-28 21:48 | ED.FALL ---
HPI - Fall General Chief Complaint: Fall Stated Complaint: FALL, HEAD AND NECK PAIN Time Seen by Provider: 05/28/24 19:54 Source: patient Mode of arrival: EMS Limitations: no limitations History of Present Illness HPI Narrative: This is a 73-year-old male With history of dementia (baseline A&O x2), brought in by EMS after a ground level fall at [facility] fell at an unknown time today. EMS reports the patient's fall was not witnessed. The patient states he was being pushed in a wheelchair, when he planted this feet and was pushed forward. He denies chest pain, shortness of breath, loss of consciousness. He has no other complaints at this time. Related Data Home Medications Medication Instructions Recorded Confirmed aspirin 81 mg chewable tablet 81 mg PO DAILY 04/18/19 05/23/24 atorvastatin 20 mg tablet 20 mg PO HS 04/18/19 05/23/24 duloxetine 30 mg capsule,delayed 30 mg PO HS 04/18/19 05/23/24 release (Cymbalta) fenofibrate 160 mg tablet 160 mg PO DAILY 04/18/19 05/23/24 melatonin 10 mg capsule 10 mg PO HS 04/18/19 05/23/24 docusate sodium 50 mg capsule 100 mg PO PRN PRN Constipation 04/22/20 05/23/24 ergocalciferol (vitamin D2) 25,000 50,000 unit PO WEEKLY 04/22/20 05/23/24 unit capsule lisinopril 10 mg tablet 10 mg PO DAILY 04/22/20 05/23/24 multivitamin 1 tablet PO DAILY 04/22/20 05/23/24 acetaminophen 325 mg tablet 650 mg PO Q6H PRN Pain 05/23/24 05/23/24 (Tylenol) fluoxetine 20 mg capsule 20 mg PO DAILY 05/23/24 05/23/24 glipizide 5 mg tablet 5 mg PO BID 05/23/24 05/23/24 glucagon HCl 1 mg solution for 1 mg IM PRN PRN Hypoglycemia 05/23/24 05/23/24 injection (Glucagon (HCl) Emergency Kit) ibuprofen 800 mg tablet 800 mg PO TID PRN Pain 05/23/24 05/23/24 metformin 1,000 mg tablet 1,000 mg PO BID 05/23/24 05/23/24 omega 3-mnv-rua-fish oil 300 1 cap PO DAILY 05/23/24 05/23/24 mg-1,000 mg capsule polyethylene glycol 3350 17 gram 17 g PO DAILY 05/23/24 05/23/24 oral powder packet (Miralax) tamsulosin 0.4 mg capsule 0.4 mg PO DAILY 05/23/24 05/23/24 Allergies Allergy/AdvReac Type Severity Reaction Status Date / Time sitagliptin Allergy Severe Confusion Verified 04/26/20 11:20 Review of Systems Review of Systems: All systems reviewed & are unremarkable except as noted in HPI and below PMFSH Past Medical History Medical History Arterial insufficiency Chronic kidney disease, stage 3 Diabetic foot ulcer 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 History of appendectomy History of colon resection (04/2020) Moderately differentiated adenocarcinoma, pT3N0 History of removal of cyst From the side of the neck. Status post debridement 09/2014: Excisional debridement of osteomyelitis of both feet. 04/2015: Excisional debridement of right foot ulcer with excision of osteomyelitis of the right calcaneus and skin graft. Family History Family History Mother Dementia Father Diabetes mellitus Acute myocardial infarction Social History Social History Social History: Surrogate decision maker: Bibiana Quispe, daughter. Code status: Full code. Smoking packs per day: 1 Smoking cigarettes per day: 20.0 Years smoked: 25 Smoking pack-years: 25.00 Smoking status: Former smoker Alcohol intake: current Drinks per week: 2 Substance use: former Substance use type: marijuana Additional living arrangements comments: Resident at [facility]. Ambulates with a walker or is in a wheelchair. Spiritual care concerns: No Exam Narrative: GENERAL: Well-developed, well-nourished, and in no acute distress. HEAD: Normocephalic, An abrasion is noted over the left anterior forehead measuring approximately 7 x 4 cm EYES: PERRLA and EOMI. ENT: Nares clear, no rhinorrhea or epistaxis. Mucous membranes moist. Oropharynx without tonsillar hypertrophy exudate or other lesions. NECK: Supple. No midline spine tenderness to palpation, no step-off or crepitus CHEST: Clear to auscultation. No respiratory distress. No wheezes rales or rhonchi HEART: Regular rate and rhythm. No murmur heard. Normal peripheral pulses. ABDOMEN: Soft, nontender, nondistended, normal active bowel sounds. EXTREMITIES: Normal range of motion. No edema. SKIN: Warm, dry, no rash. NEURO: Alert and oriented x3. No focal deficit. Moving all 4 limbs spontaneously PSYCH: Normal mood and affect. Course Course Emergency Course: 21:50 - CT head negative for skull fracture intracranial hemorrhage. CT cervical spine negative for fracture or dislocation. Will discharge with recommendation for primary care follow-up. EKG demonstrates right bundle branch block but is otherwise not concerning for ischemia. Will discharge to the patient's intermediate. I discussed the findings and recommendations with the patient. Discussed return and emergency precautions including signs/symptoms of intracranial hemorrhage and stroke. The patient voiced understanding and agreement with the plan. All questions answered to his satisfaction. Vital Signs Vital signs: Vital Signs Temperature 97.7 F 05/28/24 19:02 Pulse Rate 79 05/28/24 19:02 Respiratory Rate 18 05/28/24 19:02 Blood Pressure 168/63 H 05/28/24 19:02 Pulse Oximetry 100 05/28/24 19:02 Oxygen Delivery Room Air 05/28/24 19:02 Temperature 97.7 F 05/28/24 19:02 Pulse Rate 68 05/28/24 21:30 Respiratory Rate 17 05/28/24 21:30 Blood Pressure 149/81 H 05/28/24 21:30 Pulse Oximetry 96 05/28/24 21:30 Oxygen Delivery Room Air 05/28/24 19:02 MDM - Fall MDM Narrative Medical decision making narrative: Plan: Imaging, EKG, reassess ECG Data EKG #1: Attestation: I personally reviewed and interpreted this ECG as follows: ECG completion date: 12/04/24 ECG completion time: 19:21 Prior ECG tracings: available for review Interpretation: sinus rhythm, rate 76, normal axis, right bundle branch block, no ST segment elevations concerning for ischemia, T-wave inversion in V1 and V3. otherwise normal intervals with QTC of 454. Compared to EKG done on 23 May 2024, there are no significant changes. Discharge Plan Discharge Clinical Impression: Contusion of forehead Qualifiers: Encounter type: initial encounter Qualified Code(s): S00.83XA - Contusion of other part of head, initial encounter Concussion Qualifiers: Encounter type: initial encounter Loss of consciousness presence/duration: without LOC Qualified Code(s): S06.0X0A - Concussion without loss of consciousness, initial encounter Patient Disposition: NH Intermediate/Asst Living Condition: Stable Instructions: Antibiotic Form, Concussion (ED) Additional Instructions: You were seen in the emergency department. Your scans are not concerning for bleeding in the brain, skull fracture or cervical spine fracture. I recommend following up with the primary care doctor. If you develop chest pain, shortness of breath, loss of consciousness, or if you have other emergent concerns for life, limb, or eyesight, return to the emergency department. Patient Language: Pakistani Prescriptions: No Action atorvastatin 20 mg Tablet 20 mg PO HS aspirin 81 mg Tablet,Chewable 81 mg PO DAILY duloxetine [Cymbalta] 30 mg Capsule,Delayed Release(Dr/Ec) 30 mg PO HS fenofibrate 160 mg Tablet 160 mg PO DAILY melatonin 10 mg Capsule 10 mg PO HS multivitamin Tablet 1 tablet PO DAILY docusate sodium 50 mg Capsule 100 mg PO PRN PRN (Reason: Constipation) Rx Instructions: at HS PRN for constipation lisinopril 10 mg Tablet 10 mg PO DAILY ergocalciferol (vitamin D2) 25,000 unit Capsule 50,000 unit PO WEEKLY Rx Instructions: give on Sunday acetaminophen [Tylenol] 325 mg Tablet 650 mg PO Q6H PRN (Reason: Pain) polyethylene glycol 3350 [Miralax] 17 gram Powder In Packet 17 g PO DAILY ibuprofen 800 mg Tablet 800 mg PO TID PRN (Reason: Pain) tamsulosin 0.4 mg capsule 0.4 mg PO DAILY metformin 1,000 mg Tablet 1,000 mg PO BID fluoxetine 20 mg capsule 20 mg PO DAILY glipizide 5 mg tablet 5 mg PO BID Hold Instructions: Resume on 07/01/24. Hold until follow up with PCP omega 1-vop-uab-fish oil 300-1,000 mg Capsule 1 cap PO DAILY glucagon HCl [Glucagon (HCl) Emergency Kit] 1 mg Recon Soln 1 mg IM PRN PRN (Reason: Hypoglycemia) Rx Instructions: give 1 injection prn for hypoglycemia if patient unable to eat or drink for BS below 70 ciprofloxacin HCl 500 mg Tablet 500 mg PO Q12H Qty: 7 0RF insulin lispro [Humalog KwikPen Insulin] 100 unit/mL insulin pen 10 unit SUBCUT TIDWM Qty: 15 0RF insulin glargine [Lantus Solostar U-100 Insulin] 100 unit/mL (3 mL) Insulin Pen 60 unit SUBCUT HS Qty: 3 0RF Follow-up/Referrals: Abel Lu MD [Primary Care Provider] - 2 Weeks Stand Alone Forms: Assisted Discharge Time of Disposition: 21:50
== END 2024-05-28 23:01 ==
PROVIDERS: Emergency Provider Preventive Medicine Aerospace Medicine; PCP Family Medicine
DX: S06.0X0A Concussion without loss of consciousness, initial encounter (principal); S00.83XA Contusion of other part of head, initial encounter; E11.22 Type 2 diabetes mellitus with diabetic chronic kidney disease; I12.9 Hypertensive chronic kidney disease with stage 1 through stage 4 chronic kidney disease, or unspecified chronic kidney disease; N18.30 Chronic kidney disease, stage 3 unspecified; I77.1 Stricture of artery; E11.610 Type 2 diabetes mellitus with diabetic neuropathic arthropathy; E78.5 Hyperlipidemia, unspecified; Z85.038 Personal history of other malignant neoplasm of large intestine; Z87.891 Personal history of nicotine dependence; Z89.422 Acquired absence of other left toe(s); Z90.49 Acquired absence of other specified parts of digestive tract; Z79.899 Other long term (current) drug therapy; Z79.82 Long term (current) use of aspirin; Z79.84 Long term (current) use of oral hypoglycemic drugs; I45.10 Unspecified right bundle-branch block; M47.812 Spondylosis without myelopathy or radiculopathy, cervical region; W19.XXXA Unspecified fall, initial encounter
CPT/HCPCS: 70450; 72125; 93005; 99284

== ENCOUNTER 2024-08-21 15:54 | Inpatient (IN) | payer MEDICARE, MEDICAID, SELFPAY ==
--- NOTE | ~2024-08-21 | XR_ITS ---
EXAMINATION: XR chest PICC line DATE: 08/27/2024 12:01 INDICATION: Central line placement. TECHNIQUE: A single frontal view of the chest was obtained. COMPARISON: Chest single view 05/23/2024 FINDINGS: The lung volumes are small. There is mild atelectasis in right midlung zone and left lower lung zone. No pleural effusion or pneumothorax. The heart size is normal. A right upper extremity per ipherally inserted central venous catheter (PICC) is seen with tip at superior cavoatrial junction. IMPRESSION: 1. PICC tip at the superior cavoatrial junction. 2. Small lung volumes with mild atelectasis in right midlung zone and left lower lung zone. Reviewed, dictated and finalized at location A. P HOME COUNSELOR IMPRESSION: 1. PICC tip at the superior cavoatrial junction. 2. Small lung volumes with mild atelectasis in right midlung zone and left lowe r lung zone.
--- NOTE | ~2024-08-21 | XR_ITS ---
Right foot Technique: AP, oblique, and lateral views were obtained. Clinical History: Osteomyelitis COMPARISON: 08/22/2024 Findings: There is been interval progression of destructive change and lucency at the base the fifth metatarsal with overlying enlarged soft tissue ulcer. Osseous alignment is anatomic. Joint spaces are preserved without erosive or degenerative change. Stable large enthesophyte or spurring at the Achil les tendon insertion region.. Impression: Osteomyelitis of the base the fifth metatarsal/proximal fifth metatarsal shaft with destructive perales e and worsened overlying soft tissue ulcer as compared to relatively recent prior exam. Reviewed, dictated and finalized at [facility]. STITCHING MACHINE OPERATOR Impression: Osteomyelitis of the base the fifth metatarsal/proximal fifth metatarsal shaft with destructive change and worsened overlying soft tissue ulcer as compared to relatively recent prior exam.
--- NOTE | ~2024-08-21 | XR_ITS ---
Left foot Technique: AP, oblique, and lateral views were obtained. Clinical History: Osteomyelitis COMPARISON: 08/21/2024 Findings: Status post transmetatarsal amputation of the foot. No definite evidence for acute osteomye litis at this time. Remaining joint spaces appear intact. Soft tissues are grossly unremarkable, asid e from expected postoperative change. Impression: Status post transmetatarsal amputation of the foot. No definite evidence for acute osteomyelitis. Reviewed, dictated and finalized at location . AURANT FRONT MANAGER Impression: Status post transmetatarsal amputation of the foot. No definite evidence for ac [place] osteomyelitis.
--- NOTE | ~2024-08-21 | XR_ITS ---
XR foot LT 2V Ordering provider: Lou Reynolds PA-C History: . wound . Comparison: October 07, 2014 FINDINGS: BONES: Loss of bones is seen in the area of the fourth and fifth metatarsal bones most likely surgica lly removed. Destructive changes seen in the area of the distal middle metatarsal phalangeal and arminda cent joint suggestive of infection. Osteopenia of the bones is seen in the area of the distal foot. JOINT SPACES: Narrowing of the proximal and distal interphalangeal joint of the second and third toes . Narrowing of the talonavicular and navicular cuneiform joints. Narrowing also seen in the joint bet ween the cuboid bone and navicular bones. No tarsal coalition. SOFT TISSUES: Soft tissue swelling seen in the area of the middle metatarsal phalangeal joint. IMPRESSION: Surgical removal of the fourth and fifth toes distal to the mid metatarsal area. Destructive changes in the area of the distal third metatarsal bone with dislocation in the adjacent joint suggestive of infection. MRI evaluation advised. Reviewed, dictated and finalized at location A. R OUT IMPRESSION: Surgical removal of the fourth and fifth toes distal to the mid metatarsal area . Destructive changes in the area of the distal third metatarsal bone with disl ocation in the adjacent joint suggestive of infection. MRI evaluation advised.
--- NOTE | ~2024-08-21 | XR_ITS ---
INTRAOPERATIVE FLUOROSCOPY: CLINICAL HISTORY: 73 years old Male; LEFT FOOT DEBRIDEMENT PROCEDURE COMMENTS: Limited intraoperative fluoroscopy of the left foot was performed. CUMULATIVE DOSE: 0.05 mGy FLUOROSCOPY TIME: 8 seconds FINDINGS/IMPRESSION: Please refer to operative note for further details. Reviewed, dictated and finalized at location A. METALS HAND ENGRAVER
--- NOTE | ~2024-08-21 | MR_ITS ---
EXAMINATION: MR foot LT wo con DATE: 08/22/2024 14:28 INDICATION: Left foot osteomyelitis TECHNIQUE: Magnetic resonance imaging (MRI) of the left fore/mid foot was performed without intraveno us contrast. Sequences included sagittal T1-weighted FSE, sagittal fluid sensitive FSE STIR, coronal PD-weighted FS FSE, coronal T1-weighted FSE, axial PD-weighted FS FSE, and axial PD-weighted FSE. COMPARISON: Left foot radiographs dated 08/21/2024 FINDINGS: Chronic osteotomies at the diaphyses of the fourth and fifth metatarsals. There is an ulceration plan tar to the head of the third metatarsal. Osteolysis is with increased fluid signal and loss of T1 fat signal at the distal aspect of the third metatarsal and at the third proximal phalanx consistent wit h osteomyelitis. There is a secondary pathologic fracture at the neck of the third metatarsal. There is also dorsal dislocation of the proximal phalanx relative to the fractured head of the metatarsal. There is additional marrow edema without definitive loss of T1 marrow fat signal at the distal second metatarsal and at the second proximal phalanx. There is subtle cortical erosion at the lateral base of the second proximal phalanx on the prior radiographs consistent with osteoarthritis. No definitive cortical erosion at the head of the second metatarsal on the prior radiographs and this remains equi vocal for reactive edema versus early osteomyelitis. There is soft tissue gas tracking proximally elana ng the soft tissues at the plantar aspect of the mid and forefoot which could represent extension of gas from the more distal ulceration or due to necrotizing fasciitis. No loculated fluid collections t o suggest abscess. There is mild osteoarthritis at many of the remaining joints in the visualized mid and forefoot. IMPRESSION: 1. Osteomyelitis at the third proximal phalanx, head and neck the third metatarsal with secondary pat hologic fracture at the base of the second proximal phalanx. Equivocal reactive edema versus very ear ly osteomyelitis at the head of the second metatarsal. 2. Gas tracking proximally along the plantar soft tissues of the forefoot most likely representing ex tension from ulceration plantar to the head of the third metatarsal although differential would inclu de necrotizing fasciitis in the appropriate clinical setting. Findings were discussed with Grayson zaman, the nurse caring for the patient, at 3:10 PM. Reviewed, dictated and finalized at location B. FOOD CREW MEMBER IMPRESSION: 1. Osteomyelitis at the third proximal phalanx, head and neck the third metatar ayleen with secondary pathologic fracture at the base of the second proximal phala nx. Equivocal reactive edema versus very early osteomyelitis at the head of the second metatarsal. 2. Gas tracking proximally along the plantar soft tissues of the forefoot most likely representing extension from ulceration plantar to the head of the third metatarsal although differential would include necrotizing fasciitis in the isidro ropriate clinical setting. Findings were discussed with Grayson Hawkins, the shellie se caring for the patient, at 3:10 PM.
--- NOTE | ~2024-08-21 | XR_ITS ---
HISTORY: Right Foot Wound . Nonpressure chronic ulcer of the right heel and midfoot with fat layer e xposed. COMPARISON: 04/24/2020 and dating back to 04/09/2028 TECHNIQUE: 3 views of the right foot were performed. FINDINGS: Patient is post partial amputation of the distal phalanx of the right great toe. No acute fracture or dislocation is appreciated within the right foot. Projecting over the lateral base of the fifth metatarsal is an oval-shaped lucency for which the midf oot ulcer is suspected. Lucency within the cortex of the lateral base of the right fifth metatarsal is present, for which ost eomyelitis is suspected. Significant degenerative disease is also noted, with ossification of the insertion of the Achilles te ndon and a large calcaneal spur. Remodeling of the calcaneus is also noted, unchanged from prior. IMPRESSION: Significant degenerative disease, as detailed above. Findings within the base of the fifth metatarsal for which osteomyelitis is suspected. Reviewed, dictated and finalized at location A. DRILL OPERATOR IMPRESSION: Significant degenerative disease, as detailed above. Findings within the base of the fifth metatarsal for which osteomyelitis is tinsley spected.
--- NOTE | ~2024-08-21 | US_ITS ---
EXAMINATION: US arterial ankle brachial ind DATE: 08/22/2024 15:13 INDICATION: Peripheral arterial disease. TECHNIQUE: Segmental pressures and plethysmographic and Doppler waveforms of the brachial and lower e xtremity arteries were obtained. COMPARISON: ABIs 11/21/18 FINDINGS: Right and left brachial artery pressures of 158 mm Hg and 154 mm Hg, respectively, are concordant (no rmal difference <= 30 mmHg). The right ankle-brachial index (ELIZABETH) is 0.54 (normal >= 0.9-1.0). The right great toe-brachial index (TBI) is 0.54 (normal >= 0.65). Arterial Doppler waveforms are biphasic in posterior tibial artery an d monophasic in dorsalis pedis. The left ELIZABETH is 0.81. The left TBI is 0.22. Arterial Doppler waveforms are biphasic in posterior tibi al artery and monophasic in dorsalis pedis. IMPRESSION: 1. Moderately decreased right ELIZABETH and mildly decreased left ELIZABETH with worsening from 11/21/2018, consis tent with arterial occlusive disease. Reviewed, dictated and finalized at location A. AKER IMPRESSION: 1. Moderately decreased right ELIZABETH and mildly decreased left ELIZABETH with worsening from 11/21/2018, consistent with arterial occlusive disease.
--- NOTE | ~2024-08-21 | MR_ITS ---
EXAMINATION: MR foot RT wo con DATE: 08/22/2024 14:28 INDICATION: Right foot osteomyelitis TECHNIQUE: Magnetic resonance imaging (MRI) of the right mid and hindfoot was performed without intra venous contrast. Sequences included sagittal T1-weighted FSE, sagittal fluid sensitive FSE STIR, lauri nal PD-weighted FS FSE, coronal T1-weighted FSE, axial PD-weighted FS FSE, and axial PD-weighted FSE. COMPARISON: None FINDINGS: Medial ankle ligaments: Osseous striated pattern of the deep deltoid ligament along with some heterotopic ossification along the ligament consistent with sequela of chronic sprain. Similarly there is thickening of the superfic ial deltoid ligament also consistent with scarring related to chronic sprain. The spring ligament com plex remains normal. Lateral ankle ligaments: Heterotopic ossification at the anterior talofibular and anterior inferior tibiofibular ligaments and at the tibial aspect of the posterior inferior tibiofibular ligament consistent with sequela of lock stitch channeler ponce sprain. Thickening of the calcaneofibular ligament consistent with scarring related to chronic sp rain. The posterior talofibular ligament appears normal. Tendons: Large osteophyte versus healed avulsion fracture deformity at the calcaneal insertion of the distal A chilles tendon. The Achilles tendon is thickened consistent with mild tendinosis without discrete tea r. The peroneus longus and brevis tendons are normal. The tibialis anterior and extensor hallucis ciara christiano and extensor digitorum longus tendons are normal. The tibialis posterior, flexor digitorum longus and flexor hallucis longus tendons are normal. Bones/other: Erosion corticated margins and normal marrow signal along the region of prominent loss of bone stock at the posterior tuberosity of the calcaneus including portion of the origin of the plantar aponeuros is which likely represents sequela of chronic osteomyelitis. There is detachment of the calcaneal att achment of the central and lateral compartments of the plantar aponeurosis. There is a prominent enth esophyte at the calcaneal origin of the medial compartment of the plantar aponeurosis. There is an ulceration the soft tissues overlying the lateral base of the fifth metatarsal. The erosi on extends to very close to the bone surface where there is cortical erosion with underlying small ge ographic region of loss of T1 marrow fat signal and more extensive increased marrow fluid signal cons istent with osteomyelitis. Bone marrow signal is normal throughout the remainder of the visualized ri ght foot and ankle with no fracture or other regions of the proximal thighs or pathologic marrow repl acing process. Mild polyarticular osteoarthritis at the right ankle and involving multiple joints thr oughout the visualized foot. No abscess. There is severe fatty atrophy of the intrinsic musculature o f the foot. IMPRESSION: 1. Osteomyelitis at the lateral base of the fifth metatarsal. 2. Chronic corticated deformity with loss of bone stock at the posterior tuberosity of the calcaneus likely sequela of prior chronic osteomyelitis. 3. Scarring heterotopic ossification along the medial and lateral stabilizing ligaments of the ankle consistent with sequela of old trauma. 4. Prominent hypertrophic change at the insertion of the distal Achilles tendon which could be relate d to severe chronic enthesopathy or more likely old healed avulsion fracture deformity. Reviewed, dictated and finalized at location B. T DOUBLE IMPRESSION: 1. Osteomyelitis at the lateral base of the fifth metatarsal. 2. Chronic corticated deformity with loss of bone stock at the posterior tubero sity of the calcaneus likely sequela of prior chronic osteomyelitis. 3. Scarring heterotopic ossification along the medial and lateral stabilizing l igaments of the ankle consistent with sequela of old trauma. 4. Prominent hypertrophic change at the insertion of the distal Achilles tendon which could be related to severe chronic enthesopathy or more likely old heale d avulsion fracture deformity.
[2024-08-21 16:06] VITALS: BP 119/90; PULSE 97; RESP 20; TEMP 36.6; O2SAT 100
--- NOTE | 2024-08-21 17:22 | ED_ITS ---
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 (auto) 15.5 H (1.3-6.7) K/mm3 Absolute Nucleated RBC 0.000 (0.0-0.012) K/mm3 Nucleated RBC % 0.0 (0.0-0.2) % ESR 120 H (0-20) mm/hr PT 15.9 H (11.1-14.7) Seconds INR 1.2 APTT 35.0 (22.3-36.8) Seconds Sodium 133 L (137-145) mmol/L Potassium 5.3 H (3.4-5.0) mmol/L Chloride 98 (98-107) mmol/L Carbon Dioxide 17 L (22-30) mmol/L Anion Gap 18 H (4-12) mmol/L BUN 43 H D (9-20) mg/dL Creatinine 2.75 H (0.7-1.3) mg/dL Estim Creat Clear Calc 22 ml/min Estimated GFR 23 L (59 - ) Glucose 378 H (65-110) mg/dL POC Capillary Glucose (65-105) mg/dl Hemoglobin A1c Lactic Acid 6.2 H* 1.0 (0.7-2.0) mmol/L Calcium 9.6 (8.4-10.2) mg/dL Magnesium (1.6-2.3) mg/dL Total Bilirubin (0.2-1.3) mg/dL AST (17-59) U/L ALT (6-50) U/L Alkaline Phosphatase (38-126) U/L C-Reactive Protein 15.8 H (<1.0) mg/dL Total Protein (6.3-8.2) g/dL Albumin (3.5-5.1) g/dL Urine Color Dark yellow (Yellow) Urine Appearance Cloudy H (Clear) Urine pH 5.0 (5.0-9.0) Ur Specific [place] 1.022 (1.001-1.035) Urine Protein 1+ H (Negative) mg/dL Urine Glucose (UA) 3+ H (Negative) mg/dL Urine Ketones Trace H (Negative) mg/dL Ur Blood (Man) Trace (Negative) Urine Nitrate Negative (Negative) Urine Bilirubin Negative (Negative) Urine Urobilinogen 1.0 (<2.0) mg/dL Add Ur Microanalysis Reviewed Leukocyte Esterase Rfl 2+ H (Negative) EZEQUIEL/UL Urine RBC 0-2 (0-2) /hpf Urine WBC 21-50 H (0-3) /hpf Ur Squamous Epith Cells Occasional (Few) /hpf Urine Bacteria None seen /hpf Urine Casts 6-10 Hyaline Casts Present (None) /lpf Urine Yeast (Budding) Present H (None) /hpf Influenza A (RT-PCR) (Negative) Influenza B (RT-PCR) (Negative) RSV (RT-PCR) (Negative) SARS-CoV-2 RNA (RT-PCR) (Negative) 02/28/25 02/28/25 02/28/25 Range/Units 01:14 01:19 06:13 WBC 16.2 H (4.5-10.0) K/mm3 RBC 3.47 L (4.6-6.20) M/mm3 Hgb 10.2 L (14.0-18.0) g/dL Hct 31.7 L (42.0-52.0) % MCV 91.4 (80-100) fl MCH 29.4 (26-34) pg MCHC 32.2 (32-36) g/dl RDW 13.4 (11.5-14.5) % Plt Count 488 H (150-375) k/mm3 MPV 10.2 (7.4-10.4) fl Immature Gran % (Auto) 1.6 H (0-0.5) % Neut % (Auto) 78.6 H (45.5-73.1) % Lymph % (Auto) 12.9 L (18.3-44.2) % [place] % (Auto) 6.0 (2.6-8.5) % Eos % (Auto) 0.3 (0-4.4) % Baso % (Auto) 0.6 (0.2-1.2) % Lymph # (Auto) 2.08 (0.9-3.2) K/mm3 [place] # (Auto) 1.0 H (0.1-0.6) K/mm3 Eos # (Auto) 0.1 (0-0.3) K/mm3 Baso # (Auto) 0.1 (0.0-0.1) K/mm3 Abs Immat Gran (auto) 0.26 H (0.00-0.031) K/mm3 Absolute Neuts (auto) 12.7 H (1.3-6.7) K/mm3 Absolute Nucleated RBC 0.000 (0.0-0.012) K/mm3 Nucleated RBC % 0.0 (0.0-0.2) % ESR (0-20) mm/hr PT (11.1-14.7) Seconds INR APTT (22.3-36.8) Seconds Sodium 133 L (137-145) mmol/L Potassium 5.0 (3.4-5.0) mmol/L Chloride 102 (98-107) mmol/L Carbon Dioxide 23 (22-30) mmol/L Anion Gap 8 (4-12) mmol/L BUN 41 H (9-20) mg/dL Creatinine 1.94 H (0.7-1.3) mg/dL Estim Creat Clear Calc ml/min Estimated GFR (59 - ) Glucose (65-110) mg/dL POC Capillary Glucose 294 H (65-105) mg/dl Hemoglobin A1c Lactic Acid (0.7-2.0) mmol/L Calcium (8.4-10.2) mg/dL Magnesium (1.6-2.3) mg/dL Total Bilirubin (0.2-1.3) mg/dL AST (17-59) U/L ALT (6-50) U/L Alkaline Phosphatase (38-126) U/L C-Reactive Protein (<1.0) mg/dL Total Protein (6.3-8.2) g/dL Albumin (3.5-5.1) g/dL Urine Color (Yellow) Urine Appearance (Clear) Urine pH (5.0-9.0) Ur Specific [place] (1.001-1.035) Urine Protein (Negative) mg/dL Urine Glucose (UA) (Negative) mg/dL Urine Ketones (Negative) mg/dL Ur Blood (Man) (Negative) Urine Nitrate (Negative) Urine Bilirubin (Negative) Urine Urobilinogen (<2.0) mg/dL Add Ur Microanalysis Leukocyte Esterase Rfl (Negative) EZEQUIEL/UL Urine RBC (0-2) /hpf Urine WBC (0-3) /hpf Ur Squamous Epith Cells (Few) /hpf Urine Bacteria /hpf Urine Casts Hyaline Casts (None) /lpf Urine Yeast (Budding) (None) /hpf Influenza A (RT-PCR) Negative (Negative) Influenza B (RT-PCR) Negative (Negative) RSV (RT-PCR) Negative (Negative) SARS-CoV-2 RNA (RT-PCR) Negative (Negative) 08/22/24 08/22/24 08/22/24 Range/Units 06:13 06:13 06:13 WBC (4.5-10.0) K/mm3 RBC (4.6-6.20) M/mm3 Hgb (14.0-18.0) g/dL Hct (42.0-52.0) % MCV (80-100) fl MCH (26-34) pg MCHC (32-36) g/dl RDW (11.5-14.5) % Plt Count (150-375) k/mm3 MPV (7.4-10.4) fl Immature Gran % (Auto) (0-0.5) % Neut % (Auto) (45.5-73.1) % Lymph % (Auto) (18.3-44.2) % [place] % (Auto) (2.6-8.5) % Eos % (Auto) (0-4.4) % Baso % (Auto) (0.2-1.2) % Lymph # (Auto) (0.9-3.2) K/mm3 [place] # (Auto) (0.1-0.6) K/mm3 Eos # (Auto) (0-0.3) K/mm3 Baso # (Auto) (0.0-0.1) K/mm3 Abs Immat Gran (auto) (0.00-0.031) K/mm3 Absolute Neuts (auto) (1.3-6.7) K/mm3 Absolute Nucleated RBC (0.0-0.012) K/mm3 Nucleated RBC % (0.0-0.2) % ESR (0-20) mm/hr PT (11.1-14.7) Seconds INR APTT (22.3-36.8) Seconds Sodium (137-145) mmol/L Potassium (3.4-5.0) mmol/L Chloride (98-107) mmol/L Carbon Dioxide (22-30) mmol/L Anion Gap (4-12) mmol/L BUN (9-20) mg/dL Creatinine 1.94 H (0.7-1.3) mg/dL Estim Creat Clear Calc 31 31 ml/min Estimated GFR 34 L 34 L (59 - ) Glucose 335 H (65-110) mg/dL POC Capillary Glucose (65-105) mg/dl Hemoglobin A1c Pending Lactic Acid (0.7-2.0) mmol/L Calcium 8.7 (8.4-10.2) mg/dL Magnesium 1.3 L (1.6-2.3) mg/dL Total Bilirubin 0.7 (0.2-1.3) mg/dL AST 32 (17-59) U/L ALT 23 (6-50) U/L Alkaline Phosphatase 62 (38-126) U/L C-Reactive Protein (<1.0) mg/dL Total Protein 6.0 L (6.3-8.2) g/dL Albumin 2.7 L (3.5-5.1) g/dL Urine Color (Yellow) Urine Appearance (Clear) Urine pH (5.0-9.0) Ur Specific [place] (1.001-1.035) Urine Protein (Negative) mg/dL Urine Glucose (UA) (Negative) mg/dL Urine Ketones (Negative) mg/dL Ur Blood (Man) (Negative) Urine Nitrate (Negative) Urine Bilirubin (Negative) Urine Urobilinogen (<2.0) mg/dL Add Ur Microanalysis Leukocyte Esterase Rfl (Negative) EZEQUIEL/UL Urine RBC (0-2) /hpf Urine WBC (0-3) /hpf Ur Squamous Epith Cells (Few) /hpf Urine Bacteria /hpf Urine Casts Hyaline Casts (None) /lpf Urine Yeast (Budding) (None) /hpf Influenza A (RT-PCR) (Negative) Influenza B (RT-PCR) (Negative) RSV (RT-PCR) (Negative) SARS-CoV-2 RNA (RT-PCR) (Negative) <Julián Coleman MD - Last Filed: 08/22/24 06:43> Imaging Data Attestation: I personally reviewed and interpreted this imaging study as follows: < Yris Powers APRN - Last Filed: 08/21/24 23:58> Radiologist's impression: Impressions Foot X-Ray 08/21/24 18:50 IMPRESSION: Surgical removal of the fourth and fifth toes distal to the mid metatarsal area. Destructive changes in the area of the distal third metatarsal bone with dislocation in the adjacent joint suggestive of infection. MRI evaluation advised. <Yris Powers APRN - Last Filed: 08/21/24 23:58> Critical Care Time Critical Care Time Critical Care Time: No <Lou Reynolds PA-C - Last Filed: 08/22/24 09:23> Discharge Plan Discharge Clinical Impression: Osteomyelitis of foot, left, acute Diabetic foot ulcer Qualifiers: Diabetic foot ulcer location: heel Diabetes mellitus type: type 2 Laterality: r ight Non-pressure ulcer stage: limited to breakdown of skin Qualified Code(s): E 11.621 - Type 2 diabetes mellitus with foot ulcer Sepsis Qualifiers: Sepsis type: sepsis due to unspecified organism Sepsis acute organ dysfunction status: without acute organ dysfunction Qualified Code(s): A41.9 - Sepsis, unspecified organism <Lou Reynolds PA-C - Last Filed: 08/22/24 09:23> Patient Disposition: Still a Patient <Lou Reynolds PA-C - Last Filed: 08/22/24 09:23> Condition: Stable <Lou Reynolds PA-C - Last Filed: 08/22/24 09:23>
[2024-08-21 19:19] VITALS: BP 102/77; PULSE 98; RESP 18; TEMP 36.8; O2SAT 99
--- NOTE | 2024-08-21 20:25 | ECG_ITS ---
Test Date: 2024-08-21 20:37:26 Measurements Intervals [place] Rate: 102 P: 49 TX: 132 QRS: 84 QRSD: 133 T: 38 QT: 355 QTc: 462 Interpretive Statements SINUS TACHYCARDIA WITH OCCASIONAL SUPRAVENTRICULAR PREMATURE COMPLEXES RIGHT BUNDLE BRANCH BLOCK MINIMAL Q WAVES- INFERIOR LEADS ABNORMAL ECG Compared to ECG 05/28/2024 19:21:44 HEART RATE HAS INCREASED Electronically Signed On 08-22-2024 06:59:01 STAFF CONSULTANT by Viraj Joaquin D.O.
[2024-08-21 21:02] VITALS: BP 124/98; PULSE 95; RESP 31; O2SAT 100
[2024-08-21 21:10] LABS: Basophils Absolute Auto 0.1 K/mm3 (0.0-0.1); Basophils Percent Auto 0.5 % (0.2-1.2); Eosinophils Percent Auto 0.2 % (0-4.4); Hematocrit 35.6 % (42.0-52.0); Hemoglobin 11.3 g/dL (14.0-18.0); Immature Granulocyte Absolute 0.67 K/mm3 (0.00-0.031); Immature Granulocyte Percent A 3.6 % (0-0.5); Lymphocytes Absolute Auto 1.65 K/mm3 (0.9-3.2); Lymphocytes Percent Auto 8.7 % (18.3-44.2); Mean Corpuscular HGB Conc 31.7 g/dl (32-36); Mean Corpuscular Volume 91.3 fl (80-100); Neutrophils Absolute Auto 15.5 K/mm3 (1.3-6.7); Platelet Count Result 615 k/mm3 (150-375); Red Cell Distribution Width 13.4 % (11.5-14.5); White Blood Count 18.9 K/mm3 (4.5-10.0)
[2024-08-21] MEDS: CEFEPIME 2 GM/NS 50 ML 2 GM/50 ML BAG IVPB (21:11)
[2024-08-21] MEDS: SODIUM CHLORIDE 0.9% IV 1,000 ML 999 ML IV CONT (21:12)
[2024-08-21 21:18] LABS: INR 1.2; Prothrombin Time 15.9 Seconds (11.1-14.7)
[2024-08-21 21:19] LABS: Lactic Acid Reflex 6.2 mmol/L (0.7-2.0)
[2024-08-21 21:27] LABS: Anion Gap 18 mmol/L (4-12); Blood Urea Nitrogen 43 mg/dL (9-20); Calcium 9.6 mg/dL (8.4-10.2); Carbon Dioxide 17 mmol/L (22-30); Chloride 98 mmol/L (98-107); Estimated CRCL calculation 22 ml/min; Estimated Glomerular Filt Rate 23; Glucose 378 mg/dL (65-110); Potassium 5.3 mmol/L (3.4-5.0); Sodium 133 mmol/L (137-145)
[2024-08-21 21:51] LABS: Erythrocyte Sedimentation Rate 120 mm/hr (0-20)
[2024-08-21] MEDS: VANCOMYCIN 1,250 MG/NS 250 ML 1,250 MG/250 ML BAG 166.67 MG IVPB (22:13)
[2024-08-21 22:31] LABS: CRP 15.8 mg/dL (<1.0)
[2024-08-21 22:57] VITALS: BP 122/66; PULSE 116; RESP 24; O2SAT 97
[2024-08-21 23:08] LABS: Add Urine Microscopic? YES; Appearance Urine Cloudy (Clear); Bacteria Urine None Seen /hpf; Bilirubin Urine Negative (Negative); Blood Urine Trace (Negative); Budding Yeast Urine Present /hpf; Color Urine Dark Yellow (Yellow); Glucose Urine UA 3+ mg/dL (Negative); Hyaline Casts Urine Present /lpf; Ketones Urine Trace mg/dL (Negative); Leukocyte Esterase Ur 2+ LEU/UL (Negative); Need Manual Microscopic Reviewed; Nitrate Urine Negative (Negative); Protein Urine 1+ mg/dL (Negative); RBC Urine 0-2 /hpf (0-2); Specific Grav Ur 1.022 (1.001-1.035); Squamous Epithelial Cell Urine Occasional /hpf (Few); WBC Urine 21-50 /hpf (0-3)
[2024-08-22] VITALS (18 sets, daily range): BP systolic 96–145; BP diastolic 47–104; PULSE 75–92; RESP 15–25; TEMP 36.1–38.1; O2SAT 97–100; BMI 25.7
[2024-08-22 00:04] LABS: Reflex Lactic Acid Yes or No Add Lactic
[2024-08-22] MEDS: SODIUM CHLORIDE 0.9% IV 1,000 ML 125 ML IV CONT ×2 (00:52→09:32)
[2024-08-22 01:18] LABS: Glucose Point of Care 294 mg/dl (65-105)
[2024-08-22 02:02] LABS: Influenza A QL RT-PCR Negative (Negative); Influenza B QL RT-PCR Negative (Negative); RSV RNA, RT-PCR Negative (Negative); SARS-CoV-2 RNA PCR Negative (Negative)
--- NOTE | 2024-08-22 04:18 | ADMGEN ---
This patient, Kojo Quispe, was admitted to [facility] Surg Room 332-02. Patient/family oriented to hospital policies and general routines including ID bracelet, bed and alarms, visiting hours, pain management, procedures, bathroom and other care routines, personal items, smoking policy, room service/diet, and visiting hours. Information on how to activate the Rapid Response Team has been discussed. Patient/Family are encouraged to report perceived risks to care and to ask questions if they do not understand what they are told or what they should do.
[2024-08-22 06:41] LABS: Estimated CRCL calculation 31 ml/min; Estimated Glomerular Filt Rate 34
--- NOTE | 2024-08-22 06:50 | P.HP_ITS ---
H&P: HPI History of Present Illness Date/Time: 08/22/24 06:50 Chief Complaint: Left foot wound Narrative: Kojo Quispe is a 73 yo M with a mHx significant for obesity, IDDM2, dyslipidemia, BPH, insomnia He presents with a few month's history of worsening left foot wound; he has had a partial amputation of the foot but claims that he developed a wound which despite unknown modiyfying factors has recently began to ooze a foul discharge; it is associated with throbbing pain, subjective fevers, malaise, insomnia and a restriction of ADLs. He denies falls, chest pains, dizziness, LOC, other wounds. He smokes about 1ppd of cigarettes, consume alcohol in moderation; consume marijuana often Work-up findings: XR Left foot:Surgical removal of the fourth and fifth toes distal to the mid metatarsal area. Destructive changes in the area of the distal third metatarsal bone with dislocation in the adjacent joint suggestive of infection. MRI evaluation advised. WBC 18; Hb 11; PLT 615 Na 133; K 5.3'; CO2 17; AG 18; BUN 43; Cr 2.75; GFR 23 LA: 6.2 >> 1 UA: Nitrite -ve; LE 2+; WBC 21-50 Influenza A/B, RSV, COVID-19: Negative Kojo Quispe will be admitted, evaluated and managed for a left foot osteomy danis Review of Systems Review of Systems: All systems reviewed & are unremarkable except as noted in HPI and below PMFSH Past Medical History Medical History Malignant neoplasm of sigmoid colon (03/2020) Arterial insufficiency Chronic kidney disease, stage 3 Dyslipidemia Essential hypertension 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 Neuropathic arthritis due to secondary diabetes Surgical History Surgical History History of colon resection (04/2020) Moderately differentiated adenocarcinoma, pT3N0 Status post debridement 09/2014: Excisional debridement of osteomyelitis of both feet. 04/2015: Excisional debridement of right foot ulcer with excision of osteomyelitis of the right calcaneus and skin graft. 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 History of removal of cyst From the side of the neck. History of appendectomy Family History Family History Mother Dementia Father Diabetes mellitus Acute myocardial infarction Social History Social History Social History: Surrogate decision maker: Bibiana Quispe, daughter. Code status: Full code. Smoking packs per day: 1 Smoking cigarettes per day: 20.0 Years smoked: 25 Smoking pack-years: 25.00 Smoking status: Former smoker Alcohol intake: current Drinks per week: 2 Substance use: former Substance use type: marijuana Do You Feel Safe in your Home?: Yes Lack of Transportation: No Lack of Food: Never True Current Housing: I Do Not Have Housing Concerned About Future Housing: No Difficulty Paying Gas/Electric Bills: No Difficulty Paying for Meds: No Currently Unemployed: No Education: Decline to Answer Difficulty w/ Childcare or Family Care: No Additional living arrangements comments: Resident at [facility]. Ambulates with a walker or is in a wheelchair. Spiritual care concerns: No Meds Home Medications and Allergies Home Medications ?Medication ?Instructions ?Recorded ?Confirmed ?Type aspirin 81 mg chewable tablet 81 mg PO DAILY 04/18/19 08/22/24 History atorvastatin 20 mg tablet 20 mg PO HS 04/18/19 08/22/24 History duloxetine 30 mg capsule,delayed 30 mg PO HS 04/18/19 08/22/24 History release (Cymbalta) fenofibrate 160 mg tablet 160 mg PO DAILY 04/18/19 08/22/24 History melatonin 10 mg capsule 10 mg PO HS 04/18/19 08/22/24 History docusate sodium 50 mg capsule 100 mg PO PRN PRN Constipation 04/22/20 08/22/24 H istory ergocalciferol (vitamin D2) 25,000 50,000 unit PO WEEKLY 04/22/20 08/22/24 History unit capsule lisinopril 10 mg tablet 10 mg PO DAILY 04/22/20 08/22/24 History multivitamin 1 tablet PO DAILY 04/22/20 08/22/24 History acetaminophen 325 mg tablet 650 mg PO Q6H PRN Pain 05/23/24 08/22/24 History (Tylenol) fluoxetine 20 mg capsule 20 mg PO DAILY 05/23/24 08/22/24 History glipizide 5 mg tablet 5 mg PO BID 05/23/24 08/22/24 History glucagon HCl 1 mg solution for 1 mg IM PRN PRN Hypoglycemia 05/23/24 08/22/24 History injection (Glucagon (HCl) Emergency Kit) ibuprofen 800 mg tablet 800 mg PO TID PRN Pain 05/23/24 08/22/24 History metformin 1,000 mg tablet 1,000 mg PO BID 05/23/24 08/22/24 History omega 4-qet-ntd-fish oil 300 1 cap PO DAILY 05/23/24 08/22/24 History mg-1,000 mg capsule polyethylene glycol 3350 17 gram 17 g PO DAILY 05/23/24 08/22/24 History oral powder packet (Miralax) tamsulosin 0.4 mg capsule 0.4 mg PO DAILY 05/23/24 08/22/24 History insulin lispro 100 unit/mL 10 unit (0.1 mL) subcut TIDWM #15 05/27/24 08/22/24 Rx subcutaneous pen (Humalog KwikPen mL (U-100) Insulin) insulin glargine 100 unit/mL (3 70 unit subcut HS 08/22/24 08/22/24 History mL) subcutaneous pen (Lantus Solostar U-100 Insulin) Allergies Allergy/AdvReac Type Severity Reaction Status Date / Time sitagliptin Allergy Severe Confusion Verified 04/26/20 11:20 Vital Signs Vital Signs - 24 hr 08/21/24 16:06 08/21/24 19:19 08/21/24 21:02 Temperature 97.8 F 98.2 F Pulse Rate 97 98 95 Respiratory Rate 20 18 31 H Blood Pressure 119/90 102/77 124/98 H Pulse Oximetry 100 99 100 Oxygen Delivery Room Air 08/21/24 22:57 08/22/24 00:38 08/22/24 01:17 Temperature Pulse Rate 116 H 92 83 Respiratory Rate 24 H 25 H 20 Blood Pressure 122/66 125/68 119/59 L Pulse Oximetry 97 100 100 Oxygen Delivery 08/22/24 02:25 Temperature Pulse Rate 87 Respiratory Rate 23 H Blood Pressure 125/63 Pulse Oximetry 99 Oxygen Delivery Exam Const: General: no acute distress HENMT: Ears: TM's normal bilaterally Mouth: Yes moist mucous membranes Eyes: General: appearance normal, both eyes and all related structures Pup ils: Equal, round and reactive pupils present EOM: EOMs intact bilaterally Neck: Neck: supple Resp: Effort & Inspection: normal respiratory effort Auscultation: clear to auscultation bilaterally Cardio: Rate: regular rate Rhythm: regular rhythm Skin: General skin exam: normal color Rashes: no rashes noted Wounds: wounds noted Other: Left foot Neuro: General: No gait normal Motor exam (neuro): 5/5 motor strength present throughout Extrem: General: normal exam except as noted Other: left foot wound Psych: Mental Status: mental status grossly normal Affect: Anxious affect present H&P: Results Labs Labs: Short CBC 08/21/24 Range/Units 20:58 WBC 18.9 H (4.5-10.0) K/mm3 Hgb 11.3 L (14.0-18.0) g/dL Hct 35.6 L (42.0-52.0) % Plt Count 615 H D (150-375) k/mm3 BMP 08/21/24 08/22/24 20:58 06:13 Sodium 133 L Potassium 5.3 H Chloride 98 Carbon Dioxide 17 L BUN 43 H D Creatinine 2.75 H 1.94 H Glucose 378 H Calcium 9.6 Urine 08/21/24 Range/Units 22:52 Urine Color Dark yellow (Yellow) Urine Appearance Cloudy H (Clear) Urine pH 5.0 (5.0-9.0) Ur Specific [place] 1.022 (1.001-1.035) Urine Protein 1+ H (Negative) mg/dL Urine Glucose (UA) 3+ H (Negative) mg/dL Assessment and Plan Assessment and plan (1) Foot osteomyelitis, left: Code(s): M86.9 - Osteomyelitis, unspecified Status: Acute Plan Acute and principal conditions 1. Left foot osteomyelitis. 2. Leucocytosis; Thrombocytosis. Reactive 3. Hyponatremia 4. Hyperkalemia. 5. Acure renal insufficiency 6. Lactic acidemia. probable sepsis 7. UTI. Rx: A. Cefepime, Vancomycin B. Blood and urine cultures C. Orthopedic surgery consulted D. IVFs E. Monitor Na, K F. MRI left foot Chronic and stable conditions 1. Cognitive delay 2. Dyslipidemia. 3. Chronic pain syndrome 4. IDDM2. 5. Hypertension. 6. BPH Code status. Full Nutrition. Heart healthy VTE prophylaxis. SCDs; [facility] Hospitalist [facility] Advance Care Plan I have confirmed that the patient's Advanced Care Plan is present, code status is documented, or surrogate decision maker is listed in patient medical record.: Yes Medication Reconciliation I have utilized all available resources to obtain, update and review the patients current medications (includes all prescriptions, OTC, herbals, cannabis, and nutritional supplements).: Yes The patient is not eligible for med reconciliation; the patient is in a emergent medical situation where delaying treatment would jeopardize the patients health.: Yes
[2024-08-22 08:06] LABS: Basophils Absolute Auto 0.1 K/mm3 (0.0-0.1); Basophils Percent Auto 0.6 % (0.2-1.2); Eosinophils Absolute Auto 0.1 K/mm3 (0-0.3); Eosinophils Percent Auto 0.3 % (0-4.4); Hematocrit 31.7 % (42.0-52.0); Hemoglobin 10.2 g/dL (14.0-18.0); Immature Granulocyte Absolute 0.26 K/mm3 (0.00-0.031); Immature Granulocyte Percent A 1.6 % (0-0.5); Lymphocytes Absolute Auto 2.08 K/mm3 (0.9-3.2); Lymphocytes Percent Auto 12.9 % (18.3-44.2); Mean Corpuscular HGB Conc 32.2 g/dl (32-36); Mean Corpuscular Hemoglobin 29.4 pg (26-34); Mean Corpuscular Volume 91.4 fl (80-100); Mean Platelet Volume 10.2 fl (7.4-10.4); Neutrophils Absolute Auto 12.7 K/mm3 (1.3-6.7); Neutrophils Percent Auto 78.6 % (45.5-73.1); Platelet Count Result 488 k/mm3 (150-375); Red Blood Count 3.47 M/mm3 (4.6-6.20); Red Cell Distribution Width 13.4 % (11.5-14.5); White Blood Count 16.2 K/mm3 (4.5-10.0)
[2024-08-22] MEDS: metroNIDAZOLE 500 MG/ISO 100ML 500 MG/100 ML BAG 100 MG IVPB ×3 (08:19→21:37)
[2024-08-22 09:12] LABS: Alanine Aminotransferase 23 U/L (6-50); Albumin Level 2.7 g/dL (3.5-5.1); Alkaline Phosphatase 62 U/L (38-126); Anion Gap 8 mmol/L (4-12); Aspartate Amino Transferase 32 U/L (17-59); Bilirubin,Total 0.7 mg/dL (0.2-1.3); Blood Urea Nitrogen 41 mg/dL (9-20); Calcium 8.7 mg/dL (8.4-10.2); Carbon Dioxide 23 mmol/L (22-30); Chloride 102 mmol/L (98-107); Estimated CRCL calculation 31 ml/min; Estimated Glomerular Filt Rate 34; Glucose 335 mg/dL (65-110); Magnesium 1.3 mg/dL (1.6-2.3); Sodium 133 mmol/L (137-145)
--- NOTE | 2024-08-22 09:22 | P.CONOP_ITS ---
Assessment and Plan Assessment and plan (1) Osteomyelitis of foot, left, acute: Code(s): M86.172 - Other acute osteomyelitis, left ankle and foot <HOMERO Lin - Last Filed: 08/22/24 09:42> Status: Acute <HOMERO Lin - Last Filed: 08/22/24 09:42> Assessment and Plan: History, exam and radiographs reviewed with the patient. Radiographs of the left foot reveal destructive changes in the distal third metatarsal bone with concerns for infection. Previous removal of the fourth and fifth toes distal to the mid metatarsal area noted, unchanged. On exam, large necrotic wound on the plantar aspect of the left 3rd metatarsal with foul smelling drainage, purulent in nature. Unable to palpate pedal pulses bilaterally. Discussed nonoperative and operative treatment options with the patient. The patients questions were answered. The patient desires operative treatment. Discussed Left Foot DFU debridement with possible TMA. Risks of surgery including but not limited to neurovascular damage, wound complications, blood clot, pulmonary embolus, stroke, myocardial infarction, anesthetic risks up to and including were reviewed. Continued pain and possible dysfunction were explained. No guarantees were offered. The patient understands and wishes to proceed. Plan: Left Foot DFU debridement with possible TMA by Dr. Ornelas. Remain NPO. Obtain consent. Keep wounds covered. Apply Dakin's soaked gauze today, cover dry. MRI of the left foot pending. ABIs to be done bilaterally. <HOMERO Lin - Last Filed: 08/22/24 09:42> (2) Diabetes 1.5, managed as type 2: Code(s): E13.9 - Other specified diabetes mellitus without complications < HOMERO Lin - Last Filed: 08/22/24 09:42> Status: Acute <HOMERO Lin - Last Filed: 08/22/24 09:42> (3) Arterial insufficiency: Code(s): I77.1 - Stricture of artery <HOMERO Lin - Last Filed: 08/22/24 09:42> Status: Acute <HOMERO Lin - Last Filed: 08/22/24 09:42> Assessment and Plan: Unable to palpate pedal pulses bilaterally. Recommend ABIs b/l LE. May require referral to vascular surgery as an outpatient. <HOMERO Lin - Last Filed: 08/22/24 09:42> (4) Diabetic ulcer of right foot: Qualifiers: Diabetes mellitus type: type 1 Diabetic foot ulcer location: midfoot Non-pressure ulcer stage: with fat layer exposed Qualified Code(s): E10.621 - Type 1 diabetes mellitus with foot ulcer; L97.412 - Non- pressure chronic ulcer of right heel and midfoot with fat layer exposed <HOMERO Lin - Last Filed: 08/22/24 09:42> Code(s): E11.621 - Type 2 diabetes mellitus with foot ulcer; L97.519 - Non- pressure chronic ulcer of other part of right foot with unspecified severity < HOMERO Lin - Last Filed: 08/22/24 09:42> Status: Acute <HOMERO Lin - Last Filed: 08/22/24 09:42> Assessment and Plan: DFU right lateral midfoot. Wound care consult. Radiographs to be obtained. Daily dressing change recommendations per [facility] wound care nurse. <HOMREO Lin - Last Filed: 08/22/24 09:42> Assessment and Plan: [place]: Patient seen and examined. Chart reviewed including left foot x-ray, labs, history. Left diabetic foot ulcer with purulent drainage and foul odor. Possibly involving 3rd MTP joint. Right foot with chronic heel callus and dorsal lateral diabetic foot ulcer approximately quarter-sized with purulent drainage. Awaiting test results with MRI left foot, plain radiographs right foot and ABIs. Indicated for left foot debridement and possible amputation when medically stable. <Andrews Ornelas MD - Last Filed: 08/22/24 10:30> History of Present Illness HPI Consult date: 08/22/24 <HOMERO Lin - Last Filed: 08/22/24 09:42> 08/22/24 <Andrews Ornelas MD - Last Filed: 08/22/24 10:30> Consult reason: other (left foot wound ) <HOMERO Lin - Last Filed: 08/22/24 09:42> Chief complaint: osteomyelitis <HOMERO Lin - Last Filed: 08/22/24 09:42> Narrative: 73 year old male, known to our orthopedic service for previous foot wounds, presented to the ED from his SN[facility] due to concerns of a left foot wound with foul smelling odor. Radiographs of the left foot reveal destructive changes in the distal third metatarsal bone with concerns for infection. Previous removal of the fourth and fifth toes distal to the mid metatarsal area noted, unchanged. Patient admitted for concerns of osteomyelitis and further work up with orthopedic consult. <HOMERO Lin - Last Filed: 08/22/24 09:42> Review of Systems 2 Review of Systems: All systems reviewed & are unremarkable except as noted in HPI and below <HOMERO Lin - Last Filed: 08/22/24 09:42> [facility] Past Medical History Medical History: Medical History (Updated 08/22/24 @ 09:39 by HOMERO Lin) Diabetic ulcer of right foot Malignant neoplasm of sigmoid colon (03/2020) Arterial insufficiency Chronic kidney disease, stage 3 Dyslipidemia Essential hypertension 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 Neuropathic arthritis due to secondary diabetes <HOMERO Lin - Last Filed: 08/22/24 09:42> Surgical History Surgical History: Surgical History History of colon resection (04/2020) Moderately differentiated adenocarcinoma, pT3N0 Status post debridement 09/2014: Excisional debridement of osteomyelitis of both feet. 04/2015: Excisional debridement of right foot ulcer with excision of osteomyelitis of the right calcaneus and skin graft. 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 History of removal of cyst From the side of the neck. History of appendectomy <HOMERO Lin - Last Filed: 08/22/24 09:42> Family History Family History: Family History Mother Dementia Father Diabetes mellitus Acute myocardial infarction <HOMERO Lin - Last Filed: 08/22/24 09:42> Social History Social History: Social History Social History: Surrogate decision maker: Bibiana Quispe, daughter. Code status: Full code. Smoking packs per day: 1 Smoking cigarettes per day: 20.0 Years smoked: 25 Smoking pack-years: 25.00 Smoking status: Former smoker Alcohol intake: current Drinks per week: 2 Substance use: former Substance use type: marijuana Do You Feel Safe in your Home?: Yes Lack of Transportation: No Lack of Food: Never True Current Housing: I Do Not Have Housing Concerned About Future Housing: No Difficulty Paying Gas/Electric Bills: No Difficulty Paying for Meds: No Currently Unemployed: No Education: Decline to Answer Difficulty w/ Childcare or Family Care: No Additional living arrangements comments: Resident at [facility]. Ambulates with a walker or is in a wheelchair. Spiritual care concerns: No <HOMERO Lin - Last Filed: 08/22/24 09:42> Meds Home Medications and Allergies Home medications: Home Medications ?Medication ?Instructions ?Recorded ?Confirmed ?Type aspirin 81 mg chewable tablet 81 mg PO DAILY 04/18/19 08/22/24 History atorvastatin 20 mg tablet 20 mg PO HS 04/18/19 08/22/24 History duloxetine 30 mg capsule,delayed 30 mg PO HS 04/18/19 08/22/24 History release (Cymbalta) fenofibrate 160 mg tablet 160 mg PO DAILY 04/18/19 08/22/24 History melatonin 10 mg capsule 10 mg PO HS 04/18/19 08/22/24 History docusate sodium 50 mg capsule 100 mg PO PRN PRN Constipation 04/22/20 08/22/24 History ergocalciferol (vitamin D2) 25,000 50,000 unit PO WEEKLY 04/22/20 08/22/24 History unit capsule lisinopril 10 mg tablet 10 mg PO DAILY 04/22/20 08/22/24 History multivitamin 1 tablet PO DAILY 04/22/20 08/22/24 History acetaminophen 325 mg tablet 650 mg PO Q6H PRN Pain 05/23/24 08/22/24 History (Tylenol) fluoxetine 20 mg capsule 20 mg PO DAILY 05/23/24 08/22/24 History glipizide 5 mg tablet 5 mg PO BID 05/23/24 08/22/24 History glucagon HCl 1 mg solution for 1 mg IM PRN PRN Hypoglycemia 05/23/24 08/22/24 History injection (Glucagon (HCl) Emergency Kit) ibuprofen 800 mg tablet 800 mg PO TID PRN Pain 05/23/24 08/22/24 History metformin 1,000 mg tablet 1,000 mg PO BID 05/23/24 08/22/24 History omega 3-ngb-feq-fish oil 300 1 cap PO DAILY 05/23/24 08/22/24 History mg-1,000 mg capsule polyethylene glycol 3350 17 gram 17 g PO DAILY 05/23/24 08/22/24 History oral powder packet (Miralax) tamsulosin 0.4 mg capsule 0.4 mg PO DAILY 05/23/24 08/22/24 History insulin lispro 100 unit/mL 10 unit (0.1 mL) subcut TIDWM #15 05/27/24 08/22/24 Rx subcutaneous pen (Humalog KwikPen mL (U-100) Insulin) insulin glargine 100 unit/mL (3 70 unit subcut HS 08/22/24 08/22/24 History mL) subcutaneous pen (Lantus Solostar U-100 Insulin) <HOMERO Lin - Last Filed: 08/22/24 09:42> Allergies/Adverse reactions: Allergies Allergy/AdvReac Type Severity Reaction Status Date / Time sitagliptin Allergy Severe Confusion Verified 04/26/20 11:20 <HOMERO Lin - Last Filed: 08/22/24 09:42> Vital Signs Vital Signs - 24 hr 08/21/24 16:06 08/21/24 19:19 08/21/24 21:02 Temperature 36.6 C 36.8 C Pulse Rate 97 98 95 Respiratory Rate 20 18 31 H Blood Pressure 119/90 102/77 124/98 H Pulse Oximetry 100 99 100 Oxygen Delivery Room Air 08/21/24 22:57 08/22/24 00:38 08/22/24 01:17 Temperature Pulse Rate 116 H 92 83 Respiratory Rate 24 H 25 H 20 Blood Pressure 122/66 125/68 119/59 L Pulse Oximetry 97 100 100 Oxygen Delivery 08/22/24 02:25 08/22/24 05:35 Temperature 36.1 C L Pulse Rate 87 85 Respiratory Rate 23 H 20 Blood Pressure 125/63 118/65 Pulse Oximetry 99 100 Oxygen Delivery <DIPAK LinP - Last Filed: 08/22/24 09:42> Exam 2 Const: General: comfortable and no acute distress <DIPAK LinP - Last Filed: 08/22/24 09:42> HENMT: Mouth: Yes moist mucous membranes <DIPAK LinP - Last Filed: 08/22/24 09:42> Eyes: General: appearance normal, both eyes and all related structures < DIPAK LinP - Last Filed: 08/22/24 09:42> Neck: Neck: supple and no JVD <DIPAK LinP - Last Filed: 08/22/24 09:42> Resp: Effort & Inspection: normal respiratory effort <DIPAK LinP - Last Filed: 08/22/24 09:42> Cardio: Rate: regular rate <DIPAK LinP - Last Filed: 08/22/24 09:42> Rhythm: regular rhythm <DIPAK LinP - Last Filed: 08/22/24 09:42> GI: Inspection: non-distended <DIPAK LinP - Last Filed: 08/22/24 09:42> GI Palp: Yes Soft to palpation and No Tenderness to palpation present (GI) < DIPAK LinP - Last Filed: 08/22/24 09:42> Neuro: Cognition (Neuro): normal cognition <DIPAK LinP - Last Filed: 08/22/24 09:42> Speech: normal speech <DIPAK LinP - Last Filed: 08/22/24 09:42> Extrem: Right lower extremity: foot Details: abnormal to inspection, abnormal ROM of toe, vascular exam Details: abnormal capillary refill Location: of all toes; dorsalis pedis pulse absent, motor-sensory exam Details: two point discrimination abnormal and light-touch abnormal and other (Quarter sized wound on the dorsal aspect of the lateral midfoot with 100% slough covering. Large callus on the calcaneus, no open wound. ); no ecchymosis <DIPAK LinP - Last Filed: 08/22/24 09:42> Left lower extremity: foot (red/yenni appearance of the distal toes ) Details: abnormal to inspection Details: erythematous and a deformity (previous 4/5 ray amp ), warmth Location: of the dorsal foot and of the plantar foot, vascular exam (unable to palpate pedal pulse ) Details: abnormal capillary refill Location: of all toes; dorsalis pedis pulse absent, motor-sensory exam two point discrimination abnormal and light-touch abnormal and other (Large necrotic ulcer on the plantar aspect of the 3rd metatarsal head with malodorous, purulent drainage ) <DIPAK LinP - Last Filed: 08/22/24 09:42> Psych: Mental Status: mental status grossly normal <DIPAK LinP - Last Filed: 08/22/24 09:42> Affect: normal affect <DIPAK LinP - Last Filed: 08/22/24 09:42> Results Labs Result Diagrams: 08/22/24 06:13 08/22/24 06:13 <DIPAK LinP - Last Filed: 08/22/24 09:42> Labs: Abnormal lab results 08/21/24 08/21/24 08/22/24 Range/Units 20:58 22:52 01:14 WBC 18.9 H (4.5-10.0) K/mm3 RBC 3.90 L (4.6-6.20) M/mm3 Hgb 11.3 L (14.0-18.0) g/dL Hct 35.6 L (42.0-52.0) % MCHC 31.7 L (32-36) g/dl Plt Count 615 H D (150-375) k/mm3 Immature Gran % (Auto) 3.6 H (0-0.5) % Neut % (Auto) 82.0 H (45.5-73.1) % Lymph % (Auto) 8.7 L (18.3-44.2) % Terrell # (Auto) 1.0 H (0.1-0.6) K/mm3 Abs Immat Gran (auto) 0.67 H (0.00-0.031) K/mm3 Absolute Neuts (auto) 15.5 H (1.3-6.7) K/mm3 ESR 120 H (0-20) mm/hr PT 15.9 H (11.1-14.7) Seconds Sodium 133 L (137-145) mmol/L Potassium 5.3 H (3.4-5.0) mmol/L Carbon Dioxide 17 L (22-30) mmol/L Anion Gap 18 H (4-12) mmol/L BUN 43 H D (9-20) mg/dL Creatinine 2.75 H (0.7-1.3) mg/dL Estimated GFR 23 L (59 - ) Glucose 378 H (65-110) mg/dL POC Capillary Glucose 294 H (65-105) mg/dl Lactic Acid 6.2 H* (0.7-2.0) mmol/L Magnesium (1.6-2.3) mg/dL C-Reactive Protein 15.8 H (<1.0) mg/dL Total Protein (6.3-8.2) g/dL Albumin (3.5-5.1) g/dL Urine Appearance Cloudy H (Clear) Urine Protein 1+ H (Negative) mg/dL Urine Glucose (UA) 3+ H (Negative) mg/dL Urine Ketones Trace H (Negative) mg/dL Leukocyte Esterase Rfl 2+ H (Negative) EZEQUIEL/UL Urine WBC 21-50 H (0-3) /hpf Urine Yeast (Budding) Present H (None) /hpf 08/22/24 08/22/24 08/22/24 Range/Units 06:13 06:13 06:13 WBC 16.2 H (4.5-10.0) K/mm3 RBC 3.47 L (4.6-6.20) M/mm3 Hgb 10.2 L (14.0-18.0) g/dL Hct 31.7 L (42.0-52.0) % MCHC (32-36) g/dl Plt Count 488 H (150-375) k/mm3 Immature Gran % (Auto) 1.6 H (0-0.5) % Neut % (Auto) 78.6 H (45.5-73.1) % Lymph % (Auto) 12.9 L (18.3-44.2) % [place] # (Auto) 1.0 H (0.1-0.6) K/mm3 Abs Immat Gran (auto) 0.26 H (0.00-0.031) K/mm3 Absolute Neuts (auto) 12.7 H (1.3-6.7) K/mm3 ESR (0-20) mm/hr PT (11.1-14.7) Seconds Sodium 133 L (137-145) mmol/L Potassium (3.4-5.0) mmol/L Carbon Dioxide (22-30) mmol/L Anion Gap (4-12) mmol/L BUN 41 H (9-20) mg/dL Creatinine 1.94 H 1.94 H (0.7-1.3) mg/dL Estimated GFR 34 L 34 L (59 - ) Glucose 335 H (65-110) mg/dL POC Capillary Glucose (65-105) mg/dl Lactic Acid (0.7-2.0) mmol/L Magnesium 1.3 L (1.6-2.3) mg/dL C-Reactive Protein (<1.0) mg/dL Total Protein 6.0 L (6.3-8.2) g/dL Albumin 2.7 L (3.5-5.1) g/dL Urine Appearance (Clear) Urine Protein (Negative) mg/dL Urine Glucose (UA) (Negative) mg/dL Urine Ketones (Negative) mg/dL Leukocyte Esterase Rfl (Negative) EZEQUIEL/UL Urine WBC (0-3) /hpf Urine Yeast (Budding) (None) /hpf H & H 08/21/24 08/22/24 Range/Units 20:58 06:13 Hgb 11.3 L 10.2 L (14.0-18.0) g/dL Hct 35.6 L 31.7 L (42.0-52.0) % Coagulation 08/21/24 Range/Units 20:58 INR 1.2 All other labs normal. <Cecilia Worrell HOMERO - Last Filed: 08/22/24 09:42>
[2024-08-22] MEDS: CEFEPIME 2 GM/NS 50 ML 2 GM/50 ML BAG IVPB ×2 (09:24→20:38)
[2024-08-22 09:34] LABS: Glucose Point of Care 300 mg/dl (65-105)
[2024-08-22] MEDS: INSULIN ASPART (*BKC) 100 UNITS/ML SUB-Q ×2 (09:36→16:57)
[2024-08-22] MEDS: SOD HYPOCHLORITE 1/4 STRENGTH 473 ML 1 APPLIC TOPICAL (09:46)
[2024-08-22 11:26] LABS: Glucose Point of Care 253 mg/dl (65-105)
--- NOTE | 2024-08-22 14:48 | PC.NURSE ---
Patient off of unit to US, MRI, and then surgery
--- NOTE | 2024-08-22 15:07 | WPDANESEPPF ---
Anes - Initial Pre Proc Eval Procedure: Operation Date: 08/22/24 16:00 Proposed Procedures p Bilateral Diabetic Foot Ulcer Debridement - Andrews Ornelas MD Date/Time: 08/22/24 15:07 Surgeon: Ramos Pradhan MD Pre Op Diagnosis: osteomyelitis Patient Data Age: 73 Gender: M Height: 1.78 m Weight: 81.5 kg Last Vital Signs Temp 36.1 C L 08/22/24 05:35 Pulse 85 08/22/24 05:35 Resp 20 08/22/24 05:35 BP 111/57 L 08/22/24 11:50 Pulse Ox 100 08/22/24 05:35 O2 Del Method Room Air 08/21/24 16:06 Allergies Allergy/AdvReac Type Severity Reaction Status Date / Time sitagliptin Allergy Severe Confusion Verified 08/22/24 15:42 Home Medications ?Medication ?Instructions ?Recorded ?Confirmed ?Type aspirin 81 mg chewable tablet 81 mg PO DAILY 04/18/19 08/22/24 History atorvastatin 20 mg tablet 20 mg PO HS 04/18/19 08/22/24 History duloxetine 30 mg capsule,delayed 30 mg PO HS 04/18/19 08/22/24 History release (Cymbalta) fenofibrate 160 mg tablet 160 mg PO DAILY 04/18/19 08/22/24 History melatonin 10 mg capsule 10 mg PO HS 04/18/19 08/22/24 History docusate sodium 50 mg capsule 100 mg PO PRN PRN Constipation 04/22/20 08/22/24 History ergocalciferol (vitamin D2) 25,000 50,000 unit PO WEEKLY 04/22/20 08/22/24 History unit capsule lisinopril 10 mg tablet 10 mg PO DAILY 04/22/20 08/22/24 History multivitamin 1 tablet PO DAILY 04/22/20 08/22/24 History acetaminophen 325 mg tablet 650 mg PO Q6H PRN Pain 05/23/24 08/22/24 History (Tylenol) fluoxetine 20 mg capsule 20 mg PO DAILY 05/23/24 08/22/24 History glipizide 5 mg tablet 5 mg PO BID 05/23/24 08/22/24 History glucagon HCl 1 mg solution for 1 mg IM PRN PRN Hypoglycemia 05/23/24 08/22/24 History injection (Glucagon (HCl) Emergency Kit) metformin 1,000 mg tablet 1,000 mg PO BID 05/23/24 08/22/24 History omega 8-zzr-idw-fish oil 300 1 cap PO DAILY 05/23/24 08/22/24 History mg-1,000 mg capsule polyethylene glycol 3350 17 gram 17 g PO DAILY 05/23/24 08/22/24 History oral powder packet (Miralax) tamsulosin 0.4 mg capsule 0.4 mg PO DAILY 05/23/24 08/22/24 History insulin lispro 100 unit/mL 10 unit (0.1 mL) subcut TIDWM #15 05/27/24 08/22/24 Rx subcutaneous pen (Humalog KwikPen mL (U-100) Insulin) insulin glargine 100 unit/mL (3 70 unit subcut HS 08/22/24 08/22/24 History mL) subcutaneous pen (Lantus Solostar U-100 Insulin) hydrocodone 5 mg-acetaminophen 325 1 tablet PO Q6H PRN Pain Rated 4-6 08/30/24 Rx mg tablet #20 tabs vancomycin 1,000 mg intravenous 1,000 mg IV Q12H #54 ea 08/30/24 Rx injection Laboratory Tests 08/21/24 08/21/24 08/22/24 20:58 22:52 00:21 WBC 18.9 H K/mm3 (4.5-10.0) RBC 3.90 L M/mm3 (4.6-6.20) Hgb 11.3 L g/dL (14.0-18.0) Hct 35.6 L % (42.0-52.0) MCV 91.3 fl (80-100) MCH 29.0 pg (26-34) MCHC 31.7 L g/dl (32-36) RDW 13.4 % (11.5-14.5) Plt Count 615 H D k/mm3 (150-375) MPV 10.0 fl (7.4-10.4) Immature Gran % (Auto) 3.6 H % (0-0.5) Neut % (Auto) 82.0 H % (45.5-73.1) Lymph % (Auto) 8.7 L % (18.3-44.2) [place] % (Auto) 5.0 % (2.6-8.5) Eos % (Auto) 0.2 % (0-4.4) Baso % (Auto) 0.5 % (0.2-1.2) Lymph # (Auto) 1.65 K/mm3 (0.9-3.2) [place] # (Auto) 1.0 H K/mm3 (0.1-0.6) Eos # (Auto) 0.0 K/mm3 (0-0.3) Baso # (Auto) 0.1 K/mm3 (0.0-0.1) Abs Immat Gran (auto) 0.67 H K/mm3 (0.00-0.031) Absolute Neuts (auto) 15.5 H K/mm3 (1.3-6.7) Absolute Nucleated RBC 0.000 K/mm3 (0.0-0.012) Nucleated RBC % 0.0 % (0.0-0.2) ESR 120 H mm/hr (0-20) PT 15.9 H Seconds (11.1-14.7) INR 1.2 APTT 35.0 Seconds (22.3-36.8) Sodium 133 L mmol/L (137-145) Potassium 5.3 H mmol/L (3.4-5.0) Chloride 98 mmol/L (98-107) Carbon Dioxide 17 L mmol/L (22-30) Anion Gap 18 H mmol/L (4-12) BUN 43 H D mg/dL (9-20) Creatinine 2.75 H mg/dL (0.7-1.3) Estim Creat Clear Calc 22 ml/min Estimated GFR 23 L (59 - ) Glucose 378 H mg/dL (65-110) POC Capillary Glucose Hemoglobin A1c Lactic Acid 6.2 H* mmol/L 1.0 mmol/L (0.7-2.0) (0.7-2.0) Calcium 9.6 mg/dL (8.4-10.2) Magnesium Total Bilirubin AST ALT Alkaline Phosphatase C-Reactive Protein 15.8 H mg/dL (<1.0) Total Protein Albumin Urine Color Dark yellow (Yellow) Urine Appearance Cloudy H (Clear) Urine pH 5.0 (5.0-9.0) Ur Specific [place] 1.022 (1.001-1.035) Urine Protein 1+ H mg/dL (Negative) Urine Glucose (UA) 3+ H mg/dL (Negative) Urine Ketones Trace H mg/dL (Negative) Ur Blood (Man) Trace (Negative) Urine Nitrate Negative (Negative) Urine Bilirubin Negative (Negative) Urine Urobilinogen 1.0 mg/dL (<2.0) Add Ur Microanalysis Reviewed Leukocyte Esterase Rfl 2+ H EZEQUIEL/UL (Negative) Urine RBC 0-2 /hpf (0-2) Urine WBC 21-50 H /hpf (0-3) Ur Squamous Epith Cells Occasional /hpf (Few) Urine Bacteria None seen /hpf Urine Casts 6-10 Hyaline Casts Present /lpf (None) Urine Yeast (Budding) Present H /hpf (None) Influenza A (RT-PCR) Influenza B (RT-PCR) RSV (RT-PCR) SARS-CoV-2 RNA (RT-PCR) 08/22/24 08/22/24 08/22/24 01:14 01:19 06:13 WBC 16.2 H K/mm3 (4.5-10.0) RBC 3.47 L M/mm3 (4.6-6.20) Hgb 10.2 L g/dL (14.0-18.0) Hct 31.7 L % (42.0-52.0) MCV 91.4 fl (80-100) MCH 29.4 pg (26-34) MCHC 32.2 g/dl (32-36) RDW 13.4 % (11.5-14.5) Plt Count 488 H k/mm3 (150-375) MPV 10.2 fl (7.4-10.4) Immature Gran % (Auto) 1.6 H % (0-0.5) Neut % (Auto) 78.6 H % (45.5-73.1) Lymph % (Auto) 12.9 L % (18.3-44.2) [place] % (Auto) 6.0 % (2.6-8.5) Eos % (Auto) 0.3 % (0-4.4) Baso % (Auto) 0.6 % (0.2-1.2) Lymph # (Auto) 2.08 K/mm3 (0.9-3.2) [place] # (Auto) 1.0 H K/mm3 (0.1-0.6) Eos # (Auto) 0.1 K/mm3 (0-0.3) Baso # (Auto) 0.1 K/mm3 (0.0-0.1) Abs Immat Gran (auto) 0.26 H K/mm3 (0.00-0.031) Absolute Neuts (auto) 12.7 H K/mm3 (1.3-6.7) Absolute Nucleated RBC 0.000 K/mm3 (0.0-0.012) Nucleated RBC % 0.0 % (0.0-0.2) ESR PT INR APTT Sodium 133 L mmol/L (137-145) Potassium 5.0 mmol/L (3.4-5.0) Chloride 102 mmol/L (98-107) Carbon Dioxide 23 mmol/L (22-30) Anion Gap 8 mmol/L (4-12) BUN 41 H mg/dL (9-20) Creatinine 1.94 H mg/dL (0.7-1.3) Estim Creat Clear Calc Estimated GFR Glucose POC Capillary Glucose 294 H mg/dl (65-105) Hemoglobin A1c Lactic Acid Calcium Magnesium Total Bilirubin AST ALT Alkaline Phosphatase C-Reactive Protein Total Protein Albumin Urine Color Urine Appearance Urine pH Ur Specific [place] Urine Protein Urine Glucose (UA) Urine Ketones Ur Blood (Man) Urine Nitrate Urine Bilirubin Urine Urobilinogen Add Ur Microanalysis Leukocyte Esterase Rfl Urine RBC Urine WBC Ur Squamous Epith Cells Urine Bacteria Urine Casts Hyaline Casts Urine Yeast (Budding) Influenza A (RT-PCR) Negative (Negative) Influenza B (RT-PCR) Negative (Negative) RSV (RT-PCR) Negative (Negative) SARS-CoV-2 RNA (RT-PCR) Negative (Negative) 08/22/24 08/22/24 08/22/24 06:13 06:13 06:13 WBC RBC Hgb Hct MCV MCH MCHC RDW Plt Count MPV Immature Gran % (Auto) Neut % (Auto) Lymph % (Auto) [place] % (Auto) Eos % (Auto) Baso % (Auto) Lymph # (Auto) [place] # (Auto) Eos # (Auto) Baso # (Auto) Abs Immat Gran (auto) Absolute Neuts (auto) Absolute Nucleated RBC Nucleated RBC % ESR PT INR APTT Sodium Potassium Chloride Carbon Dioxide Anion Gap BUN Creatinine 1.94 H mg/dL (0.7-1.3) Estim Creat Clear Calc 31 ml/min 31 ml/min Estimated GFR 34 L 34 L (59 - ) (59 - ) Glucose 335 H mg/dL (65-110) POC Capillary Glucose Hemoglobin A1c Pending Lactic Acid Calcium 8.7 mg/dL (8.4-10.2) Magnesium 1.3 L mg/dL (1.6-2.3) Total Bilirubin 0.7 mg/dL (0.2-1.3) AST 32 U/L (17-59) ALT 23 U/L (6-50) Alkaline Phosphatase 62 U/L (38-126) C-Reactive Protein Total Protein 6.0 L g/dL (6.3-8.2) Albumin 2.7 L g/dL (3.5-5.1) Urine Color Urine Appearance Urine pH Ur Specific [place] Urine Protein Urine Glucose (UA) Urine Ketones Ur Blood (Man) Urine Nitrate Urine Bilirubin Urine Urobilinogen Add Ur Microanalysis Leukocyte Esterase Rfl Urine RBC Urine WBC Ur Squamous Epith Cells Urine Bacteria Urine Casts Hyaline Casts Urine Yeast (Budding) Influenza A (RT-PCR) Influenza B (RT-PCR) RSV (RT-PCR) SARS-CoV-2 RNA (RT-PCR) 08/22/24 08/22/24 09:25 11:23 WBC RBC Hgb Hct MCV MCH MCHC RDW Plt Count MPV Immature Gran % (Auto) Neut % (Auto) Lymph % (Auto) [place] % (Auto) Eos % (Auto) Baso % (Auto) Lymph # (Auto) [place] # (Auto) Eos # (Auto) Baso # (Auto) Abs Immat Gran (auto) Absolute Neuts (auto) Absolute Nucleated RBC Nucleated RBC % ESR PT INR APTT Sodium Potassium Chloride Carbon Dioxide Anion Gap BUN Creatinine Estim Creat Clear Calc Estimated GFR Glucose POC Capillary Glucose 300 H mg/dl 253 H mg/dl (65-105) (65-105) Hemoglobin A1c Lactic Acid Calcium Magnesium Total Bilirubin AST ALT Alkaline Phosphatase C-Reactive Protein Total Protein Albumin Urine Color Urine Appearance Urine pH Ur Specific [place] Urine Protein Urine Glucose (UA) Urine Ketones Ur Blood (Man) Urine Nitrate Urine Bilirubin Urine Urobilinogen Add Ur Microanalysis Leukocyte Esterase Rfl Urine RBC Urine WBC Ur Squamous Epith Cells Urine Bacteria Urine Casts Hyaline Casts Urine Yeast (Budding) Influenza A (RT-PCR) Influenza B (RT-PCR) RSV (RT-PCR) SARS-CoV-2 RNA (RT-PCR) Patient hx anesthesia problems: none Family hx anesthesia problems: none Results Review: All pre-operative results and documents have been reviewed as part of the pre-operative evaluation. COUNT INCLUDES THE [facility] Past Medical History Medical History (Updated 08/22/24 @ 18:27 by Johnny Sloan MD) Sepsis Diabetic ulcer of right foot Malignant neoplasm of sigmoid colon (03/2020) Arterial insufficiency Chronic kidney disease, stage 3 Dyslipidemia Essential hypertension 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 Neuropathic arthritis due to secondary diabetes Surgical History Surgical History History of colon resection (04/2020) Moderately differentiated adenocarcinoma, pT3N0 Status post debridement 09/2014: Excisional debridement of osteomyelitis of both feet. 04/2015: Excisional debridement of right foot ulcer with excision of osteomyelitis of the right calcaneus and skin graft. 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 History of removal of cyst From the side of the neck. History of appendectomy Family History Family History Mother Dementia Father Diabetes mellitus Acute myocardial infarction Social History Social History Social History: Surrogate decision maker: Bibiana Quispe, daughter. Code status: Full code. Smoking packs per day: 1 Smoking cigarettes per day: 20.0 Years smoked: 25 Smoking pack-years: 25.00 Smoking status: Former smoker Alcohol intake: current Drinks per week: 2 Substance use: former Substance use type: marijuana Do You Feel Safe in your Home?: Yes Lack of Transportation: No Lack of Food: Never True Current Housing: I Do Not Have Housing Concerned About Future Housing: No Difficulty Paying Gas/Electric Bills: No Difficulty Paying for Meds: No Currently Unemployed: No Education: Decline to Answer Difficulty w/ Childcare or Family Care: No Additional living arrangements comments: Resident at [facility]. Ambulates with a walker or is in a wheelchair. Spiritual care concerns: No Anes - Eval Final PreProcedure Day of Procedure 08/22/24 15:07 Patient weight: overweight Heart: regular rate and rhythm Lungs: clear to auscultation Airway: Mallampati scale class II Neurological: alert and oriented Last oral intake: >/= 8 hours ASA classification: IV Emergent: no Anesthetic plan: proceed Anesthesia type and monitoring: general LMA and standard monitoring Results Review: All pre-operative results and documents have been reviewed as part of the pre-operative evaluation. Informed Consent: The patient's anesthetic plan and its attendant risks and benefits were discussed with the patient/family/POA. Questions were solicited and answers provided to the satisfaction of the patient/family/POA.
[2024-08-22 15:23] LABS: Glucose Point of Care 206 mg/dl (65-105)
--- NOTE | 2024-08-22 15:35 | WPDHPUPDATE1 ---
History and Physical Update Update Date/Time: 08/22/24 15:35 History and Physical has been reviewed, including an updated exam of the patient. There are NO changes in the patient's condition. Risks, benefits, and alternatives have been discussed and questions answered. Patient agrees to proceed with procedure.
[2024-08-22] MEDS: ceFAZolin SODIUM 1 GM VIAL (16:31)
[2024-08-22] MEDS: BUPivacaine HCL 0.5% PF 30 ML VIAL INFILTRATE (16:32)
[2024-08-22] MEDS: LACTATED RINGERS 1,000 ML 30 ML IV CONT (16:44)
[2024-08-22 16:51] LABS: Glucose Point of Care 206 mg/dl (65-105)
--- NOTE | 2024-08-22 17:06 | W.PM.PROC2 ---
Procedure Note - Detailed Date of Procedure 08/22/24 Pre-op Diagnosis osteomyelitis bilateral feet Post-op Diagnosis Same Procedure Performed Left transmetatarsal amputation, open, right foot debridement to bone Surgeon Andrews Ornelas MD [employer] 1st urgent care physician assistant Anesthesia General Indications 73-year-old with diabetes and peripheral neuropathy, peripheral vascular disease presents with bilateral diabetic foot ulcers and evidence of osteo of both left and right foot on MRI. Presents for debridement. Findings Osteomyelitis 3rd metatarsal left foot with abscess involving plantar flexor tendons extending to the midfoot. Right foot osteomyelitis base the 5th metatarsal. Description of Procedure Patient identified in the preoperative holding. Informed consent given. Operative extremity marked. Patient received intravenous antibiotics. Patient brought to the operating room where underwent general anesthetic by anesthesia team. Positioned supine on operating room table. Time-out performed confirming the patient, site of the surgery and the plan. Both left and right foot prepped draped usual sterile surgical fashion Betadine prep solution. We addressed the right foot 1st. 15 blade knife used to ellipse the ulcer on the lateral aspect midfoot overlying 5th metatarsal. Hemostasis controlled electrocautery. [place] used to resect the lateral and plantar aspect of the 5th metatarsal of infected bone. This was passed off. Wound then thoroughly irrigated partially closed with 0 Prolene interrupted suture. Wound packed with Betadine gauze. We then addressed the left foot. Preoperative blood flow studies showed severely decreased blood flow to the toes. There was a large ulcer on the plantar aspect which communicated with the 3rd metatarsophalangeal joint catarina purulent drainage noted. The 3rd metatarsal head was loose fell out of the wound. No ability to heal the wound over the toes and decision to proceed with transmetatarsal amputation may. 15 blade knife used to make an elliptical incision at the base of the toes. Hemostasis controlled electrocautery. The 1st, 2nd, 3rd, 4th metatarsals were transected with a bone cutter and rongeur. The toes were removed and passed off as specimen. Bone ends addressed with a rongeur. Abscess involving the flexor tendons noted communicated with midfoot. This was opened up flexor tendons were sharply excised. Any loose or purulent material debrided with a rongeur. Thorough irrigation performed. Skin loosely closed with 0 Prolene interrupted suture and the wound packed with Betadine gauze. Sterile dressing applied. The patient was then woken from anesthesia, extubated and taken to the recovery room in stable condition. All sponge, needle, instrument counts were correct at the end of the case. Estimated Blood Loss 20 Urine Output 75 Drains No Packing Yes (Betadine gauze bilateral feet) Pathology Yes (Left transmetatarsal amputation, cultures) Complications None Condition Stable Disposition PACU [facility] Billing Surgery - Charge Forward: Surgery Billing ([id number], [id number])
[2024-08-22 18:14] LABS: Glucose Point of Care 197 mg/dl (65-105)
--- NOTE | 2024-08-22 18:17 | PM.IMPN ---
Progress Note: A&P Assessment and Plan (1) Sepsis: Qualifiers: Sepsis acute organ dysfunction status: without acute organ dysfunction Sepsis type: sepsis due to unspecified organism Qualified Code(s): A41.9 - Sepsis, unspecified organism Code(s): A41.9 - Sepsis, unspecified organism Status: Acute Assessment and Plan: Patient presents with left foot wound. Imaging shows osteomyelitis in the bilateral feet. Lactic acid was 6.2. WBC 19 K. patient was tachycardic but afebrile. Suspect sepsis is related to left diabetic foot wound and osteomyelitis. UA noted and urine culture collected so consider UTI. Blood cultures no growth to date. Patient started on cefepime and vancomycin. Will add Flagyl per diabetic foot antibiotic stewardship. Lactic acid level is normal. White count is trending downward. Orthopedic consult for debridement as mentioned below. Follow-up on culture results. (2) Foot osteomyelitis, left: Code(s): M86.9 - Osteomyelitis, unspecified Status: Acute Assessment and Plan: Left foot MRI shows osteomyelitis of the 3rd proximal phalanx, head and neck 3rd metatarsal with fracture. He also had gas tracking proximally along the plantar soft tissue of the forefoot consistent with necrotizing fasciitis. ABIs showing Right 0.54 (TBI 0.54) and Left 0.081 (TBI 0.22). Orthopedic consulted and patient was brought to the OR for debridement. Also, patient had a right MRI of the foot also showed osteomyelitis at the lateral base of the 5th metatarsal probably related to the ulcer seen on exam. Continue current wound care. Appreciate Orthopedic input. (3) Diabetic foot ulcer: Qualifiers: Diabetic foot ulcer location: heel Diabetes mellitus type: type 2 Laterality: right Non-pressure ulcer stage: limited to breakdown of skin Qualified Code(s): E11.621 - Type 2 diabetes mellitus with foot ulcer; L97.411 - Non-pressure chronic ulcer of right heel and midfoot limited to breakdown of skin Code(s): E11.621 - Type 2 diabetes mellitus with foot ulcer; L97.509 - Non-pressure chronic ulcer of other part of unspecified foot with unspecified severity Status: Acute Assessment and Plan: As above (4) Acute kidney injury superimposed on chronic kidney disease: Code(s): N17.9 - Acute kidney failure, unspecified; N18.9 - Chronic kidney disease, unspecified Status: Acute Assessment and Plan: Cr elevated at 2.75 on admission. Baseline unclear but probably around 1.5. Suspect related to sepsis, ostemyelitis and necrotizing fasciitis. Also was on ibuprofen, lisinopril at home Treated with IV fluids and Cr better at 1.9. Will hold further fluids now that he is eating Continue to follow. (5) Insulin dependent type 2 diabetes mellitus: Code(s): E11.9 - Type 2 diabetes mellitus without complications; Z79.4 - terminal operations supervisor (current) use of insulin Status: Chronic Assessment and Plan: The patient's blood glucose was reviewed on 08/22 Glucose reasonably but has been NPO Continue AccuCheks covering with sliding scale. Hypoglycemia protocol available as needed. Resume lantus and mealtime novolog at lower doses. Continue to monitor (6) Essential hypertension: Code(s): I10 - Essential (primary) hypertension Status: Chronic Assessment and Plan: BP stable. Continue to monitor. Plan Code status. Full VTE prophylaxis. SCDs; REED Subjective Date/time seen: 08/22/24 18:17 Interval history: 73yo male with CKD, HTN, insulin dependent DM with neuropathy and BPH here for left foot wound. Patient is alert but confused about his hx but is oriented overall. He seems unsure when he had foot surgery among other pieces of information. He denies foot pain. No CP or SOB. No n/v. Exam Narrative: AF 97.3 119/80 75 16 99% ra Gen - NARD Chest - CTA bilaterally, nml RR CV - RRR S1/S2 Abd - Soft, NT/ND, Positive BS Ext - No pedal edema. Left foot and ankle are dressed Neuro - Alert and oriented x4. Bilateral UE tremors noted. Psych - Nml mood and affect Skin - Warm and dry. right lateral foot shallow dime sized ulcer with clean base. Right heel large dried eschar. Objective Data Vital Signs Vital Signs: Vital Signs - 24 hr 08/21/24 19:19 08/21/24 21:02 08/21/24 22:57 Temperature 98.2 F Pulse Rate 98 95 116 H Respiratory Rate 18 31 H 24 H Blood Pressure 102/77 124/98 H 122/66 Pulse Oximetry 99 100 97 Oxygen Delivery Oxygen Flow Rate 08/22/24 00:38 08/22/24 01:17 08/22/24 02:25 Temperature Pulse Rate 92 83 87 Respiratory Rate 25 H 20 23 H Blood Pressure 125/68 119/59 L 125/63 Pulse Oximetry 100 100 99 Oxygen Delivery Oxygen Flow Rate 08/22/24 05:35 08/22/24 11:50 08/22/24 15:20 Temperature 96.9 F L 98.4 F Pulse Rate 85 92 Respiratory Rate 20 18 Blood Pressure 118/65 111/57 L 136/61 Pulse Oximetry 100 98 Oxygen Delivery Room Air Oxygen Flow Rate 08/22/24 16:44 08/22/24 16:45 08/22/24 17:00 Temperature 98.8 F Pulse Rate 75 77 82 Respiratory Rate 15 15 18 Blood Pressure 99/47 L 96/48 L 107/88 Pulse Oximetry 100 100 100 Oxygen Delivery Simple Face Mask Simple Face Mask Simple Face Mask Oxygen Flow Rate 10 10 10 08/22/24 17:13 08/22/24 17:15 08/22/24 17:30 Temperature Pulse Rate 78 76 Respiratory Rate 20 18 Blood Pressure 123/66 124/68 Pulse Oximetry 100 100 97 Oxygen Delivery Room Air Room Air Room Air Oxygen Flow Rate 08/22/24 17:45 08/22/24 18:00 08/22/24 18:15 Temperature 97.1 F L 97.3 F L Pulse Rate 78 83 75 Respiratory Rate 20 16 16 Blood Pressure 122/69 145/104 H 119/80 Pulse Oximetry 100 99 99 Oxygen Delivery Room Air Oxygen Flow Rate Intake/Output Intake/Output: Intake & Output 08/19/24 08/20/24 08/21/24 08/22/24 23:59 23:59 23:59 23:59 Intake Total 1300 2487 Output Total 75 75 Balance 1225 2412 Meds/Results Medications: Active Medications Generic Name Dose Route Start Last Admin Trade Name Freq PRN Reason Stop Dose Admin Acetaminophen 650 mg 08/22/24 07:56 Acetaminophen 325 Mg Tablet PO Q6H PRN Pain Albuterol/Ipratropium 3 ml 08/22/24 06:48 Ipratropium 0.5 Mg/Albuterol Sulfate 2.5 Mg Ampul.Neb 3 Ml INHALATION Q4HRT PRN shortness of breath/Wheezing Aspirin 81 mg 08/22/24 09:00 08/22/24 14:47 Aspirin 81 Mg Chewable Tablet PO Not Given DAILY REED Atorvastatin Calcium 20 mg 08/22/24 21:00 Atorvastatin 20 Mg Tablet PO HS REED Dextrose 12.5 gm 08/22/24 07:53 Dextrose 50% 25 Gm/50 Ml Syringe IV PUSH PRN PRN Hypoglycemia Protocol Docusate Sodium 100 mg 08/22/24 08:02 Docusate Sodium 100 Mg Capsule PO QHS PRN Constipation Duloxetine HCl 30 mg 08/22/24 21:00 Duloxetine Hcl 30 Mg Capsule. PO HS REED Fenofibrate 160 mg 08/22/24 09:00 08/22/24 14:47 Fenofibrate 160 Mg Tablet PO Not Given DAILY REED Fluoxetine HCl 20 mg 08/22/24 09:00 08/22/24 14:47 Fluoxetine Hcl 20 Mg Capsule PO Not Given DAILY REED Glucagon 1 mg 08/22/24 07:53 Glucagon For Inj 1 Mg Vial IM PRN PRN Hypoglycemia Protocol Glucose 15 gm 08/22/24 07:53 Glucose Oral Gel 15 Gm Of Glucse In 37.5 Gm Tube PO PRN PRN Hypoglycemia Protocol Sodium Chloride 1,000 mls @ 125 mls/hr 08/21/24 23:50 08/22/24 09:32 Normal Saline Iv IV CONT 125 mls/hr .Q8H REED Administration Cefepime HCl 2 gm in 50 mls @ 100 mls/hr 08/22/24 09:00 08/22/24 09:54 Maxipime 2 Gm/Ns 50 Ml IVPB Infused Q12HR REED Infusion Metronidazole 500 mg in 100 mls @ 100 mls/hr 08/22/24 07:55 08/22/24 16:26 Flagyl 500 Mg/Iso Soln 100 Ml IVPB Infused Q8HR REED Infusion Dextrose 1,000 mls @ 100 mls/hr 08/22/24 07:53 Dextrose 5% 1,000 Ml IVPB PRN PRN Hypoglycemia Protocol Lactated Ringer's 1,000 mls @ 30 mls/hr 08/22/24 16:55 08/22/24 17:47 Lr - Lactated Ringers Iv IV CONT Infused .Q24H REED Infusion Insulin Aspart 3 - 6 units 08/22/24 12:00 08/22/24 16:57 Insulin Aspart (*Bkc) 100 Units/Ml SUB-Q 3 units Q6HR REED Administration Protocol Insulin Glargine 35 units 08/22/24 21:00 Insulin Glargine (*Bkc) 100 Units/Ml SUB-Q HS REED Lisinopril 10 mg 08/22/24 09:00 08/22/24 14:47 Lisinopril 10 Mg Tablet PO Not Given DAILY REED Melatonin 5 mg 08/22/24 06:48 Melatonin 5 Mg Tablet PO HS PRN Insomnia Multivitamins Therapeutic 1 tablet 08/22/24 09:00 08/22/24 14:47 Multivitamins Therapeutic Tab (*Bkc) PO Not Given DAILY REED Polyethylene Glycol 17 gm 08/22/24 09:00 08/22/24 14:47 Polyethylene Glycol 3350 17 Gm Powd.Pack PO Not Given DAILY REED Prochlorperazine Edisylate 10 mg 08/22/24 06:48 Prochlorperazine Edisylate 10 Mg/2 Ml Vial IV PUSH Q6H PRN Nausea And Vomiting Sodium Hypochlorite 1 applic 08/22/24 09:00 08/22/24 09:46 Sod Hypochlorite 1/4 Strength 473 Ml TOPICAL 1 applic DAILY REED Administration Tamsulosin HCl 0.4 mg 08/22/24 09:00 08/22/24 14:47 Tamsulosin Hcl 0.4 Mg Capsule PO Not Given DAILY [facility] Vancomycin HCl 1 each 08/21/24 21:49 Vancomycin For Acute Kidney Injury IVPB PRN PRN Vancomycin Protocol Radiology Results: ITS Impressions Foot X-Ray 08/22/24 10:04 IMPRESSION: Significant degenerative disease, as detailed above. Findings within the base of the fifth metatarsal for which osteomyelitis is suspected. Foot MRI 08/22/24 14:57 IMPRESSION: 1. Osteomyelitis at the third proximal phalanx, head and neck the third metatarsal with secondary pathologic fracture at the base of the second proximal phalanx. Equivocal reactive edema versus very early osteomyelitis at the head of the second metatarsal. 2. Gas tracking proximally along the plantar soft tissues of the forefoot most likely representing extension from ulceration plantar to the head of the third metatarsal although differential would include necrotizing fasciitis in the appropriate clinical setting. Findings were discussed with Grayson Hawkins, the nurse caring for the patient, at 3:10 PM. Ankle Brachial Index 08/22/24 15:29 IMPRESSION: 1. Moderately decreased right ELIZABETH and mildly decreased left ELIZABETH with worsening from 11/21/2018, consistent with arterial occlusive disease. Labs Labs: Laboratory Results - last 24 hr 08/21/24 08/21/24 08/22/24 20:58 22:52 00:21 WBC 18.9 H RBC 3.90 L Hgb 11.3 L Hct 35.6 L MCV 91.3 MCH 29.0 MCHC 31.7 L RDW 13.4 Plt Count 615 H D MPV 10.0 Immature Gran % (Auto) 3.6 H Neut % (Auto) 82.0 H Lymph % (Auto) 8.7 L [place] % (Auto) 5.0 Eos % (Auto) 0.2 Baso % (Auto) 0.5 Lymph # (Auto) 1.65 Motley # (Auto) 1.0 H Eos # (Auto) 0.0 Baso # (Auto) 0.1 Abs Immat Gran (auto) 0.67 H Absolute Neuts (auto) 15.5 H Absolute Nucleated RBC 0.000 Nucleated RBC % 0.0 ESR 120 H PT 15.9 H INR 1.2 APTT 35.0 Sodium 133 L Potassium 5.3 H Chloride 98 Carbon Dioxide 17 L Anion Gap 18 H BUN 43 H D Creatinine 2.75 H Estim Creat Clear Calc 22 Estimated GFR 23 L Glucose 378 H POC Capillary Glucose Hemoglobin A1c Lactic Acid 6.2 H* 1.0 Calcium 9.6 Magnesium Total Bilirubin AST ALT Alkaline Phosphatase C-Reactive Protein 15.8 H Total Protein Albumin Urine Color Dark yellow Urine Appearance Cloudy H Urine pH 5.0 Ur Specific [place] 1.022 Urine Protein 1+ H Urine Glucose (UA) 3+ H Urine Ketones Trace H Ur Blood (Man) Trace Urine Nitrate Negative Urine Bilirubin Negative Urine Urobilinogen 1.0 Add Ur Microanalysis Reviewed Leukocyte Esterase Rfl 2+ H Urine RBC 0-2 Urine WBC 21-50 H Ur Squamous Epith Cells Occasional Urine Bacteria None seen Urine Casts 6-10 Hyaline Casts Present Urine Yeast (Budding) Present H Influenza A (RT-PCR) Influenza B (RT-PCR) RSV (RT-PCR) SARS-CoV-2 RNA (RT-PCR) 08/22/24 08/22/24 08/22/24 01:14 01:19 06:13 WBC 16.2 H RBC 3.47 L Hgb 10.2 L Hct 31.7 L MCV 91.4 MCH 29.4 MCHC 32.2 RDW 13.4 Plt Count 488 H MPV 10.2 Immature Gran % (Auto) 1.6 H Neut % (Auto) 78.6 H Lymph % (Auto) 12.9 L [place] % (Auto) 6.0 Eos % (Auto) 0.3 Baso % (Auto) 0.6 Lymph # (Auto) 2.08 [place]ley # (Auto) 1.0 H Eos # (Auto) 0.1 Baso # (Auto) 0.1 Abs Immat Gran (auto) 0.26 H Absolute Neuts (auto) 12.7 H Absolute Nucleated RBC 0.000 Nucleated RBC % 0.0 ESR PT INR APTT Sodium 133 L Potassium 5.0 Chloride 102 Carbon Dioxide 23 Anion Gap 8 BUN 41 H Creatinine 1.94 H Estim Creat Clear Calc Estimated GFR Glucose POC Capillary Glucose 294 H Hemoglobin A1c Lactic Acid Calcium Magnesium Total Bilirubin AST ALT Alkaline Phosphatase C-Reactive Protein Total Protein Albumin Urine Color Urine Appearance Urine pH Ur Specific [place] Urine Protein Urine Glucose (UA) Urine Ketones Ur Blood (Man) Urine Nitrate Urine Bilirubin Urine Urobilinogen Add Ur Microanalysis Leukocyte Esterase Rfl Urine RBC Urine WBC Ur Squamous Epith Cells Urine Bacteria Urine Casts Hyaline Casts Urine Yeast (Budding) Influenza A (RT-PCR) Negative Influenza B (RT-PCR) Negative RSV (RT-PCR) Negative SARS-CoV-2 RNA (RT-PCR) Negative 08/22/24 08/22/24 08/22/24 06:13 06:13 06:13 WBC RBC Hgb Hct MCV MCH MCHC RDW Plt Count MPV Immature Gran % (Auto) Neut % (Auto) Lymph % (Auto) [place] % (Auto) Eos % (Auto) Baso % (Auto) Lymph # (Auto) [place] # (Auto) Eos # (Auto) Baso # (Auto) Abs Immat Gran (auto) Absolute Neuts (auto) Absolute Nucleated RBC Nucleated RBC % ESR PT INR APTT Sodium Potassium Chloride Carbon Dioxide Anion Gap BUN Creatinine 1.94 H Estim Creat Clear Calc 31 31 Estimated GFR 34 L 34 L Glucose 335 H POC Capillary Glucose Hemoglobin A1c 9.0 H Lactic Acid Calcium 8.7 Magnesium 1.3 L Total Bilirubin 0.7 AST 32 ALT 23 Alkaline Phosphatase 62 C-Reactive Protein Total Protein 6.0 L Albumin 2.7 L Urine Color Urine Appearance Urine pH Ur Specific [place] Urine Protein Urine Glucose (UA) Urine Ketones Ur Blood (Man) Urine Nitrate Urine Bilirubin Urine Urobilinogen Add Ur Microanalysis Leukocyte Esterase Rfl Urine RBC Urine WBC Ur Squamous Epith Cells Urine Bacteria Urine Casts Hyaline Casts Urine Yeast (Budding) Influenza A (RT-PCR) Influenza B (RT-PCR) RSV (RT-PCR) SARS-CoV-2 RNA (RT-PCR) 08/22/24 08/22/24 08/22/24 09:25 11:23 15:20 WBC RBC Hgb Hct MCV MCH MCHC RDW Plt Count MPV Immature Gran % (Auto) Neut % (Auto) Lymph % (Auto) [place] % (Auto) Eos % (Auto) Baso % (Auto) Lymph # (Auto) [place] # (Auto) Eos # (Auto) Baso # (Auto) Abs Immat Gran (auto) Absolute Neuts (auto) Absolute Nucleated RBC Nucleated RBC % ESR PT INR APTT Sodium Potassium Chloride Carbon Dioxide Anion Gap BUN Creatinine Estim Creat Clear Calc Estimated GFR Glucose POC Capillary Glucose 300 H 253 H 206 H Hemoglobin A1c Lactic Acid Calcium Magnesium Total Bilirubin AST ALT Alkaline Phosphatase C-Reactive Protein Total Protein Albumin Urine Color Urine Appearance Urine pH Ur Specific [place] Urine Protein Urine Glucose (UA) Urine Ketones Ur Blood (Man) Urine Nitrate Urine Bilirubin Urine Urobilinogen Add Ur Microanalysis Leukocyte Esterase Rfl Urine RBC Urine WBC Ur Squamous Epith Cells Urine Bacteria Urine Casts Hyaline Casts Urine Yeast (Budding) Influenza A (RT-PCR) Influenza B (RT-PCR) RSV (RT-PCR) SARS-CoV-2 RNA (RT-PCR) 08/22/24 08/22/24 16:49 18:11 WBC RBC Hgb Hct MCV MCH MCHC RDW Plt Count MPV Immature Gran % (Auto) Neut % (Auto) Lymph % (Auto) [place] % (Auto) Eos % (Auto) Baso % (Auto) Lymph # (Auto) [place] # (Auto) Eos # (Auto) Baso # (Auto) Abs Immat Gran (auto) Absolute Neuts (auto) Absolute Nucleated RBC Nucleated RBC % ESR PT INR APTT Sodium Potassium Chloride Carbon Dioxide Anion Gap BUN Creatinine Estim Creat Clear Calc Estimated GFR Glucose POC Capillary Glucose 206 H 197 H Hemoglobin A1c Lactic Acid Calcium Magnesium Total Bilirubin AST ALT Alkaline Phosphatase C-Reactive Protein Total Protein Albumin Urine Color Urine Appearance Urine pH Ur Specific [place] Urine Protein Urine Glucose (UA) Urine Ketones Ur Blood (Man) Urine Nitrate Urine Bilirubin Urine Urobilinogen Add Ur Microanalysis Leukocyte Esterase Rfl Urine RBC Urine WBC Ur Squamous Epith Cells Urine Bacteria Urine Casts Hyaline Casts Urine Yeast (Budding) Influenza A (RT-PCR) Influenza B (RT-PCR) RSV (RT-PCR) SARS-CoV-2 RNA (RT-PCR)
[2024-08-22] MEDS: MAGNESIUM SULF 2 GM/WATER 50ML 2 GM/50 ML BAG IVPB (19:17)
[2024-08-22 21:12] LABS: Glucose Point of Care 237 mg/dl (65-105)
[2024-08-22] MEDS: MELATONIN 5 MG TABLET PO (21:36)
[2024-08-22] MEDS: HEPARIN SODIUM 5,000 UNITS/ML VIAL 5000 UNITS SUB-Q (21:37)
[2024-08-22] MEDS: DULoxetine HCL 30 MG CAPSULE.DR PO (21:37)
[2024-08-22] MEDS: ATORVASTATIN 20 MG TABLET PO (21:38)
[2024-08-22] MEDS: ACETAMINOPHEN 325 MG TABLET 650 MG PO (21:41)
[2024-08-22 22:22] LABS: Vancomycin Trough < 5.0 ug/mL (10.0-20.0)
[2024-08-22] MEDS: INSULIN GLARGINE (*BKC) 100 UNITS/ML 50 UNITS SUB-Q (22:33)
[2024-08-23] MEDS: HYDROcodone/acetaminophen (*CRX) 5-325 MG TABLET 1 TAB PO ×2 (00:48→22:03)
[2024-08-23] MEDS: VANCOMYCIN 1,250 MG/NS 250 ML 1,250 MG/250 ML BAG 166.67 MG IVPB (00:49)
[2024-08-23 03:34] VITALS: BP 100/58; PULSE 84; RESP 16; TEMP 37.1; O2SAT 96
[2024-08-23] MEDS: metroNIDAZOLE 500 MG/ISO 100ML 500 MG/100 ML BAG 100 MG IVPB ×3 (06:32→22:50)
[2024-08-23 06:58] LABS: Basophils Absolute Auto 0.1 K/mm3 (0.0-0.1); Basophils Percent Auto 0.6 % (0.2-1.2); Eosinophils Absolute Auto 0.2 K/mm3 (0-0.3); Eosinophils Percent Auto 1.8 % (0-4.4); Hematocrit 30.1 % (42.0-52.0); Hemoglobin 9.4 g/dL (14.0-18.0); Immature Granulocyte Percent A 1.7 % (0-0.5); Lymphocytes Absolute Auto 1.18 K/mm3 (0.9-3.2); Lymphocytes Percent Auto 9.9 % (18.3-44.2); Mean Corpuscular HGB Conc 31.2 g/dl (32-36); Mean Corpuscular Hemoglobin 28.5 pg (26-34); Mean Corpuscular Volume 91.2 fl (80-100); Mean Platelet Volume 9.6 fl (7.4-10.4); Monocytes Absolute Auto 0.6 K/mm3 (0.1-0.6); Monocytes Percent Auto 5.4 % (2.6-8.5); Neutrophils Absolute Auto 9.6 K/mm3 (1.3-6.7); Neutrophils Percent Auto 80.6 % (45.5-73.1); Platelet Count Result 417 k/mm3 (150-375); Red Cell Distribution Width 13.4 % (11.5-14.5); White Blood Count 11.9 K/mm3 (4.5-10.0)
[2024-08-23 07:12] LABS: Alanine Aminotransferase 25 U/L (6-50); Albumin Level 2.5 g/dL (3.5-5.1); Alkaline Phosphatase 69 U/L (38-126); Anion Gap 8 mmol/L (4-12); Aspartate Amino Transferase 41 U/L (17-59); Bilirubin,Total 0.6 mg/dL (0.2-1.3); Blood Urea Nitrogen 31 mg/dL (9-20); Calcium 8.4 mg/dL (8.4-10.2); Carbon Dioxide 23 mmol/L (22-30); Chloride 102 mmol/L (98-107); Estimated CRCL calculation 41 ml/min; Estimated Glomerular Filt Rate 46; Glucose 307 mg/dL (65-110); Magnesium 1.8 mg/dL (1.6-2.3); Potassium 5.2 mmol/L (3.4-5.0); Sodium 133 mmol/L (137-145)
--- NOTE | 2024-08-23 08:00 | P.PNIM_ITS ---
Progress Note: A&P Assessment and Plan (1) Sepsis: Qualifiers: Sepsis acute organ dysfunction status: without acute organ dysfunction Sepsis type: sepsis due to unspecified organism Qualified Code(s): A41.9 - S epsis, unspecified organism Code(s): A41.9 - Sepsis, unspecified organism Status: Acute Assessment and Plan: Patient presents with left foot wound. Imaging shows osteomyelitis in the bilateral feet. Lactic acid was 6.2. WBC 19 K. patient was tachycardic but afebrile. Suspect sepsis is related to left diabetic foot wound with necrotizing fasciitis and osteomyelitis. UA noted and urine culture collected so consider UTI. Blood cultures no growth to date. Patient started on cefepime, vancomycin and Flagyl per diabetic foot antibiotic stewardship. Lactic acid level is normal. White count is trending downward. Orthopedic consulted for debridement as mentioned below. Follow-up on culture results. (2) Foot osteomyelitis, left: Code(s): M86.9 - Osteomyelitis, unspecified Status: Acute Assessment and Plan: Left foot MRI shows osteomyelitis of the 3rd proximal phalanx, head and neck 3rd metatarsal with fracture. He also had gas tracking proximally along the plantar soft tissue of the forefoot consistent with necrotizing fasciitis. ABIs showing Right 0.54 (TBI 0.54) and Left 0.081 (TBI 0.22). Also, patient had a right MRI of the foot also showed osteomyelitis at the lateral base of the 5th metatarsal probably related to the ulcer seen on exam. Orthopedic consulted and patient was brought to the OR for left transmetatarsal amputation and right foot debridement to bone. Wound cultures obtained. Follow up on culture results. Continue current wound care. Appreciate Orthopedic input. Start PT/OT when able. (3) Diabetic foot ulcer: Qualifiers: Diabetes mellitus type: type 2 Diabetic foot ulcer location: heel Laterality: right Non-pressure ulcer stage: limited to breakdown of skin Qualified Code(s): E11.621 - Type 2 diabetes mellitus with foot ulcer; L97.411 - Non-pressure chronic ulcer of right heel and midfoot limited to breakdown of skin Code(s): E11.621 - Type 2 diabetes mellitus with foot ulcer; L97.509 - Non-pressure chronic ulcer of other part of unspecified foot with unspecified severity Status: Acute Assessment and Plan: As above (4) Acute kidney injury superimposed on chronic kidney disease: Code(s): N17.9 - Acute kidney failure, unspecified; N18.9 - Chronic kidney disease, unspecified Status: Acute Assessment and Plan: Cr elevated at 2.75 on admission. Baseline unclear but probably around 1.5. Suspect related to sepsis, ostemyelitis and necrotizing fasciitis. Also was on ibuprofen, lisinopril at home Treated with IV fluids and Cr better at 1.5 Off IV fluids now and he is eating well Continue to follow. (5) Insulin dependent type 2 diabetes mellitus: Code(s): E11.9 - Type 2 diabetes mellitus without complications; Z79.4 - termite renewal inspector (current) use of insulin Status: Chronic Assessment and Plan: The patient's blood glucose was reviewed on 08/23 Glucose higher since eating better. Continue AccuCheks covering with sliding scale. Hypoglycemia protocol available as needed. Advance lantus and mealtime novolog Continue to monitor (6) Essential hypertension: Code(s): I10 - Essential (primary) hypertension Status: Chronic Assessment and Plan: Patient's blood pressure was reviewed on 08/23 Blood pressure remains well controlled. Will continue to monitor Plan Code status. Full VTE prophylaxis. SCDs; REED Subjective Date/time seen: 08/23/24 08:00 Interval history: 73yo male with CKD, HTN, insulin dependent DM with neuropathy and BPH here for left foot wound. Slept okay. No CP or SOB. No pain in the foot. Eating very well. Exam Narrative: Tm 100.6 98.8 100/58 84 16 96% ra Gen - NARD Chest - Clear anteriorly and in the flanks CV - RRR S1/S2 Abd - Soft, NT/ND, Positive BS Ext - No pedal edema. Left foot dressing with old blood at the distal end; right dressing clean, dry and intact Psych - Nml mood and affect; sleepy today Skin - Warm and dry. Objective Data Vital Signs Vital Signs: Vital Signs - 24 hr 08/22/24 11:50 08/22/24 15:20 08/22/24 16:44 Temperature 98.4 F 98.8 F Pulse Rate 92 75 Respiratory Rate 18 15 Blood Pressure 111/57 L 136/61 99/47 L Pulse Oximetry 98 100 Oxygen Delivery Room Air Simple Face Mask Oxygen Flow Rate 10 08/22/24 16:45 08/22/24 17:00 08/22/24 17:13 Temperature Pulse Rate 77 82 Respiratory Rate 15 18 Blood Pressure 96/48 L 107/88 Pulse Oximetry 100 100 100 Oxygen Delivery Simple Face Mask Simple Face Mask Room Air Oxygen Flow Rate 10 10 08/22/24 17:15 08/22/24 17:30 08/22/24 17:45 Temperature Pulse Rate 78 76 78 Respiratory Rate 20 18 20 Blood Pressure 123/66 124/68 122/69 Pulse Oximetry 100 97 100 Oxygen Delivery Room Air Room Air Room Air Oxygen Flow Rate 08/22/24 18:00 08/22/24 18:15 08/22/24 18:30 Temperature 97.1 F L 97.3 F L 98.0 F Pulse Rate 83 75 88 Respiratory Rate 16 16 16 Blood Pressure 145/104 H 119/80 122/68 Pulse Oximetry 99 99 99 Oxygen Delivery Oxygen Flow Rate 08/22/24 19:34 08/22/24 23:34 08/23/24 03:34 Temperature 99.0 F 100.6 F H 98.8 F Pulse Rate 88 87 84 Respiratory Rate 18 20 16 Blood Pressure 101/59 L 118/54 L 100/58 L Pulse Oximetry 97 97 96 Oxygen Delivery Oxygen Flow Rate Intake/Output Intake/Output: Intake & Output 08/20/24 08/21/24 08/22/24 08/23/24 23:59 23:59 23:59 23:59 Intake Total 1300 2587 500 Output Total 75 75 Balance 1225 2512 500 Meds/Results Medications: Active Medications Generic Name Dose Route Start Last Admin Trade Name Freq PRN Reason Stop Dose Admin Acetaminophen 650 mg 08/22/24 07:56 08/22/24 21:41 Acetaminophen 325 Mg Tablet PO 650 mg Q6H PRN Administration Pain Hydrocodone Bitart/Acetaminophen 1 tab 08/23/24 00:13 08/23/24 00:48 Hydrocodone/Acetaminophen (*Crx) 5-325 Mg Tablet PO 1 tab Q6H PRN Administration Pain Rated 4-6 Albuterol/Ipratropium 3 ml 08/22/24 06:48 Ipratropium 0.5 Mg/Albuterol Sulfate 2.5 Mg Ampul.Neb 3 Ml INHALATION Q4HRT PRN shortness of breath/Wheezing Aspirin 81 mg 08/22/24 09:00 08/22/24 14:47 Aspirin 81 Mg Chewable Tablet PO Not Given DAILY REED Atorvastatin Calcium 20 mg 08/22/24 21:00 08/22/24 21:38 Atorvastatin 20 Mg Tablet PO 20 mg HS REED Administration Dextrose 12.5 gm 08/22/24 07:53 Dextrose 50% 25 Gm/50 Ml Syringe IV PUSH PRN PRN Hypoglycemia Protocol Docusate Sodium 100 mg 08/22/24 08:02 Docusate Sodium 100 Mg Capsule PO QHS PRN Constipation Duloxetine HCl 30 mg 08/22/24 21:00 08/22/24 21:37 Duloxetine Hcl 30 Mg Capsule.Dr PO 30 mg HS REED Administration Fenofibrate 160 mg 08/22/24 09:00 08/22/24 14:47 Fenofibrate 160 Mg Tablet PO Not Given DAILY REED Fluoxetine HCl 20 mg 08/22/24 09:00 08/22/24 14:47 Fluoxetine Hcl 20 Mg Capsule PO Not Given DAILY REED Glucagon 1 mg 08/22/24 07:53 Glucagon For Inj 1 Mg Vial IM PRN PRN Hypoglycemia Protocol Glucose 15 gm 08/22/24 07:53 Glucose Oral Gel 15 Gm Of Glucse In 37.5 Gm Tube PO PRN PRN Hypoglycemia Protocol Heparin Sodium (Porcine) 5,000 units 08/22/24 21:00 08/22/24 21:37 Heparin Sodium 5,000 Units/Ml Vial SUB-Q 5,000 units Q12HR REED Administration Cefepime HCl 2 gm in 50 mls @ 100 mls/hr 08/22/24 09:00 08/22/24 20:38 Maxipime 2 Gm/Ns 50 Ml IVPB 100 mls/hr Q12HR REED Administration Metronidazole 500 mg in 100 mls @ 100 mls/hr 08/22/24 07:55 08/23/24 06:32 Flagyl 500 Mg/Iso Soln 100 Ml IVPB 100 mls/hr Q8HR REED Administration Dextrose 1,000 mls @ 100 mls/hr 08/22/24 07:53 Dextrose 5% 1,000 Ml IVPB PRN PRN Hypoglycemia Protocol Insulin Aspart 3 - 6 units 08/22/24 12:00 08/23/24 05:02 Insulin Aspart (*Bkc) 100 Units/Ml SUB-Q Not Given Q6HR REED Protocol Insulin Aspart 10 units 08/23/24 08:00 Insulin Aspart (*Bkc) 100 Units/Ml SUB-Q TIDWM [facility] Insulin Glargine 60 units 08/23/24 21:00 Insulin Glargine (*Bkc) 100 Units/Ml SUB-Q HS [facility] Lisinopril 10 mg 08/22/24 09:00 08/22/24 14:47 Lisinopril 10 Mg Tablet PO Not Given DAILY REED Melatonin 5 mg 08/22/24 06:48 08/22/24 21:36 Melatonin 5 Mg Tablet PO 5 mg HS PRN Administration Insomnia Morphine Sulfate 2 mg 08/23/24 00:14 Morphine Sulfate (*Crx) 2 Mg/Ml Inj IV PUSH Q4H PRN Pain Rated 7-10 Multivitamins Therapeutic 1 tablet 08/22/24 09:00 08/22/24 14:47 Multivitamins Therapeutic Tab (*Bkc) PO Not Given DAILY [facility] Polyethylene Glycol 17 gm 08/22/24 09:00 08/22/24 14:47 Polyethylene Glycol 3350 17 Gm Powd.Pack PO Not Given DAILY [facility] Prochlorperazine Edisylate 10 mg 08/22/24 06:48 Prochlorperazine Edisylate 10 Mg/2 Ml Vial IV PUSH Q6H PRN Nausea And Vomiting Sodium Hypochlorite 1 applic 08/22/24 09:00 08/22/24 09:46 Sod Hypochlorite 1/4 Strength 473 Ml TOPICAL 1 applic DAILY [facility] Administration Tamsulosin HCl 0.4 mg 08/22/24 09:00 08/22/24 14:47 Tamsulosin Hcl 0.4 Mg Capsule PO Not Given DAILY [facility] Vancomycin HCl 1 each 08/21/24 21:49 Vancomycin For Acute Kidney Injury IVPB PRN PRN Vancomycin Protocol Radiology Results: ITS Impressions Foot X-Ray 08/22/24 10:04 IMPRESSION: Significant degenerative disease, as detailed above. Findings within the base of the fifth metatarsal for which osteomyelitis is suspected. Foot MRI 08/22/24 14:57 IMPRESSION: 1. Osteomyelitis at the third proximal phalanx, head and neck the third metatarsal with secondary pathologic fracture at the base of the second proximal phalanx. Equivocal reactive edema versus very early osteomyelitis at the head of the second metatarsal. 2. Gas tracking proximally along the plantar soft tissues of the forefoot most likely representing extension from ulceration plantar to the head of the third metatarsal although differential would include necrotizing fasciitis in the appropriate clinical setting. Findings were discussed with Grayson Hawkins, the nurse caring for the patient, at 3:10 PM. Ankle Brachial Index 08/22/24 15:29 IMPRESSION: 1. Moderately decreased right ELIZABETH and mildly decreased left ELIZABETH with worsening from 11/21/2018, consistent with arterial occlusive disease. Labs Labs: Laboratory Results - last 24 hr 08/22/24 08/22/24 08/22/24 06:13 09:25 11:23 WBC 16.2 H RBC 3.47 L Hgb 10.2 L Hct 31.7 L MCV 91.4 MCH 29.4 MCHC 32.2 RDW 13.4 Plt Count 488 H MPV 10.2 Immature Gran % (Auto) 1.6 H Neut % (Auto) 78.6 H Lymph % (Auto) 12.[address] [facility] % (Auto) 6.0 Eos % (Auto) 0.3 Baso % (Auto) 0.6 Lymph # (Auto) 2.08 [facility] # (Auto) 1.0 H Eos # (Auto) 0.1 Baso # (Auto) 0.1 Abs Immat Gran (auto) 0.26 H Absolute Neuts (auto) 12.7 H Absolute Nucleated RBC 0.000 Nucleated RBC % 0.0 Sodium 133 L Potassium 5.0 Chloride 102 Carbon Dioxide 23 Anion Gap 8 BUN 41 H Creatinine 1.94 H Estim Creat Clear Calc 31 Estimated GFR 34 L Glucose 335 H POC Capillary Glucose 300 H 253 H Hemoglobin A1c 9.0 H Calcium 8.7 Magnesium 1.3 L Total Bilirubin 0.7 AST 32 ALT 23 Alkaline Phosphatase 62 Total Protein 6.0 L Albumin 2.7 L Vancomycin Trough 08/22/24 08/22/24 08/22/24 15:20 16:49 18:11 WBC RBC Hgb Hct MCV MCH MCHC RDW Plt Count MPV Immature Gran % (Auto) Neut % (Auto) Lymph % (Auto) [facility] % (Auto) Eos % (Auto) Baso % (Auto) Lymph # (Auto) [facility] [facility] # (Auto) Eos # (Auto) Baso # (Auto) Abs Immat Gran (auto) Absolute Neuts (auto) Absolute Nucleated RBC Nucleated RBC % Sodium Potassium Chloride Carbon Dioxide Anion Gap BUN Creatinine Estim Creat Clear Calc Estimated GFR Glucose POC Capillary Glucose 206 H 206 H 197 H Hemoglobin A1c Calcium Magnesium Total Bilirubin AST ALT Alkaline Phosphatase Total Protein Albumin Vancomycin Trough 08/22/24 08/22/24 08/23/24 21:05 21:47 06:35 WBC 11.9 H RBC 3.30 L Hgb 9.4 L Hct 30.1 L MCV 91.2 MCH 28.5 MCHC 31.2 L RDW 13.4 Plt Count 417 H MPV 9.6 Immature Gran % (Auto) 1.7 H Neut % (Auto) 80.6 H Lymph % (Auto) 9.[address] [facility] % (Auto) 5.4 Eos % (Auto) 1.8 Baso % (Auto) 0.6 Lymph # (Auto) 1.18 [facility] # (Auto) 0.6 Eos # (Auto) 0.2 Baso # (Auto) 0.1 Abs Immat Gran (auto) 0.20 H Absolute Neuts (auto) 9.6 H Absolute Nucleated RBC 0.000 Nucleated RBC % 0.0 Sodium 133 L Potassium 5.2 H Chloride 102 Carbon Dioxide 23 Anion Gap 8 BUN 31 H D Creatinine 1.48 H Estim Creat Clear Calc 41 Estimated GFR 46 L Glucose 307 H POC Capillary Glucose 237 H Hemoglobin A1c Calcium 8.4 Magnesium 1.8 Total Bilirubin 0.6 AST 41 ALT 25 Alkaline Phosphatase 69 Total Protein 6.0 L Albumin 2.5 L Vancomycin Trough < 5.0 L
[2024-08-23 08:10] LABS: Glucose Point of Care 286 mg/dl (65-105)
[2024-08-23] MEDS: INSULIN ASPART (*BKC) 100 UNITS/ML SUB-Q (08:31)
[2024-08-23] MEDS: INSULIN ASPART (*BKC) 100 UNITS/ML 10 UNITS SUB-Q ×2 (08:31→18:49)
[2024-08-23] MEDS: TAMSULOSIN HCL 0.4 MG CAPSULE PO (08:33)
[2024-08-23] MEDS: MULTIVITAMINS THERAPEUTIC TAB (*BKC) 1 TABLET PO (08:33)
[2024-08-23] MEDS: lisinopriL 10 MG TABLET PO (08:33)
[2024-08-23] MEDS: HEPARIN SODIUM 5,000 UNITS/ML VIAL 5000 UNITS SUB-Q ×2 (08:33→22:04)
[2024-08-23] MEDS: FENOFIBRATE 160 MG TABLET PO (08:33)
[2024-08-23] MEDS: ASPIRIN 81 MG CHEWABLE TABLET PO (08:33)
[2024-08-23] MEDS: CEFEPIME 2 GM/NS 50 ML 2 GM/50 ML BAG IVPB ×2 (08:33→22:04)
[2024-08-23] MEDS: polyethylene glycoL 3350 17 GM POWD.PACK PO (08:33)
[2024-08-23] MEDS: FLUoxetine HCL 20 MG CAPSULE PO (08:33)
[2024-08-23 09:19] VITALS: O2SAT 95
--- NOTE | 2024-08-23 10:56 | P.PNOP_ITS ---
Progress Note: A&P Assessment and Plan (1) Arterial insufficiency: Code(s): I77.1 - Stricture of artery Status: Acute (2) Diabetic ulcer of right foot: Qualifiers: Diabetic foot ulcer location: midfoot Diabetes mellitus type: type 1 Non-pressure ulcer stage: with fat layer exposed Qualified Code(s): E10.621 - Type 1 diabetes mellitus with foot ulcer; L97.412 - Non-pressure chronic ulcer of right heel and midfoot with fat layer exposed Code(s): E11.621 - Type 2 diabetes mellitus with foot ulcer; L97.519 - Non-pressure chronic ulcer of other part of right foot with unspecified severity Status: Acute (3) Osteomyelitis of foot, left, acute: Code(s): M86.172 - Other acute osteomyelitis, left ankle and foot Status: Acute Plan Postoperative day 1 bilateral foot osteomyelitis. Wounds left open due to gross contamination. Dressing change today. G stain shows Gram-positive cocci. Continue with IV antibiotics nutritional supplement. Plan to return to operating room for debridement. Subjective Subjective Date/Time Seen: 08/23/24 10:56 Post Op day: 1 Principal diagnosis: Bilateral diabetic foot osteomyelitis Interval history: surgery yesterday for debridement of bilateral foot osteomyelitis. Operative treatment And findings reviewed with the patient. Exam Const: General: healthy appearing; No in distress or confusion Orientation/consciousness: patient oriented x3 and No confusion HENMT: Head: normal to inspection, normocephalic and atraumatic Eyes: Conjunctivae: conjunctivae normal Sclera: sclerae normal Resp: Effort & Inspection: normal respiratory effort and no audible wheezes Neuro: General: patient oriented x3 Extrem: Other: bilateral foot dressings in place. Lower leg swelling and erythema improved. Negative Homans sign. Objective Data Vital Signs Vital Signs: Vital Signs - 24 hr 08/22/24 11:50 08/22/24 15:20 08/22/24 16:44 Temperature 98.4 F 98.8 F Pulse Rate 92 75 Respiratory Rate 18 15 Blood Pressure 111/57 L 136/61 99/47 L Pulse Oximetry 98 100 Oxygen Delivery Room Air Simple Face Mask Oxygen Flow Rate 10 08/22/24 16:45 08/22/24 17:00 08/22/24 17:13 Temperature Pulse Rate 77 82 Respiratory Rate 15 18 Blood Pressure 96/48 L 107/88 Pulse Oximetry 100 100 100 Oxygen Delivery Simple Face Mask Simple Face Mask Room Air Oxygen Flow Rate 10 10 08/22/24 17:15 08/22/24 17:30 08/22/24 17:45 Temperature Pulse Rate 78 76 78 Respiratory Rate 20 18 20 Blood Pressure 123/66 124/68 122/69 Pulse Oximetry 100 97 100 Oxygen Delivery Room Air Room Air Room Air Oxygen Flow Rate 08/22/24 18:00 08/22/24 18:15 08/22/24 18:30 Temperature 97.1 F L 97.3 F L 98.0 F Pulse Rate 83 75 88 Respiratory Rate 16 16 16 Blood Pressure 145/104 H 119/80 122/68 Pulse Oximetry 99 99 99 Oxygen Delivery Oxygen Flow Rate 08/22/24 19:34 08/22/24 23:34 08/23/24 03:34 Temperature 99.0 F 100.6 F H 98.8 F Pulse Rate 88 87 84 Respiratory Rate 18 20 16 Blood Pressure 101/59 L 118/54 L 100/58 L Pulse Oximetry 97 97 96 Oxygen Delivery Oxygen Flow Rate 08/23/24 09:19 Temperature Pulse Rate Respiratory Rate Blood Pressure Pulse Oximetry 95 Oxygen Delivery Room Air Oxygen Flow Rate Intake/Output Intake/Output: Intake & Output 08/20/24 08/21/24 08/22/24 08/23/24 23:59 23:59 23:59 23:59 Intake Total 1300 2637 500 Output Total 75 75 Balance 1225 2562 500 Meds/Results Medications: Active Medications Generic Name Dose Route Start Last Admin Trade Name Freq PRN Reason Stop Dose Admin Acetaminophen 650 mg 08/22/24 07:56 08/22/24 21:41 Acetaminophen 325 Mg Tablet PO 650 mg Q6H PRN Administration Pain Hydrocodone Bitart/Acetaminophen 1 tab 08/23/24 00:13 08/23/24 00:48 Hydrocodone/Acetaminophen (*Crx) 5-325 Mg Tablet PO 1 tab Q6H PRN Administration Pain Rated 4-6 Albuterol/Ipratropium 3 ml 08/22/24 06:48 Ipratropium 0.5 Mg/Albuterol Sulfate 2.5 Mg Ampul.Neb 3 Ml INHALATION Q4HRT PRN shortness of breath/Wheezing Aspirin 81 mg 08/22/24 09:00 08/23/24 08:33 Aspirin 81 Mg Chewable Tablet PO 81 mg DAILY REED Administration Atorvastatin Calcium 20 mg 08/22/24 21:00 08/22/24 21:38 Atorvastatin 20 Mg Tablet PO 20 mg HS REED Administration Dextrose 12.5 gm 08/22/24 07:53 Dextrose 50% 25 Gm/50 Ml Syringe IV PUSH PRN PRN Hypoglycemia Protocol Docusate Sodium 100 mg 08/22/24 08:02 Docusate Sodium 100 Mg Capsule PO QHS PRN Constipation Duloxetine HCl 30 mg 08/22/24 21:00 08/22/24 21:37 Duloxetine Hcl 30 Mg Capsule.Dr PO 30 mg HS REED Administration Fenofibrate 160 mg 08/22/24 09:00 08/23/24 08:33 Fenofibrate 160 Mg Tablet PO 160 mg DAILY REED Administration Fluoxetine HCl 20 mg 08/22/24 09:00 08/23/24 08:33 Fluoxetine Hcl 20 Mg Capsule PO 20 mg DAILY [facility]ED Administration Glucagon 1 mg 08/22/24 07:53 Glucagon For Inj 1 Mg Vial IM PRN PRN Hypoglycemia Protocol Glucose 15 gm 08/22/24 07:53 Glucose Oral Gel 15 Gm Of Glucse In 37.5 Gm Tube PO PRN PRN Hypoglycemia Protocol Heparin Sodium (Porcine) 5,000 units 08/22/24 21:00 08/23/24 08:33 Heparin Sodium 5,000 Units/Ml Vial SUB-Q 5,000 units Q12HR REED Administration Cefepime HCl 2 gm in 50 mls @ 100 mls/hr 08/22/24 09:00 08/23/24 08:33 Maxipime 2 Gm/Ns 50 Ml IVPB 100 mls/hr Q12HR REED Administration Metronidazole 500 mg in 100 mls @ 100 mls/hr 08/22/24 07:55 08/23/24 06:32 Flagyl 500 Mg/Iso Soln 100 Ml IVPB 100 mls/hr Q8HR REED Administration Dextrose 1,000 mls @ 100 mls/hr 08/22/24 07:53 Dextrose 5% 1,000 Ml IVPB PRN PRN Hypoglycemia Protocol Insulin Aspart 3 - 6 units 08/22/24 12:00 08/23/24 08:31 Insulin Aspart (*Bkc) 100 Units/Ml SUB-Q 4 units Q6HR REED Administration Protocol Insulin Aspart 10 units 08/23/24 08:00 08/23/24 08:31 Insulin Aspart (*Bkc) 100 Units/Ml SUB-Q 10 units TIDWM REED Administration Insulin Glargine 60 units 08/23/24 21:00 Insulin Glargine (*Bkc) 100 Units/Ml SUB-Q HS [facility] Lisinopril 10 mg 08/22/24 09:00 08/23/24 08:33 Lisinopril 10 Mg Tablet PO 10 mg DAILY REED Administration Melatonin 5 mg 08/22/24 06:48 08/22/24 21:36 Melatonin 5 Mg Tablet PO 5 mg HS PRN Administration Insomnia Morphine Sulfate 2 mg 08/23/24 00:14 Morphine Sulfate (*Crx) 2 Mg/Ml Inj IV PUSH Q4H PRN Pain Rated 7-10 Multivitamins Therapeutic 1 tablet 08/22/24 09:00 08/23/24 08:33 Multivitamins Therapeutic Tab (*Bkc) PO 1 tablet DAILY REED Administration Polyethylene Glycol 17 gm 08/22/24 09:00 08/23/24 08:33 Polyethylene Glycol 3350 17 Gm Powd.Pack PO 17 gm DAILY REED Administration Prochlorperazine Edisylate 10 mg 08/22/24 06:48 Prochlorperazine Edisylate 10 Mg/2 Ml Vial IV PUSH Q6H PRN Nausea And Vomiting Sodium Hypochlorite 1 applic 08/22/24 09:00 08/23/24 08:33 Sod Hypochlorite 1/4 Strength 473 Ml TOPICAL 1 applic DAILY REED Administration Tamsulosin HCl 0.4 mg 08/22/24 09:00 08/23/24 08:33 Tamsulosin Hcl 0.4 Mg Capsule PO 0.4 mg DAILY REED Administration Vancomycin HCl 1 each 08/21/24 21:49 Vancomycin For Acute Kidney Injury IVPB PRN PRN Vancomycin Protocol Radiology Results: ITS Impressions Foot X-Ray 08/22/24 10:04 IMPRESSION: Significant degenerative disease, as detailed above. Findings within the base of the fifth metatarsal for which osteomyelitis is suspected. Foot MRI 08/22/24 14:57 IMPRESSION: 1. Osteomyelitis at the third proximal phalanx, head and neck the third metatarsal with secondary pathologic fracture at the base of the second proximal phalanx. Equivocal reactive edema versus very early osteomyelitis at the head of the second metatarsal. 2. Gas tracking proximally along the plantar soft tissues of the forefoot most likely representing extension from ulceration plantar to the head of the third metatarsal although differential would include necrotizing fasciitis in the appropriate clinical setting. Findings were discussed with Grayson Hawkins, the nurse caring for the patient, at 3:10 PM. Ankle Brachial Index 08/22/24 15:29 IMPRESSION: 1. Moderately decreased right ELIZABETH and mildly decreased left ELIZABETH with worsening from 11/21/2018, consistent with arterial occlusive disease. Labs Labs: Laboratory Results - last 24 hr 08/22/24 08/22/24 08/22/24 06:13 11:23 15:20 WBC RBC Hgb Hct MCV MCH MCHC RDW Plt Count MPV Immature Gran % (Auto) Neut % (Auto) Lymph % (Auto) [place] % (Auto) Eos % (Auto) Baso % (Auto) Lymph # (Auto) [place] # (Auto) Eos # (Auto) Baso # (Auto) Abs Immat Gran (auto) Absolute Neuts (auto) Absolute Nucleated RBC Nucleated RBC % Sodium Potassium Chloride Carbon Dioxide Anion Gap BUN Creatinine Estim Creat Clear Calc Estimated GFR Glucose POC Capillary Glucose 253 H 206 H Hemoglobin A1c 9.0 H Calcium Magnesium Total Bilirubin AST ALT Alkaline Phosphatase Total Protein Albumin Vancomycin Trough 08/22/24 08/22/24 08/22/24 16:49 18:11 21:05 WBC RBC Hgb Hct MCV MCH MCHC RDW Plt Count MPV Immature Gran % (Auto) Neut % (Auto) Lymph % (Auto) [place] % (Auto) Eos % (Auto) Baso % (Auto) Lymph # (Auto) [place] # (Auto) Eos # (Auto) Baso # (Auto) Abs Immat Gran (auto) Absolute Neuts (auto) Absolute Nucleated RBC Nucleated RBC % Sodium Potassium Chloride Carbon Dioxide Anion Gap BUN Creatinine Estim Creat Clear Calc Estimated GFR Glucose POC Capillary Glucose 206 H 197 H 237 H Hemoglobin A1c Calcium Magnesium Total Bilirubin AST ALT Alkaline Phosphatase Total Protein Albumin Vancomycin Trough 08/22/24 08/23/24 08/23/24 21:47 06:35 08:06 WBC 11.9 H RBC 3.30 L Hgb 9.4 L Hct 30.1 L MCV 91.2 MCH 28.5 MCHC 31.2 L RDW 13.4 Plt Count 417 H MPV 9.6 Immature Gran % (Auto) 1.7 H Neut % (Auto) 80.6 H Lymph % (Auto) 9.9 L [place] % (Auto) 5.4 Eos % (Auto) 1.8 Baso % (Auto) 0.6 Lymph # (Auto) 1.18 [place] # (Auto) 0.6 Eos # (Auto) 0.2 Baso # (Auto) 0.1 Abs Immat Gran (auto) 0.20 H Absolute Neuts (auto) 9.6 H Absolute Nucleated RBC 0.000 Nucleated RBC % 0.0 Sodium 133 L Potassium 5.2 H Chloride 102 Carbon Dioxide 23 Anion Gap 8 BUN 31 H D Creatinine 1.48 H Estim Creat Clear Calc 41 Estimated GFR 46 L Glucose 307 H POC Capillary Glucose 286 H Hemoglobin A1c Calcium 8.4 Magnesium 1.8 Total Bilirubin 0.6 AST 41 ALT 25 Alkaline Phosphatase 69 Total Protein 6.0 L Albumin 2.5 L Vancomycin Trough < 5.0 L
[2024-08-23 12:21] LABS: Glucose Point of Care 107 mg/dl (65-105)
[2024-08-23 14:00] VITALS: BP 104/51; PULSE 91; RESP 18; TEMP 36.9; O2SAT 100
[2024-08-23 16:00] VITALS: PULSE 86; O2SAT 100
[2024-08-23 17:17] LABS: Glucose Point of Care 193 mg/dl (65-105)
[2024-08-23 20:00] VITALS: BP 115/48; PULSE 95; RESP 19; TEMP 36.4; O2SAT 96
[2024-08-23] MEDS: ATORVASTATIN 20 MG TABLET PO (22:03)
[2024-08-23] MEDS: DULoxetine HCL 30 MG CAPSULE.DR PO (22:03)
[2024-08-23] MEDS: SOD HYPOCHLORITE 1/4 STRENGTH 473 ML 1 APPLIC TOPICAL (22:07)
[2024-08-23 23:00] LABS: Vancomycin Trough 7.2 ug/mL (10.0-20.0)
[2024-08-23 23:51] LABS: Glucose Point of Care 98 mg/dl (65-105)
[2024-08-24] VITALS (7 sets, daily range): BP systolic 116–152; BP diastolic 52–69; PULSE 70–88; RESP 16–20; TEMP 36.2–37.2; O2SAT 98–100
[2024-08-24 00:18] LABS: Glucose Point of Care 106 mg/dl (65-105)
[2024-08-24] MEDS: VANCOMYCIN 1,500 MG/NS 500 ML 1,500 MG/500 ML BAG 250 MG IVPB (03:00)
--- NOTE | 2024-08-24 07:55 | P.PNIM_ITS ---
Progress Note: A&P Assessment and Plan (1) Sepsis: Qualifiers: Sepsis acute organ dysfunction status: without acute organ dysfunction Sepsis type: sepsis due to unspecified organism Qualified Code(s): A41.9 - S epsis, unspecified organism Code(s): A41.9 - Sepsis, unspecified organism Status: Acute Assessment and Plan: Patient presents with left foot wound. Imaging shows osteomyelitis in the bilateral feet. Lactic acid was 6.2. WBC 19 K. patient was tachycardic but afebrile. Suspect sepsis is related to left diabetic foot wound with necrotizing fasciitis and osteomyelitis. UA noted but urine culture negative Blood cultures no growth to date. Patient started on cefepime, vancomycin and Flagyl per antibiotic stewardship. Lactic acid level is normal. White count is trending downward. Orthopedic consulted for debridement as mentioned below. Follow-up on culture results. (2) Foot osteomyelitis, left: Code(s): M86.9 - Osteomyelitis, unspecified Status: Acute Assessment and Plan: Left foot MRI shows osteomyelitis of the 3rd proximal phalanx, head and neck 3rd metatarsal with fracture. He also had gas tracking proximally along the plantar soft tissue of the forefoot consistent with necrotizing fasciitis. ABIs showing Right 0.54 (TBI 0.54) and Left 0.081 (TBI 0.22). Also, patient had a right foot MRI that showed osteomyelitis at the lateral base of the 5th metatarsal Orthopedic consulted and patient was brought to the OR for left transmetatarsal amputation and right foot debridement to bone. Wound culture: growing Group G Strep and Staph aureus. Follow up on sensitivities. Continue current wound care. Appreciate Orthopedic input. Start PT/OT when able. (3) Diabetic foot ulcer: Qualifiers: Diabetes mellitus type: type 2 Diabetic foot ulcer location: heel Laterality: right Non-pressure ulcer stage: limited to breakdown of skin Qualified Code(s): E11.621 - Type 2 diabetes mellitus with foot ulcer; L97.411 - Non-pressure chronic ulcer of right heel and midfoot limited to breakdown of skin Code(s): E11.621 - Type 2 diabetes mellitus with foot ulcer; L97.509 - Non-pressure chronic ulcer of other part of unspecified foot with unspecified severity Status: Acute Assessment and Plan: As above (4) Acute kidney injury superimposed on chronic kidney disease: Code(s): N17.9 - Acute kidney failure, unspecified; N18.9 - Chronic kidney disease, unspecified Status: Acute Assessment and Plan: Cr elevated at 2.75 on admission. Baseline unclear but probably around 1.5. Suspect related to sepsis, ostemyelitis and necrotizing fasciitis. Also was on ibuprofen, lisinopril at home Treated with IV fluids and Cr better. Off IV fluids, Cr continues to improve to 1.15 today. He is eating well Continue to follow. (5) Insulin dependent type 2 diabetes mellitus: Code(s): E11.9 - Type 2 diabetes mellitus without complications; Z79.4 - shelter (current) use of insulin Status: Chronic Assessment and Plan: The patient's blood glucose was reviewed on 08/24 Glucose was higher but did drop to low-normal range last evening. Continue AccuCheks covering with sliding scale. Hypoglycemia protocol available as needed. Back down on lantus and mealtime novolog. NPO after midnight so will cut Lantus in half. Continue to monitor (6) Essential hypertension: Code(s): I10 - Essential (primary) hypertension Status: Chronic Assessment and Plan: Patient's blood pressure was reviewed on 08/24 Blood pressure remains well controlled. Will continue to monitor Plan Hyperkalemia - Intermittent hyperkalemia which has been noted in the past. [place] related to the FILIPPO. Low potassium diet. Somnolence - patient fatigued during the day. Check apnea link. Code status. Full VTE prophylaxis. SCDs; REED Subjective Date/time seen: 08/24/24 07:55 Interval history: 73yo male with CKD, HTN, insulin dependent DM with neuropathy and BPH here for left foot wound. Feels well. Slept okay. No Cp or SOB. No foot pain. Exam Narrative: AF 97.8 130/59 70 18 100% ra Gen - NARD Chest - CTA bilaterally, nml RR CV - RRR S1/S2 Abd - Soft, NT/ND, Positive BS Ext - No pedal edema. Left foot and right foot dressings are clean, dry and intact Psych - Nml mood and affect Skin - Warm and dry. Objective Data Vital Signs Vital Signs: Vital Signs - 24 hr 08/23/24 09:19 08/23/24 14:00 08/23/24 16:00 Temperature 98.4 F Pulse Rate 91 86 Respiratory Rate 18 Blood Pressure 104/51 L Pulse Oximetry 95 100 100 Oxygen Delivery Room Air 08/23/24 20:00 08/24/24 00:00 08/24/24 04:00 Temperature 97.5 F L 97.2 F L 97.8 F Pulse Rate 95 88 70 Respiratory Rate 19 18 18 Blood Pressure 115/48 L 116/52 L 130/59 L Pulse Oximetry 96 98 100 Oxygen Delivery 08/24/24 05:28 Temperature 97.8 F Pulse Rate 70 Respiratory Rate 18 Blood Pressure 130/59 L Pulse Oximetry 100 Oxygen Delivery Intake/Output Intake/Output: Intake & Output 08/21/24 08/22/24 08/23/24 08/24/24 23:59 23:59 23:59 23:59 Intake Total 1300 2637 1460 287 Output Total 75 75 Balance 1225 2562 1460 287 Meds/Results Medications: Active Medications Generic Name Dose Route Start Last Admin Trade Name Freq PRN Reason Stop Dose Admin Acetaminophen 650 mg 08/22/24 07:56 08/22/24 21:41 Acetaminophen 325 Mg Tablet PO 650 mg Q6H PRN Administration Pain Hydrocodone Bitart/Acetaminophen 1 tab 08/23/24 00:13 08/23/24 22:03 Hydrocodone/Acetaminophen (*Crx) 5-325 Mg Tablet PO 1 tab Q6H PRN Administration Pain Rated 4-6 Albuterol/Ipratropium 3 ml 08/22/24 06:48 Ipratropium 0.5 Mg/Albuterol Sulfate 2.5 Mg Ampul.Neb 3 Ml INHALATION Q4HRT PRN shortness of breath/Wheezing Aspirin 81 mg 08/22/24 09:00 08/23/24 08:33 Aspirin 81 Mg Chewable Tablet PO 81 mg DAILY REED Administration Atorvastatin Calcium 20 mg 08/22/24 21:00 08/23/24 22:03 Atorvastatin 20 Mg Tablet PO 20 mg HS REED Administration Dextrose 12.5 gm 08/22/24 07:53 Dextrose 50% 25 Gm/50 Ml Syringe IV PUSH PRN PRN Hypoglycemia Protocol Docusate Sodium 100 mg 08/22/24 08:02 Docusate Sodium 100 Mg Capsule PO QHS PRN Constipation Duloxetine HCl 30 mg 08/22/24 21:00 08/23/24 22:03 Duloxetine Hcl 30 Mg Capsule.Dr PO 30 mg HS REED Administration Fenofibrate 160 mg 08/22/24 09:00 08/23/24 08:33 Fenofibrate 160 Mg Tablet PO 160 mg DAILY REED Administration Fluoxetine HCl 20 mg 08/22/24 09:00 08/23/24 08:33 Fluoxetine Hcl 20 Mg Capsule PO 20 mg DAILY REED Administration Glucagon 1 mg 08/22/24 07:53 Glucagon For Inj 1 Mg Vial IM PRN PRN Hypoglycemia Protocol Glucose 15 gm 08/22/24 07:53 Glucose Oral Gel 15 Gm Of Glucse In 37.5 Gm Tube PO PRN PRN Hypoglycemia Protocol Heparin Sodium (Porcine) 5,000 units 08/22/24 21:00 08/23/24 22:04 Heparin Sodium 5,000 Units/Ml Vial SUB-Q 5,000 units Q12HR REED Administration Cefepime HCl 2 gm in 50 mls @ 100 mls/hr 08/22/24 09:00 08/23/24 22:04 Maxipime 2 Gm/Ns 50 Ml IVPB 100 mls/hr Q12HR REED Administration Metronidazole 500 mg in 100 mls @ 100 mls/hr 08/22/24 07:55 08/23/24 22:50 Flagyl 500 Mg/Iso Soln 100 Ml IVPB 100 mls/hr Q8HR REED Administration Dextrose 1,000 mls @ 100 mls/hr 08/22/24 07:53 Dextrose 5% 1,000 Ml IVPB PRN PRN Hypoglycemia Protocol Vancomycin HCl 1,500 mg in 500 mls @ 250 mls/hr 08/24/24 00:00 08/24/24 03:00 Vancomycin 1,500 Mg/Ns 500 Ml IVPB 250 mls/hr Q24H REED Administration Insulin Aspart 3 - 6 units 08/22/24 12:00 08/23/24 18:23 Insulin Aspart (*Bkc) 100 Units/Ml SUB-Q Not Given Q6HR REED Protocol Insulin Aspart 10 units 08/23/24 08:00 08/23/24 18:49 Insulin Aspart (*Bkc) 100 Units/Ml SUB-Q 10 units TIDWM REED Administration Insulin Glargine 60 units 08/23/24 21:00 Insulin Glargine (*Bkc) 100 Units/Ml SUB-Q HS REED Lisinopril 10 mg 08/22/24 09:00 08/23/24 08:33 Lisinopril 10 Mg Tablet PO 10 mg DAILY REED Administration Melatonin 5 mg 08/22/24 06:48 08/22/24 21:36 Melatonin 5 Mg Tablet PO 5 mg HS PRN Administration Insomnia Morphine Sulfate 2 mg 08/23/24 00:14 Morphine Sulfate (*Crx) 2 Mg/Ml Inj IV PUSH Q4H PRN Pain Rated 7-10 Multivitamins Therapeutic 1 tablet 08/22/24 09:00 08/23/24 08:33 Multivitamins Therapeutic Tab (*Bkc) PO 1 tablet DAILY REED Administration Polyethylene Glycol 17 gm 08/22/24 09:00 08/23/24 08:33 Polyethylene Glycol 3350 17 Gm Powd.Pack PO 17 gm DAILY REED Administration Prochlorperazine Edisylate 10 mg 08/22/24 06:48 Prochlorperazine Edisylate 10 Mg/2 Ml Vial IV PUSH Q6H PRN Nausea And Vomiting Sodium Hypochlorite 1 applic 08/22/24 09:00 08/23/24 22:07 Sod Hypochlorite 1/4 Strength 473 Ml TOPICAL 1 applic DAILY REED Administration Tamsulosin HCl 0.4 mg 08/22/24 09:00 08/23/24 08:33 Tamsulosin Hcl 0.4 Mg Capsule PO 0.4 mg DAILY REED Administration Radiology Results: ITS Impressions Foot X-Ray 08/22/24 10:04 IMPRESSION: Significant degenerative disease, as detailed above. Findings within the base of the fifth metatarsal for which osteomyelitis is suspected. Foot MRI 08/22/24 14:57 IMPRESSION: 1. Osteomyelitis at the third proximal phalanx, head and neck the third metatarsal with secondary pathologic fracture at the base of the second proximal phalanx. Equivocal reactive edema versus very early osteomyelitis at the head of the second metatarsal. 2. Gas tracking proximally along the plantar soft tissues of the forefoot most likely representing extension from ulceration plantar to the head of the third metatarsal although differential would include necrotizing fasciitis in the appropriate clinical setting. Findings were discussed with Grayson Hawkins, the nurse caring for the patient, at 3:10 PM. Ankle Brachial Index 08/22/24 15:29 IMPRESSION: 1. Moderately decreased right ELIZABETH and mildly decreased left ELIZABETH with worsening from 11/21/2018, consistent with arterial occlusive disease. Labs Labs: Laboratory Results - last 24 hr 08/23/24 08/23/24 08/23/24 08:06 12:18 17:06 POC Capillary Glucose 286 H 107 H 193 H Vancomycin Trough 08/23/24 08/23/24 08/23/24 21:54 22:13 23:53 POC Capillary Glucose 98 106 H Vancomycin Trough 7.2 L
[2024-08-24 08:11] LABS: Basophils Absolute Auto 0.1 K/mm3 (0.0-0.1); Basophils Percent Auto 0.7 % (0.2-1.2); Eosinophils Absolute Auto 0.4 K/mm3 (0-0.3); Hematocrit 30.7 % (42.0-52.0); Hemoglobin 9.7 g/dL (14.0-18.0); Immature Granulocyte Percent A 1.9 % (0-0.5); Lymphocytes Absolute Auto 2.05 K/mm3 (0.9-3.2); Lymphocytes Percent Auto 19.2 % (18.3-44.2); Mean Corpuscular HGB Conc 31.6 g/dl (32-36); Mean Corpuscular Hemoglobin 28.4 pg (26-34); Mean Platelet Volume 9.4 fl (7.4-10.4); Monocytes Absolute Auto 0.8 K/mm3 (0.1-0.6); Monocytes Percent Auto 7.1 % (2.6-8.5); Neutrophils Absolute Auto 7.2 K/mm3 (1.3-6.7); Neutrophils Percent Auto 67.1 % (45.5-73.1); Platelet Count Result 446 k/mm3 (150-375); Red Blood Count 3.41 M/mm3 (4.6-6.20); Red Cell Distribution Width 13.5 % (11.5-14.5); White Blood Count 10.7 K/mm3 (4.5-10.0)
[2024-08-24 08:16] LABS: Alanine Aminotransferase 25 U/L (6-50); Albumin Level 2.6 g/dL (3.5-5.1); Alkaline Phosphatase 53 U/L (38-126); Anion Gap 7 mmol/L (4-12); Aspartate Amino Transferase 33 U/L (17-59); Bilirubin,Total 0.5 mg/dL (0.2-1.3); Blood Urea Nitrogen 20 mg/dL (9-20); Calcium 8.2 mg/dL (8.4-10.2); Carbon Dioxide 23 mmol/L (22-30); Chloride 102 mmol/L (98-107); Estimated CRCL calculation 52 ml/min; Estimated Glomerular Filt Rate > 60; Glucose 159 mg/dL (65-110); Potassium 4.2 mmol/L (3.4-5.0); Sodium 132 mmol/L (137-145)
[2024-08-24 08:24] LABS: Glucose Point of Care 174 mg/dl (65-105)
[2024-08-24] MEDS: FENOFIBRATE 160 MG TABLET PO (09:16)
[2024-08-24] MEDS: TAMSULOSIN HCL 0.4 MG CAPSULE PO (09:16)
[2024-08-24] MEDS: polyethylene glycoL 3350 17 GM POWD.PACK PO (09:16)
[2024-08-24] MEDS: ASPIRIN 81 MG CHEWABLE TABLET PO (09:16)
[2024-08-24] MEDS: lisinopriL 10 MG TABLET PO (09:16)
[2024-08-24] MEDS: MULTIVITAMINS THERAPEUTIC TAB (*BKC) 1 TABLET PO (09:16)
[2024-08-24] MEDS: FLUoxetine HCL 20 MG CAPSULE PO (09:16)
[2024-08-24] MEDS: HEPARIN SODIUM 5,000 UNITS/ML VIAL 5000 UNITS SUB-Q ×2 (09:17→20:50)
[2024-08-24] MEDS: INSULIN ASPART (*BKC) 100 UNITS/ML SUB-Q ×4 (09:17→17:52)
[2024-08-24] MEDS: CEFEPIME 2 GM/NS 50 ML 2 GM/50 ML BAG IVPB ×2 (09:34→20:49)
[2024-08-24] MEDS: SOD HYPOCHLORITE 1/4 STRENGTH 473 ML 1 APPLIC TOPICAL (10:00)
[2024-08-24] MEDS: metroNIDAZOLE 500 MG/ISO 100ML 500 MG/100 ML BAG 100 MG IVPB ×2 (10:38→17:52)
--- NOTE | 2024-08-24 11:50 | P.PNOP_ITS ---
Progress Note: A&P Assessment and Plan (1) Arterial insufficiency: Code(s): I77.1 - Stricture of artery Status: Acute (2) Diabetic ulcer of right foot: Qualifiers: Diabetic foot ulcer location: midfoot Diabetes mellitus type: type 1 Non-pressure ulcer stage: with fat layer exposed Qualified Code(s): E10.621 - Type 1 diabetes mellitus with foot ulcer; L97.412 - Non-pressure chronic ulcer of right heel and midfoot with fat layer exposed Code(s): E11.621 - Type 2 diabetes mellitus with foot ulcer; L97.519 - Non-pressure chronic ulcer of other part of right foot with unspecified severity Status: Acute (3) Osteomyelitis of foot, left, acute: Code(s): M86.172 - Other acute osteomyelitis, left ankle and foot Status: Acute Plan Postoperative day 2 bilateral foot osteomyelitis. Wounds left open due to gross contamination. Dressing change today. G stain shows Gram-positive cocci. Continue with IV antibiotics nutritional supplement. Plan to return to operating room for debridement and possible closure of some of the wounds tomorrow. Discussed nonoperative and operative treatment options with the patient. Risks and benefits of each as well as alternatives were reviewed. All of the patient's questions were answered. The risks of surgery reviewed including but not limited to: Neurovascular damage, wound complication, infection, blood clot, pulmonary embolus, stroke, myocardial infarction, and anesthetic risks up to and including . Continued pain and possible dysfunction were explained. Specific risks of the procedure including later recurrence of deformity. No guarantees were offered. If hardware used, discussed risk of failure/ breakage and possible need for removal. If complications occur, the patient understands the need for further treatment, possible further surgery. Patient verbalizes understanding and wishes to proceed. PLAN: Excisional debridement bilateral diabetic foot ulcers Subjective Subjective Date/Time Seen: 08/24/24 11:50 Post Op day: 2 Principal diagnosis: Bilateral diabetic foot osteomyelitis Interval history: Patient comfortable in bed. Dressing change done yesterday. No new complaints. Discussed with patient. Plan to return to the operating room for debridement tomorrow. Exam Const: General: healthy appearing; No in distress or confusion Orientation/consciousness: patient oriented x3 and No confusion HENMT: Head: normal to inspection, normocephalic and atraumatic Eyes: Conjunctivae: conjunctivae normal Sclera: sclerae normal Resp: Effort & Inspection: normal respiratory effort and no audible wheezes Neuro: General: patient oriented x3 Extrem: Other: bilateral foot dressings in place. Lower leg swelling and erythema improved. Negative Homans sign. Objective Data Vital Signs Vital Signs: Vital Signs - 24 hr 08/23/24 14:00 08/23/24 16:00 08/23/24 20:00 Temperature 98.4 F 97.5 F L Pulse Rate 91 86 95 Respiratory Rate 18 19 Blood Pressure 104/51 L 115/48 L Pulse Oximetry 100 100 96 08/24/24 00:00 08/24/24 04:00 08/24/24 05:28 Temperature 97.2 F L 97.8 F 97.8 F Pulse Rate 88 70 70 Respiratory Rate 18 18 18 Blood Pressure 116/52 L 130/59 L 130/59 L Pulse Oximetry 98 100 100 08/24/24 09:30 Temperature 98.2 F Pulse Rate 87 Respiratory Rate 18 Blood Pressure 127/66 Pulse Oximetry 99 Intake/Output Intake/Output: Intake & Output 08/21/24 08/22/24 08/23/24 08/24/24 23:59 23:59 23:59 23:59 Intake Total 1300 2637 1510 527 Output Total 75 75 Balance 1225 2562 1510 527 Meds/Results Medications: Active Medications Generic Name Dose Route Start Last Admin Trade Name Freq PRN Reason Stop Dose Admin Acetaminophen 650 mg 08/22/24 07:56 08/22/24 21:41 Acetaminophen 325 Mg Tablet PO 650 mg Q6H PRN Administration Pain Hydrocodone Bitart/Acetaminophen 1 tab 08/23/24 00:13 08/23/24 22:03 Hydrocodone/Acetaminophen (*Crx) 5-325 Mg Tablet PO 1 tab Q6H PRN Administration Pain Rated 4-6 Albuterol/Ipratropium 3 ml 08/22/24 06:48 Ipratropium 0.5 Mg/Albuterol Sulfate 2.5 Mg Ampul.Neb 3 Ml INHALATION Q4HRT PRN shortness of breath/Wheezing Aspirin 81 mg 08/22/24 09:00 08/24/24 09:16 Aspirin 81 Mg Chewable Tablet PO 81 mg DAILY REED Administration Atorvastatin Calcium 20 mg 08/22/24 21:00 08/23/24 22:03 Atorvastatin 20 Mg Tablet PO 20 mg HS REED Administration Dextrose 12.5 gm 02/28/25 07:53 Dextrose 50% 25 Gm/50 Ml Syringe IV PUSH PRN PRN Hypoglycemia Protocol Docusate Sodium 100 mg 08/22/24 08:02 Docusate Sodium 100 Mg Capsule PO QHS PRN Constipation Duloxetine HCl 30 mg 08/22/24 21:00 08/23/24 22:03 Duloxetine Hcl 30 Mg Capsule.Dr PO 30 mg HS REED Administration Fenofibrate 160 mg 08/22/24 09:00 08/24/24 09:16 Fenofibrate 160 Mg Tablet PO 160 mg DAILY REED Administration Fluoxetine HCl 20 mg 08/22/24 09:00 08/24/24 09:16 Fluoxetine Hcl 20 Mg Capsule PO 20 mg DAILY REED Administration Glucagon 1 mg 08/22/24 07:53 Glucagon For Inj 1 Mg Vial IM PRN PRN Hypoglycemia Protocol Glucose 15 gm 08/22/24 07:53 Glucose Oral Gel 15 Gm Of Glucse In 37.5 Gm Tube PO PRN PRN Hypoglycemia Protocol Heparin Sodium (Porcine) 5,000 units 08/22/24 21:00 08/24/24 09:17 Heparin Sodium 5,000 Units/Ml Vial SUB-Q 5,000 units Q12HR REED Administration Cefepime HCl 2 gm in 50 mls @ 100 mls/hr 08/22/24 09:00 08/24/24 09:34 Maxipime 2 Gm/Ns 50 Ml IVPB 100 mls/hr Q12HR REED Administration Dextrose 1,000 mls @ 100 mls/hr 08/22/24 07:53 Dextrose 5% 1,000 Ml IVPB PRN PRN Hypoglycemia Protocol Vancomycin HCl 1,500 mg in 500 mls @ 250 mls/hr 08/24/24 00:00 08/24/24 03:00 Vancomycin 1,500 Mg/Ns 500 Ml IVPB 250 mls/hr Q24H REED Administration Metronidazole 500 mg in 100 mls @ 100 mls/hr 08/24/24 10:00 08/24/24 10:38 Flagyl 500 Mg/Iso Soln 100 Ml IVPB 100 mls/hr Q8H REED Administration Insulin Aspart 3 - 6 units 08/22/24 12:00 08/24/24 08:58 Insulin Aspart (*Bkc) 100 Units/Ml SUB-Q Not Given Q6HR REED Protocol Insulin Aspart 5 units 08/24/24 08:00 08/24/24 09:17 Insulin Aspart (*Bkc) 100 Units/Ml SUB-Q 5 units TIDWM REED Administration Insulin Glargine 40 units 08/24/24 21:00 Insulin Glargine (*Bkc) 100 Units/Ml SUB-Q HS REED Lisinopril 10 mg 08/22/24 09:00 08/24/24 09:16 Lisinopril 10 Mg Tablet PO 10 mg DAILY REED Administration Melatonin 5 mg 08/22/24 06:48 08/22/24 21:36 Melatonin 5 Mg Tablet PO 5 mg HS PRN Administration Insomnia Morphine Sulfate 2 mg 08/23/24 00:14 Morphine Sulfate (*Crx) 2 Mg/Ml Inj IV PUSH Q4H PRN Pain Rated 7-10 Multivitamins Therapeutic 1 tablet 08/22/24 09:00 08/24/24 09:16 Multivitamins Therapeutic Tab (*Bkc) PO 1 tablet DAILY REED Administration Polyethylene Glycol 17 gm 08/22/24 09:00 08/24/24 09:16 Polyethylene Glycol 3350 17 Gm Powd.Pack PO 17 gm DAILY REED Administration Prochlorperazine Edisylate 10 mg 08/22/24 06:48 Prochlorperazine Edisylate 10 Mg/2 Ml Vial IV PUSH Q6H PRN Nausea And Vomiting Sodium Hypochlorite 1 applic 08/22/24 09:00 08/23/24 22:07 Sod Hypochlorite 1/4 Strength 473 Ml TOPICAL 1 applic DAILY REED Administration Tamsulosin HCl 0.4 mg 08/22/24 09:00 08/24/24 09:16 Tamsulosin Hcl 0.4 Mg Capsule PO 0.4 mg DAILY REED Administration Radiology Results: ITS Impressions Foot X-Ray 08/22/24 10:04 IMPRESSION: Significant degenerative disease, as detailed above. Findings within the base of the fifth metatarsal for which osteomyelitis is suspected. Foot MRI 08/22/24 14:57 IMPRESSION: 1. Osteomyelitis at the third proximal phalanx, head and neck the third metatarsal with secondary pathologic fracture at the base of the second proximal phalanx. Equivocal reactive edema versus very early osteomyelitis at the head of the second metatarsal. 2. Gas tracking proximally along the plantar soft tissues of the forefoot most likely representing extension from ulceration plantar to the head of the third metatarsal although differential would include necrotizing fasciitis in the appropriate clinical setting. Findings were discussed with Grayson Hawkins, the nurse caring for the patient, at 3:10 PM. Ankle Brachial Index 08/22/24 15:29 IMPRESSION: 1. Moderately decreased right ELIZABETH and mildly decreased left ELIZABETH with worsening from 11/21/2018, consistent with arterial occlusive disease. Labs Labs: Laboratory Results - last 24 hr 08/23/24 08/23/24 08/23/24 12:18 17:06 21:54 WBC RBC Hgb Hct MCV MCH MCHC RDW Plt Count MPV Immature Gran % (Auto) Neut % (Auto) Lymph % (Auto) [place] % (Auto) Eos % (Auto) Baso % (Auto) Lymph # (Auto) [place] # (Auto) Eos # (Auto) Baso # (Auto) Abs Immat Gran (auto) Absolute Neuts (auto) Absolute Nucleated RBC Nucleated RBC % Sodium Potassium Chloride Carbon Dioxide Anion Gap BUN Creatinine Estim Creat Clear Calc Estimated GFR Glucose POC Capillary Glucose 107 H 193 H Calcium Total Bilirubin AST ALT Alkaline Phosphatase Total Protein Albumin Vancomycin Trough 7.2 L 08/23/24 08/23/24 08/24/24 22:13 23:53 07:57 WBC 10.7 H RBC 3.41 L Hgb 9.7 L Hct 30.7 L MCV 90.0 MCH 28.4 MCHC 31.6 L RDW 13.5 Plt Count 446 H MPV 9.4 Immature Gran % (Auto) 1.9 H Neut % (Auto) 67.1 Lymph % (Auto) 19.2 [place] % (Auto) 7.1 Eos % (Auto) 4.0 Baso % (Auto) 0.7 Lymph # (Auto) 2.05 [place] # (Auto) 0.8 H Eos # (Auto) 0.4 H Baso # (Auto) 0.1 Abs Immat Gran (auto) 0.20 H Absolute Neuts (auto) 7.2 H Absolute Nucleated RBC 0.000 Nucleated RBC % 0.0 Sodium 132 L Potassium 4.2 Chloride 102 Carbon Dioxide 23 Anion Gap 7 BUN 20 D Creatinine 1.15 Estim Creat Clear Calc 52 Estimated GFR > 60 Glucose 159 H POC Capillary Glucose 98 106 H Calcium 8.2 L Total Bilirubin 0.5 AST 33 ALT 25 Alkaline Phosphatase 53 Total Protein 6.0 L Albumin 2.6 L Vancomycin Trough 08/24/24 08:07 WBC RBC Hgb Hct MCV MCH MCHC RDW Plt Count MPV Immature Gran % (Auto) Neut % (Auto) Lymph % (Auto) [place] % (Auto) Eos % (Auto) Baso % (Auto) Lymph # (Auto) [place] # (Auto) Eos # (Auto) Baso # (Auto) Abs Immat Gran (auto) Absolute Neuts (auto) Absolute Nucleated RBC Nucleated RBC % Sodium Potassium Chloride Carbon Dioxide Anion Gap BUN Creatinine Estim Creat Clear Calc Estimated GFR Glucose POC Capillary Glucose 174 H Calcium Total Bilirubin AST ALT Alkaline Phosphatase Total Protein Albumin Vancomycin Trough
[2024-08-24 11:59] LABS: Glucose Point of Care 198 mg/dl (65-105)
[2024-08-24 17:30] LABS: Glucose Point of Care 263 mg/dl (65-105)
[2024-08-24] MEDS: ATORVASTATIN 20 MG TABLET PO (20:49)
[2024-08-24] MEDS: DULoxetine HCL 30 MG CAPSULE.DR PO (20:49)
[2024-08-24 21:29] LABS: Glucose Point of Care 201 mg/dl (65-105)
[2024-08-25] VITALS (11 sets, daily range): BP systolic 100–170; BP diastolic 59–79; PULSE 80–87; RESP 16–20; TEMP 36.8–37.7; O2SAT 95–100
--- NOTE | 2024-08-25 00:10 | PCRCNOTE ---
Apnea link not completed the night of 08/24/24. RT attempted to talk to the patient, however, the patient would not wake up after RT attempted to wake him multiple times. Will attempt the night of 08/25/24.
[2024-08-25] MEDS: VANCOMYCIN 1,500 MG/NS 500 ML 1,500 MG/500 ML BAG 250 MG IVPB (00:36)
[2024-08-25 00:41] LABS: Glucose Point of Care 225 mg/dl (65-105)
[2024-08-25] MEDS: INSULIN ASPART (*BKC) 100 UNITS/ML SUB-Q (00:42)
[2024-08-25] MEDS: metroNIDAZOLE 500 MG/ISO 100ML 500 MG/100 ML BAG 100 MG IVPB ×3 (02:37→18:21)
[2024-08-25 06:01] LABS: Glucose Point of Care 169 mg/dl (65-105)
[2024-08-25 07:16] LABS: Basophils Absolute Auto 0.1 K/mm3 (0.0-0.1); Basophils Percent Auto 0.7 % (0.2-1.2); Eosinophils Absolute Auto 0.4 K/mm3 (0-0.3); Eosinophils Percent Auto 3.7 % (0-4.4); Hematocrit 32.3 % (42.0-52.0); Hemoglobin 10.3 g/dL (14.0-18.0); Immature Granulocyte Absolute 0.24 K/mm3 (0.00-0.031); Immature Granulocyte Percent A 2.2 % (0-0.5); Lymphocytes Absolute Auto 2.35 K/mm3 (0.9-3.2); Lymphocytes Percent Auto 21.5 % (18.3-44.2); Mean Corpuscular HGB Conc 31.9 g/dl (32-36); Mean Corpuscular Hemoglobin 28.3 pg (26-34); Mean Corpuscular Volume 88.7 fl (80-100); Mean Platelet Volume 9.5 fl (7.4-10.4); Monocytes Absolute Auto 0.8 K/mm3 (0.1-0.6); Monocytes Percent Auto 7.2 % (2.6-8.5); Neutrophils Absolute Auto 7.1 K/mm3 (1.3-6.7); Neutrophils Percent Auto 64.7 % (45.5-73.1); Platelet Count Result 456 k/mm3 (150-375); Red Blood Count 3.64 M/mm3 (4.6-6.20); Red Cell Distribution Width 13.2 % (11.5-14.5); White Blood Count 10.9 K/mm3 (4.5-10.0)
[2024-08-25 07:47] LABS: Glucose Point of Care 154 mg/dl (65-105)
[2024-08-25 08:02] LABS: Alanine Aminotransferase 25 U/L (6-50); Albumin Level 2.6 g/dL (3.5-5.1); Alkaline Phosphatase 68 U/L (38-126); Anion Gap 6 mmol/L (4-12); Aspartate Amino Transferase 37 U/L (17-59); Bilirubin,Total 0.4 mg/dL (0.2-1.3); Blood Urea Nitrogen 16 mg/dL (9-20); Calcium 8.6 mg/dL (8.4-10.2); Carbon Dioxide 27 mmol/L (22-30); Chloride 100 mmol/L (98-107); Estimated CRCL calculation 59 ml/min; Estimated Glomerular Filt Rate > 60; Glucose 161 mg/dL (65-110); Potassium 4.4 mmol/L (3.4-5.0); Sodium 133 mmol/L (137-145)
--- NOTE | 2024-08-25 08:11 | P.PNIM_ITS ---
Progress Note: A&P Assessment and Plan (1) Sepsis: Qualifiers: Sepsis acute organ dysfunction status: without acute organ dysfunction Sepsis type: sepsis due to unspecified organism Qualified Code(s): A41.9 - S epsis, unspecified organism Code(s): A41.9 - Sepsis, unspecified organism Status: Acute Assessment and Plan: Patient presents with left foot wound. Imaging shows osteomyelitis in the bilateral feet. Lactic acid was 6.2. WBC 19 K. patient was tachycardic but afebrile. Suspect sepsis is related to left diabetic foot wound with necrotizing fasciitis and osteomyelitis. UA noted but urine culture negative Blood cultures no growth to date. Wound Cx growing Group A Strept and Staph aureus Patient started on cefepime, vancomycin and Flagyl per antibiotic stewardship. Lactic acid level is normal. White count is about the same today. Orthopedic consulted and appreciate their input. Plan for patient to go to the OR today for further debridement. Follow-up on culture results. (2) Foot osteomyelitis, left: Code(s): M86.9 - Osteomyelitis, unspecified Status: Acute Assessment and Plan: Left foot MRI shows osteomyelitis of the 3rd proximal phalanx, head and neck 3rd metatarsal with fracture. He also had gas tracking proximally along the plantar soft tissue of the forefoot consistent with necrotizing fasciitis. ABIs showing Right 0.54 (TBI 0.54) and Left 0.081 (TBI 0.22). Also, patient had a right foot MRI that showed osteomyelitis at the lateral base of the 5th metatarsal Orthopedic consulted and patient was brought to the OR for left transmetatarsal amputation and right foot debridement to bone. Wound culture: growing Group G Strep and Staph aureus. Follow up on sensitivities. Continue current wound care. Appreciate Orthopedic input. Start PT/OT when able. (3) Diabetic foot ulcer: Qualifiers: Diabetes mellitus type: type 2 Diabetic foot ulcer location: heel Laterality: right Non-pressure ulcer stage: limited to breakdown of skin Qualified Code(s): E11.621 - Type 2 diabetes mellitus with foot ulcer; L97.411 - Non-pressure chronic ulcer of right heel and midfoot limited to breakdown of skin Code(s): E11.621 - Type 2 diabetes mellitus with foot ulcer; L97.509 - Non-pressure chronic ulcer of other part of unspecified foot with unspecified severity Status: Acute Assessment and Plan: As above (4) Acute kidney injury superimposed on chronic kidney disease: Code(s): N17.9 - Acute kidney failure, unspecified; N18.9 - Chronic kidney disease, unspecified Status: Acute Assessment and Plan: Cr elevated at 2.75 on admission. Baseline unclear but probably around 1.5. Suspect related to sepsis, osteomyelitis and necrotizing fasciitis. Also was on ibuprofen, lisinopril at home Treated with IV fluids and Cr better. Off IV fluids, Cr stable at 1.01 He is eating well Continue to follow. (5) Insulin dependent type 2 diabetes mellitus: Code(s): E11.9 - Type 2 diabetes mellitus without complications; Z79.4 - nursing home (curre nt) use of insulin Status: Chronic Assessment and Plan: The patient's blood glucose was reviewed on 08/25 Glucose better this morning. Continue AccuCheks covering with sliding scale. Hypoglycemia protocol available as needed. Resume higher dose of Lantus tonight after surgery. Continue to monitor (6) Essential hypertension: Code(s): I10 - Essential (primary) hypertension Status: Chronic Assessment and Plan: Patient's blood pressure was reviewed on 08/25 Blood pressure is up and down. Will continue to monitor Plan Hyperkalemia - Intermittent hyperkalemia which has been noted in the past. [place] related to the FILIPPO. Low potassium diet. Somnolence - patient fatigued during the day. Apnea link ordered. Code status. Full VTE prophylaxis. SCDs; REED Subjective Date/time seen: 08/25/24 08:11 Interval history: 73yo male with CKD, HTN, insulin dependent DM with neuropathy and BPH here for left foot wound. Patient feels well. Slept okay last night. Was out of the bed yesterday. no CP or SOB. No n/v. Exam Narrative: AF 98.4 170/78 87 20 99% ra Gen - NARD Chest - CTA bilaterally, nml RR CV - RRR S1/S2 Abd - Soft, NT/ND, Positive BS Ext - No pedal edema. Left foot dressing withold blood at the tip/ Right foot dressings are clean, dry and intact Psych - Nml mood and affect Skin - Warm and dry. Objective Data Vital Signs Vital Signs: Vital Signs - 24 hr 08/24/24 09:30 08/24/24 13:35 08/24/24 13:35 Temperature 98.2 F 98.2 F 98.2 F Pulse Rate 87 81 81 Respiratory Rate 18 20 20 Blood Pressure 127/66 117/65 117/65 Pulse Oximetry 99 98 98 Oxygen Delivery 08/24/24 20:00 08/24/24 21:05 08/25/24 05:25 Temperature 99 F 98.4 F Pulse Rate 81 80 87 Respiratory Rate 20 16 20 Blood Pressure 152/69 H 170/78 H Pulse Oximetry 98 98 99 Oxygen Delivery Room Air Intake/Output Intake/Output: Intake & Output 08/22/24 08/23/24 08/24/24 08/25/24 23:59 23:59 23:59 23:59 Intake Total 2637 1510 1587 1000 Output Total 75 Balance 2562 1510 1587 1000 Meds/Results Medications: Active Medications Generic Name Dose Route Start Last Admin Trade Name Freq PRN Reason Stop Dose Admin Acetaminophen 650 mg 08/22/24 07:56 08/22/24 21:41 Acetaminophen 325 Mg Tablet PO 650 mg Q6H PRN Administration Pain Hydrocodone Bitart/Acetaminophen 1 tab 08/23/24 00:13 08/23/24 22:03 Hydrocodone/Acetaminophen (*Crx) 5-325 Mg Tablet PO 1 tab Q6H PRN Administration Pain Rated 4-6 Albuterol/Ipratropium 3 ml 08/22/24 06:48 Ipratropium 0.5 Mg/Albuterol Sulfate 2.5 Mg Ampul.Neb 3 Ml INHALATION Q4HRT PRN shortness of breath/Wheezing Aspirin 81 mg 08/22/24 09:00 08/24/24 09:16 Aspirin 81 Mg Chewable Tablet PO 81 mg DAILY REED Administration Atorvastatin Calcium 20 mg 08/22/24 21:00 08/24/24 20:49 Atorvastatin 20 Mg Tablet PO 20 mg HS REED Administration Dextrose 12.5 gm 08/22/24 07:53 Dextrose 50% 25 Gm/50 Ml Syringe IV PUSH PRN PRN Hypoglycemia Protocol Docusate Sodium 100 mg 08/22/24 08:02 Docusate Sodium 100 Mg Capsule PO QHS PRN Constipation Duloxetine HCl 30 mg 08/22/24 21:00 08/24/24 20:49 Duloxetine Hcl 30 Mg Capsule.Dr PO 30 mg HS REED Administration Fenofibrate 160 mg 08/22/24 09:00 03/02/25 09:16 Fenofibrate 160 Mg Tablet PO 160 mg DAILY REED Administration Fluoxetine HCl 20 mg 08/22/24 09:00 08/24/24 09:16 Fluoxetine Hcl 20 Mg Capsule PO 20 mg DAILY REED Administration Glucagon 1 mg 08/22/24 07:53 Glucagon For Inj 1 Mg Vial IM PRN PRN Hypoglycemia Protocol Glucose 15 gm 08/22/24 07:53 Glucose Oral Gel 15 Gm Of Glucse In 37.5 Gm Tube PO PRN PRN Hypoglycemia Protocol Heparin Sodium (Porcine) 5,000 units 08/22/24 21:00 08/24/24 20:50 Heparin Sodium 5,000 Units/Ml Vial SUB-Q 5,000 units Q12HR REED Administration Cefepime HCl 2 gm in 50 mls @ 100 mls/hr 08/22/24 09:00 08/24/24 21:20 Maxipime 2 Gm/Ns 50 Ml IVPB Infused Q12HR ERED Infusion Dextrose 1,000 mls @ 100 mls/hr 08/22/24 07:53 Dextrose 5% 1,000 Ml IVPB PRN PRN Hypoglycemia Protocol Vancomycin HCl 1,500 mg in 500 mls @ 250 mls/hr 08/24/24 00:00 08/25/24 02:40 Vancomycin 1,500 Mg/Ns 500 Ml IVPB Infused Q24H REED Infusion Metronidazole 500 mg in 100 mls @ 100 mls/hr 08/24/24 10:00 08/25/24 03:40 Flagyl 500 Mg/Iso Soln 100 Ml IVPB Infused Q8H REED Infusion Insulin Aspart 3 - 6 units 08/22/24 12:00 08/25/24 06:28 Insulin Aspart (*Bkc) 100 Units/Ml SUB-Q Not Given Q6HR [facility] Protocol Insulin Aspart 5 units 08/24/24 08:00 08/24/24 17:52 Insulin Aspart (*Bkc) 100 Units/Ml SUB-Q 5 units TIDWM REED Administration Insulin Glargine 20 units 08/24/24 21:00 08/24/24 22:46 Insulin Glargine (*Bkc) 100 Units/Ml SUB-Q Not Given HS [facility] Lisinopril 10 mg 08/22/24 09:00 08/24/24 09:16 Lisinopril 10 Mg Tablet PO 10 mg DAILY REED Administration Melatonin 5 mg 08/22/24 06:48 08/22/24 21:36 Melatonin 5 Mg Tablet PO 5 mg HS PRN Administration Insomnia Morphine Sulfate 2 mg 08/23/24 00:14 Morphine Sulfate (*Crx) 2 Mg/Ml Inj IV PUSH Q4H PRN Pain Rated 7-10 Multivitamins Therapeutic 1 tablet 08/22/24 09:00 08/24/24 09:16 Multivitamins Therapeutic Tab (*Bkc) PO 1 tablet DAILY REED Administration Polyethylene Glycol 17 gm 08/22/24 09:00 08/24/24 09:16 Polyethylene Glycol 3350 17 Gm Powd.Pack PO 17 gm DAILY REED Administration Prochlorperazine Edisylate 10 mg 08/22/24 06:48 Prochlorperazine Edisylate 10 Mg/2 Ml Vial IV PUSH Q6H PRN Nausea And Vomiting Sodium Hypochlorite 1 applic 08/22/24 09:00 08/24/24 10:00 Sod Hypochlorite 1/4 Strength 473 Ml TOPICAL 1 applic DAILY REED Administration Tamsulosin HCl 0.4 mg 08/22/24 09:00 08/24/24 09:16 Tamsulosin Hcl 0.4 Mg Capsule PO 0.4 mg DAILY REED Administration Radiology Results: ITS Impressions Foot MRI 08/22/24 14:57 IMPRESSION: 1. Osteomyelitis at the third proximal phalanx, head and neck the third metatarsal with secondary pathologic fracture at the base of the second proximal phalanx. Equivocal reactive edema versus very early osteomyelitis at the head of the second metatarsal. 2. Gas tracking proximally along the plantar soft tissues of the forefoot most likely representing extension from ulceration plantar to the head of the third metatarsal although differential would include necrotizing fasciitis in the appropriate clinical setting. Findings were discussed with Grayson Hawkins, the nurse caring for the patient, at 3:10 PM. Ankle Brachial Index 08/22/24 15:29 IMPRESSION: 1. Moderately decreased right ELIZABETH and mildly decreased left ELIZABETH with worsening from 11/21/2018, consistent with arterial occlusive disease. Foot X-Ray 08/24/24 12:25 Impression: Osteomyelitis of the base the fifth metatarsal/proximal fifth metatarsal shaft with destructive change and worsened overlying soft tissue ulcer as compared to relatively recent prior exam. Labs Labs: Laboratory Results - last 24 hr 0308/24/24 08/24/24 07:57 08:07 11:47 WBC 10.7 H RBC 3.41 L Hgb 9.7 L Hct 30.7 L MCV 90.0 MCH 28.4 MCHC 31.6 L RDW 13.5 Plt Count 446 H MPV 9.4 Immature Gran % (Auto) 1.9 H Neut % (Auto) 67.1 Lymph % (Auto) 19.2 [place] % (Auto) 7.1 Eos % (Auto) 4.0 Baso % (Auto) 0.7 Lymph # (Auto) 2.05 [place] # (Auto) 0.8 H Eos # (Auto) 0.4 H Baso # (Auto) 0.1 Abs Immat Gran (auto) 0.20 H Absolute Neuts (auto) 7.2 H Absolute Nucleated RBC 0.000 Nucleated RBC % 0.0 Sodium 132 L Potassium 4.2 Chloride 102 Carbon Dioxide 23 Anion Gap 7 BUN 20 D Creatinine 1.15 Estim Creat Clear Calc 52 Estimated GFR > 60 Glucose 159 H POC Capillary Glucose 174 H 198 H Calcium 8.2 L Total Bilirubin 0.5 AST 33 ALT 25 Alkaline Phosphatase 53 Total Protein 6.0 L Albumin 2.6 L 08/24/24 08/24/24 08/25/24 16:54 21:04 00:35 WBC RBC Hgb Hct MCV MCH MCHC RDW Plt Count MPV Immature Gran % (Auto) Neut % (Auto) Lymph % (Auto) [place] % (Auto) Eos % (Auto) Baso % (Auto) Lymph # (Auto) [place] # (Auto) Eos # (Auto) Baso # (Auto) Abs Immat Gran (auto) Absolute Neuts (auto) Absolute Nucleated RBC Nucleated RBC % Sodium Potassium Chloride Carbon Dioxide Anion Gap BUN Creatinine Estim Creat Clear Calc Estimated GFR Glucose POC Capillary Glucose 263 H 201 H 225 H Calcium Total Bilirubin AST ALT Alkaline Phosphatase Total Protein Albumin 08/25/24 08/25/24 08/25/24 05:48 06:58 07:45 WBC 10.9 H RBC 3.64 L Hgb 10.3 L Hct 32.3 L MCV 88.7 MCH 28.3 MCHC 31.9 L RDW 13.2 Plt Count 456 H MPV 9.5 Immature Gran % (Auto) 2.2 H Neut % (Auto) 64.7 Lymph % (Auto) 21.5 [place] % (Auto) 7.2 Eos % (Auto) 3.7 Baso % (Auto) 0.7 Lymph # (Auto) 2.35 [place] # (Auto) 0.8 H Eos # (Auto) 0.4 H Baso # (Auto) 0.1 Abs Immat Gran (auto) 0.24 H Absolute Neuts (auto) 7.1 H Absolute Nucleated RBC 0.000 Nucleated RBC % 0.0 Sodium 133 L Potassium 4.4 Chloride 100 Carbon Dioxide 27 Anion Gap 6 BUN 16 Creatinine 1.01 Estim Creat Clear Calc 59 Estimated GFR > 60 Glucose 161 H POC Capillary Glucose 169 H 154 H Calcium 8.6 Total Bilirubin 0.4 AST 37 ALT 25 Alkaline Phosphatase 68 Total Protein 6.0 L Albumin 2.6 L
--- NOTE | 2024-08-25 09:26 | P.PNOP_ITS ---
Progress Note: A&P Assessment and Plan (1) Osteomyelitis of foot, left, acute: Code(s): M86.172 - Other acute osteomyelitis, left ankle and foot Status: Acute Assessment and Plan: POD #3: Bilateral foot osteomyelitis. Wounds left open due to gross contamination. Cultures reveal Group G Streptococcus, Staphylococcus aureus. Pending sensitivities. Continue with IV antibiotics Nutritional supplement. Plan to return to operating room for debridement and possible closure of some of the wounds today by Dr. Ornelas. Discussed nonoperative and operative treatment options with the patient. Risks and benefits of each as well as alternatives were reviewed. All of the patient's questions were answered. The risks of surgery reviewed including but not limited to: Neurovascular damage, wound complication, infection, blood clot, pulmonary embolus, stroke, myocardial infarction, and anesthetic risks up to and including . Continued pain and possible dysfunction were explained. Specific risks of the procedure including later recurrence of deformity. No guarantees were offered. If hardware used, discussed risk of failure/ breakage and possible need for removal. If complications occur, the patient understands the need for further treatment, possible further surgery. Patient verbalizes understanding and wishes to proceed. PLAN: Excisional debridement bilateral diabetic foot ulcers (2) Diabetic ulcer of right foot: Qualifiers: Diabetes mellitus type: type 1 Diabetic foot ulcer location: midfoot Non-pressure ulcer stage: with fat layer exposed Qualified Code(s): E10.621 - Type 1 diabetes mellitus with foot ulcer; L97.412 - Non-pressure chronic ulcer of right heel and midfoot with fat layer exposed Code(s): E11.621 - Type 2 diabetes mellitus with foot ulcer; L97.519 - Non-pressure chronic ulcer of other part of right foot with unspecified severity Status: Acute (3) Arterial insufficiency: Code(s): I77.1 - Stricture of artery Status: Acute Assessment and Plan: See ABIs. Plan Reviewed history, exam, radiographs and current labs with attending MD and covering surgeon, Dr. Ornelas, who agrees with current plan as indicated above. No further recommendations from Dr. Ornelas at this time. Time Spent With Patient Time with patient: less than 15 minutes Subjective Subjective Date/Time Seen: 08/25/24 09:26 Post Op day: 3 Principal diagnosis: Bilateral diabetic foot osteomyelitis Interval history: Patient comfortable in bed. No new complaints. Plan to return to the operating room for debridement today. Review of Systems Review of Systems: All systems reviewed & are unremarkable except as noted in HPI and below Exam Const: General: healthy appearing; No in distress or confusion O rientation/consciousness: patient oriented x3 and No confusion HENMT: Head: normal to inspection, normocephalic and atraumatic Eyes: Conjunctivae: conjunctivae normal Sclera: sclerae normal Resp: Effort & Inspection: normal respiratory effort and no audible wheezes Neuro: General: patient oriented x3 Extrem: Other: bilateral foot dressings in place. Lower leg swelling and erythema improved. Negative Homans sign. Objective Data Vital Signs Vital Signs: Vital Signs - 24 hr 08/24/24 09:30 08/24/24 13:35 08/24/24 13:35 Temperature 36.8 C 36.8 C 36.8 C Pulse Rate 87 81 81 Respiratory Rate 18 20 20 Blood Pressure 127/66 117/65 117/65 Pulse Oximetry 99 98 98 Oxygen Delivery 08/24/24 20:00 08/24/24 21:05 08/25/24 05:25 Temperature 37.2 C 36.9 C Pulse Rate 81 80 87 Respiratory Rate 20 16 20 Blood Pressure 152/69 H 170/78 H Pulse Oximetry 98 98 99 Oxygen Delivery Room Air Intake/Output Intake/Output: Intake & Output 08/22/24 08/23/24 08/24/24 08/25/24 23:59 23:59 23:59 23:59 Intake Total 2637 1510 1587 1000 Output Total 75 Balance 2562 1510 1587 1000 Meds/Results Medications: Active Medications Generic Name Dose Route Start Last Admin Trade Name Freq PRN Reason Stop Dose Admin Acetaminophen 650 mg 08/22/24 07:56 08/22/24 21:41 Acetaminophen 325 Mg Tablet PO 650 mg Q6H PRN Administration Pain Hydrocodone Bitart/Acetaminophen 1 tab 08/23/24 00:13 08/23/24 22:03 Hydrocodone/Acetaminophen (*Crx) 5-325 Mg Tablet PO 1 tab Q6H PRN Administration Pain Rated 4-6 Albuterol/Ipratropium 3 ml 08/22/24 06:48 Ipratropium 0.5 Mg/Albuterol Sulfate 2.5 Mg Ampul.Neb 3 Ml INHALATION Q4HRT PRN shortness of breath/Wheezing Aspirin 81 mg 08/22/24 09:00 08/24/24 09:16 Aspirin 81 Mg Chewable Tablet PO 81 mg DAILY REED Administration Atorvastatin Calcium 20 mg 08/22/24 21:00 08/24/24 20:49 Atorvastatin 20 Mg Tablet PO 20 mg HS REED Administration Dextrose 12.5 gm 08/22/24 07:53 Dextrose 50% 25 Gm/50 Ml Syringe IV PUSH PRN PRN Hypoglycemia Protocol Docusate Sodium 100 mg 08/22/24 08:02 Docusate Sodium 100 Mg Capsule PO QHS PRN Constipation Duloxetine HCl 30 mg 08/22/24 21:00 08/24/24 20:49 Duloxetine Hcl 30 Mg Capsule.Dr PO 30 mg HS REED Administration Fenofibrate 160 mg 08/22/24 09:00 08/24/24 09:16 Fenofibrate 160 Mg Tablet PO 160 mg DAILY REED Administration Fluoxetine HCl 20 mg 08/22/24 09:00 08/24/24 09:16 Fluoxetine Hcl 20 Mg Capsule PO 20 mg DAILY REED Administration Glucagon 1 mg 08/22/24 07:53 Glucagon For Inj 1 Mg Vial IM PRN PRN Hypoglycemia Protocol Glucose 15 gm 08/22/24 07:53 Glucose Oral Gel 15 Gm Of Glucse In 37.5 Gm Tube PO PRN PRN Hypoglycemia Protocol Heparin Sodium (Porcine) 5,000 units 08/22/24 21:00 08/24/24 20:50 Heparin Sodium 5,000 Units/Ml Vial SUB-Q 5,000 units Q12HR REED Administration Cefepime HCl 2 gm in 50 mls @ 100 mls/hr 08/22/24 09:00 08/24/24 21:20 Maxipime 2 Gm/Ns 50 Ml IVPB Infused Q12HR REED Infusion Dextrose 1,000 mls @ 100 mls/hr 08/22/24 07:53 Dextrose 5% 1,000 Ml IVPB PRN PRN Hypoglycemia Protocol Vancomycin HCl 1,500 mg in 500 mls @ 250 mls/hr 08/24/24 00:00 08/25/24 02:40 Vancomycin 1,500 Mg/Ns 500 Ml IVPB Infused Q24H REED Infusion Metronidazole 500 mg in 100 mls @ 100 mls/hr 08/24/24 10:00 08/25/24 03:40 Flagyl 500 Mg/Iso Soln 100 Ml IVPB Infused Q8H REED Infusion Insulin Aspart 3 - 6 units 08/22/24 12:00 03/03/25 06:28 Insulin Aspart (*Bkc) 100 Units/Ml SUB-Q Not Given Q6HR [facility] Protocol Insulin Aspart 5 units 08/24/24 08:00 08/24/24 17:52 Insulin Aspart (*Bkc) 100 Units/Ml SUB-Q 5 units TIDWM REED Administration Insulin Glargine 20 units 08/24/24 21:00 08/24/24 22:46 Insulin Glargine (*Bkc) 100 Units/Ml SUB-Q Not Given HS REED Lisinopril 10 mg 08/22/24 09:00 08/24/24 09:16 Lisinopril 10 Mg Tablet PO 10 mg DAILY REED Administration Melatonin 5 mg 08/22/24 06:48 08/22/24 21:36 Melatonin 5 Mg Tablet PO 5 mg HS PRN Administration Insomnia Morphine Sulfate 2 mg 08/23/24 00:14 Morphine Sulfate (*Crx) 2 Mg/Ml Inj IV PUSH Q4H PRN Pain Rated 7-10 Multivitamins Therapeutic 1 tablet 08/22/24 09:00 08/24/24 09:16 Multivitamins Therapeutic Tab (*Bkc) PO 1 tablet DAILY REED Administration Polyethylene Glycol 17 gm 08/22/24 09:00 08/24/24 09:16 Polyethylene Glycol 3350 17 Gm Powd.Pack PO 17 gm DAILY REED Administration Prochlorperazine Edisylate 10 mg 08/22/24 06:48 Prochlorperazine Edisylate 10 Mg/2 Ml Vial IV PUSH Q6H PRN Nausea And Vomiting Sodium Hypochlorite 1 applic 08/22/24 09:00 08/24/24 10:00 Sod Hypochlorite 1/4 Strength 473 Ml TOPICAL 1 applic DAILY REED Administration Tamsulosin HCl 0.4 mg 08/22/24 09:00 08/24/24 09:16 Tamsulosin Hcl 0.4 Mg Capsule PO 0.4 mg DAILY REED Administration Radiology Results: ITS Impressions Foot MRI 08/22/24 14:57 IMPRESSION: 1. Osteomyelitis at the third proximal phalanx, head and neck the third metatarsal with secondary pathologic fracture at the base of the second proximal phalanx. Equivocal reactive edema versus very early osteomyelitis at the head of the second metatarsal. 2. Gas tracking proximally along the plantar soft tissues of the forefoot most likely representing extension from ulceration plantar to the head of the third metatarsal although differential would include necrotizing fasciitis in the appropriate clinical setting. Findings were discussed with Grayson Hawkins, the nurse caring for the patient, at 3:10 PM. Ankle Brachial Index 08/22/24 15:29 IMPRESSION: 1. Moderately decreased right ELIZABETH and mildly decreased left ELIZABETH with worsening from 11/21/2018, consistent with arterial occlusive disease. Foot X-Ray 08/24/24 12:25 Impression: Osteomyelitis of the base the fifth metatarsal/proximal fifth metatarsal shaft with destructive change and worsened overlying soft tissue ulcer as compared to relatively recent prior exam. Labs Labs: Laboratory Results - last 24 hr 08/24/24 08/24/24 08/24/24 11:47 16:54 21:04 WBC RBC Hgb Hct MCV MCH MCHC RDW Plt Count MPV Immature Gran % (Auto) Neut % (Auto) Lymph % (Auto) [place] % (Auto) Eos % (Auto) Baso % (Auto) Lymph # (Auto) [place] # (Auto) Eos # (Auto) Baso # (Auto) Abs Immat Gran (auto) Absolute Neuts (auto) Absolute Nucleated RBC Nucleated RBC % Sodium Potassium Chloride Carbon Dioxide Anion Gap BUN Creatinine Estim Creat Clear Calc Estimated GFR Glucose POC Capillary Glucose 198 H 263 H 201 H Calcium Total Bilirubin AST ALT Alkaline Phosphatase Total Protein Albumin 08/25/24 08/25/24 08/25/24 00:35 05:48 06:58 WBC 10.9 H RBC 3.64 L Hgb 10.3 L Hct 32.3 L MCV 88.7 MCH 28.3 MCHC 31.9 L RDW 13.2 Plt Count 456 H MPV 9.5 Immature Gran % (Auto) 2.2 H Neut % (Auto) 64.7 Lymph % (Auto) 21.5 [place] % (Auto) 7.2 Eos % (Auto) 3.7 Baso % (Auto) 0.7 Lymph # (Auto) 2.35 [place] # (Auto) 0.8 H Eos # (Auto) 0.4 H Baso # (Auto) 0.1 Abs Immat Gran (auto) 0.24 H Absolute Neuts (auto) 7.1 H Absolute Nucleated RBC 0.000 Nucleated RBC % 0.0 Sodium 133 L Potassium 4.4 Chloride 100 Carbon Dioxide 27 Anion Gap 6 BUN 16 Creatinine 1.01 Estim Creat Clear Calc 59 Estimated GFR > 60 Glucose 161 H POC Capillary Glucose 225 H 169 H Calcium 8.6 Total Bilirubin 0.4 AST 37 ALT 25 Alkaline Phosphatase 68 Total Protein 6.0 L Albumin 2.6 L 08/25/24 07:45 WBC RBC Hgb Hct MCV MCH MCHC RDW Plt Count MPV Immature Gran % (Auto) Neut % (Auto) Lymph % (Auto) [place] % (Auto) Eos % (Auto) Baso % (Auto) Lymph # (Auto) [place] # (Auto) Eos # (Auto) Baso # (Auto) Abs Immat Gran (auto) Absolute Neuts (auto) Absolute Nucleated RBC Nucleated RBC % Sodium Potassium Chloride Carbon Dioxide Anion Gap BUN Creatinine Estim Creat Clear Calc Estimated GFR Glucose POC Capillary Glucose 154 H Calcium Total Bilirubin AST ALT Alkaline Phosphatase Total Protein Albumin
[2024-08-25] MEDS: HEPARIN SODIUM 5,000 UNITS/ML VIAL 5000 UNITS SUB-Q ×2 (09:47→20:42)
[2024-08-25] MEDS: CEFEPIME 2 GM/NS 50 ML 2 GM/50 ML BAG IVPB ×2 (09:47→20:42)
[2024-08-25 11:22] LABS: Glucose Point of Care 177 mg/dl (65-105)
--- NOTE | 2024-08-25 12:39 | WPDHPUPDATE1 ---
History and Physical Update Update Date/Time: 08/25/24 12:39 History and Physical has been reviewed, including an updated exam of the patient. There are NO changes in the patient's condition. Risks, benefits, and alternatives have been discussed and questions answered. Patient agrees to proceed with procedure.
[2024-08-25 14:51] LABS: Glucose Point of Care 156 mg/dl (65-105)
--- NOTE | 2024-08-25 15:09 | P.PNAN_ITS ---
Anes - Eval Final PreProcedure Day of Procedure 08/25/24 15:09 Patient weight: normal Heart: regular rate and rhythm Lungs: clear to auscultation Airway: Mallampati scale class II Last oral intake: >/= 8 hours ASA classification: IV Emergent: no Anesthetic plan: proceed Anesthesia type and monitoring: general LMA and standard monitoring Results Review: All pre-operative results and documents have been reviewed as part of the pre- operative evaluation. Informed Consent: The patient's anesthetic plan and its attendant risks and benefits were discussed with the patient/family/POA. Questions were solicited and answers pr ovided to the satisfaction of the patient/family/POA.
--- NOTE | 2024-08-25 18:33 | SUR.OPER ---
Addendum entered by Jack Elise RN LICPEND 08/25/24 18:48: Left ankle esmark tourniquet on @ 1809 and down @ 1832. Right ankle esmark tourniquet on @1833 and down @ 1847. Original Note: Left ankle esmark tourniquet on @ 1809 and down @ 1832. Right ankle esmark tourniquet on @1833 and down @.
[2024-08-25] MEDS: ceFAZolin SODIUM 1 GM VIAL (18:36)
[2024-08-25] MEDS: LACTATED RINGERS 1,000 ML 30 ML IV CONT (18:57)
--- NOTE | 2024-08-25 19:12 | W.PM.PROC2 ---
Procedure Note - Detailed Date of Procedure 08/25/24 Pre-op Diagnosis osteomyelitis Post-op Diagnosis Same Procedure Performed Excisional debridement bilateral foot diabetic ulcers and osteomyelitis. Surgeon Andrews Ornelas MD Clinical Engineering Director 1st assist Anesthesia General Indications 73-year-old with diabetes, peripheral vascular disease and peripheral neuropathy who underwent operative treatment for osteomyelitis the left and right foot 3 days ago. Wounds were left open. He has been on IV antibiotics for dressing changes been performed. He presents now for further surgical debridement. Findings Left foot no obvious signs of active infection abscess prominence of the metatarsals. Right foot wound open over base of 5th metatarsal. No evidence of active infection. No abscess or drainage. Description of Procedure Patient identified in the preoperative holding. Informed consent given. Operative extremity marked. Patient received intravenous antibiotics. Patient brought to the operating room where underwent general anesthetic by anesthesia team. Positioned supine on operating room table. Time-out performed confirming the patient, site of the surgery and the plan. Both left and right foot prepped draped usual sterile surgical fashion Betadine prep solution. We addressed the right foot 1st. 15 blade knife used to ellipse the ulcer on the lateral aspect midfoot overlying 5th metatarsal. Hemostasis controlled electrocautery. [place] used to resect the lateral and plantar aspect of the 5th metatarsal of infected bone. The lateral distal cuboid was also resected with osteotome rongeur. This was passed off. Wound then thoroughly irrigated partially closed with 0 Prolene interrupted suture. Wound packed with gauze. We then addressed the left foot. 15 blade knife used to make an elliptical incision at the base of the toes. Hemostasis controlled electrocautery. The 1st, 2nd, 3rd, 4th and 5th metatarsals were transected back into the soft tissue with a sagittal saw and rongeur. Resection was taken back into more healthy appearing normal soft tissue. Bone ends addressed with a rongeur. Previous incision over the medial hindfoot was opened and any necrotic tissue was debrided including skin, subcutaneous tissue and muscle. Thorough irrigation performed. Skin loosely closed with 0 Prolene interrupted suture. Sterile dressing applied. The patient was then woken from anesthesia, extubated and taken to the recovery room in stable condition. All sponge, needle, instrument counts were correct at the end of the case. Estimated Blood Loss 20 Urine Output 75 Drains No Packing Yes Pathology None sent Complications None Condition Stable Disposition PACU [facility] Billing Surgery - Charge Forward: Surgery Billing ([id number], [id number])
[2024-08-25 19:35] LABS: Glucose Point of Care 149 mg/dl (65-105)
[2024-08-25] MEDS: DULoxetine HCL 30 MG CAPSULE.DR PO (20:42)
[2024-08-25] MEDS: ATORVASTATIN 20 MG TABLET PO (20:42)
[2024-08-25] MEDS: INSULIN GLARGINE (*BKC) 100 UNITS/ML 40 UNITS SUB-Q (20:43)
[2024-08-25 23:25] LABS: Vancomycin Trough 10.2 ug/mL (10.0-20.0)
[2024-08-26] MEDS: VANCOMYCIN 1,250 MG/NS 250 ML 1,250 MG/250 ML BAG 166.67 MG IVPB ×2 (01:19→12:24)
[2024-08-26 01:49] LABS: Glucose Point of Care 128 mg/dl (65-105)
[2024-08-26 02:00] VITALS: BP 170/83; PULSE 82; RESP 18; TEMP 36.9; O2SAT 97
[2024-08-26] MEDS: metroNIDAZOLE 500 MG/ISO 100ML 500 MG/100 ML BAG 100 MG IVPB ×2 (02:51→09:39)
[2024-08-26 05:10] VITALS: BP 146/82; PULSE 88; RESP 16; TEMP 37.1; O2SAT 98
[2024-08-26 05:17] LABS: Glucose Point of Care 80 mg/dl (65-105)
[2024-08-26 06:33] LABS: Basophils Absolute Auto 0.1 K/mm3 (0.0-0.1); Basophils Percent Auto 0.6 % (0.2-1.2); Eosinophils Absolute Auto 0.3 K/mm3 (0-0.3); Eosinophils Percent Auto 2.1 % (0-4.4); Hematocrit 32.1 % (42.0-52.0); Hemoglobin 10.3 g/dL (14.0-18.0); Immature Granulocyte Absolute 0.19 K/mm3 (0.00-0.031); Immature Granulocyte Percent A 1.4 % (0-0.5); Lymphocytes Absolute Auto 2.35 K/mm3 (0.9-3.2); Lymphocytes Percent Auto 17.5 % (18.3-44.2); Mean Corpuscular HGB Conc 32.1 g/dl (32-36); Mean Corpuscular Hemoglobin 28.9 pg (26-34); Mean Corpuscular Volume 89.9 fl (80-100); Mean Platelet Volume 9.4 fl (7.4-10.4); Monocytes Percent Auto 7.3 % (2.6-8.5); Neutrophils Absolute Auto 9.5 K/mm3 (1.3-6.7); Neutrophils Percent Auto 71.1 % (45.5-73.1); Platelet Count Result 489 k/mm3 (150-375); Red Blood Count 3.57 M/mm3 (4.6-6.20); Red Cell Distribution Width 13.4 % (11.5-14.5); White Blood Count 13.4 K/mm3 (4.5-10.0)
[2024-08-26 06:50] LABS: Alanine Aminotransferase 24 U/L (6-50); Albumin Level 2.7 g/dL (3.5-5.1); Alkaline Phosphatase 72 U/L (38-126); Anion Gap 6 mmol/L (4-12); Aspartate Amino Transferase 41 U/L (17-59); Bilirubin,Total 0.6 mg/dL (0.2-1.3); Blood Urea Nitrogen 14 mg/dL (9-20); Calcium 8.4 mg/dL (8.4-10.2); Carbon Dioxide 27 mmol/L (22-30); Chloride 98 mmol/L (98-107); Estimated CRCL calculation 55 ml/min; Estimated Glomerular Filt Rate > 60; Glucose 88 mg/dL (65-110); Potassium 3.9 mmol/L (3.4-5.0); Sodium 131 mmol/L (137-145)
--- NOTE | 2024-08-26 07:01 | PM.IMPN ---
Progress Note: A&P Assessment and Plan (1) Sepsis: Qualifiers: Sepsis acute organ dysfunction status: without acute organ dysfunction Sepsis type: sepsis due to unspecified organism Qualified Code(s): A41.9 - Sepsis, unspecified organism Code(s): A41.9 - Sepsis, unspecified organism Status: Acute Assessment and Plan: Patient presents with left foot wound. Imaging shows osteomyelitis in the bilateral feet. Lactic acid was 6.2. WBC 19 K. patient was tachycardic but afebrile. Suspect sepsis is related to left diabetic foot wound with necrotizing fasciitis and osteomyelitis. UA noted but urine culture negative Blood cultures NGTD Wound Cx growing Group A Strept and MRSA Patient started on cefepime, vancomycin and Flagyl per antibiotic stewardship. Orthopedic consulted and appreciate their input. Patient underwent debridements. Lactic acid level is normal. White count is trending down Abx adjusted per PharmD ID. (2) Foot osteomyelitis, left: Code(s): M86.9 - Osteomyelitis, unspecified Status: Acute Assessment and Plan: Left foot MRI shows osteomyelitis of the 3rd proximal phalanx, head and neck 3rd metatarsal with fracture. He also had gas tracking proximally along the plantar soft tissue of the forefoot consistent with necrotizing fasciitis. ABIs showing Right 0.54 (TBI 0.54) and Left 0.081 (TBI 0.22). Also, patient had a right foot MRI that showed osteomyelitis at the lateral base of the 5th metatarsal Orthopedic consulted and patient was brought to the OR on 08/22 for left transmetatarsal amputation and right foot debridement to bone. Wound culture: growing Group G Strep and MRSA Patient brought back to the OR 08/25 for excisional debridement bilateral foot diabetic ulcers and osteomyelitis. Wound vac in place to the right foot. Continue current wound care. Appreciate Orthopedic input. Start PT/OT when able. (3) Diabetic foot ulcer: Qualifiers: Diabetes mellitus type: type 2 Diabetic foot ulcer location: heel Laterality: right Non-pressure ulcer stage: limited to breakdown of skin Qualified Code(s): E11.621 - Type 2 diabetes mellitus with foot ulcer; L97.411 - Non-pressure chronic ulcer of right heel and midfoot limited to breakdown of skin Code(s): E11.621 - Type 2 diabetes mellitus with foot ulcer; L97.509 - Non-pressure chronic ulcer of other part of unspecified foot with unspecified severity Status: Acute Assessment and Plan: As above (4) Acute kidney injury superimposed on chronic kidney disease: Code(s): N17.9 - Acute kidney failure, unspecified; N18.9 - Chronic kidney disease, unspecified Status: Acute Assessment and Plan: Cr elevated at 2.75 on admission. Baseline unclear but probably around 1.5. Suspect related to sepsis, osteomyelitis and necrotizing fasciitis. Also was on ibuprofen, lisinopril at home Treated with IV fluids and Cr better. Off IV fluids, Cr stable at 1.08 He is eating well Continue to follow. (5) Insulin dependent type 2 diabetes mellitus: Code(s): E11.9 - Type 2 diabetes mellitus without complications; Z79.4 - residential (current) use of insulin Status: Chronic Assessment and Plan: The patient's blood glucose was reviewed on 08/26 Glucose better this morning at 123. Continue AccuCheks covering with sliding scale. Hypoglycemia protocol available as needed. Contnue Lantus and add back meal time insulin. Watch for lows. Continue to monitor (6) Essential hypertension: Code(s): I10 - Essential (primary) hypertension Status: Chronic Assessment and Plan: Patient's blood pressure was reviewed on 08/26 Blood pressure is up and down that could be related to anxiety. Will continue to monitor Plan Hyperkalemia - Intermittent hyperkalemia which has been noted in the past. [place] related to the FILIPPO. Potassium better Somnolence - patient fatigued during the day. Apnea link ordered but not complete yet. Code status. Full VTE prophylaxis. SCDs; REED Subjective Date/time seen: 08/26/24 07:01 Interval history: 73yo male with CKD, HTN, insulin dependent DM with neuropathy and BPH here for left foot wound. No foot pain. No problems overnight. No Cp or SOB. Exam Narrative: AF 98.5 170/83 82 18 97% ra Gen - NARD Chest - CTA bilaterally, nml RR CV - RRR S1/S2 Abd - Soft, NT/ND, Positive BS Ext - No pedal edema. Right foot wound vac in place. Left foot dressing clean, dry and intact Psych - Nml mood and affect Skin - Warm and dry. Objective Data Vital Signs Vital Signs: Vital Signs - 24 hr 08/25/24 09:50 08/25/24 14:40 08/25/24 18:57 Temperature 98.4 F 99.9 F H Pulse Rate 86 81 Respiratory Rate 18 19 Blood Pressure 152/78 H 114/59 L Pulse Oximetry 96 97 Oxygen Delivery Room Air Room Air Simple Face Mask Oxygen Flow Rate 10 08/25/24 19:05 08/25/24 19:20 08/25/24 19:35 Temperature 98.5 F Pulse Rate 83 83 83 Respiratory Rate 19 19 19 Blood Pressure 100/64 114/63 130/66 Pulse Oximetry 100 100 95 Oxygen Delivery Simple Face Mask Room Air Room Air Oxygen Flow Rate 10 08/25/24 19:50 08/25/24 20:05 08/25/24 20:40 Temperature Pulse Rate 83 80 80 Respiratory Rate 18 16 16 Blood Pressure 128/65 136/60 Pulse Oximetry 95 95 95 Oxygen Delivery Room Air Room Air Room Air Oxygen Flow Rate 08/25/24 21:45 08/25/24 23:05 08/26/24 02:00 Temperature 98.3 F 98.2 F 98.5 F Pulse Rate 87 84 82 Respiratory Rate 18 20 18 Blood Pressure 148/75 H 146/79 H 170/83 H Pulse Oximetry 99 96 97 Oxygen Delivery Oxygen Flow Rate Intake/Output Intake/Output: Intake & Output 08/23/24 08/24/24 08/25/24 08/26/24 23:59 23:59 23:59 23:59 Intake Total 1510 1587 1250 Output Total 75 Balance 1510 1587 1175 Meds/Results Medications: Active Medications Generic Name Dose Route Start Last Admin Trade Name Freq PRN Reason Stop Dose Admin Acetaminophen 650 mg 08/22/24 07:56 08/22/24 21:41 Acetaminophen 325 Mg Tablet PO 650 mg Q6H PRN Administration Pain Hydrocodone Bitart/Acetaminophen 1 tab 08/23/24 00:13 08/23/24 22:03 Hydrocodone/Acetaminophen (*Crx) 5-325 Mg Tablet PO 1 tab Q6H PRN Administration Pain Rated 4-6 Albuterol/Ipratropium 3 ml 08/22/24 06:48 Ipratropium 0.5 Mg/Albuterol Sulfate 2.5 Mg Ampul.Neb 3 Ml INHALATION Q4HRT PRN shortness of breath/Wheezing Aspirin 81 mg 08/22/24 09:00 08/25/24 18:00 Aspirin 81 Mg Chewable Tablet PO Not Given DAILY REED Atorvastatin Calcium 20 mg 08/22/24 21:00 08/25/24 20:42 Atorvastatin 20 Mg Tablet PO 20 mg HS REED Administration Dextrose 12.5 gm 08/22/24 07:53 Dextrose 50% 25 Gm/50 Ml Syringe IV PUSH PRN PRN Hypoglycemia Protocol Docusate Sodium 100 mg 08/22/24 08:02 Docusate Sodium 100 Mg Capsule PO QHS PRN Constipation Duloxetine HCl 30 mg 08/22/24 21:00 08/25/24 20:42 Duloxetine Hcl 30 Mg Capsule.Dr PO 30 mg HS REED Administration Fenofibrate 160 mg 08/22/24 09:00 08/25/24 18:00 Fenofibrate 160 Mg Tablet PO Not Given DAILY REED Fentanyl Citrate 12.5 mcg 08/25/24 15:10 Fentanyl Citrate Inj (*Crx) 100 Mcg/2 Ml Vial IV PUSH Q2M PRN Pain Fluoxetine HCl 20 mg 08/22/24 09:00 08/25/24 18:01 Fluoxetine Hcl 20 Mg Capsule PO Not Given DAILY REED Glucagon 1 mg 08/22/24 07:53 Glucagon For Inj 1 Mg Vial IM PRN PRN Hypoglycemia Protocol Glucose 15 gm 08/22/24 07:53 Glucose Oral Gel 15 Gm Of Glucse In 37.5 Gm Tube PO PRN PRN Hypoglycemia Protocol Heparin Sodium (Porcine) 5,000 units 08/22/24 21:00 08/25/24 20:42 Heparin Sodium 5,000 Units/Ml Vial SUB-Q 5,000 units Q12HR REED Administration Cefepime HCl 2 gm in 50 mls @ 100 mls/hr 08/22/24 09:00 08/25/24 20:42 Maxipime 2 Gm/Ns 50 Ml IVPB 100 mls/hr Q12HR REED Administration Dextrose 1,000 mls @ 100 mls/hr 08/22/24 07:53 Dextrose 5% 1,000 Ml IVPB PRN PRN Hypoglycemia Protocol Metronidazole 500 mg in 100 mls @ 100 mls/hr 08/24/24 10:00 08/26/24 02:51 Flagyl 500 Mg/Iso Soln 100 Ml IVPB 100 mls/hr Q8H REED Administration Lactated Ringer's 1,000 mls @ 30 mls/hr 08/25/24 15:10 08/25/24 19:31 Lr - Lactated Ringers Iv IV CONT Infused .Q24H REED Infusion Lactated Ringer's 1,000 mls @ 30 mls/hr 08/25/24 15:10 08/25/24 20:45 Lr - Lactated Ringers Iv IV CONT Not Given .Q24H REED Vancomycin HCl 1,250 mg in 250 mls @ 166.667 mls/hr 08/26/24 01:00 08/26/24 01:19 Vancomycin 1,250 Mg/Ns 250 Ml IVPB 166.67 mls/hr Q12H REED Administration Insulin Aspart 3 - 6 units 08/22/24 12:00 08/26/24 05:17 Insulin Aspart (*Bkc) 100 Units/Ml SUB-Q Not Given Q6HR [facility] Protocol Insulin Glargine 40 units 08/25/24 21:00 08/25/24 20:43 Insulin Glargine (*Bkc) 100 Units/Ml SUB-Q 40 units HS REED Administration Lisinopril 10 mg 08/22/24 09:00 08/25/24 18:01 Lisinopril 10 Mg Tablet PO Not Given DAILY [facility] Melatonin 5 mg 08/22/24 06:48 08/22/24 21:36 Melatonin 5 Mg Tablet PO 5 mg HS PRN Administration Insomnia Morphine Sulfate 2 mg 08/23/24 00:14 Morphine Sulfate (*Crx) 2 Mg/Ml Inj IV PUSH Q4H PRN Pain Rated 7-10 Multivitamins Therapeutic 1 tablet 08/22/24 09:00 08/25/24 18:01 Multivitamins Therapeutic Tab (*Bkc) PO Not Given DAILY [facility] Ondansetron HCl 4 mg 08/25/24 15:10 Ondansetron Inj 4 Mg/2 Ml Vial IV PUSH ONCE PRN Nausea Polyethylene Glycol 17 gm 08/22/24 09:00 08/25/24 18:01 Polyethylene Glycol 3350 17 Gm Powd.Pack PO Not Given DAILY [facility] Prochlorperazine Edisylate 10 mg 08/22/24 06:48 Prochlorperazine Edisylate 10 Mg/2 Ml Vial IV PUSH Q6H PRN Nausea And Vomiting Sodium Hypochlorite 1 applic 08/22/24 09:00 08/25/24 18:01 Sod Hypochlorite 1/4 Strength 473 Ml TOPICAL Not Given DAILY [facility] Tamsulosin HCl 0.4 mg 08/22/24 09:00 08/25/24 18:01 Tamsulosin Hcl 0.4 Mg Capsule PO Not Given DAILY [facility] Radiology Results: ITS Impressions Foot MRI 08/22/24 14:57 IMPRESSION: 1. Osteomyelitis at the third proximal phalanx, head and neck the third metatarsal with secondary pathologic fracture at the base of the second proximal phalanx. Equivocal reactive edema versus very early osteomyelitis at the head of the second metatarsal. 2. Gas tracking proximally along the plantar soft tissues of the forefoot most likely representing extension from ulceration plantar to the head of the third metatarsal although differential would include necrotizing fasciitis in the appropriate clinical setting. Findings were discussed with Grayson Hawkins, the nurse caring for the patient, at 3:10 PM. Ankle Brachial Index 08/22/24 15:29 IMPRESSION: 1. Moderately decreased right ELIZABETH and mildly decreased left ELIZABETH with worsening from 11/21/2018, consistent with arterial occlusive disease. Foot X-Ray 08/24/24 12:25 Impression: Osteomyelitis of the base the fifth metatarsal/proximal fifth metatarsal shaft with destructive change and worsened overlying soft tissue ulcer as compared to relatively recent prior exam. Labs Labs: Laboratory Results - last 24 hr 08/25/24 08/25/24 08/25/24 06:58 07:45 11:16 WBC 10.9 H RBC 3.64 L Hgb 10.3 L Hct 32.3 L MCV 88.7 MCH 28.3 MCHC 31.9 L RDW 13.2 Plt Count 456 H MPV 9.5 Immature Gran % (Auto) 2.2 H Neut % (Auto) 64.7 Lymph % (Auto) 21.5 [place] % (Auto) 7.2 Eos % (Auto) 3.7 Baso % (Auto) 0.7 Lymph # (Auto) 2.35 [place] # (Auto) 0.8 H Eos # (Auto) 0.4 H Baso # (Auto) 0.1 Abs Immat Gran (auto) 0.24 H Absolute Neuts (auto) 7.1 H Absolute Nucleated RBC 0.000 Nucleated RBC % 0.0 Sodium 133 L Potassium 4.4 Chloride 100 Carbon Dioxide 27 Anion Gap 6 BUN 16 Creatinine 1.01 Estim Creat Clear Calc 59 Estimated GFR > 60 Glucose 161 H POC Capillary Glucose 154 H 177 H Calcium 8.6 Total Bilirubin 0.4 AST 37 ALT 25 Alkaline Phosphatase 68 Total Protein 6.0 L Albumin 2.6 L Vancomycin Trough 08/25/24 08/25/24 08/25/24 14:49 19:33 22:52 WBC RBC Hgb Hct MCV MCH MCHC RDW Plt Count MPV Immature Gran % (Auto) Neut % (Auto) Lymph % (Auto) [place] % (Auto) Eos % (Auto) Baso % (Auto) Lymph # (Auto) [place] # (Auto) Eos # (Auto) Baso # (Auto) Abs Immat Gran (auto) Absolute Neuts (auto) Absolute Nucleated RBC Nucleated RBC % Sodium Potassium Chloride Carbon Dioxide Anion Gap BUN Creatinine Estim Creat Clear Calc Estimated GFR Glucose POC Capillary Glucose 156 H 149 H Calcium Total Bilirubin AST ALT Alkaline Phosphatase Total Protein Albumin Vancomycin Trough 10.2 08/26/24 08/26/24 08/26/24 00:59 05:13 05:59 WBC 13.4 H RBC 3.57 L Hgb 10.3 L Hct 32.1 L MCV 89.9 MCH 28.9 MCHC 32.1 RDW 13.4 Plt Count 489 H MPV 9.4 Immature Gran % (Auto) 1.4 H Neut % (Auto) 71.1 Lymph % (Auto) 17.5 L [place] % (Auto) 7.3 Eos % (Auto) 2.1 Baso % (Auto) 0.6 Lymph # (Auto) 2.35 [place] # (Auto) 1.0 H Eos # (Auto) 0.3 Baso # (Auto) 0.1 Abs Immat Gran (auto) 0.19 H Absolute Neuts (auto) 9.5 H Absolute Nucleated RBC 0.000 Nucleated RBC % 0.0 Sodium 131 L Potassium 3.9 Chloride 98 Carbon Dioxide 27 Anion Gap 6 BUN 14 Creatinine 1.08 Estim Creat Clear Calc 55 Estimated GFR > 60 Glucose 88 POC Capillary Glucose 128 H 80 Calcium 8.4 Total Bilirubin 0.6 AST 41 ALT 24 Alkaline Phosphatase 72 Total Protein 6.0 L Albumin 2.7 L Vancomycin Trough
[2024-08-26 08:00] VITALS: PULSE 88; RESP 16; O2SAT 98
[2024-08-26 08:03] LABS: Glucose Point of Care 123 mg/dl (65-105)
[2024-08-26] MEDS: polyethylene glycoL 3350 17 GM POWD.PACK PO (08:16)
[2024-08-26] MEDS: FENOFIBRATE 160 MG TABLET PO (08:16)
[2024-08-26] MEDS: HEPARIN SODIUM 5,000 UNITS/ML VIAL 5000 UNITS SUB-Q ×2 (08:16→21:23)
[2024-08-26] MEDS: MULTIVITAMINS THERAPEUTIC TAB (*BKC) 1 TABLET PO (08:16)
[2024-08-26] MEDS: ASPIRIN 81 MG CHEWABLE TABLET PO (08:16)
[2024-08-26] MEDS: FLUoxetine HCL 20 MG CAPSULE PO (08:17)
[2024-08-26] MEDS: lisinopriL 10 MG TABLET PO (08:17)
[2024-08-26] MEDS: TAMSULOSIN HCL 0.4 MG CAPSULE PO (08:17)
[2024-08-26] MEDS: CEFEPIME 2 GM/NS 50 ML 2 GM/50 ML BAG IVPB (08:18)
--- NOTE | 2024-08-26 09:24 | PM.PNORT ---
Progress Note: A&P Assessment and Plan (1) Osteomyelitis of foot, left, acute: Code(s): M86.172 - Other acute osteomyelitis, left ankle and foot Status: Acute Assessment and Plan: POD #4: Bilateral foot osteomyelitis. POD #1: Excisional debridement bilateral foot diabetic ulcers and osteomyelitis. Incisions intact. Plan for wound VAC right foot. Daily dressing changes, left foot. Preoperative wound cultures reveal Group G Streptococcus, MRSA. Surgical path pending. Continue with IV antibiotics. Will require PICC line and 4-6 weeks of IV antibiotics. Nutritional supplement. (2) Diabetic ulcer of right foot: Qualifiers: Diabetic foot ulcer location: midfoot Diabetes mellitus type: type 1 Non-pressure ulcer stage: with fat layer exposed Qualified Code(s): E10.621 - Type 1 diabetes mellitus with foot ulcer; L97.412 - Non-pressure chronic ulcer of right heel and midfoot with fat layer exposed Code(s): E11.621 - Type 2 diabetes mellitus with foot ulcer; L97.519 - Non-pressure chronic ulcer of other part of right foot with unspecified severity Status: Acute (3) Arterial insufficiency: Code(s): I77.1 - Stricture of artery Status: Acute Assessment and Plan: See ABIs. Plan Reviewed history, exam, radiographs and current labs with attending MD and covering surgeon, Dr. Ornelas, who agrees with current plan as indicated above. No further recommendations from Dr. Ornelas at this time. Time Spent With Patient Time with patient: less than 15 minutes Subjective Subjective Date/Time Seen: 08/26/24 09:24 Post Op day: 1 Principal diagnosis: Bilateral diabetic foot osteomyelitis Interval history: POD #1: Excisional debridement bilateral foot diabetic ulcers and osteomyelitis. Patient comfortable in bed. No new complaints. Review of Systems Review of Systems: All systems reviewed & are unremarkable except as noted in HPI and below Exam Const: General: healthy appearing; No in distress or confusion Orientation/consciousness: patient oriented x3 and No confusion HENMT: Head: normal to inspection, normocephalic and atraumatic Eyes: Conjunctivae: conjunctivae normal Sclera: sclerae normal Resp: Effort & Inspection: normal respiratory effort and no audible wheezes Neuro: General: patient oriented x3 Extrem: Other: Dressings removed. Incisions intact bilaterally. Tissue appears viable. Improvement in erythema. No foul odor. Objective Data Vital Signs Vital Signs: Vital Signs - 24 hr 08/25/24 09:50 08/25/24 14:40 08/25/24 18:57 Temperature 36.9 C 37.7 C H Pulse Rate 86 81 Respiratory Rate 18 19 Blood Pressure 152/78 H 114/59 L Pulse Oximetry 96 97 Oxygen Delivery Room Air Room Air Simple Face Mask Oxygen Flow Rate 10 08/25/24 19:05 08/25/24 19:20 08/25/24 19:35 Temperature 36.9 C Pulse Rate 83 83 83 Respiratory Rate 19 19 19 Blood Pressure 100/64 114/63 130/66 Pulse Oximetry 100 100 95 Oxygen Delivery Simple Face Mask Room Air Room Air Oxygen Flow Rate 10 08/25/24 19:50 08/25/24 20:05 08/25/24 20:40 Temperature Pulse Rate 83 80 80 Respiratory Rate 18 16 16 Blood Pressure 128/65 136/60 Pulse Oximetry 95 95 95 Oxygen Delivery Room Air Room Air Room Air Oxygen Flow Rate 08/25/24 21:45 08/25/24 23:05 08/26/24 02:00 Temperature 36.8 C 36.8 C 36.9 C Pulse Rate 87 84 82 Respiratory Rate 18 20 18 Blood Pressure 148/75 H 146/79 H 170/83 H Pulse Oximetry 99 96 97 Oxygen Delivery Oxygen Flow Rate 08/26/24 05:10 Temperature 37.1 C Pulse Rate 88 Respiratory Rate 16 Blood Pressure 146/82 H Pulse Oximetry 98 Oxygen Delivery Oxygen Flow Rate Intake/Output Intake/Output: Intake & Output 08/23/24 08/24/24 08/25/24 08/26/24 23:59 23:59 23:59 23:59 Intake Total 1510 1587 1300 437 Output Total 75 Balance 1510 1587 1225 437 Meds/Results Medications: Active Medications Generic Name Dose Route Start Last Admin Trade Name Freq PRN Reason Stop Dose Admin Acetaminophen 650 mg 08/22/24 07:56 08/22/24 21:41 Acetaminophen 325 Mg Tablet PO 650 mg Q6H PRN Administration Pain Hydrocodone Bitart/Acetaminophen 1 tab 08/23/24 00:13 08/23/24 22:03 Hydrocodone/Acetaminophen (*Crx) 5-325 Mg Tablet PO 1 tab Q6H PRN Administration Pain Rated 4-6 Albuterol/Ipratropium 3 ml 08/22/24 06:48 Ipratropium 0.5 Mg/Albuterol Sulfate 2.5 Mg Ampul.Neb 3 Ml INHALATION Q4HRT PRN shortness of breath/Wheezing Aspirin 81 mg 08/22/24 09:00 08/26/24 08:16 Aspirin 81 Mg Chewable Tablet PO 81 mg DAILY REED Administration Atorvastatin Calcium 20 mg 08/22/24 21:00 08/25/24 20:42 Atorvastatin 20 Mg Tablet PO 20 mg HS REED Administration Dextrose 12.5 gm 08/22/24 07:53 Dextrose 50% 25 Gm/50 Ml Syringe IV PUSH PRN PRN Hypoglycemia Protocol Docusate Sodium 100 mg 08/22/24 08:02 Docusate Sodium 100 Mg Capsule PO QHS PRN Constipation Duloxetine HCl 30 mg 08/22/24 21:00 08/25/24 20:42 Duloxetine Hcl 30 Mg Capsule.Dr PO 30 mg HS REED Administration Fenofibrate 160 mg 08/22/24 09:00 08/26/24 08:16 Fenofibrate 160 Mg Tablet PO 160 mg DAILY REED Administration Fentanyl Citrate 12.5 mcg 08/25/24 15:10 Fentanyl Citrate Inj (*Crx) 100 Mcg/2 Ml Vial IV PUSH Q2M PRN Pain Fluoxetine HCl 20 mg 08/22/24 09:00 08/26/24 08:17 Fluoxetine Hcl 20 Mg Capsule PO 20 mg DAILY REED Administration Glucagon 1 mg 08/22/24 07:53 Glucagon For Inj 1 Mg Vial IM PRN PRN Hypoglycemia Protocol Glucose 15 gm 08/22/24 07:53 Glucose Oral Gel 15 Gm Of Glucse In 37.5 Gm Tube PO PRN PRN Hypoglycemia Protocol Heparin Sodium (Porcine) 5,000 units 08/22/24 21:00 08/26/24 08:16 Heparin Sodium 5,000 Units/Ml Vial SUB-Q 5,000 units Q12HR REED Administration Cefepime HCl 2 gm in 50 mls @ 100 mls/hr 08/22/24 09:00 08/26/24 08:18 Maxipime 2 Gm/Ns 50 Ml IVPB 100 mls/hr Q12HR REED Administration Dextrose 1,000 mls @ 100 mls/hr 08/22/24 07:53 Dextrose 5% 1,000 Ml IVPB PRN PRN Hypoglycemia Protocol Metronidazole 500 mg in 100 mls @ 100 mls/hr 08/24/24 10:00 08/26/24 02:51 Flagyl 500 Mg/Iso Soln 100 Ml IVPB 100 mls/hr Q8H REED Administration Lactated Ringer's 1,000 mls @ 30 mls/hr 08/25/24 15:10 08/25/24 19:31 Lr - Lactated Ringers Iv IV CONT Infused .Q24H REED Infusion Lactated Ringer's 1,000 mls @ 30 mls/hr 08/25/24 15:10 08/25/24 20:45 Lr - Lactated Ringers Iv IV CONT Not Given .Q24H REED Vancomycin HCl 1,250 mg in 250 mls @ 166.667 mls/hr 08/26/24 01:00 08/26/24 01:19 Vancomycin 1,250 Mg/Ns 250 Ml IVPB 166.67 mls/hr Q12H REED Administration Insulin Aspart 3 - 6 units 08/22/24 12:00 08/26/24 05:17 Insulin Aspart (*Bkc) 100 Units/Ml SUB-Q Not Given Q6HR [facility] Protocol Insulin Glargine 40 units 08/25/24 21:00 08/25/24 20:43 Insulin Glargine (*Bkc) 100 Units/Ml SUB-Q 40 units HS REED Administration Lisinopril 10 mg 08/22/24 09:00 08/26/24 08:17 Lisinopril 10 Mg Tablet PO 10 mg DAILY REED Administration Melatonin 5 mg 08/22/24 06:48 08/22/24 21:36 Melatonin 5 Mg Tablet PO 5 mg HS PRN Administration Insomnia Morphine Sulfate 2 mg 08/23/24 00:14 Morphine Sulfate (*Crx) 2 Mg/Ml Inj IV PUSH Q4H PRN Pain Rated 7-10 Multivitamins Therapeutic 1 tablet 08/22/24 09:00 08/26/24 08:16 Multivitamins Therapeutic Tab (*Bkc) PO 1 tablet DAILY REED Administration Ondansetron HCl 4 mg 08/25/24 15:10 Ondansetron Inj 4 Mg/2 Ml Vial IV PUSH ONCE PRN Nausea Polyethylene Glycol 17 gm 08/22/24 09:00 08/26/24 08:16 Polyethylene Glycol 3350 17 Gm Powd.Pack PO 17 gm DAILY REED Administration Prochlorperazine Edisylate 10 mg 08/22/24 06:48 Prochlorperazine Edisylate 10 Mg/2 Ml Vial IV PUSH Q6H PRN Nausea And Vomiting Sodium Hypochlorite 1 applic 08/22/24 09:00 08/25/24 18:01 Sod Hypochlorite 1/4 Strength 473 Ml TOPICAL Not Given DAILY REED Tamsulosin HCl 0.4 mg 08/22/24 09:00 08/26/24 08:17 Tamsulosin Hcl 0.4 Mg Capsule PO 0.4 mg DAILY REED Administration Radiology Results: ITS Impressions Foot MRI 08/22/24 14:57 IMPRESSION: 1. Osteomyelitis at the third proximal phalanx, head and neck the third metatarsal with secondary pathologic fracture at the base of the second proximal phalanx. Equivocal reactive edema versus very early osteomyelitis at the head of the second metatarsal. 2. Gas tracking proximally along the plantar soft tissues of the forefoot most likely representing extension from ulceration plantar to the head of the third metatarsal although differential would include necrotizing fasciitis in the appropriate clinical setting. Findings were discussed with Grayson Hawkins, the nurse caring for the patient, at 3:10 PM. Ankle Brachial Index 08/22/24 15:29 IMPRESSION: 1. Moderately decreased right ELIZABETH and mildly decreased left ELIZABETH with worsening from 11/21/2018, consistent with arterial occlusive disease. Foot X-Ray 08/24/24 12:25 Impression: Osteomyelitis of the base the fifth metatarsal/proximal fifth metatarsal shaft with destructive change and worsened overlying soft tissue ulcer as compared to relatively recent prior exam. Labs Labs: Laboratory Results - last 24 hr 08/25/24 08/25/24 08/25/24 11:16 14:49 19:33 WBC RBC Hgb Hct MCV MCH MCHC RDW Plt Count MPV Immature Gran % (Auto) Neut % (Auto) Lymph % (Auto) [place] % (Auto) Eos % (Auto) Baso % (Auto) Lymph # (Auto) [place] # (Auto) Eos # (Auto) Baso # (Auto) Abs Immat Gran (auto) Absolute Neuts (auto) Absolute Nucleated RBC Nucleated RBC % Sodium Potassium Chloride Carbon Dioxide Anion Gap BUN Creatinine Estim Creat Clear Calc Estimated GFR Glucose POC Capillary Glucose 177 H 156 H 149 H Calcium Total Bilirubin AST ALT Alkaline Phosphatase Total Protein Albumin Vancomycin Trough 08/25/24 08/26/24 08/26/24 22:52 00:59 05:13 WBC RBC Hgb Hct MCV MCH MCHC RDW Plt Count MPV Immature Gran % (Auto) Neut % (Auto) Lymph % (Auto) [place] % (Auto) Eos % (Auto) Baso % (Auto) Lymph # (Auto) [place] # (Auto) Eos # (Auto) Baso # (Auto) Abs Immat Gran (auto) Absolute Neuts (auto) Absolute Nucleated RBC Nucleated RBC % Sodium Potassium Chloride Carbon Dioxide Anion Gap BUN Creatinine Estim Creat Clear Calc Estimated GFR Glucose POC Capillary Glucose 128 H 80 Calcium Total Bilirubin AST ALT Alkaline Phosphatase Total Protein Albumin Vancomycin Trough 10.2 08/26/24 08/26/24 05:59 07:46 WBC 13.4 H RBC 3.57 L Hgb 10.3 L Hct 32.1 L MCV 89.9 MCH 28.9 MCHC 32.1 RDW 13.4 Plt Count 489 H MPV 9.4 Immature Gran % (Auto) 1.4 H Neut % (Auto) 71.1 Lymph % (Auto) 17.5 L [place] % (Auto) 7.3 Eos % (Auto) 2.1 Baso % (Auto) 0.6 Lymph # (Auto) 2.35 [place] # (Auto) 1.0 H Eos # (Auto) 0.3 Baso # (Auto) 0.1 Abs Immat Gran (auto) 0.19 H Absolute Neuts (auto) 9.5 H Absolute Nucleated RBC 0.000 Nucleated RBC % 0.0 Sodium 131 L Potassium 3.9 Chloride 98 Carbon Dioxide 27 Anion Gap 6 BUN 14 Creatinine 1.08 Estim Creat Clear Calc 55 Estimated GFR > 60 Glucose 88 POC Capillary Glucose 123 H Calcium 8.4 Total Bilirubin 0.6 AST 41 ALT 24 Alkaline Phosphatase 72 Total Protein 6.0 L Albumin 2.7 L Vancomycin Trough
--- NOTE | 2024-08-26 11:16 | P.PNINF_ITS ---
Pharmacy ID Consult Stewardship Interventions Type of Interventions: De-escalation and Duration Pharmacy ID Note: Subjective Pharmacy was consulted by Rob Worrell regarding infectious diseases for Kojo Quispe. Kojo Quispe is a 73 yoM with concerns regarding osteo myelitis. Background The patient is currently receiving Cefepime, Metronidazole, and Vancomycin since 08/21. The patient's PMH includes debridement on 08/25 of the infected tissue - surgical pathology still pending for clear margins. Microbiology 08/22/24 16:16 Foot Left Anaerobic Culture - Preliminary 08/22/24 16:16 Foot Left Aerobic Culture - Final Group G Streptococcus Methicillin Resis Staph Aureus 08/21/24 22:52 Urine Clean Catch Urine Culture - Final 08/22/24 16:16 Foot Left Gram Stain - Final 08/21/24 20:58 Blood Blood Culture - Preliminary 08/21/24 21:07 Blood Blood Culture - Preliminary Assessment/Recommendation/Discussion Spoke briefly with consulting provider regarding this patient. During procedure it was seen that potentially had components showing necrosis. Cultures are showing Group G streptococcus and MRSA so patient is continued on vancomycin and cefepime and metronidazole was discontinued for targeted therapy. Duration of at least 14 days (potentially more if soft tissue infection resolution is delayed) if surgical pathology shows clear margins and there is no more residual infected bones. Consider 6 weeks of therapy should osteomyelitis remain. Thank you for the interesting consult. Vance Kang, PharmD Infectious Disease/Antimicrobial Stewardship Pharmacist 08/26/24; 1116 WBC 13.4 K/mm3 (4.5-10.0) H 08/26/24 05:59 Creatinine 1.08 mg/dL (0.7-1.3) 08/26/24 05:59 Estim Creat Clear Calc 55 ml/min 08/26/24 05:59
[2024-08-26 11:42] LABS: Glucose Point of Care 227 mg/dl (65-105)
[2024-08-26] MEDS: INSULIN ASPART (*BKC) 100 UNITS/ML SUB-Q ×2 (12:23→17:24)
--- NOTE | 2024-08-26 13:30 | PCOTNOTE ---
Attempted to see pt. for occupational therapy evaluation. Pt. is currently getting PICC line and will need further clarification of weight bearing ability prior to mobilization. Nursing aware
[2024-08-26] MEDS: LORazepam INJ (*CRX) 2 MG/ML VIAL 0.5 MG IV PUSH (13:35)
[2024-08-26 14:00] VITALS: BP 121/58; PULSE 89; RESP 14; TEMP 36.2; O2SAT 95
[2024-08-26 16:40] LABS: Glucose Point of Care 239 mg/dl (65-105)
[2024-08-26 20:54] VITALS: BP 147/67; PULSE 84; RESP 16; TEMP 36.4; O2SAT 96
[2024-08-26 20:54] LABS: Glucose Point of Care 260 mg/dl (65-105)
[2024-08-26] MEDS: ATORVASTATIN 20 MG TABLET PO (21:23)
[2024-08-26] MEDS: DULoxetine HCL 30 MG CAPSULE.DR PO (21:23)
[2024-08-26] MEDS: INSULIN GLARGINE (*BKC) 100 UNITS/ML 40 UNITS SUB-Q (21:23)
--- NOTE | 2024-08-27 00:03 | PCRCNOTE ---
Pt still refuses apnea link will not on allow it on him
[2024-08-27 00:08] LABS: Glucose Point of Care 237 mg/dl (65-105)
[2024-08-27] MEDS: INSULIN ASPART (*BKC) 100 UNITS/ML SUB-Q ×4 (00:10→17:15)
[2024-08-27] MEDS: VANCOMYCIN 1,250 MG/NS 250 ML 1,250 MG/250 ML BAG 166.67 MG IVPB ×2 (02:47→12:14)
[2024-08-27 05:03] VITALS: BP 126/67; PULSE 83; RESP 18; TEMP 36.6; O2SAT 99
[2024-08-27 05:44] LABS: Glucose Point of Care 159 mg/dl (65-105)
[2024-08-27 06:26] LABS: Basophils Absolute Auto 0.1 K/mm3 (0.0-0.1); Basophils Percent Auto 0.8 % (0.2-1.2); Eosinophils Absolute Auto 0.5 K/mm3 (0-0.3); Eosinophils Percent Auto 4.1 % (0-4.4); Hematocrit 32.7 % (42.0-52.0); Hemoglobin 10.5 g/dL (14.0-18.0); Immature Granulocyte Percent A 2.4 % (0-0.5); Lymphocytes Absolute Auto 2.97 K/mm3 (0.9-3.2); Lymphocytes Percent Auto 23.7 % (18.3-44.2); Mean Corpuscular HGB Conc 32.1 g/dl (32-36); Mean Corpuscular Hemoglobin 29.1 pg (26-34); Mean Corpuscular Volume 90.6 fl (80-100); Mean Platelet Volume 9.3 fl (7.4-10.4); Monocytes Percent Auto 8.1 % (2.6-8.5); Neutrophils Absolute Auto 7.6 K/mm3 (1.3-6.7); Neutrophils Percent Auto 60.9 % (45.5-73.1); Platelet Count Result 478 k/mm3 (150-375); Red Blood Count 3.61 M/mm3 (4.6-6.20); Red Cell Distribution Width 13.6 % (11.5-14.5); White Blood Count 12.5 K/mm3 (4.5-10.0)
[2024-08-27 06:33] LABS: Alanine Aminotransferase 20 U/L (6-50); Albumin Level 2.7 g/dL (3.5-5.1); Alkaline Phosphatase 71 U/L (38-126); Anion Gap 6 mmol/L (4-12); Aspartate Amino Transferase 31 U/L (17-59); Bilirubin,Total 0.5 mg/dL (0.2-1.3); Blood Urea Nitrogen 14 mg/dL (9-20); Calcium 8.4 mg/dL (8.4-10.2); Carbon Dioxide 26 mmol/L (22-30); Chloride 100 mmol/L (98-107); Estimated CRCL calculation 55 ml/min; Estimated Glomerular Filt Rate > 60; Glucose 151 mg/dL (65-110); Sodium 132 mmol/L (137-145)
[2024-08-27 07:49] LABS: Glucose Point of Care 149 mg/dl (65-105)
[2024-08-27] MEDS: FLUoxetine HCL 20 MG CAPSULE PO (08:40)
[2024-08-27] MEDS: TAMSULOSIN HCL 0.4 MG CAPSULE PO (08:40)
[2024-08-27] MEDS: lisinopriL 10 MG TABLET PO (08:40)
[2024-08-27] MEDS: ASPIRIN 81 MG CHEWABLE TABLET PO (08:40)
[2024-08-27] MEDS: polyethylene glycoL 3350 17 GM POWD.PACK PO (08:40)
[2024-08-27] MEDS: MULTIVITAMINS THERAPEUTIC TAB (*BKC) 1 TABLET PO (08:40)
[2024-08-27] MEDS: FENOFIBRATE 160 MG TABLET PO (08:40)
[2024-08-27] MEDS: HEPARIN SODIUM 5,000 UNITS/ML VIAL 5000 UNITS SUB-Q ×2 (08:41→20:27)
[2024-08-27] MEDS: SOD HYPOCHLORITE 1/4 STRENGTH 473 ML 1 APPLIC TOPICAL (08:55)
--- NOTE | 2024-08-27 10:17 | PCOTNOTE ---
Addendum entered by Meron Dooley OT 08/27/24 11:00: RN updated therapist on clarification of weight bearing status and notes partial Weight Bearing bilaterally with ordering of surgical boots bilaterally Original Note: Attempted to see pt. for occupational therapy evaluation. Pt. is still attempting to get PICC line and will need further clarification of weight bearing ability prior to mobilization as only states partial weight bearing (no clarification of foot and patient had operation to both). Nursing aware
--- NOTE | 2024-08-27 10:49 | PM.IMPN ---
Progress Note: A&P Assessment and Plan (1) Essential hypertension: Code(s): I10 - Essential (primary) hypertension Status: Chronic (2) Arterial insufficiency: Code(s): I77.1 - Stricture of artery Status: Acute (3) Dyslipidemia: Code(s): E78.5 - Hyperlipidemia, unspecified Status: Acute (4) Diabetes 1.5, managed as type 2: Code(s): E13.9 - Other specified diabetes mellitus without complications Status: Acute (5) Current use of insulin: Code(s): Z79.4 - intermediate (current) use of insulin Status: Acute (6) Diabetic ulcer of right foot: Qualifiers: Diabetes mellitus type: type 1 Diabetic foot ulcer location: midfoot Non-pressure ulcer stage: with fat layer exposed Qualified Code(s): E10.621 - Type 1 diabetes mellitus with foot ulcer; L97.412 - Non-pressure chronic ulcer of right heel and midfoot with fat layer exposed Code(s): E11.621 - Type 2 diabetes mellitus with foot ulcer; L97.519 - Non-pressure chronic ulcer of other part of right foot with unspecified severity Status: Acute (7) FILIPPO (acute kidney injury): Code(s): N17.9 - Acute kidney failure, unspecified Status: Acute (8) Acute kidney injury superimposed on chronic kidney disease: Code(s): N17.9 - Acute kidney failure, unspecified; N18.9 - Chronic kidney disease, unspecified Status: Acute Plan (1) Sepsis: Qualifiers: Sepsis acute organ dysfunction status: without acute organ dysfunction Sepsis type: sepsis due to unspecified organism Qualified Code(s): A41.9 - Sepsis, unspecified organism Code(s): A41.9 - Sepsis, unspecified organism Status: Acute Assessment and Plan: Patient presents with left foot wound. Imaging shows osteomyelitis in the bilateral feet. Lactic acid was 6.2. WBC 19 K. patient was tachycardic but afebrile. Suspect sepsis is related to left diabetic foot wound with necrotizing fasciitis and osteomyelitis. UA noted but urine culture negative Blood cultures NGTD Wound Cx growing Group A Strept and MRSA Patient started on cefepime, vancomycin and Flagyl per antibiotic stewardship. Orthopedic consulted and appreciate their input. Patient underwent debridements. Lactic acid level is normal. White count is trending down Abx adjusted per PharmD ID. Foot osteomyelitis, left: Code(s): M86.9 - Osteomyelitis, unspecified Status: Acute Assessment and Plan: Left foot MRI shows osteomyelitis of the 3rd proximal phalanx, head and neck 3rd metatarsal with fracture. He also had gas tracking proximally along the plantar soft tissue of the forefoot consistent with necrotizing fasciitis. ABIs showing Right 0.54 (TBI 0.54) and Left 0.081 (TBI 0.22). Also, patient had a right foot MRI that showed osteomyelitis at the lateral base of the 5th metatarsal Orthopedic consulted and patient was brought to the OR on 08/22 for left transmetatarsal amputation and right foot debridement to bone. Patient brought back to the OR 08/25 for excisional debridement bilateral foot diabetic ulcers and osteomyelitis. Wound vac in place to the right foot. Continue current wound care. Appreciate Orthopedic input. Start PT/OT when able. s/p Excisional debridement bilateral foot diabetic ulcers and osteomyelitis, POD2 wound VAC right foot. Daily dressing changes, left foot. Preoperative wound cultures reveal Group G Streptococcus, MRSA. Surgical path pending, ID pharmacist recommendation: Continue vancomycin cefepime and metronidazole for at least 14 days Diabetic foot ulcer: Qualifiers: Diabetes mellitus type: type 2 Diabetic foot ulcer location: heel Laterality: right Non-pressure ulcer stage: limited to breakdown of skin Qualified Code(s): E11.621 - Type 2 diabetes mellitus with foot ulcer; L97.411 - Non-pressure chronic ulcer of right heel and midfoot limited to breakdown of skin Code(s): E11.621 - Type 2 diabetes mellitus with foot ulcer; L97.509 - Non-pressure chronic ulcer of other part of unspecified foot with unspecified severity Status: Acute Assessment and Plan: As above (4) Acute kidney injury superimposed on chronic kidney disease, hyponatremia Code(s): N17.9 - Acute kidney failure, unspecified; N18.9 - Chronic kidney disease, unspecified Status: Acute Assessment and Plan: Cr elevated at 2.75 on admission. Baseline unclear but probably around 1.5. Suspect related to sepsis, osteomyelitis and necrotizing fasciitis. Also was on ibuprofen, lisinopril at home Treated with IV fluids and Cr better., Cr stable at 1.08 Patient is a poor intake Sodium still lower than baseline Normal saline (5) Insulin dependent type 2 diabetes mellitus: Code(s): E11.9 - Type 2 diabetes mellitus without complications; Z79.4 - terminal operations supervisor (current) use of insulin Status: Chronic Assessment and Plan: The patient's blood glucose was reviewed on 08/26 Glucose better this morning at 123. Continue AccuCheks covering with sliding scale. Hypoglycemia protocol available as needed. Contnue Lantus and add back meal time insulin. Watch for lows. Continue to monitor (6) Essential hypertension: Code(s): I10 - Essential (primary) hypertension Status: Chronic Assessment and Plan: Patient's blood pressure was reviewed on 08/26 Blood pressure is up and down that could be related to anxiety. Will continue to monitor Plan Hyperkalemia - Intermittent hyperkalemia which has been noted in the past. [place] related to the FILIPPO. Potassium better Somnolence - patient fatigued during the day . Apnea link ordered but not complete yet. Subjective Date/time seen: 08/27/24 10:49 Interval history: I saw examined patient today, patient is lethargic, able to answer question, Patient is afebrile, blood pressure stable, leukocytosis improving Exam Narrative: GENERAL: Pleasant, in no acute distress. Well-nourished. - EYES: EOMI. Anicteric. - HENT: Moist mucous membranes. - LUNGS: Clear to auscultation bilaterally, no wheezing, rhonchi, or rales. - CARDIOVASCULAR: Regular rate and rhythm. No murmur. No JVD. - ABDOMEN: Soft, non-tender and non-distended. No palpable masses. - EXTREMITIES: No edema. Peripheral pulses 2+. Non-tender. - NEUROLOGIC: No focal neurological deficits. CN II-XII grossly intact. - PSYCHIATRIC: Awake, Alert and oriented x 3. Appropriate mood and affect. - SKIN: Right foot wound vac in place. Left foot dressing clean, dry and intact - LYMPH: No cervical lymphadenopathy. Objective Data Vital Signs Vital Signs: Vital Signs - 24 hr 08/26/24 14:00 08/26/24 20:10 08/26/24 20:54 Temperature 97.2 F L 97.5 F L Pulse Rate 89 84 Respiratory Rate 14 16 Blood Pressure 121/58 L 147/67 H Pulse Oximetry 95 96 Oxygen Delivery Room Air 08/27/24 05:03 Temperature 97.8 F Pulse Rate 83 Respiratory Rate 18 Blood Pressure 126/67 Pulse Oximetry 99 Oxygen Delivery Intake/Output Intake/Output: Intake & Output 08/24/24 08/25/24 08/26/24 08/27/24 23:59 23:59 23:59 23:59 Intake Total 1587 1300 1517 740 Output Total 75 1300 Balance 1587 1225 1517 -560 Meds/Results Medications: Active Medications Generic Name Dose Route Start Last Admin Trade Name Freq PRN Reason Stop Dose Admin Acetaminophen 650 mg 08/22/24 07:56 08/22/24 21:41 Acetaminophen 325 Mg Tablet PO 650 mg Q6H PRN Administration Pain Hydrocodone Bitart/Acetaminophen 1 tab 08/23/24 00:13 08/23/24 22:03 Hydrocodone/Acetaminophen (*Crx) 5-325 Mg Tablet PO 1 tab Q6H PRN Administration Pain Rated 4-6 Albuterol/Ipratropium 3 ml 08/22/24 06:48 Ipratropium 0.5 Mg/Albuterol Sulfate 2.5 Mg Ampul.Neb 3 Ml INHALATION Q4HRT PRN shortness of breath/Wheezing Aspirin 81 mg 08/22/24 09:00 08/27/24 08:40 Aspirin 81 Mg Chewable Tablet PO 81 mg DAILY REED Administration Atorvastatin Calcium 20 mg 08/22/24 21:00 08/26/24 21:23 Atorvastatin 20 Mg Tablet PO 20 mg HS REED Administration Dextrose 12.5 gm 08/22/24 07:53 Dextrose 50% 25 Gm/50 Ml Syringe IV PUSH PRN PRN Hypoglycemia Protocol Docusate Sodium 100 mg 08/22/24 08:02 Docusate Sodium 100 Mg Capsule PO QHS PRN Constipation Duloxetine HCl 30 mg 08/22/24 21:00 08/26/24 21:23 Duloxetine Hcl 30 Mg Capsule.Dr PO 30 mg HS REED Administration Fenofibrate 160 mg 08/22/24 09:00 08/27/24 08:40 Fenofibrate 160 Mg Tablet PO 160 mg DAILY REED Administration Fentanyl Citrate 12.5 mcg 08/25/24 15:10 Fentanyl Citrate Inj (*Crx) 100 Mcg/2 Ml Vial IV PUSH Q2M PRN Pain Fluoxetine HCl 20 mg 08/22/24 09:00 08/27/24 08:40 Fluoxetine Hcl 20 Mg Capsule PO 20 mg DAILY REED Administration Glucagon 1 mg 08/22/24 07:53 Glucagon For Inj 1 Mg Vial IM PRN PRN Hypoglycemia Protocol Glucose 15 gm 08/22/24 07:53 Glucose Oral Gel 15 Gm Of Glucse In 37.5 Gm Tube PO PRN PRN Hypoglycemia Protocol Heparin Sodium (Porcine) 5,000 units 08/22/24 21:00 08/27/24 08:41 Heparin Sodium 5,000 Units/Ml Vial SUB-Q 5,000 units Q12HR REED Administration Dextrose 1,000 mls @ 100 mls/hr 08/22/24 07:53 Dextrose 5% 1,000 Ml IVPB PRN PRN Hypoglycemia Protocol Vancomycin HCl 1,250 mg in 250 mls @ 166.667 mls/hr 08/26/24 01:00 08/27/24 04:17 Vancomycin 1,250 Mg/Ns 250 Ml IVPB Infused Q12H REED Infusion Insulin Aspart 3 - 6 units 08/22/24 12:00 08/27/24 05:39 Insulin Aspart (*Bkc) 100 Units/Ml SUB-Q Not Given Q6HR [facility] Protocol Insulin Aspart 4 units 08/27/24 08:00 08/27/24 08:39 Insulin Aspart (*Bkc) 100 Units/Ml 0.05 units/kg (4 units) 4 units SUB-Q Administration TIDWM REED Insulin Glargine 40 units 08/25/24 21:00 08/26/24 21:23 Insulin Glargine (*Bkc) 100 Units/Ml SUB-Q 40 units HS REED Administration Lisinopril 10 mg 08/22/24 09:00 08/27/24 08:40 Lisinopril 10 Mg Tablet PO 10 mg DAILY REED Administration Melatonin 5 mg 08/22/24 06:48 08/22/24 21:36 Melatonin 5 Mg Tablet PO 5 mg HS PRN Administration Insomnia Morphine Sulfate 2 mg 08/23/24 00:14 Morphine Sulfate (*Crx) 2 Mg/Ml Inj IV PUSH Q4H PRN Pain Rated 7-10 Multivitamins Therapeutic 1 tablet 08/22/24 09:00 08/27/24 08:40 Multivitamins Therapeutic Tab (*Bkc) PO 1 tablet DAILY REED Administration Ondansetron HCl 4 mg 08/25/24 15:10 Ondansetron Inj 4 Mg/2 Ml Vial IV PUSH ONCE PRN Nausea Polyethylene Glycol 17 gm 08/22/24 09:00 08/27/24 08:40 Polyethylene Glycol 3350 17 Gm Powd.Pack PO 17 gm DAILY REED Administration Prochlorperazine Edisylate 10 mg 08/22/24 06:48 Prochlorperazine Edisylate 10 Mg/2 Ml Vial IV PUSH Q6H PRN Nausea And Vomiting Sodium Hypochlorite 1 applic 08/22/24 09:00 08/27/24 08:55 Sod Hypochlorite 1/4 Strength 473 Ml TOPICAL 1 applic DAILY REED Administration Tamsulosin HCl 0.4 mg 08/22/24 09:00 08/27/24 08:40 Tamsulosin Hcl 0.4 Mg Capsule PO 0.4 mg DAILY REED Administration Radiology Results: ITS Impressions Foot MRI 08/22/24 14:57 IMPRESSION: 1. Osteomyelitis at the third proximal phalanx, head and neck the third metatarsal with secondary pathologic fracture at the base of the second proximal phalanx. Equivocal reactive edema versus very early osteomyelitis at the head of the second metatarsal. 2. Gas tracking proximally along the plantar soft tissues of the forefoot most likely representing extension from ulceration plantar to the head of the third metatarsal although differential would include necrotizing fasciitis in the appropriate clinical setting. Findings were discussed with Grayson Hawkins, the nurse caring for the patient, at 3:10 PM. Ankle Brachial Index 08/22/24 15:29 IMPRESSION: 1. Moderately decreased right ELIZABETH and mildly decreased left ELIZABETH with worsening from 11/21/2018, consistent with arterial occlusive disease. Foot X-Ray 08/24/24 12:25 Impression: Osteomyelitis of the base the fifth metatarsal/proximal fifth metatarsal shaft with destructive change and worsened overlying soft tissue ulcer as compared to relatively recent prior exam. Labs Labs: Laboratory Results - last 24 hr 08/26/24 08/26/24 08/26/24 11:33 16:34 19:50 WBC RBC Hgb Hct MCV MCH MCHC RDW Plt Count MPV Immature Gran % (Auto) Neut % (Auto) Lymph % (Auto) [place] % (Auto) Eos % (Auto) Baso % (Auto) Lymph # (Auto) [place] # (Auto) Eos # (Auto) Baso # (Auto) Abs Immat Gran (auto) Absolute Neuts (auto) Absolute Nucleated RBC Nucleated RBC % Sodium Potassium Chloride Carbon Dioxide Anion Gap BUN Creatinine Estim Creat Clear Calc Estimated GFR Glucose POC Capillary Glucose 227 H 239 H 260 H Calcium Total Bilirubin AST ALT Alkaline Phosphatase Total Protein Albumin 08/26/24 08/27/24 08/27/24 23:40 05:38 05:58 WBC 12.5 H RBC 3.61 L Hgb 10.5 L Hct 32.7 L MCV 90.6 MCH 29.1 MCHC 32.1 RDW 13.6 Plt Count 478 H MPV 9.3 Immature Gran % (Auto) 2.4 H Neut % (Auto) 60.9 Lymph % (Auto) 23.7 [place] % (Auto) 8.1 Eos % (Auto) 4.1 Baso % (Auto) 0.8 Lymph # (Auto) 2.97 [place] # (Auto) 1.0 H Eos # (Auto) 0.5 H Baso # (Auto) 0.1 Abs Immat Gran (auto) 0.30 H Absolute Neuts (auto) 7.6 H Absolute Nucleated RBC 0.000 Nucleated RBC % 0.0 Sodium 132 L Potassium 4.0 Chloride 100 Carbon Dioxide 26 Anion Gap 6 BUN 14 Creatinine 1.07 Estim Creat Clear Calc 55 Estimated GFR > 60 Glucose 151 H POC Capillary Glucose 237 H 159 H Calcium 8.4 Total Bilirubin 0.5 AST 31 ALT 20 Alkaline Phosphatase 71 Total Protein 6.0 L Albumin 2.7 L 08/27/24 07:47 WBC RBC Hgb Hct MCV MCH MCHC RDW Plt Count MPV Immature Gran % (Auto) Neut % (Auto) Lymph % (Auto) [place] % (Auto) Eos % (Auto) Baso % (Auto) Lymph # (Auto) [place] # (Auto) Eos # (Auto) Baso # (Auto) Abs Immat Gran (auto) Absolute Neuts (auto) Absolute Nucleated RBC Nucleated RBC % Sodium Potassium Chloride Carbon Dioxide Anion Gap BUN Creatinine Estim Creat Clear Calc Estimated GFR Glucose POC Capillary Glucose 149 H Calcium Total Bilirubin AST ALT Alkaline Phosphatase Total Protein Albumin
[2024-08-27] MEDS: LORazepam INJ (*CRX) 2 MG/ML VIAL 1 MG IV PUSH (11:09)
[2024-08-27 12:17] LABS: Glucose Point of Care 179 mg/dl (65-105)
[2024-08-27] MEDS: CENTRAL LINE FLUSH 10 ML IV PUSH ×2 (12:29→22:00)
[2024-08-27 13:41] VITALS: BP 121/74; PULSE 81; RESP 14; TEMP 36.2; O2SAT 97
--- NOTE | 2024-08-27 14:11 | PCOTNOTE ---
Attempted to see pt. for occupational therapy. Pt. is physically resistant and displaying limited alertness despite repeated efforts to awaken, opens eyes, but not responsive to to directions. Nursing aware
--- NOTE | 2024-08-27 14:14 | PCPTNOTE ---
PT attempted to see patient for evaluation. Pt unable to follow simple commands, does not attend to therapist during verbal communication. Nursing notified, will reattempt at a later date
[2024-08-27 17:07] LABS: Glucose Point of Care 142 mg/dl (65-105)
[2024-08-27] MEDS: SODIUM CHLORIDE 0.9% IV 1,000 ML 100 ML IV CONT (18:19)
[2024-08-27 20:25] VITALS: BP 137/58; PULSE 81; RESP 16; TEMP 36.4; O2SAT 97
[2024-08-27] MEDS: ATORVASTATIN 20 MG TABLET PO (20:27)
[2024-08-27] MEDS: DULoxetine HCL 30 MG CAPSULE.DR PO (20:27)
[2024-08-27] MEDS: INSULIN GLARGINE (*BKC) 100 UNITS/ML 40 UNITS SUB-Q (20:29)
[2024-08-27 20:52] LABS: Glucose Point of Care 165 mg/dl (65-105)
[2024-08-28 00:03] LABS: Glucose Point of Care 174 mg/dl (65-105)
[2024-08-28] MEDS: SODIUM CHLORIDE 0.9% IV 1,000 ML 100 ML IV CONT ×2 (02:19→16:42)
[2024-08-28 02:48] LABS: Vancomycin Trough 21.7 ug/mL (10.0-20.0)
[2024-08-28 05:23] VITALS: BP 155/87; PULSE 78; RESP 16; TEMP 36.7; O2SAT 100
[2024-08-28] MEDS: CENTRAL LINE FLUSH 10 ML IV PUSH ×3 (05:23→21:04)
[2024-08-28 05:50] LABS: Basophils Absolute Auto 0.1 K/mm3 (0.0-0.1); Basophils Percent Auto 0.9 % (0.2-1.2); Eosinophils Absolute Auto 0.6 K/mm3 (0-0.3); Eosinophils Percent Auto 4.9 % (0-4.4); Hematocrit 31.4 % (42.0-52.0); Immature Granulocyte Absolute 0.26 K/mm3 (0.00-0.031); Immature Granulocyte Percent A 2.3 % (0-0.5); Lymphocytes Absolute Auto 3.38 K/mm3 (0.9-3.2); Lymphocytes Percent Auto 29.9 % (18.3-44.2); Mean Corpuscular HGB Conc 31.8 g/dl (32-36); Mean Platelet Volume 9.6 fl (7.4-10.4); Monocytes Absolute Auto 0.8 K/mm3 (0.1-0.6); Monocytes Percent Auto 6.8 % (2.6-8.5); Neutrophils Absolute Auto 6.2 K/mm3 (1.3-6.7); Neutrophils Percent Auto 55.2 % (45.5-73.1); Platelet Count Result 467 k/mm3 (150-375); Red Blood Count 3.45 M/mm3 (4.6-6.20); Red Cell Distribution Width 13.7 % (11.5-14.5); White Blood Count 11.3 K/mm3 (4.5-10.0)
[2024-08-28 06:05] LABS: Alanine Aminotransferase 20 U/L (6-50); Albumin Level 2.4 g/dL (3.5-5.1); Alkaline Phosphatase 61 U/L (38-126); Anion Gap 5 mmol/L (4-12); Aspartate Amino Transferase 35 U/L (17-59); Bilirubin,Total 0.4 mg/dL (0.2-1.3); Blood Urea Nitrogen 15 mg/dL (9-20); Calcium 8.4 mg/dL (8.4-10.2); Carbon Dioxide 28 mmol/L (22-30); Chloride 101 mmol/L (98-107); Estimated CRCL calculation 55 ml/min; Estimated Glomerular Filt Rate > 60; Glucose 106 mg/dL (65-110); Sodium 134 mmol/L (137-145)
[2024-08-28] MEDS: VANCOMYCIN 1,500 MG/NS 500 ML 1,500 MG/500 ML BAG 250 MG IVPB (06:29)
[2024-08-28 08:10] LABS: Glucose Point of Care 91 mg/dl (65-105)
[2024-08-28] MEDS: INSULIN ASPART (*BKC) 100 UNITS/ML SUB-Q ×3 (08:15→16:41)
[2024-08-28] MEDS: polyethylene glycoL 3350 17 GM POWD.PACK PO (08:18)
[2024-08-28] MEDS: lisinopriL 10 MG TABLET PO (08:19)
[2024-08-28] MEDS: MULTIVITAMINS THERAPEUTIC TAB (*BKC) 1 TABLET PO (08:19)
[2024-08-28] MEDS: FLUoxetine HCL 20 MG CAPSULE PO (08:20)
[2024-08-28] MEDS: ASPIRIN 81 MG CHEWABLE TABLET PO (08:20)
[2024-08-28] MEDS: TAMSULOSIN HCL 0.4 MG CAPSULE PO (08:20)
[2024-08-28] MEDS: HEPARIN SODIUM 5,000 UNITS/ML VIAL 5000 UNITS SUB-Q ×2 (08:20→20:47)
[2024-08-28] MEDS: FENOFIBRATE 160 MG TABLET PO (08:20)
--- NOTE | 2024-08-28 09:22 | P.PNIM_ITS ---
Progress Note: A&P Assessment and Plan (1) Essential hypertension: Code(s): I10 - Essential (primary) hypertension Status: Chronic (2) Arterial insufficiency: Code(s): I77.1 - Stricture of artery Status: Acute (3) Dyslipidemia: Code(s): E78.5 - Hyperlipidemia, unspecified Status: Acute (4) Diabetes 1.5, managed as type 2: Code(s): E13.9 - Other specified diabetes mellitus without complications Status: Acute (5) Current use of insulin: Code(s): Z79.4 - correction (current) use of insulin Status: Acute (6) Diabetic ulcer of right foot: Qualifiers: Diabetes mellitus type: type 1 Diabetic foot ulcer location: midfoot Non-pressure ulcer stage: with fat layer exposed Qualified Code(s): E10.621 - Type 1 diabetes mellitus with foot ulcer; L97.412 - Non-pressure chronic ulcer of right heel and midfoot with fat layer exposed Code(s): E11.621 - Type 2 diabetes mellitus with foot ulcer; L97.519 - Non-pressure chronic ulcer of other part of right foot with unspecified severity Status: Acute (7) FILIPPO (acute kidney injury): Code(s): N17.9 - Acute kidney failure, unspecified Status: Acute (8) Acute kidney injury superimposed on chronic kidney disease: Code(s): N17.9 - Acute kidney failure, unspecified; N18.9 - Chronic kidney disease, unspecified Status: Acute Plan (1) Sepsis: Qualifiers: Sepsis acute organ dysfunction status: without acute organ dysfunction Sepsis type: sepsis due to unspecified organism Qualified Code(s): A41.9 - Sepsis, unspecified organism Code(s): A41.9 - Sepsis, unspecified organism Status: Acute Assessment and Plan: Patient presents with left foot wound. Imaging shows osteomyelitis in the bilateral feet. Lactic acid was 6.2. WBC 19 K. patient was tachycardic but afebrile. Suspect sepsis is related to left diabetic foot wound with necrotizing fasciitis and osteomyelitis. UA noted but urine culture negative Blood cultures NGTD Wound Cx growing Group A Strept and MRSA Patient started on cefepime, vancomycin and Flagyl per antibiotic stewardship. Orthopedic consulted and appreciate their input. Patient underwent debridements. Lactic acid level is normal. White count is trending down Abx adjusted per PharmD ID. Chronic patient is on vancomycin IV Foot osteomyelitis, left: Code(s): M86.9 - Osteomyelitis, unspecified Status: Acute Assessment and Plan: Left foot MRI shows osteomyelitis of the 3rd proximal phalanx, head and neck 3rd metatarsal with fracture. He also had gas tracking proximally along the plantar soft tissue of the forefoot consistent with necrotizing fasciitis. ABIs showing Right 0.54 (TBI 0.54) and Left 0.081 (TBI 0.22). Also, patient had a right foot MRI that showed osteomyelitis at the lateral base of the 5th metatarsal Orthopedic consulted and patient was brought to the OR on 08/22 for left transmetatarsal amputation and right foot debridement to bone. Patient brought back to the OR 08/25 for excisional debridement bilateral foot diabetic ulcers and osteomyelitis. Wound vac in place to the right foot. Continue current wound care. Appreciate Orthopedic input. Start PT/OT when able. s/p Excisional debridement bilateral foot diabetic ulcers and osteomyelitis, POD2 wound VAC right foot. Daily dressing changes, left foot. Preoperative wound cultures reveal Group G Streptococcus, MRSA. Received vancomycin cefepime and metronidazole patient will likely need at least 6 weeks of IV therapy from the procedure (Day 1 as 08/26 or POD 1) until October 06 with IV vancomycin. Diabetic foot ulcer: Qualifiers: Diabetes mellitus type: type 2 Diabetic foot ulcer location: heel Laterality: right Non-pressure ulcer stage: limited to breakdown of skin Qualified Code(s): E11.621 - Type 2 diabetes mellitus with foot ulcer; L97.411 - Non-pressure chronic ulcer of right heel and midfoot limited to breakdown of skin Code(s): E11.621 - Type 2 diabetes mellitus with foot ulcer; L97.509 - Non-pressure chronic ulcer of other part of unspecified foot with unspecified severity Status: Acute Assessment and Plan: As above (4) Acute kidney injury superimposed on chronic kidney disease, hyponatremia Code(s): N17.9 - Acute kidney failure, unspecified; N18.9 - Chronic kidney disease, unspecified Status: Acute Assessment and Plan: Cr elevated at 2.75 on admission. Baseline unclear but probably around 1.5. Suspect related to sepsis, osteomyelitis and necrotizing fasciitis. Also was on ibuprofen, lisinopril at home Treated with IV fluids and Cr better., Cr stable at 1.08 Patient is a poor intake Sodium still lower than baseline. Start Normal saline 08/28 (5) Insulin dependent type 2 diabetes mellitus: Code(s): E11.9 - Type 2 diabetes mellitus without complications; Z79.4 - correction (current) use of insulin Status: Chronic Assessment and Plan: The patient's blood glucose was reviewed on 08/26 Glucose better this morning at 123. Continue AccuCheks covering with sliding scale. Hypoglycemia protocol available as needed. Contnue Lantus and add back meal time insulin. Watch for lows. Controlled in target range, decrease Lantus to 30 units from 40 need q.h.s. 08/27 Continue to monitor (6) Essential hypertension: Code(s): I10 - Essential (primary) hypertension Status: Chronic Assessment and Plan: Patient's blood pressure was reviewed on 08/26 Blood pressure is up and down that could be related to anxiety. Will continue to monitor Plan Hyperkalemia - Intermittent hyperkalemia which has been noted in the past. [place] related to the FILIPPO. Potassium better Somnolence - patient fatigued during the day . Apnea link ordered but not complete yet. Subjective Date/time seen: 08/28/24 09:22 Interval history: I saw examined patient today, patient mental status is improving today, alert oriented x3, appetite improving, Patient is afebrile, blood pressure stable, leukocytosis improving Exam Narrative: GENERAL: Pleasant, in no acute distress. Well-nourished. - EYES: EOMI. Anicteric. - HENT: Moist mucous membranes. - LUNGS: Clear to auscultation bilateral ly, no wheezing, rhonchi, or rales. - CARDIOVASCULAR: Regular rate and rhyth m. No murmur. No JVD. - ABDOMEN: Soft, non-tender and non-dist ended. No palpable masses. - EXTREMITIES: No edema. Peripheral puls es 2+. Non-tender. - NEUROLOGIC: No focal neurological defi cits. CN II-XII grossly intact. - PSYCHIATRIC: Awake, Alert and oriented x 3. Appropriate mood and affect. - SKIN: Right foot wound vac in place. L eft foot dressing clean, dry and intact - LYMPH: No cervical lymphadenopathy. Objective Data Vital Signs Vital Signs: Vital Signs - 24 hr 08/27/24 13:41 08/27/24 20:25 08/28/24 05:23 Temperature 97.2 F L 97.5 F L 98.0 F Pulse Rate 81 81 78 Respiratory Rate 14 16 16 Blood Pressure 121/74 137/58 L 155/87 H Pulse Oximetry 97 97 100 Oxygen Delivery 08/28/24 08:17 Temperature Pulse Rate Respiratory Rate Blood Pressure Pulse Oximetry Oxygen Delivery Room Air Intake/Output Intake/Output: Intake & Output 08/25/24 08/26/24 08/27/24 08/28/24 23:59 23:59 23:59 23:59 Intake Total 1300 1517 1470 800 Output Total 75 1700 600 Balance 1225 1517 -230 200 Meds/Results Medications: Active Medications Generic Name Dose Route Start Last Admin Trade Name Freq PRN Reason Stop Dose Admin Acetaminophen 650 mg 08/22/24 07:56 08/22/24 21:41 Acetaminophen 325 Mg Tablet PO 650 mg Q6H PRN Administration Pain Hydrocodone Bitart/Acetaminophen 1 tab 08/23/24 00:13 08/23/24 22:03 Hydrocodone/Acetaminophen (*Crx) 5-325 Mg Tablet PO 1 tab Q6H PRN Administration Pain Rated 4-6 Albuterol/Ipratropium 3 ml 08/22/24 06:48 Ipratropium 0.5 Mg/Albuterol Sulfate 2.5 Mg Ampul.Neb 3 Ml INHALATION Q4HRT PRN shortness of breath/Wheezing Aspirin 81 mg 08/22/24 09:00 08/28/24 08:20 Aspirin 81 Mg Chewable Tablet PO 81 mg DAILY REED Administration Atorvastatin Calcium 20 mg 08/22/24 21:00 08/27/24 20:27 Atorvastatin 20 Mg Tablet PO 20 mg HS REED Administration Dextrose 12.5 gm 08/22/24 07:53 Dextrose 50% 25 Gm/50 Ml Syringe IV PUSH PRN PRN Hypoglycemia Protocol Docusate Sodium 100 mg 08/22/24 08:02 Docusate Sodium 100 Mg Capsule PO QHS PRN Constipation Duloxetine HCl 30 mg 08/22/24 21:00 08/27/24 20:27 Duloxetine Hcl 30 Mg Capsule.Dr PO 30 mg HS REED Administration Fenofibrate 160 mg 08/22/24 09:00 08/28/24 08:20 Fenofibrate 160 Mg Tablet PO 160 mg DAILY REED Administration Fentanyl Citrate 12.5 mcg 08/25/24 15:10 Fentanyl Citrate Inj (*Crx) 100 Mcg/2 Ml Vial IV PUSH Q2M PRN Pain Fluoxetine HCl 20 mg 08/22/24 09:00 08/28/24 08:20 Fluoxetine Hcl 20 Mg Capsule PO 20 mg DAILY REED Administration Glucagon 1 mg 08/22/24 07:53 Glucagon For Inj 1 Mg Vial IM PRN PRN Hypoglycemia Protocol Glucose 15 gm 08/22/24 07:53 Glucose Oral Gel 15 Gm Of Glucse In 37.5 Gm Tube PO PRN PRN Hypoglycemia Protocol Heparin Sodium (Porcine) 5,000 units 08/22/24 21:00 08/28/24 08:20 Heparin Sodium 5,000 Units/Ml Vial SUB-Q 5,000 units Q12HR REED Administration Dextrose 1,000 mls @ 100 mls/hr 08/22/24 07:53 Dextrose 5% 1,000 Ml IVPB PRN PRN Hypoglycemia Protocol Sodium Chloride 1,000 mls @ 100 mls/hr 08/27/24 18:00 08/28/24 02:19 Normal Saline Iv IV CONT 100 mls/hr .Q10H REED Administration Vancomycin HCl 1,500 mg in 500 mls @ 250 mls/hr 08/28/24 06:00 08/28/24 06:29 Vancomycin 1,500 Mg/Ns 500 Ml IVPB 250 mls/hr Q18H REED Administration Insulin Aspart 4 units 08/27/24 08:00 08/28/24 08:15 Insulin Aspart (*Bkc) 100 Units/Ml 0.05 units/kg (4 units) 4 units SUB-Q Administration TIDWM REED Insulin Glargine 40 units 08/25/24 21:00 08/27/24 20:29 Insulin Glargine (*Bkc) 100 Units/Ml SUB-Q 40 units HS REED Administration Lisinopril 10 mg 08/22/24 09:00 08/28/24 08:19 Lisinopril 10 Mg Tablet PO 10 mg DAILY REED Administration Melatonin 5 mg 08/22/24 06:48 08/22/24 21:36 Melatonin 5 Mg Tablet PO 5 mg HS PRN Administration Insomnia Morphine Sulfate 2 mg 08/23/24 00:14 Morphine Sulfate (*Crx) 2 Mg/Ml Inj IV PUSH Q4H PRN Pain Rated 7-10 Multivitamins Therapeutic 1 tablet 08/22/24 09:00 08/28/24 08:19 Multivitamins Therapeutic Tab (*Bkc) PO 1 tablet DAILY REED Administration Ondansetron HCl 4 mg 08/25/24 15:10 Ondansetron Inj 4 Mg/2 Ml Vial IV PUSH ONCE PRN Nausea Polyethylene Glycol 17 gm 08/22/24 09:00 08/28/24 08:18 Polyethylene Glycol 3350 17 Gm Powd.Pack PO 17 gm DAILY REED Administration Prochlorperazine Edisylate 10 mg 08/22/24 06:48 Prochlorperazine Edisylate 10 Mg/2 Ml Vial IV PUSH Q6H PRN Nausea And Vomiting Sodium Chloride 10 ml 08/27/24 14:00 08/28/24 05:23 Central Line Flush IV PUSH 10 ml Q8HR REED Administration Sodium Chloride 10 ml 08/27/24 12:08 Central Line Flush IV PUSH PRN PRN with TPN bag changes Sodium Chloride 20 ml 08/27/24 12:08 Central Line Flush IV PUSH PRN PRN after blood draws Tamsulosin HCl 0.4 mg 08/22/24 09:00 08/28/24 08:20 Tamsulosin Hcl 0.4 Mg Capsule PO 0.4 mg DAILY REED Administration Radiology Results: ITS Impressions Foot MRI 08/22/24 14:57 IMPRESSION: 1. Osteomyelitis at the third proximal phalanx, head and neck the third metatarsal with secondary pathologic fracture at the base of the second proximal phalanx. Equivocal reactive edema versus very early osteomyelitis at the head of the second metatarsal. 2. Gas tracking proximally along the plantar soft tissues of the forefoot most likely representing extension from ulceration plantar to the head of the third metatarsal although differential would include necrotizing fasciitis in the appropriate clinical setting. Findings were discussed with Grayson Hawkins, the nurse caring for the patient, at 3:10 PM. Ankle Brachial Index 08/22/24 15:29 IMPRESSION: 1. Moderately decreased right ELIZABETH and mildly decreased left ELIZABETH with worsening from 11/21/2018, consistent with arterial occlusive disease. Foot X-Ray 08/24/24 12:25 Impression: Osteomyelitis of the base the fifth metatarsal/proximal fifth metatarsal shaft with destructive change and worsened overlying soft tissue ulcer as compared to relatively recent prior exam. Chest X-Ray 08/27/24 12:04 IMPRESSION: 1. PICC tip at the superior cavoatrial junction. 2. Small lung volumes with mild atelectasis in right midlung zone and left lower lung zone. Labs Labs: Laboratory Results - last 24 hr 08/27/24 08/27/24 08/27/24 12:06 12:43 16:58 WBC RBC Hgb Hct MCV MCH MCHC RDW Plt Count MPV Immature Gran % (Auto) Neut % (Auto) Lymph % (Auto) [place] % (Auto) Eos % (Auto) Baso % (Auto) Lymph # (Auto) [place] # (Auto) Eos # (Auto) Baso # (Auto) Abs Immat Gran (auto) Absolute Neuts (auto) Absolute Nucleated RBC Nucleated RBC % Sodium Potassium Chloride Carbon Dioxide Anion Gap BUN Creatinine Estim Creat Clear Calc Estimated GFR Glucose POC Capillary Glucose 179 H 142 H Calcium Total Bilirubin AST ALT Alkaline Phosphatase Total Protein Albumin Vancomycin Trough 43.0 H* 08/27/24 08/28/24 08/28/24 20:30 00:00 02:06 WBC RBC Hgb Hct MCV MCH MCHC RDW Plt Count MPV Immature Gran % (Auto) Neut % (Auto) Lymph % (Auto) [place] % (Auto) Eos % (Auto) Baso % (Auto) Lymph # (Auto) [place] # (Auto) Eos # (Auto) Baso # (Auto) Abs Immat Gran (auto) Absolute Neuts (auto) Absolute Nucleated RBC Nucleated RBC % Sodium Potassium Chloride Carbon Dioxide Anion Gap BUN Creatinine Estim Creat Clear Calc Estimated GFR Glucose POC Capillary Glucose 165 H 174 H Calcium Total Bilirubin AST ALT Alkaline Phosphatase Total Protein Albumin Vancomycin Trough 21.7 H 08/28/24 08/28/24 05:25 08:05 WBC 11.3 H RBC 3.45 L Hgb 10.0 L Hct 31.4 L MCV 91.0 MCH 29.0 MCHC 31.8 L RDW 13.7 Plt Count 467 H MPV 9.6 Immature Gran % (Auto) 2.3 H Neut % (Auto) 55.2 Lymph % (Auto) 29.9 [place] % (Auto) 6.8 Eos % (Auto) 4.9 H Baso % (Auto) 0.9 Lymph # (Auto) 3.38 H [place] # (Auto) 0.8 H Eos # (Auto) 0.6 H Baso # (Auto) 0.1 Abs Immat Gran (auto) 0.26 H Absolute Neuts (auto) 6.2 Absolute Nucleated RBC 0.000 Nucleated RBC % 0.0 Sodium 134 L Potassium 4.0 Chloride 101 Carbon Dioxide 28 Anion Gap 5 BUN 15 Creatinine 1.07 Estim Creat Clear Calc 55 Estimated GFR > 60 Glucose 106 POC Capillary Glucose 91 Calcium 8.4 Total Bilirubin 0.4 AST 35 ALT 20 Alkaline Phosphatase 61 Total Protein 6.0 L Albumin 2.4 L Vancomycin Trough
--- NOTE | 2024-08-28 09:40 | P.PNOP_ITS ---
Progress Note: A&P Assessment and Plan (1) Osteomyelitis of foot, left, acute: Code(s): M86.172 - Other acute osteomyelitis, left ankle and foot Status: Acute Assessment and Plan: POD #6: Bilateral foot osteomyelitis. POD #3: Excisional debridement bilateral foot diabetic ulcers and osteomyelitis. wound VAC right foot. Daily dressing changes, left foot. Preoperative wound cultures reveal Group G Streptococcus, MRSA. Continue with IV antibiotics. PICC line, IV antibiotics. Nutritional supplement. Obvious osteomyelitis of b/l feet on MRI preoperatively. rn long term care antibiotics accordingly. (2) Diabetic ulcer of right foot: Qualifiers: Diabetic foot ulcer location: midfoot Diabetes mellitus type: type 1 Non-pressure ulcer stage: with fat layer exposed Qualified Code(s): E10.621 - Type 1 diabetes mellitus with foot ulcer; L97.412 - Non-pressure chronic ulcer of right heel and midfoot with fat layer exposed Code(s): E11.621 - Type 2 diabetes mellitus with foot ulcer; L97.519 - Non-pressure chronic ulcer of other part of right foot with unspecified severity Status: Acute (3) Arterial insufficiency: Code(s): I77.1 - Stricture of artery Status: Acute Assessment and Plan: See ABIs. Time Spent With Patient Time with patient: less than 15 minutes Subjective Subjective Date/Time Seen: 08/28/24 09:40 Post Op day: 3 Principal diagnosis: Bilateral diabetic foot osteomyelitis Interval history: POD #3: Excisional debridement bilateral foot diabetic ulcers and osteomyelitis. Patient comfortable in bed. No new complaints. Review of Systems Review of Systems: All systems reviewed & are unremarkable except as noted in HPI and below Objective Data Vital Signs Vital Signs: Vital Signs - 24 hr 08/27/24 13:41 08/27/24 20:25 08/28/24 05:23 Temperature 36.2 C L 36.4 C L 36.7 C Pulse Rate 81 81 78 Respiratory Rate 14 16 16 Blood Pressure 121/74 137/58 L 155/87 H Pulse Oximetry 97 97 100 Oxygen Delivery 08/28/24 08:17 Temperature Pulse Rate Respiratory Rate Blood Pressure Pulse Oximetry Oxygen Delivery Room Air Intake/Output Intake/Output: Intake & Output 08/25/24 08/26/24 08/27/24 08/28/24 23:59 23:59 23:59 23:59 Intake Total 1300 1517 1470 800 Output Total 75 1700 600 Balance 1225 1517 -230 200 Meds/Results Medications: Active Medications Generic Name Dose Route Start Last Admin Trade Name Freq PRN Reason Stop Dose Admin Acetaminophen 650 mg 08/22/24 07:56 08/22/24 21:41 Acetaminophen 325 Mg Tablet PO 650 mg Q6H PRN Administration Pain Hydrocodone Bitart/Acetaminophen 1 tab 08/23/24 00:13 08/23/24 22:03 Hydrocodone/Acetaminophen (*Crx) 5-325 Mg Tablet PO 1 tab Q6H PRN Administration Pain Rated 4-6 Albuterol/Ipratropium 3 ml 08/22/24 06:48 Ipratropium 0.5 Mg/Albuterol Sulfate 2.5 Mg Ampul.Neb 3 Ml INHALATION Q4HRT PRN shortness of breath/Wheezing Aspirin 81 mg 08/22/24 09:00 08/28/24 08:20 Aspirin 81 Mg Chewable Tablet PO 81 mg DAILY REED Administration Atorvastatin Calcium 20 mg 08/22/24 21:00 08/27/24 20:27 Atorvastatin 20 Mg Tablet PO 20 mg HS REED Administration Dextrose 12.5 gm 08/22/24 07:53 Dextrose 50% 25 Gm/50 Ml Syringe IV PUSH PRN PRN Hypoglycemia Protocol Docusate Sodium 100 mg 08/22/24 08:02 Docusate Sodium 100 Mg Capsule PO QHS PRN Constipation Duloxetine HCl 30 mg 08/22/24 21:00 08/27/24 20:27 Duloxetine Hcl 30 Mg Capsule.Dr PO 30 mg HS REED Administration Fenofibrate 160 mg 08/22/24 09:00 08/28/24 08:20 Fenofibrate 160 Mg Tablet PO 160 mg DAILY REED Administration Fentanyl Citrate 12.5 mcg 08/25/24 15:10 Fentanyl Citrate Inj (*Crx) 100 Mcg/2 Ml Vial IV PUSH Q2M PRN Pain Fluoxetine HCl 20 mg 08/22/24 09:00 08/28/24 08:20 Fluoxetine Hcl 20 Mg Capsule PO 20 mg DAILY REED Administration Glucagon 1 mg 08/22/24 07:53 Glucagon For Inj 1 Mg Vial IM PRN PRN Hypoglycemia Protocol Glucose 15 gm 08/22/24 07:53 Glucose Oral Gel 15 Gm Of Glucse In 37.5 Gm Tube PO PRN PRN Hypoglycemia Protocol Heparin Sodium (Porcine) 5,000 units 08/22/24 21:00 08/28/24 08:20 Heparin Sodium 5,000 Units/Ml Vial SUB-Q 5,000 units Q12HR REED Administration Dextrose 1,000 mls @ 100 mls/hr 08/22/24 07:53 Dextrose 5% 1,000 Ml IVPB PRN PRN Hypoglycemia Protocol Sodium Chloride 1,000 mls @ 100 mls/hr 08/27/24 18:00 08/28/24 02:19 Normal Saline Iv IV CONT 100 mls/hr .Q10H REED Administration Vancomycin HCl 1,500 mg in 500 mls @ 250 mls/hr 08/28/24 06:00 08/28/24 06:29 Vancomycin 1,500 Mg/Ns 500 Ml IVPB 250 mls/hr Q18H REED Administration Insulin Aspart 4 units 08/27/24 08:00 08/28/24 08:15 Insulin Aspart (*Bkc) 100 Units/Ml 0.05 units/kg (4 units) 4 units SUB-Q Administration TIDWM REED Insulin Glargine 40 units 08/25/24 21:00 08/27/24 20:29 Insulin Glargine (*Bkc) 100 Units/Ml SUB-Q 40 units HS REED Administration Lisinopril 10 mg 08/22/24 09:00 08/28/24 08:19 Lisinopril 10 Mg Tablet PO 10 mg DAILY REED Administration Melatonin 5 mg 08/22/24 06:48 08/22/24 21:36 Melatonin 5 Mg Tablet PO 5 mg HS PRN Administration Insomnia Morphine Sulfate 2 mg 08/23/24 00:14 Morphine Sulfate (*Crx) 2 Mg/Ml Inj IV PUSH Q4H PRN Pain Rated 7-10 Multivitamins Therapeutic 1 tablet 08/22/24 09:00 08/28/24 08:19 Multivitamins Therapeutic Tab (*Bkc) PO 1 tablet DAILY REED Administration Ondansetron HCl 4 mg 08/25/24 15:10 Ondansetron Inj 4 Mg/2 Ml Vial IV PUSH ONCE PRN Nausea Polyethylene Glycol 17 gm 08/22/24 09:00 08/28/24 08:18 Polyethylene Glycol 3350 17 Gm Powd.Pack PO 17 gm DAILY REED Administration Prochlorperazine Edisylate 10 mg 08/22/24 06:48 Prochlorperazine Edisylate 10 Mg/2 Ml Vial IV PUSH Q6H PRN Nausea And Vomiting Sodium Chloride 10 ml 08/27/24 14:00 08/28/24 05:23 Central Line Flush IV PUSH 10 ml Q8HR REED Administration Sodium Chloride 10 ml 08/27/24 12:08 Central Line Flush IV PUSH PRN PRN with TPN bag changes Sodium Chloride 20 ml 08/27/24 12:08 Central Line Flush IV PUSH PRN PRN after blood draws Tamsulosin HCl 0.4 mg 08/22/24 09:00 08/28/24 08:20 Tamsulosin Hcl 0.4 Mg Capsule PO 0.4 mg DAILY REED Administration Radiology Results: ITS Impressions Foot MRI 08/22/24 14:57 IMPRESSION: 1. Osteomyelitis at the third proximal phalanx, head and neck the third metatarsal with secondary pathologic fracture at the base of the second proximal phalanx. Equivocal reactive edema versus very early osteomyelitis at the head of the second metatarsal. 2. Gas tracking proximally along the plantar soft tissues of the forefoot most likely representing extension from ulceration plantar to the head of the third metatarsal although differential would include necrotizing fasciitis in the appropriate clinical setting. Findings were discussed with Graysno Hawkins, the nurse caring for the patient, at 3:10 PM. Ankle Brachial Index 08/22/24 15:29 IMPRESSION: 1. Moderately decreased right ELIZABETH and mildly decreased left ELIZABETH with worsening from 11/21/2018, consistent with arterial occlusive disease. Foot X-Ray 08/24/24 12:25 Impression: Osteomyelitis of the base the fifth metatarsal/proximal fifth metatarsal shaft with destructive change and worsened overlying soft tissue ulcer as compared to relatively recent prior exam. Chest X-Ray 08/27/24 12:04 IMPRESSION: 1. PICC tip at the superior cavoatrial junction. 2. Small lung volumes with mild atelectasis in right midlung zone and left lower lung zone. Labs Labs: Laboratory Results - last 24 hr 08/27/24 08/27/24 08/27/24 12:06 12:43 16:58 WBC RBC Hgb Hct MCV MCH MCHC RDW Plt Count MPV Immature Gran % (Auto) Neut % (Auto) Lymph % (Auto) [place] % (Auto) Eos % (Auto) Baso % (Auto) Lymph # (Auto) [place] # (Auto) Eos # (Auto) Baso # (Auto) Abs Immat Gran (auto) Absolute Neuts (auto) Absolute Nucleated RBC Nucleated RBC % Sodium Potassium Chloride Carbon Dioxide Anion Gap BUN Creatinine Estim Creat Clear Calc Estimated GFR Glucose POC Capillary Glucose 179 H 142 H Calcium Total Bilirubin AST ALT Alkaline Phosphatase Total Protein Albumin Vancomycin Trough 43.0 H* 08/27/24 08/28/24 08/28/24 20:30 00:00 02:06 WBC RBC Hgb Hct MCV MCH MCHC RDW Plt Count MPV Immature Gran % (Auto) Neut % (Auto) Lymph % (Auto) [place] % (Auto) Eos % (Auto) Baso % (Auto) Lymph # (Auto) [place] # (Auto) Eos # (Auto) Baso # (Auto) Abs Immat Gran (auto) Absolute Neuts (auto) Absolute Nucleated RBC Nucleated RBC % Sodium Potassium Chloride Carbon Dioxide Anion Gap BUN Creatinine Estim Creat Clear Calc Estimated GFR Glucose POC Capillary Glucose 165 H 174 H Calcium Total Bilirubin AST ALT Alkaline Phosphatase Total Protein Albumin Vancomycin Trough 21.7 H 08/28/24 08/28/24 05:25 08:05 WBC 11.3 H RBC 3.45 L Hgb 10.0 L Hct 31.4 L MCV 91.0 MCH 29.0 MCHC 31.8 L RDW 13.7 Plt Count 467 H MPV 9.6 Immature Gran % (Auto) 2.3 H Neut % (Auto) 55.2 Lymph % (Auto) 29.9 [place] % (Auto) 6.8 Eos % (Auto) 4.9 H Baso % (Auto) 0.9 Lymph # (Auto) 3.38 H [place] # (Auto) 0.8 H Eos # (Auto) 0.6 H Baso # (Auto) 0.1 Abs Immat Gran (auto) 0.26 H Absolute Neuts (auto) 6.2 Absolute Nucleated RBC 0.000 Nucleated RBC % 0.0 Sodium 134 L Potassium 4.0 Chloride 101 Carbon Dioxide 28 Anion Gap 5 BUN 15 Creatinine 1.07 Estim Creat Clear Calc 55 Estimated GFR > 60 Glucose 106 POC Capillary Glucose 91 Calcium 8.4 Total Bilirubin 0.4 AST 35 ALT 20 Alkaline Phosphatase 61 Total Protein 6.0 L Albumin 2.4 L Vancomycin Trough
[2024-08-28 11:38] LABS: Glucose Point of Care 145 mg/dl (65-105)
--- NOTE | 2024-08-28 12:23 | P.PNINF_ITS ---
Pharmacy ID Consult Stewardship Interventions Type of Interventions: De-escalation and Duration Pharmacy ID Note: De-escalation and Duration Pharmacy ID Note Updated Note - 08/28/2024 - Previous note copied below for convenience Spoke briefly with consulting provider. Patient has bilateral osteomyelitis on both feet, including quite extensive osteomyelitis noted on the left foot that was operated upon. Patient is currently receiving vancomycin IV monotherapy as cultures showed MRSA and Group G Streptococcus. Given osteomyelitis of both feet, patient will likely need at least 6 weeks of IV therapy from the procedure (Day 1 as 3 or POD 1) until October 06 with IV vancomycin. As no pending cultures remaining - will sign off this consult at this time. Subjective Pharmacy was consulted by Rob Worrell regarding infectious diseases for Kojo Quispe. Kojo Quispe is a 73 yoM with concerns regarding osteomyelitis. Background The patient is currently receiving Cefepime, Metronidazole, and Vancomycin since 08/21. The patient's PMH includes debridement on 3 of the infected tissue - surgical pathology still pending for clear margins. Microbiology 08/22/24 16:16 Foot Left Anaerobic Culture - Preliminary 08/22/24 16:16 Foot Left Aerobic Culture - Final Group G Streptococcus Methicillin Resis Staph Aureus 08/21/24 22:52 Urine Clean Catch Urine Culture - Final 08/22/24 16:16 Foot Left Gram Stain - Final 08/21/24 20:58 Blood Blood Culture - Preliminary 08/21/24 21:07 Blood Blood Culture - Preliminary Assessment/Recommendation/Discussion Spoke briefly with consulting provider regarding this patient. During procedure it was seen that potentially had components showing necrosis. Cultures are showing Group G streptococcus and MRSA so patient is continued on vancomycin and cefepime and metronidazole was discontinued for targeted therapy. Duration of at least 14 days (potentially more if soft tissue infection resolution is delayed) if surgical pathology shows clear margins and there is no more residual infected bones. Consider 6 weeks of therapy should osteomyelitis remain. Thank you for the interesting consult. Vance Kang, PharmD Infectious Disease/Antimicrobial Stewardship Pharmacist 08/26/24; 1116 WBC 13.4 K/mm3 (4.5-10.0) H 08/26/24 05:59 Creatinine 1.08 mg/dL (0.7-1.3) 08/26/24 05:59 Estim Creat Clear Calc 55 ml/min 08/26/24 05:59
[2024-08-28 13:54] VITALS: BP 124/64; PULSE 82; RESP 16; TEMP 36.7; O2SAT 97
[2024-08-28 16:38] LABS: Glucose Point of Care 179 mg/dl (65-105)
[2024-08-28 19:32] VITALS: BP 145/59; PULSE 78; RESP 24; TEMP 36.6; O2SAT 99
[2024-08-28] MEDS: DULoxetine HCL 30 MG CAPSULE.DR PO (20:44)
[2024-08-28] MEDS: ATORVASTATIN 20 MG TABLET PO (20:44)
[2024-08-28] MEDS: INSULIN GLARGINE (*BKC) 100 UNITS/ML 30 UNITS SUB-Q (20:45)
[2024-08-28 21:26] LABS: Glucose Point of Care 243 mg/dl (65-105)
[2024-08-29] MEDS: VANCOMYCIN 1,500 MG/NS 500 ML 1,500 MG/500 ML BAG 250 MG IVPB (00:45)
[2024-08-29 04:46] VITALS: BP 136/72; PULSE 81; RESP 24; TEMP 36.4; O2SAT 100
[2024-08-29] MEDS: SODIUM CHLORIDE 0.9% IV 1,000 ML 100 ML IV CONT (05:00)
[2024-08-29 05:57] LABS: Basophils Absolute Auto 0.1 K/mm3 (0.0-0.1); Basophils Percent Auto 0.8 % (0.2-1.2); Eosinophils Absolute Auto 0.5 K/mm3 (0-0.3); Eosinophils Percent Auto 5.3 % (0-4.4); Hematocrit 30.8 % (42.0-52.0); Hemoglobin 9.8 g/dL (14.0-18.0); Immature Granulocyte Absolute 0.23 K/mm3 (0.00-0.031); Immature Granulocyte Percent A 2.4 % (0-0.5); Lymphocytes Absolute Auto 3.35 K/mm3 (0.9-3.2); Lymphocytes Percent Auto 34.5 % (18.3-44.2); Mean Corpuscular HGB Conc 31.8 g/dl (32-36); Mean Corpuscular Volume 91.1 fl (80-100); Mean Platelet Volume 9.4 fl (7.4-10.4); Monocytes Absolute Auto 0.6 K/mm3 (0.1-0.6); Monocytes Percent Auto 6.6 % (2.6-8.5); Neutrophils Absolute Auto 4.9 K/mm3 (1.3-6.7); Neutrophils Percent Auto 50.4 % (45.5-73.1); Platelet Count Result 435 k/mm3 (150-375); Red Blood Count 3.38 M/mm3 (4.6-6.20); Red Cell Distribution Width 13.8 % (11.5-14.5); White Blood Count 9.7 K/mm3 (4.5-10.0)
[2024-08-29 06:10] LABS: Alanine Aminotransferase 18 U/L (6-50); Albumin Level 2.5 g/dL (3.5-5.1); Alkaline Phosphatase 60 U/L (38-126); Anion Gap 5 mmol/L (4-12); Aspartate Amino Transferase 30 U/L (17-59); Bilirubin,Total 0.3 mg/dL (0.2-1.3); Blood Urea Nitrogen 13 mg/dL (9-20); Calcium 8.1 mg/dL (8.4-10.2); Carbon Dioxide 26 mmol/L (22-30); Chloride 104 mmol/L (98-107); Estimated CRCL calculation 59 ml/min; Estimated Glomerular Filt Rate > 60; Glucose 175 mg/dL (65-110); Potassium 4.2 mmol/L (3.4-5.0); Sodium 135 mmol/L (137-145)
[2024-08-29] MEDS: CENTRAL LINE FLUSH 10 ML IV PUSH ×3 (07:18→20:46)
[2024-08-29 07:57] LABS: Glucose Point of Care 168 mg/dl (65-105)
[2024-08-29] MEDS: MULTIVITAMINS THERAPEUTIC TAB (*BKC) 1 TABLET PO (08:32)
[2024-08-29] MEDS: INSULIN ASPART (*BKC) 100 UNITS/ML SUB-Q ×3 (08:32→17:16)
[2024-08-29] MEDS: TAMSULOSIN HCL 0.4 MG CAPSULE PO (08:33)
[2024-08-29] MEDS: HEPARIN SODIUM 5,000 UNITS/ML VIAL 5000 UNITS SUB-Q ×2 (08:33→20:33)
[2024-08-29] MEDS: ASPIRIN 81 MG CHEWABLE TABLET PO (08:33)
[2024-08-29] MEDS: lisinopriL 10 MG TABLET PO (08:33)
[2024-08-29] MEDS: FENOFIBRATE 160 MG TABLET PO (08:33)
[2024-08-29] MEDS: FLUoxetine HCL 20 MG CAPSULE PO (08:33)
[2024-08-29] MEDS: polyethylene glycoL 3350 17 GM POWD.PACK PO (08:33)
--- NOTE | 2024-08-29 08:58 | PM.IMPN ---
Progress Note: A&P Assessment and Plan (1) Essential hypertension: Code(s): I10 - Essential (primary) hypertension Status: Chronic (2) Arterial insufficiency: Code(s): I77.1 - Stricture of artery Status: Acute (3) Dyslipidemia: Code(s): E78.5 - Hyperlipidemia, unspecified Status: Acute (4) Diabetes 1.5, managed as type 2: Code(s): E13.9 - Other specified diabetes mellitus without complications Status: Acute (5) Current use of insulin: Code(s): Z79.4 - nursing home (current) use of insulin Status: Acute (6) Diabetic ulcer of right foot: Qualifiers: Diabetes mellitus type: type 1 Diabetic foot ulcer location: midfoot Non-pressure ulcer stage: with fat layer exposed Qualified Code(s): E10.621 - Type 1 diabetes mellitus with foot ulcer; L97.412 - Non-pressure chronic ulcer of right heel and midfoot with fat layer exposed Code(s): E11.621 - Type 2 diabetes mellitus with foot ulcer; L97.519 - Non-pressure chronic ulcer of other part of right foot with unspecified severity Status: Acute (7) FILIPPO (acute kidney injury): Code(s): N17.9 - Acute kidney failure, unspecified Status: Acute (8) Acute kidney injury superimposed on chronic kidney disease: Code(s): N17.9 - Acute kidney failure, unspecified; N18.9 - Chronic kidney disease, unspecified Status: Acute Plan (1) Sepsis: Qualifiers: Sepsis acute organ dysfunction status: without acute organ dysfunction Sepsis type: sepsis due to unspecified organism Qualified Code(s): A41.9 - Sepsis, unspecified organism Code(s): A41.9 - Sepsis, unspecified organism Status: Acute Assessment and Plan: Patient presents with left foot wound. Imaging shows osteomyelitis in the bilateral feet. Lactic acid was 6.2. WBC 19 K. patient was tachycardic but afebrile. Suspect sepsis is related to left diabetic foot wound with necrotizing fasciitis and osteomyelitis. UA noted but urine culture negative Blood cultures NGTD Wound Cx growing Group A Strept and MRSA Patient started on cefepime, vancomycin and Flagyl per antibiotic stewardship. Orthopedic consulted and appreciate their input. Patient underwent debridements. Lactic acid level is normal. White count is trending down Abx adjusted per PharmD ID. Sepsis has resolved Currently patient is on vancomycin IV Foot osteomyelitis, left: Code(s): M86.9 - Osteomyelitis, unspecified Status: Acute Assessment and Plan: Left foot MRI shows osteomyelitis of the 3rd proximal phalanx, head and neck 3rd metatarsal with fracture. He also had gas tracking proximally along the plantar soft tissue of the forefoot consistent with necrotizing fasciitis. ABIs showing Right 0.54 (TBI 0.54) and Left 0.081 (TBI 0.22). Also, patient had a right foot MRI that showed osteomyelitis at the lateral base of the 5th metatarsal Orthopedic consulted and patient was brought to the OR on 08/22 for left transmetatarsal amputation and right foot debridement to bone. Patient brought back to the OR 08/25 for excisional debridement bilateral foot diabetic ulcers and osteomyelitis. Wound vac in place to the right foot. Continue current wound care. Appreciate Orthopedic input. Start PT/OT when able. s/p Excisional debridement bilateral foot diabetic ulcers and osteomyelitis, POD2 wound VAC right foot. Daily dressing changes, left foot. Preoperative wound cultures reveal Group G Streptococcus, MRSA. Received vancomycin cefepime and metronidazole patient will likely need at least 6 weeks of IV therapy from the procedure (Day 1 as 08/26 or POD 1) until October 06 with IV vancomycin. Wound is dry and clean Diabetic foot ulcer: Qualifiers: Diabetes mellitus type: type 2 Diabetic foot ulcer location: heel Laterality: right Non-pressure ulcer stage: limited to breakdown of skin Qualified Code(s): E11.621 - Type 2 diabetes mellitus with foot ulcer; L97.411 - Non-pressure chronic ulcer of right heel and midfoot limited to breakdown of skin Code(s): E11.621 - Type 2 diabetes mellitus with foot ulcer; L97.509 - Non-pressure chronic ulcer of other part of unspecified foot with unspecified severity Status: Acute Assessment and Plan: As above (4) Acute kidney injury superimposed on chronic kidney disease, hyponatremia Code(s): N17.9 - Acute kidney failure, unspecified; N18.9 - Chronic kidney disease, unspecified Status: Acute Assessment and Plan: Cr elevated at 2.75 on admission. Baseline unclear but probably around 1.5. Suspect related to sepsis, osteomyelitis and necrotizing fasciitis. Also was on ibuprofen, lisinopril at home Treated with IV fluids and Cr better., Cr stable at 1.08 Patient is a poor intake Sodium still lower than baseline. Start Normal saline 08/28 Sodium 135, DC normal saline 08/29 (5) Insulin dependent type 2 diabetes mellitus: Code(s): E11.9 - Type 2 diabetes mellitus without complications; Z79.4 - nursing home (current) use of insulin Status: Chronic Assessment and Plan: The patient's blood glucose was reviewed on 08/26 Glucose better this morning at 123. Continue AccuCheks covering with sliding scale. Hypoglycemia protocol available as needed. Contnue Lantus and add back meal time insulin. Watch for lows. Controlled in target range, decrease Lantus to 30 units from 40 need q.h.s. 08/27 Continue to monitor (6) Essential hypertension: Code(s): I10 - Essential (primary) hypertension Status: Chronic Assessment and Plan: Patient's blood pressure was reviewed on 08/26 Blood pressure is up and down that could be related to anxiety. Will continue to monitor Plan Hyperkalemia - Intermittent hyperkalemia which has been noted in the past. [place] related to the FILIPPO. Potassium better Somnolence - patient fatigued during the day . Apnea link ordered but not complete yet. Subjective Date/time seen: 08/29/24 08:58 Interval history: I saw examined patient in presents of patient's nurse today, patient feels comfortable, denies foot pain, left surgical wound is dry and clean, no sign of infection, Patient is afebrile, blood pressure stable, leukocytosis resolved Exam Narrative: GENERAL: Pleasant, in no acute distress. Well-nourished. - EYES: EOMI. Anicteric. - HENT: Moist mucous membranes. - LUNGS: Clear to auscultation bilaterally, no wheezing, rhonchi, or rales. - CARDIOVASCULAR: Regular rate and rhythm. No murmur. No JVD. - ABDOMEN: Soft, non-tender and non-distended. No palpable masses. - EXTREMITIES: No edema. Peripheral pulses 2+. Non-tender. - NEUROLOGIC: No focal neurological deficits. CN II-XII grossly intact. - PSYCHIATRIC: Awake, Alert and oriented x 3. Appropriate mood and affect. - SKIN: Right foot wound vac in place. Surgical wound is dry and clean, no sign infection. Left foot dressing clean, dry and intact - LYMPH: No cervical lymphadenopathy. Objective Data Vital Signs Vital Signs: Vital Signs - 24 hr 08/28/24 13:54 08/28/24 19:32 08/29/24 04:46 Temperature 98.1 F 97.8 F 97.5 F L Pulse Rate 82 78 81 Respiratory Rate 16 24 H 24 H Blood Pressure 124/64 145/59 H 136/72 Pulse Oximetry 97 99 100 Intake/Output Intake/Output: Intake & Output 08/26/24 08/27/24 08/28/24 08/29/24 23:59 23:59 23:59 23:59 Intake Total 1517 1470 3100 1310 Output Total 2989 528 7457 Balance 1517 -230 6249 -590 Meds/Results Medications: Active Medications Generic Name Dose Route Start Last Admin Trade Name Freq PRN Reason Stop Dose Admin Acetaminophen 650 mg 08/22/24 07:56 08/22/24 21:41 Acetaminophen 325 Mg Tablet PO 650 mg Q6H PRN Administration Pain Hydrocodone Bitart/Acetaminophen 1 tab 08/23/24 00:13 08/23/24 22:03 Hydrocodone/Acetaminophen (*Crx) 5-325 Mg Tablet PO 1 tab Q6H PRN Administration Pain Rated 4-6 Albuterol/Ipratropium 3 ml 08/22/24 06:48 Ipratropium 0.5 Mg/Albuterol Sulfate 2.5 Mg Ampul.Neb 3 Ml INHALATION Q4HRT PRN shortness of breath/Wheezing Aspirin 81 mg 08/22/24 09:00 08/29/24 08:33 Aspirin 81 Mg Chewable Tablet PO 81 mg DAILY REED Administration Atorvastatin Calcium 20 mg 08/22/24 21:00 08/28/24 20:44 Atorvastatin 20 Mg Tablet PO 20 mg HS REED Administration Dextrose 12.5 gm 08/22/24 07:53 Dextrose 50% 25 Gm/50 Ml Syringe IV PUSH PRN PRN Hypoglycemia Protocol Docusate Sodium 100 mg 08/22/24 08:02 Docusate Sodium 100 Mg Capsule PO QHS PRN Constipation Duloxetine HCl 30 mg 08/22/24 21:00 08/28/24 20:44 Duloxetine Hcl 30 Mg Capsule.Dr PO 30 mg HS REED Administration Fenofibrate 160 mg 08/22/24 09:00 08/29/24 08:33 Fenofibrate 160 Mg Tablet PO 160 mg DAILY REED Administration Fentanyl Citrate 12.5 mcg 08/25/24 15:10 Fentanyl Citrate Inj (*Crx) 100 Mcg/2 Ml Vial IV PUSH Q2M PRN Pain Fluoxetine HCl 20 mg 08/22/24 09:00 08/29/24 08:33 Fluoxetine Hcl 20 Mg Capsule PO 20 mg DAILY ERED Administration Glucagon 1 mg 08/22/24 07:53 Glucagon For Inj 1 Mg Vial IM PRN PRN Hypoglycemia Protocol Glucose 15 gm 08/22/24 07:53 Glucose Oral Gel 15 Gm Of Glucse In 37.5 Gm Tube PO PRN PRN Hypoglycemia Protocol Heparin Sodium (Porcine) 5,000 units 08/22/24 21:00 08/29/24 08:33 Heparin Sodium 5,000 Units/Ml Vial SUB-Q 5,000 units Q12HR REED Administration Dextrose 1,000 mls @ 100 mls/hr 08/22/24 07:53 Dextrose 5% 1,000 Ml IVPB PRN PRN Hypoglycemia Protocol Sodium Chloride 1,000 mls @ 100 mls/hr 08/27/24 18:00 08/29/24 05:00 Normal Saline Iv IV CONT 100 mls/hr .Q10H REED Administration Vancomycin HCl 1,500 mg in 500 mls @ 250 mls/hr 08/28/24 06:00 08/29/24 00:45 Vancomycin 1,500 Mg/Ns 500 Ml IVPB 250 mls/hr Q18H REED Administration Insulin Aspart 4 units 08/27/24 08:00 08/29/24 08:32 Insulin Aspart (*Bkc) 100 Units/Ml 0.05 units/kg (4 units) 4 units SUB-Q Administration TIDWM REED Insulin Glargine 30 units 08/28/24 21:00 08/28/24 20:45 Insulin Glargine (*Bkc) 100 Units/Ml SUB-Q 30 units HS REED Administration Lisinopril 10 mg 08/22/24 09:00 08/29/24 08:33 Lisinopril 10 Mg Tablet PO 10 mg DAILY REED Administration Melatonin 5 mg 08/22/24 06:48 08/22/24 21:36 Melatonin 5 Mg Tablet PO 5 mg HS PRN Administration Insomnia Morphine Sulfate 2 mg 08/23/24 00:14 Morphine Sulfate (*Crx) 2 Mg/Ml Inj IV PUSH Q4H PRN Pain Rated 7-10 Multivitamins Therapeutic 1 tablet 08/22/24 09:00 08/29/24 08:32 Multivitamins Therapeutic Tab (*Bkc) PO 1 tablet DAILY REED Administration Ondansetron HCl 4 mg 08/25/24 15:10 Ondansetron Inj 4 Mg/2 Ml Vial IV PUSH ONCE PRN Nausea Polyethylene Glycol 17 gm 08/22/24 09:00 08/29/24 08:33 Polyethylene Glycol 3350 17 Gm Powd.Pack PO 17 gm DAILY REED Administration Prochlorperazine Edisylate 10 mg 08/22/24 06:48 Prochlorperazine Edisylate 10 Mg/2 Ml Vial IV PUSH Q6H PRN Nausea And Vomiting Sodium Chloride 10 ml 08/27/24 14:00 08/29/24 07:18 Central Line Flush IV PUSH 10 ml Q8HR REED Administration Sodium Chloride 10 ml 08/27/24 12:08 Central Line Flush IV PUSH PRN PRN with TPN bag changes Sodium Chloride 20 ml 08/27/24 12:08 Central Line Flush IV PUSH PRN PRN after blood draws Tamsulosin HCl 0.4 mg 08/22/24 09:00 08/29/24 08:33 Tamsulosin Hcl 0.4 Mg Capsule PO 0.4 mg DAILY REED Administration Radiology Results: ITS Impressions Foot MRI 08/22/24 14:57 IMPRESSION: 1. Osteomyelitis at the third proximal phalanx, head and neck the third metatarsal with secondary pathologic fracture at the base of the second proximal phalanx. Equivocal reactive edema versus very early osteomyelitis at the head of the second metatarsal. 2. Gas tracking proximally along the plantar soft tissues of the forefoot most likely representing extension from ulceration plantar to the head of the third metatarsal although differential would include necrotizing fasciitis in the appropriate clinical setting. Findings were discussed with Grayson Hawkins, the nurse caring for the patient, at 3:10 PM. Ankle Brachial Index 08/22/24 15:29 IMPRESSION: 1. Moderately decreased right ELIZABETH and mildly decreased left ELIZABETH with worsening from 11/21/2018, consistent with arterial occlusive disease. Foot X-Ray 08/24/24 12:25 Impression: Osteomyelitis of the base the fifth metatarsal/proximal fifth metatarsal shaft with destructive change and worsened overlying soft tissue ulcer as compared to relatively recent prior exam. Chest X-Ray 08/27/24 12:04 IMPRESSION: 1. PICC tip at the superior cavoatrial junction. 2. Small lung volumes with mild atelectasis in right midlung zone and left lower lung zone. Labs Labs: Laboratory Results - last 24 hr 08/28/24 08/28/24 08/28/24 11:28 16:35 19:28 WBC RBC Hgb Hct MCV MCH MCHC RDW Plt Count MPV Immature Gran % (Auto) Neut % (Auto) Lymph % (Auto) Kimball % (Auto) Eos % (Auto) Baso % (Auto) Lymph # (Auto) Kimball # (Auto) Eos # (Auto) Baso # (Auto) Abs Immat Gran (auto) Absolute Neuts (auto) Absolute Nucleated RBC Nucleated RBC % Sodium Potassium Chloride Carbon Dioxide Anion Gap BUN Creatinine Estim Creat Clear Calc Estimated GFR Glucose POC Capillary Glucose 145 H 179 H 243 H Calcium Total Bilirubin AST ALT Alkaline Phosphatase Total Protein Albumin 08/29/24 08/29/24 05:51 07:46 WBC 9.7 RBC 3.38 L Hgb 9.8 L Hct 30.8 L MCV 91.1 MCH 29.0 MCHC 31.8 L RDW 13.8 Plt Count 435 H MPV 9.4 Immature Gran % (Auto) 2.4 H Neut % (Auto) 50.4 Lymph % (Auto) 34.5 Kimball % (Auto) 6.6 Eos % (Auto) 5.3 H Baso % (Auto) 0.8 Lymph # (Auto) 3.35 H Kimball # (Auto) 0.6 Eos # (Auto) 0.5 H Baso # (Auto) 0.1 Abs Immat Gran (auto) 0.23 H Absolute Neuts (auto) 4.9 Absolute Nucleated RBC 0.000 Nucleated RBC % 0.0 Sodium 135 L Potassium 4.2 Chloride 104 Carbon Dioxide 26 Anion Gap 5 BUN 13 Creatinine 1.01 Estim Creat Clear Calc 59 Estimated GFR > 60 Glucose 175 H POC Capillary Glucose 168 H Calcium 8.1 L Total Bilirubin 0.3 AST 30 ALT 18 Alkaline Phosphatase 60 Total Protein 6.0 L Albumin 2.5 L
--- NOTE | 2024-08-29 10:42 | PM.PNORT ---
Progress Note: A&P Assessment and Plan (1) Osteomyelitis of foot, left, acute: Code(s): M86.172 - Other acute osteomyelitis, left ankle and foot Status: Acute Assessment and Plan: POD #7: Bilateral foot osteomyelitis. POD #4: Excisional debridement bilateral foot diabetic ulcers and osteomyelitis. Wound VAC right foot. Daily dressing changes, left foot. Preoperative wound cultures reveal Group G Streptococcus, MRSA. PICC line, IV antibiotics. Nutritional supplement. Obvious osteomyelitis of b/l feet on MRI preoperatively. long-term antibiotics accordingly. Dispo: SNF Follow up 3 weeks for suture removal. (2) Diabetic ulcer of right foot: Qualifiers: Diabetic foot ulcer location: midfoot Diabetes mellitus type: type 1 Non-pressure ulcer stage: with fat layer exposed Qualified Code(s): E10.621 - Type 1 diabetes mellitus with foot ulcer; L97.412 - Non-pressure chronic ulcer of right heel and midfoot with fat layer exposed Code(s): E11.621 - Type 2 diabetes mellitus with foot ulcer; L97.519 - Non-pressure chronic ulcer of other part of right foot with unspecified severity Status: Acute Assessment and Plan: Discussed importance of proper nutrition, diabetic diet and medication compliance for optimal healing. (3) Arterial insufficiency: Code(s): I77.1 - Stricture of artery Status: Acute Assessment and Plan: See ABIs. Time Spent With Patient Time: Reviewed history, exam, radiographs and current labs with attending MD and covering surgeon, Dr. Ornelas, who agrees with current plan as indicated above. No further recommendations from Dr. Ornelas at this time. Time with patient: less than 15 minutes Subjective Subjective Date/Time Seen: 08/29/24 10:42 Post Op day: 4 Principal diagnosis: Bilateral diabetic foot osteomyelitis Interval history: POD #4: Excisional debridement bilateral foot diabetic ulcers and osteomyelitis. Patient comfortable in bed. No new complaints. Review of Systems Review of Systems: All systems reviewed & are unremarkable except as noted in HPI and below Exam Const: General: No in distress or confusion Orientation/consciousness: patient oriented x3 HENMT: Head: normal to inspection, normocephalic and atraumatic Resp: Effort & Inspection: normal respiratory effort Cardio: Rate: regular rate Rhythm: regular rhythm GI: GI Palp: Yes Soft to palpation, No Tenderness to palpation present (GI) and No Guarding due to palpation present (GI) Extrem: Other: dressings in place bilateral feet. wound VAC in place right foot. Lower leg swelling improved bilaterally. No erythema. Objective Data Vital Signs Vital Signs: Vital Signs - 24 hr 08/28/24 13:54 08/28/24 19:32 08/29/24 04:46 Temperature 36.7 C 36.6 C 36.4 C L Pulse Rate 82 78 81 Respiratory Rate 16 24 H 24 H Blood Pressure 124/64 145/59 H 136/72 Pulse Oximetry 97 99 100 Intake/Output Intake/Output: Intake & Output 08/26/24 08/27/24 08/28/24 08/29/24 23:59 23:59 23:59 23:59 Intake Total 1517 1470 3100 1310 Output Total 7735 793 7663 Balance 1517 -230 2499 -590 Meds/Results Medications: Active Medications Generic Name Dose Route Start Last Admin Trade Name Freq PRN Reason Stop Dose Admin Acetaminophen 650 mg 08/22/24 07:56 08/22/24 21:41 Acetaminophen 325 Mg Tablet PO 650 mg Q6H PRN Administration Pain Hydrocodone Bitart/Acetaminophen 1 tab 08/23/24 00:13 08/23/24 22:03 Hydrocodone/Acetaminophen (*Crx) 5-325 Mg Tablet PO 1 tab Q6H PRN Administration Pain Rated 4-6 Albuterol/Ipratropium 3 ml 08/22/24 06:48 Ipratropium 0.5 Mg/Albuterol Sulfate 2.5 Mg Ampul.Neb 3 Ml INHALATION Q4HRT PRN shortness of breath/Wheezing Aspirin 81 mg 08/22/24 09:00 08/29/24 08:33 Aspirin 81 Mg Chewable Tablet PO 81 mg DAILY REED Administration Atorvastatin Calcium 20 mg 08/22/24 21:00 08/28/24 20:44 Atorvastatin 20 Mg Tablet PO 20 mg HS REED Administration Dextrose 12.5 gm 08/22/24 07:53 Dextrose 50% 25 Gm/50 Ml Syringe IV PUSH PRN PRN Hypoglycemia Protocol Docusate Sodium 100 mg 08/22/24 08:02 Docusate Sodium 100 Mg Capsule PO QHS PRN Constipation Duloxetine HCl 30 mg 08/22/24 21:00 08/28/24 20:44 Duloxetine Hcl 30 Mg Capsule.Dr PO 30 mg HS REED Administration Fenofibrate 160 mg 08/22/24 09:00 08/29/24 08:33 Fenofibrate 160 Mg Tablet PO 160 mg DAILY REED Administration Fentanyl Citrate 12.5 mcg 08/25/24 15:10 Fentanyl Citrate Inj (*Crx) 100 Mcg/2 Ml Vial IV PUSH Q2M PRN Pain Fluoxetine HCl 20 mg 08/22/24 09:00 08/29/24 08:33 Fluoxetine Hcl 20 Mg Capsule PO 20 mg DAILY REED Administration Glucagon 1 mg 08/22/24 07:53 Glucagon For Inj 1 Mg Vial IM PRN PRN Hypoglycemia Protocol Glucose 15 gm 08/22/24 07:53 Glucose Oral Gel 15 Gm Of Glucse In 37.5 Gm Tube PO PRN PRN Hypoglycemia Protocol Heparin Sodium (Porcine) 5,000 units 08/22/24 21:00 08/29/24 08:33 Heparin Sodium 5,000 Units/Ml Vial SUB-Q 5,000 units Q12HR REED Administration Dextrose 1,000 mls @ 100 mls/hr 08/22/24 07:53 Dextrose 5% 1,000 Ml IVPB PRN PRN Hypoglycemia Protocol Sodium Chloride 1,000 mls @ 100 mls/hr 08/27/24 18:00 08/29/24 05:00 Normal Saline Iv IV CONT 100 mls/hr .Q10H REED Administration Vancomycin HCl 1,500 mg in 500 mls @ 250 mls/hr 08/28/24 06:00 08/29/24 00:45 Vancomycin 1,500 Mg/Ns 500 Ml IVPB 250 mls/hr Q18H REED Administration Insulin Aspart 4 units 08/27/24 08:00 08/29/24 08:32 Insulin Aspart (*Bkc) 100 Units/Ml 0.05 units/kg (4 units) 4 units SUB-Q Administration TIDWM REED Insulin Glargine 30 units 08/28/24 21:00 08/28/24 20:45 Insulin Glargine (*Bkc) 100 Units/Ml SUB-Q 30 units HS REED Administration Lisinopril 10 mg 08/22/24 09:00 08/29/24 08:33 Lisinopril 10 Mg Tablet PO 10 mg DAILY REED Administration Melatonin 5 mg 08/22/24 06:48 08/22/24 21:36 Melatonin 5 Mg Tablet PO 5 mg HS PRN Administration Insomnia Morphine Sulfate 2 mg 08/23/24 00:14 Morphine Sulfate (*Crx) 2 Mg/Ml Inj IV PUSH Q4H PRN Pain Rated 7-10 Multivitamins Therapeutic 1 tablet 08/22/24 09:00 08/29/24 08:32 Multivitamins Therapeutic Tab (*Bkc) PO 1 tablet DAILY REED Administration Ondansetron HCl 4 mg 08/25/24 15:10 Ondansetron Inj 4 Mg/2 Ml Vial IV PUSH ONCE PRN Nausea Polyethylene Glycol 17 gm 08/22/24 09:00 08/29/24 08:33 Polyethylene Glycol 3350 17 Gm Powd.Pack PO 17 gm DAILY REED Administration Prochlorperazine Edisylate 10 mg 08/22/24 06:48 Prochlorperazine Edisylate 10 Mg/2 Ml Vial IV PUSH Q6H PRN Nausea And Vomiting Sodium Chloride 10 ml 08/27/24 14:00 08/29/24 07:18 Central Line Flush IV PUSH 10 ml Q8HR REED Administration Sodium Chloride 10 ml 08/27/24 12:08 Central Line Flush IV PUSH PRN PRN with TPN bag changes Sodium Chloride 20 ml 08/27/24 12:08 Central Line Flush IV PUSH PRN PRN after blood draws Tamsulosin HCl 0.4 mg 08/22/24 09:00 08/29/24 08:33 Tamsulosin Hcl 0.4 Mg Capsule PO 0.4 mg DAILY REED Administration Radiology Results: ITS Impressions Foot MRI 08/22/24 14:57 IMPRESSION: 1. Osteomyelitis at the third proximal phalanx, head and neck the third metatarsal with secondary pathologic fracture at the base of the second proximal phalanx. Equivocal reactive edema versus very early osteomyelitis at the head of the second metatarsal. 2. Gas tracking proximally along the plantar soft tissues of the forefoot most likely representing extension from ulceration plantar to the head of the third metatarsal although differential would include necrotizing fasciitis in the appropriate clinical setting. Findings were discussed with Grayson Hawkins, the nurse caring for the patient, at 3:10 PM. Ankle Brachial Index 08/22/24 15:29 IMPRESSION: 1. Moderately decreased right ELIZABETH and mildly decreased left ELIZABETH with worsening from 11/21/2018, consistent with arterial occlusive disease. Foot X-Ray 08/24/24 12:25 Impression: Osteomyelitis of the base the fifth metatarsal/proximal fifth metatarsal shaft with destructive change and worsened overlying soft tissue ulcer as compared to relatively recent prior exam. Chest X-Ray 08/27/24 12:04 IMPRESSION: 1. PICC tip at the superior cavoatrial junction. 2. Small lung volumes with mild atelectasis in right midlung zone and left lower lung zone. Labs Labs: Laboratory Results - last 24 hr 08/28/24 08/28/24 08/28/24 11:28 16:35 19:28 WBC RBC Hgb Hct MCV MCH MCHC RDW Plt Count MPV Immature Gran % (Auto) Neut % (Auto) Lymph % (Auto) [place] % (Auto) Eos % (Auto) Baso % (Auto) Lymph # (Auto) [place] # (Auto) Eos # (Auto) Baso # (Auto) Abs Immat Gran (auto) Absolute Neuts (auto) Absolute Nucleated RBC Nucleated RBC % Sodium Potassium Chloride Carbon Dioxide Anion Gap BUN Creatinine Estim Creat Clear Calc Estimated GFR Glucose POC Capillary Glucose 145 H 179 H 243 H Calcium Total Bilirubin AST ALT Alkaline Phosphatase Total Protein Albumin 08/29/24 08/29/24 05:51 07:46 WBC 9.7 RBC 3.38 L Hgb 9.8 L Hct 30.8 L MCV 91.1 MCH 29.0 MCHC 31.8 L RDW 13.8 Plt Count 435 H MPV 9.4 Immature Gran % (Auto) 2.4 H Neut % (Auto) 50.4 Lymph % (Auto) 34.5 [place] % (Auto) 6.6 Eos % (Auto) 5.3 H Baso % (Auto) 0.8 Lymph # (Auto) 3.35 H [place] # (Auto) 0.6 Eos # (Auto) 0.5 H Baso # (Auto) 0.1 Abs Immat Gran (auto) 0.23 H Absolute Neuts (auto) 4.9 Absolute Nucleated RBC 0.000 Nucleated RBC % 0.0 Sodium 135 L Potassium 4.2 Chloride 104 Carbon Dioxide 26 Anion Gap 5 BUN 13 Creatinine 1.01 Estim Creat Clear Calc 59 Estimated GFR > 60 Glucose 175 H POC Capillary Glucose 168 H Calcium 8.1 L Total Bilirubin 0.3 AST 30 ALT 18 Alkaline Phosphatase 60 Total Protein 6.0 L Albumin 2.5 L
--- NOTE | 2024-08-29 10:44 | PCNWS ---
Weekly nutritional screen. Patient is tolerating current diabetic diet with adequate intake, 100% all meals. No weight loss reported. No nutritional needs at this time.
[2024-08-29 11:22] LABS: Glucose Point of Care 190 mg/dl (65-105)
--- NOTE | 2024-08-29 12:23 | PCWOUND ---
WOCN NOTE Spoke with Jeannie spanish speaking babysitter who states per hospitalist, patient will be discharged tomorrow 08/30/24 to intermediate. Will not change wound vac dressing as it will be removed tomorrow. Orders placed for staff to remove dressing before discharge tomorrow and apply Xeroform to wound and cover with a dry gauze dressing. [facility] to reapply wound vac dressing at facility. Discharge instructions and follow up appointment placed into the discharge paperwork.
[2024-08-29 14:00] VITALS: BP 149/64; PULSE 81; RESP 18; TEMP 36.8; O2SAT 100
[2024-08-29 16:29] LABS: Glucose Point of Care 277 mg/dl (65-105)
[2024-08-29 17:44] LABS: Vancomycin Trough 19.2 ug/mL (10.0-20.0)
[2024-08-29 19:36] VITALS: BP 161/72; PULSE 79; RESP 20; TEMP 36.7; O2SAT 98
[2024-08-29] MEDS: VANCOMYCIN 1,000 MG/NS 250 ML 1,000 MG/250 ML BAG 250 MG IVPB (20:32)
[2024-08-29] MEDS: DULoxetine HCL 30 MG CAPSULE.DR PO (20:33)
[2024-08-29] MEDS: ATORVASTATIN 20 MG TABLET PO (20:33)
[2024-08-29] MEDS: INSULIN GLARGINE (*BKC) 100 UNITS/ML 30 UNITS SUB-Q (20:34)
[2024-08-29 21:28] LABS: Glucose Point of Care 272 mg/dl (65-105)
[2024-08-30 04:19] VITALS: BP 150/77; PULSE 83; RESP 20; TEMP 36.3; O2SAT 99
[2024-08-30 04:53] LABS: Basophils Absolute Auto 0.1 K/mm3 (0.0-0.1); Eosinophils Absolute Auto 0.5 K/mm3 (0-0.3); Hematocrit 32.6 % (42.0-52.0); Hemoglobin 10.2 g/dL (14.0-18.0); Immature Granulocyte Percent A 2.2 % (0-0.5); Lymphocytes Absolute Auto 3.56 K/mm3 (0.9-3.2); Lymphocytes Percent Auto 38.8 % (18.3-44.2); Mean Corpuscular HGB Conc 31.3 g/dl (32-36); Mean Corpuscular Hemoglobin 28.3 pg (26-34); Mean Corpuscular Volume 90.6 fl (80-100); Mean Platelet Volume 9.3 fl (7.4-10.4); Monocytes Absolute Auto 0.6 K/mm3 (0.1-0.6); Neutrophils Absolute Auto 4.2 K/mm3 (1.3-6.7); Platelet Count Result 465 k/mm3 (150-375); Red Cell Distribution Width 13.8 % (11.5-14.5); White Blood Count 9.2 K/mm3 (4.5-10.0)
[2024-08-30 05:09] LABS: Alanine Aminotransferase 20 U/L (6-50); Albumin Level 2.7 g/dL (3.5-5.1); Alkaline Phosphatase 65 U/L (38-126); Anion Gap 6 mmol/L (4-12); Aspartate Amino Transferase 34 U/L (17-59); Bilirubin,Total 0.4 mg/dL (0.2-1.3); Blood Urea Nitrogen 14 mg/dL (9-20); Calcium 8.6 mg/dL (8.4-10.2); Carbon Dioxide 27 mmol/L (22-30); Chloride 101 mmol/L (98-107); Estimated CRCL calculation 59 ml/min; Estimated Glomerular Filt Rate > 60; Glucose 183 mg/dL (65-110); Potassium 4.1 mmol/L (3.4-5.0); Sodium 134 mmol/L (137-145)
[2024-08-30] MEDS: CENTRAL LINE FLUSH 10 ML IV PUSH (07:13)
[2024-08-30 08:24] LABS: Glucose Point of Care 160 mg/dl (65-105)
[2024-08-30] MEDS: INSULIN ASPART (*BKC) 100 UNITS/ML SUB-Q ×2 (08:43→12:13)
[2024-08-30] MEDS: polyethylene glycoL 3350 17 GM POWD.PACK PO (08:46)
[2024-08-30] MEDS: TAMSULOSIN HCL 0.4 MG CAPSULE PO (08:46)
[2024-08-30] MEDS: FENOFIBRATE 160 MG TABLET PO (08:46)
[2024-08-30] MEDS: FLUoxetine HCL 20 MG CAPSULE PO (08:46)
[2024-08-30] MEDS: VANCOMYCIN 1,000 MG/NS 250 ML 1,000 MG/250 ML BAG 250 MG IVPB (08:46)
[2024-08-30] MEDS: lisinopriL 10 MG TABLET PO (08:46)
[2024-08-30] MEDS: MULTIVITAMINS THERAPEUTIC TAB (*BKC) 1 TABLET PO (08:47)
[2024-08-30] MEDS: ASPIRIN 81 MG CHEWABLE TABLET PO (08:47)
[2024-08-30] MEDS: HEPARIN SODIUM 5,000 UNITS/ML VIAL 5000 UNITS SUB-Q (08:47)
--- NOTE | 2024-08-30 09:12 | P.PNIM_ITS ---
Progress Note: A&P Assessment and Plan (1) Essential hypertension: Code(s): I10 - Essential (primary) hypertension Status: Chronic (2) Arterial insufficiency: Code(s): I77.1 - Stricture of artery Status: Acute (3) Dyslipidemia: Code(s): E78.5 - Hyperlipidemia, unspecified Status: Acute (4) Diabetes 1.5, managed as type 2: Code(s): E13.9 - Other specified diabetes mellitus without complications Status: Acute (5) Current use of insulin: Code(s): Z79.4 - MCC (current) use of insulin Status: Acute (6) Diabetic ulcer of right foot: Qualifiers: Diabetes mellitus type: type 1 Diabetic foot ulcer location: midfoot Non-pressure ulcer stage: with fat layer exposed Qualified Code(s): E10.621 - Type 1 diabetes mellitus with foot ulcer; L97.412 - Non-pressure chronic ulcer of right heel and midfoot with fat layer exposed Code(s): E11.621 - Type 2 diabetes mellitus with foot ulcer; L97.519 - Non-pressure chronic ulcer of other part of right foot with unspecified severity Status: Acute (7) FILIPPO (acute kidney injury): Code(s): N17.9 - Acute kidney failure, unspecified Status: Acute (8) Acute kidney injury superimposed on chronic kidney disease: Code(s): N17.9 - Acute kidney failure, unspecified; N18.9 - Chronic kidney disease, unspecified Status: Acute Plan (1) Sepsis: Qualifiers: Sepsis acute organ dysfunction status: without acute organ dysfunction Sepsis type: sepsis due to unspecified organism Qualified Code(s): A41.9 - Sepsis, unspecified organism Code(s): A41.9 - Sepsis, unspecified organism Status: Acute Assessment and Plan: Patient presents with left foot wound. Imaging shows osteomyelitis in the bilateral feet. Lactic acid was 6.2. WBC 19 K. patient was tachycardic but afebrile. Suspect sepsis is related to left diabetic foot wound with necrotizing fasciitis and osteomyelitis. UA noted but urine culture negative Blood cultures NGTD Wound Cx growing Group A Strept and MRSA Patient started on cefepime, vancomycin and Flagyl per antibiotic stewardship. Orthopedic consulted and appreciate their input. Patient underwent debridements. Lactic acid level is normal. White count is trending down Abx adjusted per PharmD ID. Sepsis has resolved Currently patient is on vancomycin IV Foot osteomyelitis, left: Code(s): M86.9 - Osteomyelitis, unspecified Status: Acute Assessment and Plan: Left foot MRI shows osteomyelitis of the 3rd proximal phalanx, head and neck 3rd metatarsal with fracture. He also had gas tracking proximally along the plantar soft tissue of the forefoot consistent with necrotizing fasciitis. ABIs showing Right 0.54 (TBI 0.54) and Left 0.081 (TBI 0.22). Also, patient had a right foot MRI that showed osteomyelitis at the lateral base of the 5th metatarsal Orthopedic consulted and patient was brought to the OR on 08/22 for left transmetatarsal amputation and right foot debridement to bone. Patient brought back to the OR 08/25 for excisional debridement bilateral foot diabetic ulcers and osteomyelitis. Wound vac in place to the right foot. Continue current wound care. Appreciate Orthopedic input. Start PT/OT when able. s/p Excisional debridement bilateral foot diabetic ulcers and osteomyelitis, POD2 wound VAC right foot. Daily dressing changes, left foot. Preoperative wound cultures reveal Group G Streptococcus, MRSA. Received vancomycin cefepime and metronidazole Wound is dry and clean patient will likely need at least 6 weeks of IV therapy from the procedure until October 06 with IV vancomycin. Diabetic foot ulcer: Qualifiers: Diabetes mellitus type: type 2 Diabetic foot ulcer location: heel Laterality: right Non-pressure ulcer stage: limited to breakdown of skin Qualified Code(s): E11.621 - Type 2 diabetes mellitus with foot ulcer; L97.411 - Non-pressure chronic ulcer of right heel and midfoot limited to breakdown of skin Code(s): E11.621 - Type 2 diabetes mellitus with foot ulcer; L97.509 - Non-pressure chronic ulcer of other part of unspecified foot with unspecified severity Status: Acute Assessment and Plan: As above (4) Acute kidney injury superimposed on chronic kidney disease, hyponatremia Code(s): N17.9 - Acute kidney failure, unspecified; N18.9 - Chronic kidney disease, unspecified Status: Acute Assessment and Plan: Cr elevated at 2.75 on admission. Baseline unclear but probably around 1.5. Suspect related to sepsis, osteomyelitis and necrotizing fasciitis. Also was on ibuprofen, lisinopril at home Treated with IV fluids and Cr better., Cr stable at 1.08 Patient is a poor intake Sodium still lower than baseline. Start Normal saline 08/28 Sodium 135, DC normal saline 08/29 (5) Insulin dependent type 2 diabetes mellitus: Code(s): E11.9 - Type 2 diabetes mellitus without complications; Z79.4 - MCC (current) use of insulin Status: Chronic Assessment and Plan: The patient's blood glucose was reviewed on 08/26 Glucose better this morning at 123. Continue AccuCheks covering with sliding scale. Hypoglycemia protocol available as needed. Contnue Lantus and add back meal time insulin. Watch for lows. Controlled in target range, decrease Lantus to 30 units from 40 need q.h.s. 08/27 Continue to monitor (6) Essential hypertension: Code(s): I10 - Essential (primary) hypertension Status: Chronic Assessment and Plan: Blood pressure stable Patient will be discharged to [facility]pc today Subjective Date/time seen: 08/30/24 09:12 Interval history: I saw examined patient in presents of patient's nurse today, patient has no new issue events overnight. Patient feels comfortable, denies foot pain, left surgical wound is dry and clean, no sign of infection, Patient is afebrile, blood pressure stable, leukocytosis resolved Exam Narrative: GENERAL: Pleasant, in no acute distress. Well-nourished. - EYES: EOMI. Anicteric. - HENT: Moist mucous membranes. - LUNGS: Clear to auscultation bilateral ly, no wheezing, rhonchi, or rales. - CARDIOVASCULAR: Regular rate and rhyth m. No murmur. No JVD. - ABDOMEN: Soft, non-tender and non-dist ended. No palpable masses. - EXTREMITIES: No edema. Peripheral puls es 2+. Non-tender. - NEUROLOGIC: No focal neurological defi cits. CN II-XII grossly intact. - PSYCHIATRIC: Awake, Alert and oriented x 3. Appropriate mood and affect. - SKIN: Right foot wound vac in place. Surgical wound is dry and clean, no sign infection. Left foot dressing clean, dry and intact - LYMPH: No cervical lymphadenopathy. Objective Data Vital Signs Vital Signs: Vital Signs - 24 hr 08/29/24 14:00 08/29/24 19:36 08/30/24 04:19 Temperature 98.2 F 98.0 F 97.3 F L Pulse Rate 81 79 83 Respiratory Rate 18 20 20 Blood Pressure 149/64 H 161/72 H 150/77 H Pulse Oximetry 100 98 99 Intake/Output Intake/Output: Intake & Output 08/27/24 08/28/24 08/29/24 08/30/24 23:59 23:59 23:59 23:59 Intake Total 1470 3100 2440 Output Total 7083 612 1486 1500 Balance -230 6959 -0780 -1500 Meds/Results Medications: Active Medications Generic Name Dose Route Start Last Admin Trade Name Freq PRN Reason Stop Dose Admin Acetaminophen 650 mg 08/22/24 07:56 08/22/24 21:41 Acetaminophen 325 Mg Tablet PO 650 mg Q6H PRN Administration Pain Hydrocodone Bitart/Acetaminophen 1 tab 08/23/24 00:13 08/23/24 22:03 Hydrocodone/Acetaminophen (*Crx) 5-325 Mg Tablet PO 1 tab Q6H PRN Administration Pain Rated 4-6 Albuterol/Ipratropium 3 ml 08/22/24 06:48 Ipratropium 0.5 Mg/Albuterol Sulfate 2.5 Mg Ampul.Neb 3 Ml INHALATION Q4HRT PRN shortness of breath/Wheezing Aspirin 81 mg 08/22/24 09:00 08/30/24 08:47 Aspirin 81 Mg Chewable Tablet PO 81 mg DAILY REED Administration Atorvastatin Calcium 20 mg 08/22/24 21:00 08/29/24 20:33 Atorvastatin 20 Mg Tablet PO 20 mg HS REED Administration Dextrose 12.5 gm 08/22/24 07:53 Dextrose 50% 25 Gm/50 Ml Syringe IV PUSH PRN PRN Hypoglycemia Protocol Docusate Sodium 100 mg 08/22/24 08:02 Docusate Sodium 100 Mg Capsule PO QHS PRN Constipation Duloxetine HCl 30 mg 08/22/24 21:00 08/29/24 20:33 Duloxetine Hcl 30 Mg Capsule.Dr PO 30 mg HS REED Administration Fenofibrate 160 mg 08/22/24 09:00 08/30/24 08:46 Fenofibrate 160 Mg Tablet PO 160 mg DAILY REED Administration Fentanyl Citrate 12.5 mcg 08/25/24 15:10 Fentanyl Citrate Inj (*Crx) 100 Mcg/2 Ml Vial IV PUSH Q2M PRN Pain Fluoxetine HCl 20 mg 08/22/24 09:00 08/30/24 08:46 Fluoxetine Hcl 20 Mg Capsule PO 20 mg DAILY REED Administration Glucagon 1 mg 08/22/24 07:53 Glucagon For Inj 1 Mg Vial IM PRN PRN Hypoglycemia Protocol Glucose 15 gm 08/22/24 07:53 Glucose Oral Gel 15 Gm Of Glucse In 37.5 Gm Tube PO PRN PRN Hypoglycemia Protocol Heparin Sodium (Porcine) 5,000 units 08/22/24 21:00 08/30/24 08:47 Heparin Sodium 5,000 Units/Ml Vial SUB-Q 5,000 units Q12HR REED Administration Dextrose 1,000 mls @ 100 mls/hr 08/22/24 07:53 Dextrose 5% 1,000 Ml IVPB PRN PRN Hypoglycemia Protocol Vancomycin HCl 1,000 mg in 250 mls @ 250 mls/hr 08/29/24 20:00 08/30/24 08:46 Vancomycin 1,000 Mg/Ns 250 Ml IVPB 250 mls/hr Q12H REED Administration Insulin Aspart 4 units 08/27/24 08:00 08/30/24 08:43 Insulin Aspart (*Bkc) 100 Units/Ml 0.05 units/kg (4 units) 4 units SUB-Q Administration TIDWM [facility] Insulin Glargine 30 units 08/28/24 21:00 08/29/24 20:34 Insulin Glargine (*Bkc) 100 Units/Ml SUB-Q 30 units HS REED Administration Lisinopril 10 mg 08/22/24 09:00 08/30/24 08:46 Lisinopril 10 Mg Tablet PO 10 mg DAILY REED Administration Melatonin 5 mg 08/22/24 06:48 08/22/24 21:36 Melatonin 5 Mg Tablet PO 5 mg HS PRN Administration Insomnia Morphine Sulfate 2 mg 08/23/24 00:14 Morphine Sulfate (*Crx) 2 Mg/Ml Inj IV PUSH Q4H PRN Pain Rated 7-10 Multivitamins Therapeutic 1 tablet 08/22/24 09:00 08/30/24 08:47 Multivitamins Therapeutic Tab (*Bkc) PO 1 tablet DAILY REED Administration Ondansetron HCl 4 mg 08/25/24 15:10 Ondansetron Inj 4 Mg/2 Ml Vial IV PUSH ONCE PRN Nausea Polyethylene Glycol 17 gm 08/22/24 09:00 08/30/24 08:46 Polyethylene Glycol 3350 17 Gm Powd.Pack PO 17 gm DAILY REED Administration Prochlorperazine Edisylate 10 mg 08/22/24 06:48 Prochlorperazine Edisylate 10 Mg/2 Ml Vial IV PUSH Q6H PRN Nausea And Vomiting Sodium Chloride 10 ml 08/27/24 14:00 08/30/24 07:13 Central Line Flush IV PUSH 10 ml Q8HR REED Administration Sodium Chloride 10 ml 08/27/24 12:08 Central Line Flush IV PUSH PRN PRN with TPN bag changes Sodium Chloride 20 ml 08/27/24 12:08 Central Line Flush IV PUSH PRN PRN after blood draws Tamsulosin HCl 0.4 mg 08/22/24 09:00 08/30/24 08:46 Tamsulosin Hcl 0.4 Mg Capsule PO 0.4 mg DAILY REED Administration Radiology Results: ITS Impressions Foot MRI 08/22/24 14:57 IMPRESSION: 1. Osteomyelitis at the third proximal phalanx, head and neck the third metatarsal with secondary pathologic fracture at the base of the second proximal phalanx. Equivocal reactive edema versus very early osteomyelitis at the head of the second metatarsal. 2. Gas tracking proximally along the plantar soft tissues of the forefoot most likely representing extension from ulceration plantar to the head of the third metatarsal although differential would include necrotizing fasciitis in the appropriate clinical setting. Findings were discussed with Grayson Hawkins, the nurse caring for the patient, at 3:10 PM. Ankle Brachial Index 08/22/24 15:29 IMPRESSION: 1. Moderately decreased right ELIZABETH and mildly decreased left ELIZABETH with worsening from 11/21/2018, consistent with arterial occlusive disease. Foot X-Ray 08/24/24 12:25 Impression: Osteomyelitis of the base the fifth metatarsal/proximal fifth metatarsal shaft with destructive change and worsened overlying soft tissue ulcer as compared to relatively recent prior exam. Chest X-Ray 08/27/24 12:04 IMPRESSION: 1. PICC tip at the superior cavoatrial junction. 2. Small lung volumes with mild atelectasis in right midlung zone and left lower lung zone. Labs Labs: Laboratory Results - last 24 hr 08/29/24 08/29/24 08/29/24 11:20 16:25 17:15 WBC RBC Hgb Hct MCV MCH MCHC RDW Plt Count MPV Immature Gran % (Auto) Neut % (Auto) Lymph % (Auto) [place] % (Auto) Eos % (Auto) Baso % (Auto) Lymph # (Auto) [place] # (Auto) Eos # (Auto) Baso # (Auto) Abs Immat Gran (auto) Absolute Neuts (auto) Absolute Nucleated RBC Nucleated RBC % Sodium Potassium Chloride Carbon Dioxide Anion Gap BUN Creatinine Estim Creat Clear Calc Estimated GFR Glucose POC Capillary Glucose 190 H 277 H Calcium Total Bilirubin AST ALT Alkaline Phosphatase Total Protein Albumin Vancomycin Trough 19.2 08/29/24 08/30/24 08/30/24 19:34 04:42 08:18 WBC 9.2 RBC 3.60 L Hgb 10.2 L Hct 32.6 L MCV 90.6 MCH 28.3 MCHC 31.3 L RDW 13.8 Plt Count 465 H MPV 9.3 Immature Gran % (Auto) 2.2 H Neut % (Auto) 46.0 Lymph % (Auto) 38.8 [place] % (Auto) 7.0 Eos % (Auto) 5.0 H Baso % (Auto) 1.0 Lymph # (Auto) 3.56 H [place] # (Auto) 0.6 Eos # (Auto) 0.5 H Baso # (Auto) 0.1 Abs Immat Gran (auto) 0.20 H Absolute Neuts (auto) 4.2 Absolute Nucleated RBC 0.000 Nucleated RBC % 0.0 Sodium 134 L Potassium 4.1 Chloride 101 Carbon Dioxide 27 Anion Gap 6 BUN 14 Creatinine 1.00 Estim Creat Clear Calc 59 Estimated GFR > 60 Glucose 183 H POC Capillary Glucose 272 H 160 H Calcium 8.6 Total Bilirubin 0.4 AST 34 ALT 20 Alkaline Phosphatase 65 Total Protein 6.0 L Albumin 2.7 L Vancomycin Trough
--- NOTE | 2024-08-30 09:17 | P.DS_ITS ---
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 Status: Acute (6) Diabetic ulcer of right foot: Qualifiers: Diabetes mellitus type: type 1 Diabetic foot ulcer location: midfoot Non-pressure ulcer stage: with fat layer exposed Qualified Code(s): E10.621 - Type 1 diabetes mellitus with foot ulcer; L97.412 - Non-pressure chronic ulcer of right heel and midfoot with fat layer exposed Code(s): E11.621 - Type 2 diabetes mellitus with foot ulcer; L97.519 - Non-pressure chronic ulcer of other part of right foot with unspecified severity Status: Acute (7) FILIPPO (acute kidney injury): Code(s): N17.9 - Acute kidney failure, unspecified Status: Acute (8) Acute kidney injury superimposed on chronic kidney disease: Code(s): N17.9 - Acute kidney failure, unspecified; N18.9 - Chronic kidney disease, unspecified Status: Acute DS: Discharge Diagnosis Discharge Diagnosis (1) Essential hypertension: Code(s): I10 - Essential (primary) hypertension Status: Chronic (2) Arterial insufficiency: Code(s): I77.1 - Stricture of artery Status: Acute (3) Dyslipidemia: Code(s): E78.5 - Hyperlipidemia, unspecified Status: Acute (4) Diabetes 1.5, managed as type 2: Code(s): E13.9 - Other specified diabetes mellitus without complications Status: Acute (5) Current use of insulin: Code(s): Z79.4 - longterm (current) use of insulin Status: Acute (6) Diabetic ulcer of right foot: Qualifiers: Diabetic foot ulcer location: midfoot Diabetes mellitus type: type 1 Non-pressure ulcer stage: with fat layer exposed Qualified Code(s): E10.621 - Type 1 diabetes mellitus with foot ulcer; L97.412 - Non-pressure chronic ulcer of right heel and midfoot with fat layer exposed Code(s): E11.621 - Type 2 diabetes mellitus with foot ulcer; L97.519 - Non-pressure chronic ulcer of other part of right foot with unspecified severity Status: Acute (7) FILIPPO (acute kidney injury): Code(s): N17.9 - Acute kidney failure, unspecified Status: Acute (8) Acute kidney injury superimposed on chronic kidney disease: Code(s): N17.9 - Acute kidney failure, unspecified; N18.9 - Chronic kidney disease, unspecified Status: Acute DS: Summary Hospital Course Hospital Course: Per H&P: Kojo Quispe is a 73 yo M with a mHx significant for obesity, IDDM2, dyslipidemia, BPH, insomnia He presents with a few month's history of worsening left foot wound; he has had a partial amputation of the foot but claims that he developed a wound which despite unknown modiyfying factors has recently began to ooze a foul discharge; it is associated with throbbing pain, subjective fevers, malaise, insomnia and a restriction of ADLs. He denies falls, chest pains, dizziness, LOC, other wounds. He smokes about 1ppd of cigarettes, consume alcohol in moderation; consume marijuana often Work-up findings: XR Left foot:Surgical removal of the fourth and fifth toes distal to the mid metatarsal area. Destructive changes in the area of the distal third metatarsal bone with dislocation in the adjacent joint suggestive of infection. MRI evaluation advised. WBC 18; Hb 11; PLT 615 Na 133; K 5.3'; CO2 17; AG 18; BUN 43; Cr 2.75; GFR 23 LA: 6.2 >> 1 UA: Nitrite -ve; LE 2+; WBC 21-50 Influenza A/B, RSV, COVID-19: Negative Kojo Quispe will be admitted, evaluated and managed for a left foot osteomyelitis The following med issues have been addressed during hospitalization (1) Sepsis: Qualifiers: Sepsis acute organ dysfunction status: without acute organ dysfunction Sepsis type: sepsis due to unspecified organism Qualified Code(s): A41.9 - Sepsis, unspecified organism Code(s): A41.9 - Sepsis, unspecified organism Status: Acute Assessment and Plan: Patient presents with left foot wound. Imaging shows osteomyelitis in the bilateral feet. Lactic acid was 6.2. WBC 19 K. patient was tachycardic but afebrile. Suspect sepsis is related to left diabetic foot wound with necrotizing fasciitis and osteomyelitis. UA noted but urine culture negative Blood cultures NGTD Wound Cx growing Group A Strept and MRSA Patient started on cefepime, vancomycin and Flagyl per antibiotic stewardship. Orthopedic consulted and appreciate their input. Patient underwent debridements. Lactic acid level is normal. White count is trending down Abx adjusted per PharmD ID. Sepsis has resolved Currently patient is on vancomycin IV Foot osteomyelitis, left: Code(s): M86.9 - Osteomyelitis, unspecified Status: Acute Assessment and Plan: Left foot MRI shows osteomyelitis of the 3rd proximal phalanx, head and neck 3rd metatarsal with fracture. He also had gas tracking proximally along the plantar soft tissue of the forefoot consistent with necrotizing fasciitis. ABIs showing Right 0.54 (TBI 0.54) and Left 0.081 (TBI 0.22). Also, patient had a right foot MRI that showed osteomyelitis at the lateral base of the 5th metatarsal Orthopedic consulted and patient was brought to the OR on 08/22 for left transmetatarsal amputation and right foot debridement to bone. Patient brought back to the OR 08/25 for excisional debridement bilateral foot diabetic ulcers and osteomyelitis. Wound vac in place to the right foot. Continue current wound care. Appreciate Orthopedic input. Start PT/OT when able. s/p Excisional debridement bilateral foot diabetic ulcers and osteomyelitis, POD2 wound VAC right foot. Daily dressing changes, left foot. Preoperative wound cultures reveal Group G Streptococcus, MRSA. Received vancomycin cefepime and metronidazole Wound is dry and clean patient will likely need at least 6 weeks of IV therapy from the procedure until October 06 with IV vancomycin. Diabetic foot ulcer: Qualifiers: Diabetes mellitus type: type 2 Diabetic foot ulcer location: heel Laterality: right Non-pressure ulcer stage: limited to breakdown of skin Qualified Code(s): E11.621 - Type 2 diabetes mellitus with foot ulcer; L97.411 - Non-pressure chronic ulcer of right heel and midfoot limited to breakdown of skin Code(s): E11.621 - Type 2 diabetes mellitus with foot ulcer; L97.509 - Non-pressure chronic ulcer of other part of unspecified foot with unspecified severity Status: Acute Assessment and Plan: As above (4) Acute kidney injury superimposed on chronic kidney disease, hyponatremia Code(s): N17.9 - Acute kidney failure, unspecified; N18.9 - Chronic kidney disease, unspecified Status: Acute Assessment and Plan: Cr elevated at 2.75 on admission. Baseline unclear but probably around 1.5. Suspect related to sepsis, osteomyelitis and necrotizing fasciitis. Also was on ibuprofen, lisinopril at home Treated with IV fluids and Cr better., Cr stable at 1.08 Patient is a poor intake Sodium still lower than baseline. Start Normal saline 08/28 Sodium 135, DC normal saline 08/29 (5) Insulin dependent type 2 diabetes mellitus: Code(s): E11.9 - Type 2 diabetes mellitus without complications; Z79.4 - intermodal truck driver (current) use of insulin Status: Chronic Assessment and Plan: The patient's blood glucose was reviewed on 08/26 Glucose better this morning at 123. Continue AccuCheks covering with sliding scale. Hypoglycemia protocol available as needed. Contnue Lantus and add back meal time insulin. Watch for lows. Controlled in target range, decrease Lantus to 30 units from 40 need q.h.s. 08/27 Continue to monitor (6) Essential hypertension: Code(s): I10 - Essential (primary) hypertension Status: Chronic Assessment and Plan: Blood pressure stable Patient will be discharged to [facility] today Time Spent with Patient Time attestation: Total time spent providing and/or coordinating discharge services: Exam Narrative: GENERAL: Pleasant, in no acute distress. Well-nourished. - EYES: EOMI. Anicteric. - HENT: Moist mucous membranes. - LUNGS: Clear to auscultation bilateral ly, no wheezing, rhonchi, or rales. - CARDIOVASCULAR: Regular rate and rhyth m. No murmur. No JVD. - ABDOMEN: Soft, non-tender and non-dist ended. No palpable masses. - EXTREMITIES: No edema. Peripheral puls es 2+. Non-tender. - NEUROLOGIC: No focal neurological defi cits. CN II-XII grossly intact. - PSYCHIATRIC: Awake, Alert and oriented x 3. Appropriate mood and affect. - SKIN: Right foot wound vac in place. Surgical wound is dry and clean, no sign infection. Left foot dressing clean, dry and intact - LYMPH: No cervical lymphadenopathy. DS: Data Data Completed and Pending Completed studies during hospitalization: Pending at discharge 08/22/24 16:35 Surgical [PTH] Routine Labs on day of discharge: Labs from last 24 hours 08/30/24 08/30/24 08/29/24 08:18 04:42 19:34 WBC 9.2 RBC 3.60 L Hgb 10.2 L Hct 32.6 L MCV 90.6 MCH 28.3 MCHC 31.3 L RDW 13.8 Plt Count 465 H MPV 9.3 Immature Gran % (Auto) 2.2 H Neut % (Auto) 46.0 Lymph % (Auto) 38.8 [place] % (Auto) 7.0 Eos % (Auto) 5.0 H Baso % (Auto) 1.0 Lymph # (Auto) 3.56 H [place] # (Auto) 0.6 Eos # (Auto) 0.5 H Baso # (Auto) 0.1 Abs Immat Gran (auto) 0.20 H Absolute Neuts (auto) 4.2 Absolute Nucleated RBC 0.000 Nucleated RBC % 0.0 Sodium 134 L Potassium 4.1 Chloride 101 Carbon Dioxide 27 Anion Gap 6 BUN 14 Creatinine 1.00 Estim Creat Clear Calc 59 Estimated GFR > 60 Glucose 183 H POC Capillary Glucose 160 H 272 H Calcium 8.6 Total Bilirubin 0.4 AST 34 ALT 20 Alkaline Phosphatase 65 Total Protein 6.0 L Albumin 2.7 L Vancomycin Trough 08/29/24 08/29/24 08/29/24 17:15 16:25 11:20 WBC RBC Hgb Hct MCV MCH MCHC RDW Plt Count MPV Immature Gran % (Auto) Neut % (Auto) Lymph % (Auto) [place] % (Auto) Eos % (Auto) Baso % (Auto) Lymph # (Auto) [place] # (Auto) Eos # (Auto) Baso # (Auto) Abs Immat Gran (auto) Absolute Neuts (auto) Absolute Nucleated RBC Nucleated RBC % Sodium Potassium Chloride Carbon Dioxide Anion Gap BUN Creatinine Estim Creat Clear Calc Estimated GFR Glucose POC Capillary Glucose 277 H 190 H Calcium Total Bilirubin AST ALT Alkaline Phosphatase Total Protein Albumin Vancomycin Trough 19.2 Discharge Plan Discharge Attending physician on discharge: Dmitriy Piper Consulting providers: Andrews Ornelas Discharging Clinician: Dmitriy Piper Anticipated Discharge Date/Time: 08/30/24 09:19 Patient Disposition: SNF Activity: may shower, no driving and follow weight bearing status Diet: as tolerated Wound Care Instructions: follow printed instructions Discharge Instructions: Orthopedic Recommendations Dr. Andrews Ornelas [phone] * Continue IV antibiotics to completion. * Monitor Vanc Troph and adjust accordingly. * Weight bearing on heel only left foot. * Post Op Shoes, bilaterally. * Wound care instructions: * Right foot wound. Wound vac dressing changes three times per week (-W-) Settings of low continuous pressure 125 mmHg * Left foot wound. Daily dressing changes of Xeroform gauze over incision line, cover with ABD pad and roll gauze dressing. Appointment at the [facility] will be on Monday September 09, 2024 at 8:30AM Patient must arrive to Hospital Entrance 1 by 8:00AM as he needs to go through Registration Someone must be with this patient to register him. Once registered, the wound center is located on the 2nd floor. Follow signs for the office. Questions regarding appointment, please contact wound center at [phone] Ornelas's office at [phone]. Patient Language: Georgian Stand Alone Forms: General Discharge Information Follow-up/Referrals: Andrews Ornelas MD [Physician] - 09/09/24 8:30 am ([facility] wound clinic Please arrive to Registration(hospital entrance 1) at 8:00AM Patient must have someone with him at all times.) Discharge Medications: New hydrocodone-acetaminophen 5-325 mg Tablet 1 tablet PO Q6H PRN (Reason: Pain Rated 4-6) Qty: 20 0RF vancomycin 1,000 mg Recon Soln 1,000 mg IV Q12H Qty: 54 0RF Continued atorvastatin 20 mg Tablet 20 mg PO HS aspirin 81 mg Tablet,Chewable 81 mg PO DAILY duloxetine [Cymbalta] 30 mg Capsule,Delayed Release(Dr/Ec) 30 mg PO HS fenofibrate 160 mg Tablet 160 mg PO DAILY melatonin 10 mg Capsule 10 mg PO HS insulin glargine [Lantus Solostar U-100 Insulin] 100 unit/mL (3 mL) Insulin Pen 70 unit SUBCUT HS multivitamin Tablet 1 tablet PO DAILY docusate sodium 50 mg Capsule 100 mg PO PRN PRN (Reason: Constipation) Rx Instructions: at HS PRN for constipation lisinopril 10 mg Tablet 10 mg PO DAILY ergocalciferol (vitamin D2) 25,000 unit Capsule 50,000 unit PO WEEKLY Rx Instructions: give on Sunday acetaminophen [Tylenol] 325 mg Tablet 650 mg PO Q6H PRN (Reason: Pain) polyethylene glycol 3350 [Miralax] 17 gram Powder In Packet 17 g PO DAILY tamsulosin 0.4 mg capsule 0.4 mg PO DAILY metformin 1,000 mg Tablet 1,000 mg PO BID fluoxetine 20 mg capsule 20 mg PO DAILY glipizide 5 mg tablet 5 mg PO BID omega 7-sev-mkk-fish oil 300-1,000 mg Capsule 1 cap PO DAILY glucagon HCl [Glucagon (HCl) Emergency Kit] 1 mg Recon Soln 1 mg IM PRN PRN (Reason: Hypoglycemia) Rx Instructions: give 1 injection prn for hypoglycemia if patient unable to eat or drink for BS below 70 insulin lispro [Humalog KwikPen Insulin] 100 unit/mL insulin pen 10 unit SUBCUT TIDWM Qty: 15 0RF Discontinued ibuprofen 800 mg Tablet 800 mg PO TID PRN (Reason: Pain) Date of admission: 08/22/24 07:53 Primary Care Provider: Abel Lu Admitting Provider: Ramos Pradhan Attending physician on admission: Ramos Pradhan Condition: Stable
[2024-08-30 11:47] LABS: Glucose Point of Care 167 mg/dl (65-105)
[2024-08-30 14:00] VITALS: BP 142/62; PULSE 84; RESP 18; TEMP 36.3; O2SAT 99
== END 2024-08-30 16:25 | DRG 854 ==
LOC: ANHED 23:58 → ANH3MEDSUR 08-22 00:58
PROVIDERS: Internal Medicine; Orthopaedic Surgery; Physician Assistant; Admitting Provider Internal Medicine; Emergency Provider Registered Nurse; PCP Family Medicine; Visit Provider Hospitalist
PROC: 0Y6N0Z9 Detachment at Left Foot, Partial 1st Ray, Open Approach (ICD-10-PCS; principal; 2024-08-22 16:00)
PROC: 0JBQ0ZZ Excision of Right Foot Subcutaneous Tissue and Fascia, Open Approach (ICD-10-PCS; principal; 2024-08-25 15:30)
DX: A41.9 Sepsis, unspecified organism (principal); E87.1 Hypo-osmolality and hyponatremia; M86.172 Other acute osteomyelitis, left ankle and foot; M86.171 Other acute osteomyelitis, right ankle and foot; N39.0 Urinary tract infection, site not specified; L97.528 Non-pressure chronic ulcer of other part of left foot with other specified severity; N17.9 Acute kidney failure, unspecified; L97.412 Non-pressure chronic ulcer of right heel and midfoot with fat layer exposed; B95.0 Streptococcus, group A, as the cause of diseases classified elsewhere; B95.62 Methicillin resistant Staphylococcus aureus infection as the cause of diseases classified elsewhere; E11.42 Type 2 diabetes mellitus with diabetic polyneuropathy; E11.22 Type 2 diabetes mellitus with diabetic chronic kidney disease; E11.51 Type 2 diabetes mellitus with diabetic peripheral angiopathy without gangrene; E11.621 Type 2 diabetes mellitus with foot ulcer; E66.9 Obesity, unspecified; E78.5 Hyperlipidemia, unspecified; E87.5 Hyperkalemia; E11.69 Type 2 diabetes mellitus with other specified complication; G47.00 Insomnia, unspecified; G89.4 Chronic pain syndrome; I12.9 Hypertensive chronic kidney disease with stage 1 through stage 4 chronic kidney disease, or unspecified chronic kidney disease; N40.0 Benign prostatic hyperplasia without lower urinary tract symptoms; N28.9 Disorder of kidney and ureter, unspecified; N18.30 Chronic kidney disease, stage 3 unspecified; Z79.4 Long term (current) use of insulin; Z79.85 Long-term (current) use of injectable non-insulin antidiabetic drugs; Z79.84 Long term (current) use of oral hypoglycemic drugs; Z79.82 Long term (current) use of aspirin; Z20.822 Contact with and (suspected) exposure to COVID-19; Z87.891 Personal history of nicotine dependence; Z85.038 Personal history of other malignant neoplasm of large intestine; Z89.422 Acquired absence of other left toe(s); Z90.49 Acquired absence of other specified parts of digestive tract
CPT/HCPCS: 36415; 36569; 73620; 73630; 73718; 80048; 80053; 80202; 81001; 82565; 82948; 83036; 83605; 83735; 85025; 85610; 85652; 85730; 86140; 87040; 87070; 87075; 87086; 87181; 87205; 87637; 88305; 88311; 93005; 93922; 96365; 96367; 97163; 97165; 99199; 99285; A9270; C1751; G0378; J0690; J0692; J1644; J1815; J1836; J2003; J2060; J2250; J2405; J2704; J3010; J3370; J3475; J7030; J7120

== ENCOUNTER 2024-09-16 08:59 | Outpatient (RCR) | payer MEDICARE, MEDICAID, SELFPAY ==
--- NOTE | 2024-09-16 09:37 | PM.IMHP ---
H&P: HPI History of Present Illness Date/Time: 09/16/24 09:37 Chief Complaint: Bilateral DFU Narrative: 3 weeks, 1 day s/p Excisional debridement bilateral foot diabetic ulcers and osteomyelitis. Patient is currently residing in a SNF and having IV antibiotics/daily wound care with wound VAC. No new concerns today. Review of Systems Review of Systems: All systems reviewed & are unremarkable except as noted in HPI and below PMFSH Past Medical History Medical History (Updated 09/16/24 @ 13:50 by HOMERO Lin) Sepsis Diabetic ulcer of right foot Malignant neoplasm of sigmoid colon (03/2020) Arterial insufficiency Chronic kidney disease, stage 3 Dyslipidemia Essential hypertension Insulin dependent type 2 diabetes mellitus Diabetic foot ulcer Neuropathic arthritis due to secondary diabetes Surgical History Surgical History (Updated 09/16/24 @ 13:50 by HOMERO Lin) Status post transmetatarsal amputation of left foot History of colon resection (04/2020) Moderately differentiated adenocarcinoma, pT3N0 Status post debridement 09/2014: Excisional debridement of osteomyelitis of both feet. 04/2015: Excisional debridement of right foot ulcer with excision of osteomyelitis of the right calcaneus and skin graft. 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 History of removal of cyst From the side of the neck. History of appendectomy Family History Family History Mother Dementia Father Diabetes mellitus Acute myocardial infarction Social History Social History Social History: Surrogate decision maker: Bibiana Quispe, daughter. Code status: Full code. Smoking packs per day: 1 Smoking cigarettes per day: 20.0 Years smoked: 25 Smoking pack-years: 25.00 Smoking status: Former smoker Alcohol intake: current Drinks per week: 2 Substance use: former Substance use type: marijuana Do You Feel Safe in your Home?: Yes Lack of Transportation: No Lack of Food: Never True Current Housing: I Do Not Have Housing Concerned About Future Housing: No Difficulty Paying Gas/Electric Bills: No Difficulty Paying for Meds: No Currently Unemployed: No Education: Decline to Answer Difficulty w/ Childcare or Family Care: No Additional living arrangements comments: Resident at [facility]. Ambulates with a walker or is in a wheelchair. Spiritual care concerns: No Meds Home Medications and Allergies Home Medications ?Medication ?Instructions ?Recorded ?Confirmed ?Type aspirin 81 mg chewable tablet 81 mg PO DAILY 04/18/19 09/16/24 History atorvastatin 20 mg tablet 20 mg PO HS 04/18/19 09/16/24 History duloxetine 30 mg capsule,delayed 30 mg PO HS 04/18/19 09/16/24 History release (Cymbalta) fenofibrate 160 mg tablet 160 mg PO DAILY 04/18/19 09/16/24 History melatonin 10 mg capsule 10 mg PO HS 04/18/19 09/16/24 History docusate sodium 50 mg capsule 100 mg PO PRN PRN Constipation 04/22/20 09/16/24 History ergocalciferol (vitamin D2) 25,000 50,000 unit PO WEEKLY 04/22/20 09/16/24 History unit capsule lisinopril 10 mg tablet 10 mg PO DAILY 04/22/20 09/16/24 History multivitamin 1 tablet PO DAILY 04/22/20 09/16/24 History acetaminophen 325 mg tablet 650 mg PO Q6H PRN Pain 05/23/24 09/16/24 History (Tylenol) fluoxetine 20 mg capsule 20 mg PO DAILY 05/23/24 09/16/24 History glipizide 5 mg tablet 5 mg PO BID 05/23/24 09/16/24 History glucagon HCl 1 mg solution for 1 mg IM PRN PRN Hypoglycemia 05/23/24 09/16/24 History injection (Glucagon (HCl) Emergency Kit) metformin 1,000 mg tablet 1,000 mg PO BID 05/23/24 09/16/24 History omega 5-xgy-srk-fish oil 300 1 cap PO DAILY 05/23/24 09/16/24 History mg-1,000 mg capsule polyethylene glycol 3350 17 gram 17 g PO DAILY 05/23/24 09/16/24 History oral powder packet (Miralax) tamsulosin 0.4 mg capsule 0.4 mg PO DAILY 05/23/24 09/16/24 History insulin lispro 100 unit/mL 10 unit (0.1 mL) subcut TIDWM #15 05/27/24 09/16/24 Rx subcutaneous pen (Humalog KwikPen mL (U-100) Insulin) insulin glargine 100 unit/mL (3 70 unit subcut HS 08/22/24 09/16/24 History mL) subcutaneous pen (Lantus Solostar U-100 Insulin) hydrocodone 5 mg-acetaminophen 325 1 tablet PO Q6H PRN Pain Rated 4-6 08/30/24 09/16/24 Rx mg tablet #20 tabs vancomycin 1,000 mg intravenous 1,000 mg IV Q12H #54 ea 08/30/24 09/16/24 Rx injection clotrimazole-betamethasone 1 1 applic topical HS dermatitis 09/16/24 09/16/24 History %-0.05 % topical cream ibuprofen 800 mg tablet (IBU) 800 mg PO Q8H PRN pain 09/16/24 09/16/24 History Allergies Allergy/AdvReac Type Severity Reaction Status Date / Time sitagliptin Allergy Severe Confusion Verified 09/16/24 11:01 Exam Const: General: No in distress or confusion Orientation/consciousness: patient oriented x3 HENMT: Head: normal to inspection, normocephalic and atraumatic Resp: Effort & Inspection: normal respiratory effort Cardio: Rate: regular rate Rhythm: regular rhythm GI: GI Palp: Yes Soft to palpation, No Tenderness to palpation present (GI) and No Guarding due to palpation present (GI) Extrem: Other: Dressing removed. Left foot TMA with wound opening. Failure of sutures. Necrotic tissue. No malodor. No purulence. Sutures removed. Wound measures 7x5x2 cm, with tunneling towards the 1st ray wt 4.5cm. Medial hindfoot incision with sutures removed. Incision well-approximated. Right lateral midfoot wound measures 2x1.5x1.5 cm, 100% slough. No malodor. No purulence. Surrounding sutures removed. Assessment and Plan Assessment and plan (1) Status post transmetatarsal amputation of left foot: Code(s): Z89.432 - Acquired absence of left foot Status: Acute Assessment and Plan: Incision dehiscence. Tissue necrotic. No purulence. No malodor. Stop wound vac. Begin daily dressing changes with silver gel, iodoform, cover dry. Follow up in 3 weeks. (2) Diabetic foot ulcer: Qualifiers: Diabetic foot ulcer location: heel Diabetes mellitus type: type 2 Laterality: right Non-pressure ulcer stage: limited to breakdown of skin Qualified Code(s): E11.621 - Type 2 diabetes mellitus with foot ulcer; L97.411 - Non-pressure chronic ulcer of right heel and midfoot limited to breakdown of skin Code(s): E11.621 - Type 2 diabetes mellitus with foot ulcer; L97.509 - Non-pressure chronic ulcer of other part of unspecified foot with unspecified severity Status: Acute Assessment and Plan: Right lateral midfoot incision with mid substance opening. No signs of active infection. Sutures removed. Begin daily dressing changes with silver gel, iodoform gauze. Cover dry. Follow up in 3 weeks. (3) Foot osteomyelitis, left: Qualifiers: Osteomyelitis type: other Qualified Code(s): M86.8X7 - Other osteomyelitis, ankle and foot Code(s): M86.9 - Osteomyelitis, unspecified Status: Acute
[2024-09-16 10:44] VITALS: BMI 25.7
--- NOTE | 2024-10-14 13:17 | PCWOUND ---
WOCN NOTE Received call from orthopedic office to cancel appointment. Patient is being followed by [facility].
== END 2024-12-01 14:30 | disposition home or self-care (01) ==
LOC: ANHWOC 08:59
PROVIDERS: PCP Family Medicine; Visit Provider Nurse Practitioner Family
DX: Z48.01 Encounter for change or removal of surgical wound dressing (principal); E11.621 Type 2 diabetes mellitus with foot ulcer; L97.411 Non-pressure chronic ulcer of right heel and midfoot limited to breakdown of skin; M86.8X7 Other osteomyelitis, ankle and foot; Z89.432 Acquired absence of left foot
CPT/HCPCS: 99214; G0463